=== PATIENT | female | born 1990 | race American Indian/Alaskan Native ===

== ENCOUNTER 2021-08-06 07:31 | Inpatient (IN) | payer OTHER, MEDICARE ==
[2021-08-06] MEDS ORDERED: cloNIDine 0.2 MG TAB PO ONE (12:48)
[2021-08-06] MEDS ORDERED: fentaNYL 100 MCG/2 ML INJ IV ONE (13:12)
[2021-08-06] MEDS ORDERED: ONDANSETRON 4 MG/2 ML INJ IV ONE (13:12)
--- NOTE | 2021-08-06 13:20 | Emergency Department Report ---
HPI - General Chief Complaint: Weakness Time Seen by Provider: 08/06/21 12:55 - HPI HPI: Room 25 Patient is a 30-year-old female present with chief complaint of shortness of breath. The patient states for the past 2 to 3 days she has had dyspnea on ex ertion and increased work of breathing whenever she sleeps. Patient states for the past 3 days she has had intermittent sharp substernal chest pain. Patient admits to pleurisy. Patient states she's also had a headache. Patient has a history end-stage renal disease and was last dialyzed 08/04/2021 ED Past Medical Hx - Past Medical History Previous Medical History?: Yes Hx Hypertension: Yes Hx Renal Disease: Yes (DIALYSIS TTS) Hx Seizures: Yes Hx Psychiatric Treatment: Yes (ADHD) Hx Asthma: Yes (childhood) Additional medical history: lupus - Surgical History Additional Surgical History: Left upper extremity fistula - Family History Family history: no significant - Social History Smoking Status: Never Smoker Substance Use Type: None (Denies illicit drug use) - Medications Home Medications: Home Medications Medication Instructions Recorded Confirmed Last Taken Type hydrOXYzine HCL [Atarax] 25 mg PO Q6HR PRN #20 tablet 06/19/13 03/01/14 Unknown Rx Folic Acid [Folvite] 1 mg PO QDAY #30 tablet 03/12/14 Unknown Rx Hydralazine HCl [hydrALAZINE] 100 mg PO DAILY #30 tablet 03/12/14 Unknown Rx Hydroxychloroquine [Plaquenil] 200 mg PO QDAY #30 tablet 03/12/14 Unknown Rx LORazepam [Ativan] 1 mg PO TID PRN #6 tablet 03/12/14 Unknown Rx Pantoprazole [Protonix TAB] 20 mg PO QDAY #20 tablet.dr 03/12/14 Unknown Rx amLODIPine 10 mg PO DAILY #30 tablet 03/12/14 Unknown Rx cloNIDine [Catapres] 0.1 mg PO BID #30 tablet 03/12/14 Unknown Rx hydrOXYzine HCL [Atarax] 25 mg PO Q6HR #20 tablet 03/12/14 Unknown Rx levETIRAcetam [Keppra TAB] 500 mg PO BID #60 tablet 03/12/14 Unknown Rx predniSONE 10 mg PO QPM #30 tablet 03/12/14 Unknown Rx risperiDONE [RisperDAL] 1 mg PO QHS #30 tablet 03/12/14 Unknown Rx Citalopram [celeXA] 20 mg PO QDAY #30 tablet 03/30/14 Unknown Rx ED Review of Systems ROS: Stated complaint: MALAISE X 2 DAYS Other details as noted in HPI Constitutional: denies: fever Eyes: denies: eye pain ENT: denies: throat pain Respiratory: shortness of breath, SOB with exertion, SOB at rest. denies: cough Cardiovascular: chest pain Endocrine: no symptoms reported Gastrointestinal: denies: nausea, vomiting Musculoskeletal: denies: back pain Neurological: headache Physical Exam - Physical Exam Vital Signs: Vital Signs 08/06/21 08/06/21 08/06/21 08:34 08:35 12:14 Pulse Rate 98 H 95 H Respiratory 16 14 Rate Blood Pressure 182/98 [Left] O2 Sat by Pulse 95 95 98 Oximetry Physical Exam: GENERAL: The patient is well-developed well-nourished female lying on stretcher not appearing to be in acute distress. [] HEENT: Normocephalic. Atraumatic. Extraocular motions are intact. Patient has moist mucous membranes. NECK: Supple. Trachea midline CHEST/LUNGS: Clear to auscultation. There is no respiratory distress noted. HEART/CARDIOVASCULAR: Regular. There is no tachycardia. There is no gallop rub or murmur. ABDOMEN: Abdomen is soft, nontender. Patient has normal bowel sounds. There is no abdominal distention. SKIN: There is no rash. There is no edema. There is no diaphoresis. NEURO: The patient is awake, alert, and oriented. The patient is cooperative. The patient has no focal neurologic deficits. The patient has normal speech. GCS 15 MUSCULOSKELETAL:There is no evidence of acute injury. ED Course Vital Signs 08/06/21 08/06/21 08/06/21 08:34 08:35 12:14 Pulse Rate 98 H 95 H Respiratory 16 14 Rate Blood Pressure 182/98 [Left] O2 Sat by Pulse 95 95 98 Oximetry - Consultations Consultation #1: 08/06/21 16:31 Nephrology paged 08/06/21 16:[address] Mejias- will arrange hemodialysis ED Medical Decision Making - Lab Data Result diagrams: 08/06/21 Unknown 08/06/21 Unknown Laboratory Tests 08/06/21 08/06/21 08/06/21 Unknown Unknown Unknown WBC 4.1 L RBC 2.28 L Hgb 6.9 L Hct 22.5 L MCV 99 H MCH 30 MCHC 31 RDW 18.0 H Plt Count 77 L Lymph % (Auto) 24.2 Ro[place] % (Auto) 6.4 Eos % (Auto) 4.7 H Baso % (Auto) 0.5 Lymph # (Auto) 1.0 L Roane # (Auto) 0.3 Eos # (Auto) 0.2 Baso # (Auto) 0.0 Seg Neutrophils % 64.2 Seg Neutrophils # 2.6 D-Dimer Sodium 135 L Potassium 5.8 H Chloride 103.0 Carbon Dioxide 16 L Anion Gap 22 BUN 56 H Creatinine 9.8 H Estimated GFR 6 BUN/Creatinine Ratio 6 Glucose 81 Calcium 9.1 Total Bilirubin 0.30 AST 25 ALT 8 Alkaline Phosphatase 104 Troponin T 0.097 H NT-Pro-B Natriuret Pep Total Protein 7.2 Albumin 3.3 L Albumin/Globulin Ratio 0.8 HCG, Qual 08/06/21 08/06/21 08/06/21 Unknown Unknown Unknown WBC RBC Hgb Hct MCV MCH MCHC RDW Plt Count Lymph % (Auto) Roane % (Auto) Eos % (Auto) Baso % (Auto) Lymph # (Auto) Ro[place] # (Auto) Eos # (Auto) Baso # (Auto) Seg Neutrophils % Seg Neutrophils # D-Dimer 6037.58 H Sodium Potassium Chloride Carbon Dioxide Anion Gap BUN Creatinine Estimated GFR BUN/Creatinine Ratio Glucose Calcium Total Bilirubin AST ALT Alkaline Phosphatase Troponin T NT-Pro-B Natriuret Pep 73548 H Total Protein Albumin Albumin/Globulin Ratio HCG, Qual Negative - EKG Data -: EKG Interpreted by Me EKG shows normal: sinus rhythm, axis Rate: normal - EKG Data When compared to previous EKG there are: previous EKG unavailable Interpretation: nonspecific ST-T wave mara (T wave inversion lead V2) - Radiology Data Radiology results: report reviewed (Chest x-ray, VQ scan, CT head), image reviewed (Chest x-ray, VQ scan, CT head) interpreted by me: Chest x-ray-no definite focal infiltrate, no pneumothorax [facility] [address] [place] [address] [address] [facility] Medicine Report Signed Patient: SPENSER MCDANIEL MR#: [id number] : 1990 Acct:[id number] Age/Sex: 30 / F ADM Date: 08/06/21 Loc: ED Attending Dr: Ordering Physician: JOSE RAMIREZ MD Date of Service: 08/06/21 Procedure(s): NM perfusion only lung scan Accession Number(s): [id number] cc: JOSE RAMIREZ MD NUCLEAR MEDICINE PERFUSION SCAN INDICATION: Chest pain, shortness of breath CORRELATION: AP chest performed the same day RADIOPHARMACEUTICAL: Perfusion: 5.3 mCi Tc-99m MAA given IV FINDINGS: Perfusion images show symmetric and uniform radiotracer distribution throughout bilateral lung zones with no evidence of unmatched segmental perfusion defects. The cardiac silhouette is enlarged. IMPRESSION: Low probability perfusion scan for pulmonary embolism. Signer Name: Pascual Dc Jr, MD Signed: 08/06/2021 4:10 PM Workstation Name: [id number] Transcribed By: TTR Dictated By: PASCUAL DC JR, MD Electronically Authenticated By: PASCUAL DC JR, MD Signed Date/Time: 08/06/21 1610 DD/ 1605 TD/TT: [facility] [address] [place] [address] Cat Scan Report Signed Patient: SPENSER MCDANIEL MR#: [id number] : 1990 Acct:[id number] Age/Sex: 30 / F ADM Date: 08/06/21 Loc: ED Attending Dr: Ordering Physician: JOSE RAMIREZ MD Date of Service: 08/06/21 Procedure(s): CT head/brain wo con Accession Number(s): [id number] cc: JOSE RAMIREZ MD . CT HEAD WITHOUT CONTRAST INDICATION / CLINICAL INFORMATION: Hypertension, headache. TECHNIQUE: All CT scans at this location are performed using CT dose reduction for ALARA by means of automated exposure control. COMPARISON: Head CT 01/13/2013 FINDINGS: HEMORRHAGE: No evidence of intracranial hemorrhage or extra-axial fluid collection. EXTRA-AXIAL SPACES: Cortical sulci, sylvian fissures and basilar cisterns have an unremarkable appearance. VENTRICULAR SYSTEM: About the lateral ventricles are mildly enlarged. This is likely on a developmental basis. The third and fourth ventricles are of normal size and configuration. CEREBRAL PARENCHYMA: No areas of abnormal brain parenchymal attenuation are identified. There is no indication of recent infarction. On previous study a region of decreased brain parenchymal attenuation was observed in the right occipital lobe. This has resolved. MIDLINE SHIFT OR HERNIATION: The re is no mass effect. CEREBELLUM / BRAINSTEM: Brainstem and cerebellum have an unremarkable appearance. MIDLINE STRUCTURES:No abnormalities of the pituitary gland or pineal region are identified. INTRACRANIAL VESSELS:No abnormalities are identified on this noncontrast head CT. ORBITS: visualized portions of the orbits have an unremarkable appearance. SOFT TISSUES of HEAD: No significant abnormality. CALVARIUM: Evaluation of bone windows reveals no abnormalities. PARANASAL SINUSES / MASTOID AIR CELLS: Visualized portions of the paranasal sinuses are free from inflammatory mucosal disease. Mastoid air cells are normally pneumatized. IMPRESSION: 1. No significant intracranial abnormality. No detrimental interval change in comparison to prior study. Signer Name: Bin Barlow MD Signed: 08/06/2021 4:20 PM Workstation Name: [id number] Transcribed By: Dictated By: Bin Barlow MD Electronically Authenticated By: Bin Barlow MD Signed Date/Time: 08/06/21 1620 DD/ 1609 TD/TT: - Differential Diagnosis Hypertensive urgency, hypertensive emergency, volume overload, CHF Critical care attestation.: If time is entered above; I have spent that time in minutes in the direct care of this critically ill patient, excluding procedure time. ED Disposition Clinical Impression: Hypertensive urgency, Hyperkalemia, ESRD needing dialysis, Chest pain Disposition: ADMITTED INPATIENT Is pt being admited?: Yes Does the pt Need Aspirin: No Condition: Fair Instructions: Nonspecific Chest Pain, Adult Referrals: AMPARO BOOTH MD [Primary Care Provider] - 3-5 Days Time of Disposition: 16:46 (Care transferred to hospitalist (Dr. Patino))
[2021-08-06 14:24] LABS: Basophils % (Auto) 0.5 % (0.0-1.8); Eosinophils # (Auto) 0.2 K/mm3 (0.0-0.4); Eosinophils % (Auto) 4.7 % (0.0-4.3); Hematocrit 22.5 % (30.3-42.9); Hemoglobin 6.9 gm/dl (10.1-14.3); Lymphocytes % (Auto) 24.2 % (13.4-35.0); Mean Corpuscular HGB Conc 31 % (30-34); Mean Corpuscular Volume 99 fl (79-97); Monocytes # (Auto) 0.3 K/mm3 (0.0-0.8); Monocytes % (Auto) 6.4 % (0.0-7.3); Red Blood Count 2.28 M/mm3 (3.65-5.03)
[2021-08-06 14:25] LABS: Platelet Count 77 K/mm3 (140-440)
[2021-08-06 14:56] LABS: Albumin 3.3 g/dL (3.9-5); Calcium 9.1 mg/dL (8.4-10.2)
[2021-08-06] MEDS ORDERED: hydrALAZINE 20 MG/1 ML INJ IV ONE (15:00)
[2021-08-06] MEDS ORDERED: diphenhydrAMINE 50 MG/ML VIAL IV ONE (15:26)
--- NOTE | 2021-08-06 15:33 | XRay Report ---
CHEST 1 VIEW 08/06/2021 2:59 PM INDICATION / CLINICAL INFORMATION: chest pain, shortness of breath. COMPARISON: 03/23/2014 FINDINGS: SUPPORT DEVICES: Right IJ permacath terminates in the superior right atrium HEART / MEDIASTINUM: Mild cardiomegaly LUNGS / PLEURA: Mild pulmonary venous congestion and trace left pleural effusion. No evidence for pne umonia or pneumothorax. ADDITIONAL FINDINGS: No significant additional findings. IMPRESSION: 1. Mild volume overload. Signer Name: Pascual Dc Jr, MD Signed: 08/06/2021 3:28 PM Workstation Name: [id number]
--- NOTE | 2021-08-06 16:14 | Nuclear Medicine Report ---
NUCLEAR MEDICINE PERFUSION SCAN INDICATION: Chest pain, shortness of breath CORRELATION: AP chest performed the same day RADIOPHARMACEUTICAL: Perfusion: 5.3 mCi Tc-99m MAA given IV FINDINGS: Perfusion images show symmetric and uniform radiotracer distribution throughout bilateral lung zones with no evidence of unmatched segmental perfusion defects. The cardiac silhouette is enlarged. IMPRESSION: Low probability perfusion scan for pulmonary embolism. Signer Name: Pascual Dc Jr, MD Signed: 08/06/2021 4:10 PM Workstation Name: [id number]
[2021-08-06] MEDS ORDERED: niCARdipine DRIP 40 MG/200 ML BAG IV ONE (16:15)
--- NOTE | 2021-08-06 16:25 | Cat Scan Report ---
. CT HEAD WITHOUT CONTRAST INDICATION / CLINICAL INFORMATION: Hypertension, headache. TECHNIQUE: All CT scans at this location are performed using CT dose reduction for ALARA by means of automated e xposure control. COMPARISON: Head CT 01/13/2013 FINDINGS: HEMORRHAGE: No evidence of intracranial hemorrhage or extra-axial fluid collection. EXTRA-AXIAL SPACES: Cortical sulci, sylvian fissures and basilar cisterns have an unremarkable appear ance. VENTRICULAR SYSTEM: About the lateral ventricles are mildly enlarged. This is likely on a development al basis. The third and fourth ventricles are of normal size and configuration. CEREBRAL PARENCHYMA: No areas of abnormal brain parenchymal attenuation are identified. There is no i ndication of recent infarction. On previous study a region of decreased brain parenchymal attenuation was observed in the right occipital lobe. This has resolved. MIDLINE SHIFT OR HERNIATION: There is no mass effect. CEREBELLUM / BRAINSTEM: Brainstem and cerebellum have an unremarkable appearance. MIDLINE STRUCTURES:No abnormalities of the pituitary gland or pineal region are identified. INTRACRANIAL VESSELS:No abnormalities are identified on this noncontrast head CT. ORBITS: visualized portions of the orbits have an unremarkable appearance. SOFT TISSUES of HEAD: No significant abnormality. CALVARIUM: Evaluation of bone windows reveals no abnormalities. PARANASAL SINUSES / MASTOID AIR CELLS: Visualized portions of the paranasal sinuses are free from inf lammatory mucosal disease. Mastoid air cells are normally pneumatized. IMPRESSION: 1. No significant intracranial abnormality. No detrimental interval change in comparison to prior antione dy. Signer Name: Bin Barlow MD Signed: 08/06/2021 4:20 PM Workstation Name: [address]
[2021-08-06] MEDS ORDERED: INSULIN REGULAR, HUMAN 100 UNITS/1 ML IV ONE (16:30)
[2021-08-06] MEDS ORDERED: ALBUTEROL 2.5 MG/3 ML NEBU IH ONE (16:30)
[2021-08-06] MEDS ORDERED: DEXTROSE 50% IN WATER (25GM) 50 ML SYRINGE IV ONE (16:30)
[2021-08-06] MEDS ORDERED: SODIUM BICARB 8.4% 50 MEQ/50 ML SYRINGE IV ONE (16:30)
--- NOTE | 2021-08-06 16:49 | History and Physical Report ---
History of Present Illness Chief complaint: I am a little short of breath History of present illness: 30 YO Female with HTN, ESRD on HD(T,R,Sa), Seizure Disorder, SLE, ADHD, Malnutrition presents to ED for evaluation. Patient reports "I am short of breath, and my head hurts". Patient states that she has experienced shortness of breath over the past 2 days with persistent symptoms over the same timeframe. Patient also reports chest discomfort with deep breathing but denies chest pain. Patient transported to [facility] via private vehicle for further care and evaluation of the aforementioned symptoms. The patient was seen and evaluated in the emergency department. All lab and imaging studies reviewed. Patient fo und to have diminished cognition with mild confusion. Patient was found to have hypertensive emergency with a blood pressure of 229/151 mmHg. Patient initiated on Cardene drip in the emergency department. Patient was found to have hypertensive encephalopathy, fluid overload, as well as end-stage renal disease in need of urgent dialysis. Patient admitted to [facility]. Nephrology team consulted in ED. No reports of fever, chills, chest pain, palpitation, adductive cough, skin rash, recent contact, known exposure to COVID-19. Prior admission on 03/03/2014 reviewed. All medication listed at time of admission has been reconciled. Advanced care planning conducted in ED. Past History Past Medical History: ESRD, hypertension, seizures, other (See HPI) Past Surgical History: Other (Dialysis access) Social history: single Family history: hypertension Medications and Allergies Allergies Allergy/AdvReac Type Severity Reaction Status Date / Time amoxicillin trihydrate Allergy Unknown Unknown Verified 05/27/13 11:32 [From Augmentin] diphenhydramine Allergy Itching Verified 08/06/21 16:06 [From Benadryl] potassium clavulanate AdvReac Unknown Unknown Verified 05/27/13 11:32 [From Augmentin] Home Medications Medication Instructions Recorded Confirmed Last Taken Type hydrOXYzine HCL [Atarax] 25 mg PO Q6HR PRN #20 tablet 06/19/13 03/01/14 Unknown Rx Folic Acid [Folvite] 1 mg PO QDAY #30 tablet 03/12/14 Unknown Rx Hydralazine HCl [hydrALAZINE] 100 mg PO DAILY #30 tablet 03/12/14 Unknown Rx Hydroxychloroquine [Plaquenil] 200 mg PO QDAY #30 tablet 03/12/14 Unknown Rx LORazepam [Ativan] 1 mg PO TID PRN #6 tablet 03/12/14 Unknown Rx Pantoprazole [Protonix TAB] 20 mg PO QDAY #20 tablet.dr 03/12/14 Unknown Rx amLODIPine 10 mg PO DAILY #30 tablet 03/12/14 Unknown Rx cloNIDine [Catapres] 0.1 mg PO BID #30 tablet 03/12/14 Unknown Rx hydrOXYzine HCL [Atarax] 25 mg PO Q6HR #20 tablet 03/12/14 Unknown Rx levETIRAcetam [Keppra TAB] 500 mg PO BID #60 tablet 03/12/14 Unknown Rx predniSONE 10 mg PO QPM #30 tablet 03/12/14 Unknown Rx risperiDONE [RisperDAL] 1 mg PO QHS #30 tablet 03/12/14 Unknown Rx Citalopram [celeXA] 20 mg PO QDAY #30 tablet 03/30/14 Unknown Rx Active Meds: Active Medications Nicardipine/Sodium Chloride (Cardene Drip 40 Mg/200 Ml) 40 mg in 200 mls @ 25 mls/hr IV ONCE ONE; Protocol Stop: 08/07/21 00:14 Last Admin: 08/06/21 16:28 Dose: 5 mg/hr, 25 mls/hr Calcium Gluconate 1,000 mg/ (Sodium Chloride) 110 mls @ 660 mls/hr IV ONCE ONE Stop: 08/06/21 16:39 Review of Systems Constitutional: no weight loss, no weight gain, no chills Ears, nose, mouth and throat: no ear pain, no tinnitis, no nose pain Breasts: no change in shape, no mass Cardiovascular: no chest pain, no orthopnea, no edema Respiratory: shortness of breath, no cough, no cough with sputum, no hemoptysis Gastrointestinal: no abdominal pain, no nausea, no vomiting, no constipation Genitourinary Female: no dysuria, no urinary frequency, no urgency Rectal: no pain, no incontinence, no bleeding Musculoskeletal: no neck stiffness, no shooting arm pain Integumentary: no rash, no redness, no sores, no wounds Neurological: no head injury, no transient paralysis, no paralysis, no parathesias Psychiatric: no anxiety, no change in sleep habits, no hypersomnia, no suicidal ideation Endocrine: no cold intolerance, no excessive thirst, no polyuria, no nocturia, no flushing Hematologic/Lymphatic: no lymphedema Allergic/Immunologic: no urticaria, no wheezing, no persistent infections Exam - Constitutional Vitals: Temp Pulse Resp BP Pulse Ox 81 14 205/127 100 08/06/21 15:07 08/06/21 14:50 08/06/21 16:11 08/06/21 15:00 General appearance: Present: mild distress, cachectic - EENT Eyes: Present: PERRL ENT: hearing intact, clear oral mucosa - Neck Neck: Present: supple, normal ROM - Respiratory Respiratory effort: normal Respiratory: bilateral: CTA - Cardiovascular Heart Sounds: Present: S1 & S2. Absent: rub, click - Extremities Extremities: pulses symmetrical, No edema Peripheral Pulses: within normal limits - Abdominal General gastrointestinal: Present: soft, non-tender, non-distended, normal bowel sounds Female genitourinary: Present: normal - Integumentary Integumentary: Present: clear, warm, dry - Musculoskeletal Musculoskeletal: gait normal, strength equal bilaterally - Psychiatric Psychiatric: appropriate mood/affect, intact judgment & insight - Neurologic Neurologic: CNII-XII intact, moves all extremities HEART Score - HEART Score Troponin: Troponin T 0.097 ng/mL (0.00-0.029) H 08/06/21 Unknown Results - Labs CBC & Chem 7: 08/06/21 Unknown 08/06/21 Unknown Labs: Abnormal lab results 08/06/21 08/06/21 08/06/21 Range/Units Unknown Unknown Unknown WBC 4.1 L (4.5-11.0) K/mm3 RBC 2.28 L (3.65-5.03) M/mm3 Hgb 6.9 L (10.1-14.3) gm/dl Hct 22.5 L (30.3-42.9) % MCV 99 H (79-97) fl RDW 18.0 H (13.2-15.2) % Plt Count 77 L (140-440) K/mm3 Eos % (Auto) 4.7 H (0.0-4.3) % Lymph # (Auto) 1.0 L (1.2-5.4) K/mm3 D-Dimer (0-234) ng/mlDDU Sodium 135 L (137-145) mmol/L Potassium 5.8 H (3.6-5.0) mmol/L Carbon Dioxide 16 L (22-30) mmol/L BUN 56 H (7-17) mg/dL Creatinine 9.8 H (0.6-1.2) mg/dL Troponin T 0.097 H (0.00-0.029) ng/mL NT-Pro-B Natriuret Pep (0-450) pg/mL Albumin 3.3 L (3.9-5) g/dL 08/06/21 08/06/21 Range/Units Unknown Unknown WBC (4.5-11.0) K/mm3 RBC (3.65-5.03) M/mm3 Hgb (10.1-14.3) gm/dl Hct (30.3-42.9) % MCV (79-97) fl RDW (13.2-15.2) % Plt Count (140-440) K/mm3 Eos % (Auto) (0.0-4.3) % Lymph # (Auto) (1.2-5.4) K/mm3 D-Dimer 6037.58 H (0-234) ng/mlDDU Sodium (137-145) mmol/L Potassium (3.6-5.0) mmol/L Carbon Dioxide (22-30) mmol/L BUN (7-17) mg/dL Creatinine (0.6-1.2) mg/dL Troponin T (0.00-0.029) ng/mL NT-Pro-B Natriuret Pep 76553 H (0-450) pg/mL Albumin (3.9-5) g/dL Assessment and Plan - Patient Problems (1) Hypertensive emergency Current Visit: Yes Status: Acute Plan to address problem: Continue antihypertensive therapy, blood pressure checks as per nursing care protocol, Cardene drip, neuro check, seizure precautions. (2) End stage renal disease Current Visit: Yes Status: Acute Plan to address problem: Nephrology team consulted in ED. Dialysis as per nephrology team, strict I's/O, avoid nephrotoxic agents. (3) SLE (systemic lupus erythematosus) Current Visit: Yes Status: Acute Plan to address problem: Continue current therapy, outpatient rheumatology follow-up. (4) Fluid overload Current Visit: Yes Status: Acute Qualifiers: Hypervolemia type: unspecified Qualified Code(s): E87.70 - Fluid overload, unspecified Plan to address problem: Dialysis as per renal team, monitor fluid balance, supportive care. (5) Malnutrition Current Visit: Yes Status: Acute Qualifiers: Protein-calorie malnutrition severity: moderate Plan to address problem: Encourage increased protein intake, dietary supplementation. (6) DVT prophylaxis Current Visit: Yes Status: Acute Plan to address problem: SCD to bilateral lower extremities while in bed (7) Advance care planning Current Visit: Yes Status: Acute Plan to address problem: Disease education data, care plan discussed, diagnoses discussed, prognosis discussed, patient is full code. Patient knowledges understanding and agreement with care plan, +30 minutes. (8) Preventative health care Current Visit: Yes Status: Acute Plan to address problem: Patient counseled regarding medication plans, increase protein intake, balanced diet, compliance with outpatient dialysis, compliance with medication, risk factor reduction, +30 minutes.
[2021-08-06] MEDS ORDERED: oxyCODONE /ACETAMINOPHEN 5-325MG TAB PO PRN (16:55)
[2021-08-06] MEDS ORDERED: hydrOXYzine HCL 25 MG TAB PO PRN (16:56)
[2021-08-06] MEDS ORDERED: CALCIUM GLUCONATE 1,000 MG in SODIUM CHLORIDE 0.9% 100 ML IV ONE (17:30)
[2021-08-06] MEDS ORDERED: predniSONE 10 MG TAB PO SCH (18:00)
[2021-08-06] MEDS ORDERED: ACETAMINOPHEN 325 MG TAB PO PRN (18:00)
[2021-08-06] MEDS: HYDROmorphone 0.5 MG/0.5 ML INJ IV PRN (18:00)
[2021-08-06 18:54] LABS: Hepatitis B Surface Antigen Non-Reactive (Negative); Hepatitis C Virus Antibody Non-Reactive (NonReactive)
[2021-08-06] MEDS ORDERED: cloNIDine 0.1 MG TAB PO STA (21:53)
[2021-08-06] MEDS ORDERED: cloNIDine 0.1 MG TAB PO SCH (22:00)
[2021-08-06] MEDS: hydrALAZINE 20 MG/1 ML INJ IV PRN (22:35)
[2021-08-06] MEDS: risperiDONE 1 MG TAB PO SCH (23:30)
[2021-08-06] MEDS: LORazepam 1 MG TAB PO PRN (23:30)
[2021-08-06] MEDS: levETIRAcetam 500 MG TAB PO SCH (23:30)
[2021-08-07] MEDS: hydrALAZINE 20 MG/1 ML INJ IV PRN (04:20)
[2021-08-07] MEDS: niCARdipine 50 MG in SODIUM CHLORIDE 0.9% 250ML 230 ML IV SCH (05:10)
--- NOTE | 2021-08-07 08:22 | Consultation ---
History of Present Illness Consult date: 08/07/21 Requesting physician: TAQUERIA PATIÑO Reason for consult: other (Hypertensive emergency needing emergent HD and ) History of present illness: 30 YO Female with HTN, ESRD on HD(T,R,Sa), Seizure Disorder, SLE, ADHD, Malnutr ition presents to ED for evaluation. Patient reports "I am short of breath, and my head hurts". Patient states that she has experienced shortness of breath over the past 2 days with persistent symptoms over the same timeframe. Patient also reports chest discomfort with deep breathing but denies chest pain. Patient transported to [facility] via private vehicle for further care and evaluation of the aforementioned symptoms. The patient was seen and evaluated in the emergency department. All lab and imaging studies reviewed. Patient found to have diminished cognition with mild confusion. Patient was found to have hypertensive emergency with a blood pressure of 229/151 mmHg. Patient initiated on Cardene drip in the emergency department. Patient was found to have hypertensive encephalopathy, fluid overload, as well as end-stage renal disease in need of urgent dialysis She has been admitted to the ICU for emergent HD and she is on Cardene infusion for BP control A critical care consult has been placed. Patient seen and examined. Vitals, labs, medications, chart and imaging reviewed. She had emergent HD yesterday, she states she is complaint with her medications. - Past Medical History Previous Medical History?: Yes Hx Hypertension: Yes Hx Renal Disease: Yes (DIALYSIS TTS) Hx Seizures: Yes Hx Psychiatric Treatment: Yes (ADHD) Hx Asthma: Yes (childhood) Additional medical history: lupus - Surgical History Additional Surgical History: Left upper extremity fistula Right chest wall permacath - Family History Family history: no significant - Social History Smoking Status: Never Smoker Substance Use Type: None (Denies illicit drug use) ROS: Stated complaint: MALAISE X 2 DAYS Other details as noted in HPI Constitutional: denies: fever Eyes: denies: eye pain ENT: denies: throat pain Respiratory: shortness of breath, SOB with exertion, SOB at rest. denies: cough Cardiovascular: chest pain Endocrine: no symptoms reported Gastrointestinal: denies: nausea, vomiting Musculoskeletal: denies: back pain Neurological: headache Past History Past Medical History: ESRD, hypertension, seizures, other (See HPI) Past Surgical History: Other (Dialysis access) Social history: single Family history: hypertension Medications and Allergies Allergies Allergy/AdvReac Type Severity Reaction Status Date / Time amoxicillin trihydrate Allergy Unknown Unknown Verified 05/27/13 11:32 [From Augmentin] diphenhydramine Allergy Itching Verified 08/06/21 16:06 [From Benadryl] potassium clavulanate AdvReac Unknown Unknown Verified 05/27/13 11:32 [From Augmentin] Home Medications Medication Instructions Recorded Confirmed Last Taken Type hydrOXYzine HCL [Atarax] 25 mg PO Q6HR PRN #20 tablet 06/19/13 03/01/14 Unknown Rx Folic Acid [Folvite] 1 mg PO QDAY #30 tablet 03/12/14 Unknown Rx Hydralazine HCl [hydrALAZINE] 100 mg PO DAILY #30 tablet 03/12/14 Unknown Rx Hydroxychloroquine [Plaquenil] 200 mg PO QDAY #30 tablet 03/12/14 Unknown Rx LORazepam [Ativan] 1 mg PO TID PRN #6 tablet 03/12/14 Unknown Rx Pantoprazole [Protonix TAB] 20 mg PO QDAY #20 tablet.dr 03/12/14 Unknown Rx amLODIPine 10 mg PO DAILY #30 tablet 03/12/14 Unknown Rx cloNIDine [Catapres] 0.1 mg PO BID #30 tablet 03/12/14 Unknown Rx hydrOXYzine HCL [Atarax] 25 mg PO Q6HR #20 tablet 03/12/14 Unknown Rx levETIRAcetam [Keppra TAB] 500 mg PO BID #60 tablet 03/12/14 Unknown Rx predniSONE 10 mg PO QPM #30 tablet 03/12/14 Unknown Rx risperiDONE [RisperDAL] 1 mg PO QHS #30 tablet 03/12/14 Unknown Rx Citalopram [celeXA] 20 mg PO QDAY #30 tablet 03/30/14 Unknown Rx Active Meds: Active Medications Acetaminophen (Acetaminophen 325 Mg Tab) 650 mg PO Q6H PRN PRN Reason: Pain MILD(1-3)/Fever >100.5/GUZMAN Amlodipine Besylate (Amlodipine 10 Mg Tab) 10 mg PO DAILY [facility] Citalopram Hydrobromide (Citalopram 10 Mg Tab) 20 mg PO QDAY [facility] Clonidine HCl (Clonidine 0.1 Mg Tab) 0.1 mg PO TID [facility] Folic Acid (Folic Acid 1 Mg Tab) 1 mg PO QDAY [facility] Hydralazine HCl (Hydralazine 20 Mg/1 Ml Inj) 10 mg IV Q4HR PRN PRN Reason: Blood Pressure Last Admin: 08/07/21 04:20 Dose: 10 mg Hydralazine HCl (Hydralazine 25 Mg Tab) 50 mg PO Q6HR [facility] Hydromorphone HCl (Hydromorphone 0.5 Mg/0.5 Ml Inj) 0.5 mg IV Q3H PRN PRN Reason: Pain , Severe (7-10) Last Admin: 08/06/21 18:00 Dose: 0.5 mg Hydroxychloroquine Sulfate (Hydroxychloroquine 200 Mg Tab) 200 mg PO QDAY [facility] Hydroxyzine HCl (Hydroxyzine Hcl 25 Mg Tab) 25 mg PO Q6HR PRN PRN Reason: Itching Nicardipine HCl 50 mg/ Sodium (Chloride) 250 mls @ 25 mls/hr IV TITR [facility]; Protocol Last Titration: 08/07/21 07:05 Dose: 5 mg/hr, 25 mls/hr Levetiracetam (Levetiracetam 500 Mg Tab) 500 mg PO BID [facility] Last Admin: 08/06/21 23:30 Dose: 500 mg Lorazepam (Lorazepam 1 Mg Tab) 1 mg PO TID PRN PRN Reason: Anxiety Last Admin: 08/06/21 23:30 Dose: 1 mg Oxycodone/Acetaminophen (Oxycodone /Acetaminophen 5-325mg Tab) 1 tab PO Q6H PRN PRN Reason: Pain, Moderate (4-6) Pantoprazole Sodium (Pantoprazole 20 Mg Tab) 20 mg PO QDAY [facility] Prednisone (Prednisone 10 Mg Tab) 10 mg PO QPM [facility] Risperidone (Risperidone 1 Mg Tab) 1 mg PO QHS [facility] Last Admin: 08/06/21 23:30 Dose: 1 mg Sodium Chloride (Sodium Chloride 0.9% 10 Ml Flush Syringe) 10 ml IV BID [facility] Last Admin: 08/06/21 23:00 Dose: 10 ml Sodium Chloride (Sodium Chloride 0.9% 10 Ml Flush Syringe) 10 ml IV PRN PRN PRN Reason: LINE FLUSH Physical Examination Vital signs: Vital Signs Pulse Ox 95 08/06/21 08:34 General appearance: Present: mild distress, cachectic - EENT Eyes: Present: PERRL ENT: hearing intact, clear oral mucosa - Neck Neck: Present: supple, normal ROM - Respiratory Respiratory effort: normal Respiratory: bilateral: CTA - Cardiovascular Heart Sounds: Present: S1 & S2. Absent: rub, click - Extremities Extremities: pulses symmetrical, No edema Peripheral Pulses: within normal limits - Abdominal General gastrointestinal: Present: soft, non-tender, non-distended, normal bowel sounds Female genitourinary: Present: normal - Integumentary Integumentary: Present: clear, warm, dry - Musculoskeletal Musculoskeletal: gait normal, strength equal bilaterally - Psychiatric Psychiatric: appropriate mood/affect, intact judgment & insight - Neurologic Neurologic: CNII-XII intact, moves all extremities General appearance: no acute distress, other (chronically ill looking) Eyes: non-icteric ENT: oropharynx moist Neck: supple, no lymphadenopathy, no JVD Effort: mildly labored Ascultation: Bilateral: diminished breath sounds Cardiovascular: other (tachycardia, S1,S2 right chest wall permcath) Gastrointestinal: normoactive bowel sounds, soft, non-tender Integumentary: normal Extremities: no cyanosis, no edema, pulses normal normal mental status, non-focal exam, pupils equal and round, CN II-XII normal, motor strength normal and mood appropriate, affect normal Results - Laboratory Findings CBC and BMP: 08/07/21 12:40 08/07/21 04:48 PT/INR, D-dimer D-Dimer 6037.58 ng/mlDDU (0-234) H 08/06/21 Unknown Abnormal lab findings: Abnormal Labs 08/06/21 08/06/21 08/06/21 Unknown Unknown Unknown WBC 4.1 L RBC 2.28 L Hgb 6.9 L Hct 22.5 L MCV 99 H RDW 18.0 H Plt Count 77 L Eos % (Auto) 4.7 H Lymph # (Auto) 1.0 L D-Dimer Sodium 135 L Potassium 5.8 H Chloride Carbon Dioxide 16 L BUN 56 H Creatinine 9.8 H Troponin T 0.097 H NT-Pro-B Natriuret Pep Albumin 3.3 L 08/06/21 08/06/21 08/07/21 Unknown Unknown 04:48 WBC RBC Hgb Hct MCV RDW Plt Count Eos % (Auto) Lymph # (Auto) D-Dimer 6037.58 H Sodium Potassium 5.5 H Chloride 97.1 L Carbon Dioxide 19 L BUN 33 H Creatinine 6.6 H Troponin T NT-Pro-B Natriuret Pep 19304 H Albumin - Diagnostic Findings Chest x-ray: image reviewed Assessment and Plan Hypertensive emergency End stage renal disease Anemia SLE (systemic lupus erythematosus) Pulmonary edema, respiratory insufficiency Protein calorie Malnutrition Thrombocytopenia Headache H/o Seizure Disorder Continue antihypertensive therapy, blood pressure checks as per nursing care protocol, Cardene drip, neuro check, seizure precautions. Continue Plaquenil Resume home medications- oral antihypertensives Medical managemnt of hyperkalemia, continue with telemetry monitoring Will need another HD session today Cytopenia probably secondary to lupus Supportive transfusion to keep HgB>7g/dL, Epogen and hematinics VTE prophylaxis- early ambulation, SCDs while in bed Dialysis as per renal team, monitor fluid balance, supportive care. Change prn hydrallazine to prn labetelol- patient has baseline tachycardia, target blood pressure SBP<150S Supplemental oxygen, titrate to keep SpO2 89-92% Avoid nephrotoxic medications; Renally dose medications Chronic home medications as clinically indicated Serial CBC The high probability of a clinically significant, sudden or life threatening deterioration of the [multiple] system(s) required my full and direct attention, intervention and personal management. The aggregate critical care time was [45 ] minutes. This time is in addition to time spent performing reported procedures but includes the following: [x] Data Review and interpretation [x] Patient assessment and monitoring of vital signs [x] Documentation [x] Medication orders and management
[2021-08-07] MEDS ORDERED: SODIUM POLYSTYRENE 15 GM/60 ML ORAL LIQD PO SCH (09:45)
[2021-08-07] MEDS ORDERED: hydrALAZINE 100 MG TAB PO SCH (10:00)
[2021-08-07] MEDS: CITALOPRAM 10 MG TAB PO SCH (10:53)
[2021-08-07] MEDS: levETIRAcetam 500 MG TAB PO SCH ×2 (10:53→21:25)
[2021-08-07] MEDS: amLODIPine 10 MG TAB PO SCH (10:54)
[2021-08-07] MEDS: FOLIC ACID 1 MG TAB PO SCH (10:54)
[2021-08-07] MEDS: PANTOPRAZOLE 20 MG TAB PO SCH (10:54)
[2021-08-07] MEDS: cloNIDine 0.1 MG TAB PO SCH ×4 (10:55→20:00)
[2021-08-07] MEDS: HYDROXYCHLOROQUINE 200 MG TAB PO SCH (10:56)
--- NOTE | 2021-08-07 12:16 | Consultation ---
History of Present Illness - Reason for Consult Consult date: 08/07/21 end stage renal disease - History of Present Illness This is a 30 year old female who is a poor historian who presented to the hospital for chief complaint s of having shortness of breath and headache. Patient was found to have Hypertensive Emergency in E.R and was placed on Cardene drip. Patient has history of ESRD on hemodialysis via right IJ perm- catheter seen, Hypertension, Siezure, Bipolar, Lupus and ADHD. We are being consulted for management of this patient's ESRD. Past History Past Medical History: ESRD, hypertension, seizures, other (See HPI) Past Surgical History: Other (Dialysis access) Social history: single Family history: hypertension Medications and Allergies Allergies Allergy/AdvReac Type Severity Reaction Status Date / Time amoxicillin trihydrate Allergy Unknown Unknown Verified 05/27/13 11:32 [From Augmentin] diphenhydramine Allergy Itching Verified 08/06/21 16:06 [From Benadryl] potassium clavulanate AdvReac Unknown Unknown Verified 05/27/13 11:32 [From Augmentin] Home Medications Medication Instructions Recorded Confirmed Last Taken Type hydrOXYzine HCL [Atarax] 25 mg PO Q6HR PRN #20 tablet 06/19/13 03/01/14 Unknown Rx Folic Acid [Folvite] 1 mg PO QDAY #30 tablet 03/12/14 Unknown Rx Hydralazine HCl [hydrALAZINE] 100 mg PO DAILY #30 tablet 03/12/14 Unknown Rx Hydroxychloroquine [Plaquenil] 200 mg PO QDAY #30 tablet 03/12/14 Unknown Rx LORazepam [Ativan] 1 mg PO TID PRN #6 tablet 03/12/14 Unknown Rx Pantoprazole [Protonix TAB] 20 mg PO QDAY #20 tablet. 03/12/14 Unknown Rx amLODIPine 10 mg PO DAILY #30 tablet 03/12/14 Unknown Rx cloNIDine [Catapres] 0.1 mg PO BID #30 tablet 03/12/14 Unknown Rx hydrOXYzine HCL [Atarax] 25 mg PO Q6HR #20 tablet 03/12/14 Unknown Rx levETIRAcetam [Keppra TAB] 500 mg PO BID #60 tablet 03/12/14 Unknown Rx predniSONE 10 mg PO QPM #30 tablet 03/12/14 Unknown Rx risperiDONE [RisperDAL] 1 mg PO QHS #30 tablet 03/12/14 Unknown Rx Citalopram [celeXA] 20 mg PO QDAY #30 tablet 03/30/14 Unknown Rx Active Meds: Active Medications Acetaminophen (Acetaminophen 325 Mg Tab) 650 mg PO Q6H PRN PRN Reason: Pain MILD(1-3)/Fever >100.5/GUZMAN Amlodipine Besylate (Amlodipine 10 Mg Tab) 10 mg PO DAILY [facility] Last Admin: 08/07/21 10:54 Dose: 10 mg Citalopram Hydrobromide (Citalopram 10 Mg Tab) 20 mg PO QDAY [facility] Last Admin: 08/07/21 10:53 Dose: 20 mg Clonidine HCl (Clonidine 0.1 Mg Tab) 0.1 mg PO TID [facility] Last Admin: 08/07/21 10:55 Dose: 0.1 mg Folic Acid (Folic Acid 1 Mg Tab) 1 mg PO QDAY [facility] Last Admin: 08/07/21 10:54 Dose: 1 mg Hydralazine HCl (Hydralazine 25 Mg Tab) 50 mg PO Q6HR [facility] Hydromorphone HCl (Hydromorphone 0.5 Mg/0.5 Ml Inj) 0.5 mg IV Q3H PRN PRN Reason: Pain , Severe (7-10) Last Admin: 08/06/21 18:00 Dose: 0.5 mg Hydroxychloroquine Sulfate (Hydroxychloroquine 200 Mg Tab) 200 mg PO QDAY [facility] Last Admin: 08/07/21 10:56 Dose: 200 mg Hydroxyzine HCl (Hydroxyzine Hcl 25 Mg Tab) 25 mg PO Q6HR PRN PRN Reason: Itching Nicardipine HCl 50 mg/ Sodium (Chloride) 250 mls @ 25 mls/hr IV TITR [facility]; Protocol Last Titration: 08/07/21 07:05 Dose: 5 mg/hr, 25 mls/hr Labetalol HCl (Labetalol 20 Mg/4 Ml Inj) 10 mg IV Q6H PRN PRN Reason: SBP >/=160; DBP >/=100 Levetiracetam (Levetiracetam 500 Mg Tab) 500 mg PO BID [facility] Last Admin: 08/07/21 10:53 Dose: 500 mg Lorazepam (Lorazepam 1 Mg Tab) 1 mg PO TID PRN PRN Reason: Anxiety Last Admin: 08/06/21 23:30 Dose: 1 mg Oxycodone/Acetaminophen (Oxycodone /Acetaminophen 5-325mg Tab) 1 tab PO Q6H PRN PRN Reason: Pain, Moderate (4-6) Pantoprazole Sodium (Pantoprazole 20 Mg Tab) 20 mg PO QDAY [facility] Last Admin: 08/07/21 10:54 Dose: 20 mg Risperidone (Risperidone 1 Mg Tab) 1 mg PO QHS [facility] Last Admin: 08/06/21 23:30 Dose: 1 mg Sodium Chloride (Sodium Chloride 0.9% 10 Ml Flush Syringe) 10 ml IV BID [facility] Last Admin: 08/07/21 10:56 Dose: 10 ml Sodium Chloride (Sodium Chloride 0.9% 10 Ml Flush Syringe) 10 ml IV PRN PRN PRN Reason: LINE FLUSH Sodium Polystyrene Sulfonate (Sodium Polystyrene 15 Gm/60 Ml Oral Liqd) 30 gm PO ONCE@0945 [facility] Stop: 08/07/21 12:45 Last Admin: 08/07/21 10:53 Dose: 30 gm Review of Systems ROS unobtainable: due to mental status Exam - Vital Signs Vital signs: Vital Signs Pulse Ox 95 08/06/21 08:34 - General Appearance General appearance: appears stated age, other (Sleepy but arouses briefly ) EENT: ATNC, PERRL Neck: Present: neck supple, trachea midline Respiratory: Decreased Breath Sounds Heart: S1S2 Gastrointestinal: Present: normoactive bowel sounds Integumentary: warm and dry Neurologic: other (Sle[place]y but arouses briefly) Musculoskeletal: Present: other (No edema) Results - Lab Results 08/06/21 Unknown 08/07/21 04:48 Most recent lab results Calcium 9.0 mg/dL (8.4-10.2) 08/07/21 04:48 Assessment and Plan Assessment: ESRD on hemodialysis Hypertensive Emergency Hypertension Lupus Seizure ADHD Hyperkalemia Plan: Hemodialysis again today for UF and clearance due to Hyperkalemia Has right IJ perm-catheter Patient consented to continue receiving HD while hospitalized Fluid restriction of 1 liter per day Low potassium diet Renally dose medications Strict I/O's daily Assess dialysis needs daily Plan of care reviewed by Dr. Mejias
--- NOTE | 2021-08-07 12:26 | Progress Note ---
<PAPITO ELIZALDE - Last Filed: 08/07/21 16:35> Assessment and Plan Assessment and plan: This is a 30-year-old female with known past medical history of HTN, ESRD on HD(T,R,Sa), seizure disorder, SLE, ADHD, and malnutrition admitted for Hypertensive emergency and fluid overload. Hospital Course to Date: 08/07: Patient is off cardene gtt this amm, SBP in the 160, home antihypertensive agents resumed. S/p HD yesterday, patient is stable on 4L NC this am, no s/s of respiratory distress noted. Low H&H this am, thrombocytopenia improved. Probable chronic 2/2 to ESRD, will transfuse 1unit of PRBCs. Continue to hold AC for now, SCD for VTE proph. Hyperkalemia noted this am, plan for HD again today per Nephro. Assessment and Plan #Hypertensive Emergency - Presented with BP of 229/151 required Cardened gtt - Cardene gtt stopped this am - SBP in the 160, home antihypertensives resumed - Continue blood pressure monitor per protocol - PRN Hydralazine and Labetalol for SBP greated than 160 - CCM is also following #Respiratory Insufficiency 2/2 #Fluid Overload - Presented with SOB and respiratory distress - CXR shows mild volume overload - V/Q with low probability for PE - s/p emergent HD yesterday, now stable on 4L NC, no respiratory distress noted - Continue HD per Nephro - Continue O2 supplementation and wean as tolerated - Continue SPO2 monitoring for SPO2 goal above 92% - CCM is also following #End Stage Renal Disease(ESRD) on HD #Hyperkalemia - Nephrology on consult, appreciated recommendation - Continue HD per nephro, plan for HD again today - Strict intake and output - Avoid nephrotoxic medications; Renally dose medications - Monitor and replace electrolytes as needed #Anemia of Chronic Disease #Thrombocytopenia - Probably chronic 2/2 renal disease - Low H&H this am, 1unit of PRBCs ordered - Mild improvement in plt - No s/s of any active bleeding - Hold AC due to thrombocytopenia - Transfuse for Hgb less than 7 - Epogen with HD per Nephro #Headache #H/o Seizure Disorder - Most likely due to high BP - CT head/brain with no significant intracranial abnormality. - GUZMAN resolved with BP improvement - Continue blood pressure monitor per protocol, Maintain SBP less than 160 - PRN Analgesia for pain control - Resume home Keppra - Seizure precaution #SLE (Systemic Lupus Erythematosus) - Resume home therapy - Outpatient rheumatology follow-up. #Moderate Protein Calori Malnutrition - Encourage increased protein intake, dietary supplementation. - Nutrition consulted #GI/DVT Prophylaxis - PPI- Pepcid - SCD to bilateral lower extremities while in bed #Preventative Health Care - Patient counseled regarding medication plans, increase protein intake, balanced diet, compliance with outpatient dialysis, compliance with medication, risk factor reduction The high probability of a clinically significant, sudden or life threatening deterioration of the [multiple] system(s) required my full and direct attention, intervention and personal management. The aggregate critical care time was [60] minutes. This time is in addition to time spent performing reported procedures but includes the following: [x] Data Review and interpretation [x] Patient assessment and monitoring of vital signs [x] Documentation [x] Medication orders and management Disposition Plan: ICU Total Time Spent with Patient (Minutes): 60 History Interval history: Patient seen and examined at the bedside. Fully AAO but drowsy this am, stable on 4L NC SPO2 at 100%. Patient denied any pain, SOB, nor any discomfor at this time. Patient is off cardene gtt this am, SBP in the 160s. CARIN overnight Hospitalist Physical - Constitutional Vitals: Temp Pulse Resp BP Pulse Ox 98.2 F 94 H 16 167/108 100 08/07/21 08:00 08/07/21 11:30 08/07/21 11:30 08/07/21 11:30 08/07/21 11:30 General appearance: Present: no acute distress, obese - EENT Eyes: Present: PERRL ENT: hearing intact - Neck Neck: Present: normal ROM - Respiratory Respiratory effort: normal Respiratory: bilateral: diminished - Cardiovascular Rhythm: regular Heart Sounds: Present: S1 & S2 - Extremities Extremities: no ischemia, pulses intact, pulses symmetrical Extremity abnormal: edema Peripheral Pulses: within normal limits - Abdominal General gastrointestinal: soft, non-distended, normal bowel sounds - Integumentary Integumentary: Present: clear, warm, dry - Psychiatric Psychiatric: appropriate mood/affect, cooperative - Neurologic Neurologic: CNII-XII intact, moves all extremities - Allied Health Allied health notes reviewed: nursing HEART Score - HEART Score Troponin: Troponin T 0.097 ng/mL (0.00-0.029) H 08/06/21 Unknown Results - Labs CBC & Chem 7: 08/07/21 12:40 08/07/21 04:48 Labs: Laboratory Last Values WBC 4.1 K/mm3 (4.5-11.0) L 08/06/21 Unknown RBC 2.28 M/mm3 (3.65-5.03) L 08/06/21 Unknown Hgb 6.9 gm/dl (10.1-14.3) L 08/06/21 Unknown Hct 22.5 % (30.3-42.9) L 08/06/21 Unknown MCV 99 fl (79-97) H 08/06/21 Unknown MCH 30 pg (28-32) 08/06/21 Unknown MCHC 31 % (30-34) 08/06/21 Unknown RDW 18.0 % (13.2-15.2) H 08/06/21 Unknown Plt Count 77 K/mm3 (140-440) L 08/06/21 Unknown Lymph % (Auto) 24.2 % (13.4-35.0) 08/06/21 Unknown Rabun % (Auto) 6.4 % (0.0-7.3) 08/06/21 Unknown Eos % (Auto) 4.7 % (0.0-4.3) H 08/06/21 Unknown Baso % (Auto) 0.5 % (0.0-1.8) 08/06/21 Unknown Lymph # (Auto) 1.0 K/mm3 (1.2-5.4) L 08/06/21 Unknown [place] # (Auto) 0.3 K/mm3 (0.0-0.8) 08/06/21 Unknown Eos # (Auto) 0.2 K/mm3 (0.0-0.4) 08/06/21 Unknown Baso # (Auto) 0.0 K/mm3 (0.0-0.1) 08/06/21 Unknown Seg Neutrophils % 64.2 % (40.0-70.0) 08/06/21 Unknown Seg Neutrophils # 2.6 K/mm3 (1.8-7.7) 08/06/21 Unknown D-Dimer 6037.58 ng/mlDDU (0-234) H 08/06/21 Unknown Sodium 138 mmol/L (137-145) 08/07/21 04:48 Potassium 5.5 mmol/L (3.6-5.0) H 08/07/21 04:48 Chloride 97.1 mmol/L (98-107) L 08/07/21 04:48 Carbon Dioxide 19 mmol/L (22-30) L 08/07/21 04:48 Anion Gap 27 mmol/L 08/07/21 04:48 BUN 33 mg/dL (7-17) H 08/07/21 04:48 Creatinine 6.6 mg/dL (0.6-1.2) H 08/07/21 04:48 Estimated GFR 9 ml/min 08/07/21 04:48 BUN/Creatinine Ratio 5 % 08/07/21 04:48 Glucose 86 mg/dL (65-100) 08/07/21 04:48 Calcium 9.0 mg/dL (8.4-10.2) 08/07/21 04:48 Total Bilirubin 0.30 mg/dL (0.1-1.2) 08/06/21 Unknown AST 25 units/L (5-40) 08/06/21 Unknown ALT 8 units/L (7-56) 08/06/21 Unknown Alkaline Phosphatase 104 units/L (35-129) 08/06/21 Unknown Troponin T 0.097 ng/mL (0.00-0.029) H 08/06/21 Unknown NT-Pro-B Natriuret Pep 87794 pg/mL (0-450) H 08/06/21 Unknown Total Protein 7.2 g/dL (6.3-8.2) 08/06/21 Unknown Albumin 3.3 g/dL (3.9-5) L 08/06/21 Unknown Albumin/Globulin Ratio 0.8 % 08/06/21 Unknown HCG, Qual Negative (Negative) 08/06/21 Unknown Hepatitis A IgM Ab Non-reactive (NonReactive) 08/06/21 Unknown Hep Bs Antigen Non-reactive (Negative) 08/06/21 Unknown Hep B Core IgM Ab Non-reactive (NonReactive) 08/06/21 Unknown Hepatitis C Antibody Non-reactive (NonReactive) 08/06/21 Unknown Nuñez/IV: Voiding Method External Female Catheter Active Medications - Current Medications Current Medications: Generic Name Dose Route Start Last Admin Trade Name Freq PRN Reason Stop Dose Admin Acetaminophen 650 mg 08/06/21 18:00 Acetaminophen 325 Mg Tab PO Q6H PRN Pain MILD(1-3)/Fever >100.5/GUZMAN Amlodipine Besylate 10 mg 08/07/21 10:00 08/07/21 10:54 Amlodipine 10 Mg Tab PO 10 mg DAILY OLLIE Administration Citalopram Hydrobromide 20 mg 08/07/21 10:00 08/07/21 10:53 Citalopram 10 Mg Tab PO 20 mg QDAY OLLIE Administration Clonidine HCl 0.1 mg 08/07/21 08:00 08/07/21 10:55 Clonidine 0.1 Mg Tab PO 0.1 mg TID OLLIE Administration Folic Acid 1 mg 08/07/21 10:00 08/07/21 10:54 Folic Acid 1 Mg Tab PO 1 mg QDAY OLLIE Administration Hydralazine HCl 50 mg 08/07/21 12:00 Hydralazine 25 Mg Tab PO Q6HR OLLIE Hydromorphone HCl 0.5 mg 08/06/21 16:55 08/06/21 18:00 Hydromorphone 0.5 Mg/0.5 Ml Inj IV 0.5 mg Q3H PRN Administration Pain , Severe (7-10) Hydroxychloroquine Sulfate 200 mg 08/07/21 10:00 08/07/21 10:56 Hydroxychloroquine 200 Mg Tab PO 200 mg QDAY OLLIE Administration Hydroxyzine HCl 25 mg 08/06/21 16:56 Hydroxyzine Hcl 25 Mg Tab PO Q6HR PRN Itching Nicardipine HCl 50 mg/ Sodium 250 mls @ 25 mls/hr 08/07/21 06:00 08/07/21 07:05 Chloride IV 5 mg/hr TITR OLLIE 25 mls/hr Titration Protocol 5 MG/HR Labetalol HCl 10 mg 08/07/21 08:32 Labetalol 20 Mg/4 Ml Inj IV Q6H PRN SBP >/=160; DBP >/=100 Levetiracetam 500 mg 08/06/21 22:00 08/07/21 10:53 Levetiracetam 500 Mg Tab PO 500 mg BID OLLIE Administration Lorazepam 1 mg 08/06/21 16:56 08/06/21 23:30 Lorazepam 1 Mg Tab PO 1 mg TID PRN Administration Anxiety Oxycodone/Acetaminophen 1 tab 08/06/21 16:55 Oxycodone /Acetaminophen 5-325mg Tab PO Q6H PRN Pain, Moderate (4-6) Pantoprazole Sodium 20 mg 08/07/21 10:00 08/07/21 10:54 Pantoprazole 20 Mg Tab PO 20 mg QDAY OLLIE Administration Risperidone 1 mg 08/06/21 22:00 08/06/21 23:30 Risperidone 1 Mg Tab PO 1 mg QHS OLLIE Administration Sodium Chloride 10 ml 08/06/21 22:00 08/07/21 10:56 Sodium Chloride 0.9% 10 Ml Flush Syringe IV 10 ml BID OLLIE Administration Sodium Chloride 10 ml 08/06/21 16:55 Sodium Chloride 0.9% 10 Ml Flush Syringe IV PRN PRN LINE FLUSH Sodium Polystyrene Sulfonate 30 gm 08/07/21 09:45 08/07/21 10:53 Sodium Polystyrene 15 Gm/60 Ml Oral Liqd PO 08/07/21 12:45 30 gm ONCE@0945 OLLIE Administration <MACK WARREN - Last Filed: 08/08/21 07:09> Assessment and Plan Assessment and plan: I saw and evaluated the patient. I agree with the findings and the plan of care as documented in the Nurse Practitioner's~note, with the following corrections and additions. Advance care planning Current Visit: Yes Status: Acute Plan to address problem: Disease education data, care plan discussed, diagnoses discussed, prognosis discussed, patient is full code. Patient family knowledges understanding and agreement with care plan, +30 minutes. Hospitalist Physical - Constitutional Vitals: Temp Pulse Resp BP Pulse Ox 98.1 F 97 H 20 161/107 49 L 08/08/21 04:00 08/08/21 06:30 08/08/21 06:30 08/08/21 06:30 08/08/21 06:30 HEART Score - HEART Score Troponin: Troponin T 0.097 ng/mL (0.00-0.029) H 08/06/21 Unknown Results - Labs CBC & Chem 7: 08/07/21 22:55 08/08/21 05:33 Labs: Laboratory Last Values WBC 4.8 K/mm3 (4.5-11.0) 08/07/21 12:40 RBC 2.12 M/mm3 (3.65-5.03) L 08/07/21 12:40 Hgb 7.3 gm/dl (10.1-14.3) L 08/07/21 22:55 Hct 23.3 % (30.3-42.9) L 08/07/21 22:55 MCV 98 fl (79-97) H 08/07/21 12:40 MCH 31 pg (28-32) 08/07/21 12:40 MCHC 32 % (30-34) 08/07/21 12:40 RDW 19.0 % (13.2-15.2) H 08/07/21 12:40 Plt Count 88 K/mm3 (140-440) L 08/07/21 12:40 Lymph % (Auto) 24.2 % (13.4-35.0) 08/06/21 Unknown Rabun % (Auto) 6.4 % (0.0-7.3) 08/06/21 Unknown Eos % (Auto) 4.7 % (0.0-4.3) H 08/06/21 Unknown Baso % (Auto) 0.5 % (0.0-1.8) 08/06/21 Unknown Lymph # (Auto) 1.0 K/mm3 (1.2-5.4) L 08/06/21 Unknown Rabun # (Auto) 0.3 K/mm3 (0.0-0.8) 08/06/21 Unknown Eos # (Auto) 0.2 K/mm3 (0.0-0.4) 08/06/21 Unknown Baso # (Auto) 0.0 K/mm3 (0.0-0.1) 08/06/21 Unknown Seg Neutrophils % 64.2 % (40.0-70.0) 08/06/21 Unknown Seg Neutrophils # 2.6 K/mm3 (1.8-7.7) 08/06/21 Unknown D-Dimer 6037.58 ng/mlDDU (0-234) H 08/06/21 Unknown Sodium 138 mmol/L (137-145) 08/08/21 05:33 Potassium 3.7 mmol/L (3.6-5.0) D 08/08/21 05:33 Chloride 96.9 mmol/L (98-107) L 08/08/21 05:33 Carbon Dioxide 26 mmol/L (22-30) D 08/08/21 05:33 Anion Gap 19 mmol/L 08/08/21 05:33 BUN 15 mg/dL (7-17) 08/08/21 05:33 Creatinine 4.8 mg/dL (0.6-1.2) H 08/08/21 05:33 Estimated GFR 13 ml/min 08/08/21 05:33 BUN/Creatinine Ratio 3 % 08/08/21 05:33 Glucose 110 mg/dL (65-100) H 08/08/21 05:33 Calcium 9.2 mg/dL (8.4-10.2) 08/08/21 05:33 Phosphorus 4.60 mg/dL (2.5-4.5) H 08/08/21 05:33 Total Bilirubin 0.30 mg/dL (0.1-1.2) 08/06/21 Unknown AST 25 units/L (5-40) 08/06/21 Unknown ALT 8 units/L (7-56) 08/06/21 Unknown Alkaline Phosphatase 104 units/L (35-129) 08/06/21 Unknown Troponin T 0.097 ng/mL (0.00-0.029) H 08/06/21 Unknown NT-Pro-B Natriuret Pep 28515 pg/mL (0-450) H 08/06/21 Unknown Total Protein 7.2 g/dL (6.3-8.2) 08/06/21 Unknown Albumin 3.3 g/dL (3.9-5) L 08/06/21 Unknown Albumin/Globulin Ratio 0.8 % 08/06/21 Unknown HCG, Qual Negative (Negative) 08/06/21 Unknown Hepatitis A IgM Ab Non-reactive (NonReactive) 08/06/21 Unknown Hep Bs Antigen Non-reactive (Negative) 08/06/21 Unknown Hep B Core IgM Ab Non-reactive (NonReactive) 08/06/21 Unknown Hepatitis C Antibody Non-reactive (NonReactive) 08/06/21 Unknown Blood Type B POSITIVE 08/07/21 15:10 Antibody Screen Positive 08/07/21 15:10 Crossmatch See Detail 08/07/21 15:10 Nuñez/IV: Voiding Method External Female Catheter Active Medications - Current Medications Current Medications: Generic Name Dose Route Start Last Admin Trade Name Freq PRN Reason Stop Dose Admin Acetaminophen 650 mg 08/06/21 18:00 Acetaminophen 325 Mg Tab PO Q6H PRN Pain MILD(1-3)/Fever >100.5/GUZMAN Amlodipine Besylate 10 mg 08/07/21 10:00 08/07/21 10:54 Amlodipine 10 Mg Tab PO 10 mg DAILY OLLIE Administration Citalopram Hydrobromide 20 mg 08/07/21 10:00 08/07/21 10:53 Citalopram 10 Mg Tab PO 20 mg QDAY OLLIE Administration Clonidine HCl 0.1 mg 08/07/21 08:00 08/07/21 20:00 Clonidine 0.1 Mg Tab PO Not Given TID OLLIE Folic Acid 1 mg 08/07/21 10:00 08/07/21 10:54 Folic Acid 1 Mg Tab PO 1 mg QDAY OLLIE Administration Hydralazine HCl 50 mg 08/07/21 12:00 08/08/21 06:05 Hydralazine 25 Mg Tab PO 50 mg Q6HR OLLIE Administration Hydromorphone HCl 0.5 mg 08/06/21 16:55 08/08/21 06:35 Hydromorphone 0.5 Mg/0.5 Ml Inj IV 0.5 mg Q3H PRN Administration Pain , Severe (7-10) Hydroxychloroquine Sulfate 200 mg 08/07/21 10:00 08/07/21 10:56 Hydroxychloroquine 200 Mg Tab PO 200 mg QDAY OLLIE Administration Hydroxyzine HCl 25 mg 08/06/21 16:56 Hydroxyzine Hcl 25 Mg Tab PO Q6HR PRN Itching Nicardipine HCl 50 mg/ Sodium 250 mls @ 25 mls/hr 08/07/21 06:00 08/08/21 04:35 Chloride IV 5 mg/hr TITR OLLIE 25 mls/hr Administration Protocol 5 MG/HR Labetalol HCl 10 mg 08/07/21 18:16 08/07/21 21:40 Labetalol 20 Mg/4 Ml Inj IV 10 mg Q4H PRN Administration SBP >/=160; DBP >/=100 Levetiracetam 500 mg 08/06/21 22:00 08/07/21 21:25 Levetiracetam 500 Mg Tab PO Not Given BID OLLIE Lorazepam 1 mg 08/06/21 16:56 08/07/21 21:40 Lorazepam 1 Mg Tab PO 1 mg TID PRN Administration Anxiety Oxycodone/Acetaminophen 1 tab 08/06/21 16:55 08/07/21 17:16 Oxycodone /Acetaminophen 5-325mg Tab PO 1 tab Q6H PRN Administration Pain, Moderate (4-6) Pantoprazole Sodium 20 mg 08/07/21 10:00 08/07/21 10:54 Pantoprazole 20 Mg Tab PO 20 mg QDAY OLLIE Administration Risperidone 1 mg 08/06/21 22:00 08/07/21 21:46 Risperidone 1 Mg Tab PO Not Given QHS OLLIE Sodium Chloride 10 ml 08/06/21 22:00 08/07/21 21:26 Sodium Chloride 0.9% 10 Ml Flush Syringe IV 10 ml BID OLLIE Administration Sodium Chloride 10 ml 08/06/21 16:55 Sodium Chloride 0.9% 10 Ml Flush Syringe IV PRN PRN LINE FLUSH Nutrition/Malnutrition Assess - Dietary Evaluation Nutrition/Malnutrition Findings: Nutrition Notes Start: 08/07/21 16:16 Freq: Status: Active Protocol: Document 08/07/21 16:16 MICKI (Rec: 08/07/21 16:32 MICKI [id number]) Nutrition Notes Need for Assessment 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 Current Diet Renal Diet (since D 08/06). Labs/Tests 08/07: K 5.5, Cl 97.1, CO2 19, BUN 33, Crea 6.6. Pertinent Medications 08/07: Folic acid, others nutritionally unremarkable. 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 Weight Status Appropriate Subjective/Other Information RD consult for risk of malnutrition assessment. No reports available on Pt's PO intake of meals at the time , will assess at F/U. Pt is on Nasal Cannula, O2 saturation @ 95%, according to Physical Assessment Histroy notes. Pt shows no signs of concern for risk of malnutrition at the time, according to Physical Assessment Histroy notes. Percent of energy/protein needs met: Prescribed Renal Diet provides for energy/protein needs (2, 072 Kcal/77 g) during LOS. Burn Absent Trauma Absent GI Symptoms None Food Allergy No Skin Integrity/Comment Assessment WNL. Minimum of two criteria No #1 Nutrition Diagnosis No nutrition diagnosis at this time Comments: I will assess Pt's PO intake of meals at F/U. Is patient on ventilator? No Is Patient Ambulatory and/or Out of Bed Yes REE-([place]-St. Jeor-ambulatory/OOB) [ 1527.669 NUTR.[id number]] Kcal/Kg value to use for calculation 28 Approximate Energy Requirements Using 1333 kcal/Kg Calculation Used for Recommendations Kcal/kg Additional Notes Protein: >1.2 g/Kg IBW; >62 g/ day. Fluids: 1 ml/Kcal, or as per MD. Nutrition Intervention Change Diet Order: Continue Renal Diet. Follow-Up By: 08/14/21 Additional Comments Continue monitoring food tolerance, %PO intake of meals , and BM.
[2021-08-07] MEDS: hydrALAZINE 25 MG TAB PO SCH ×2 (12:51→17:15)
[2021-08-07 13:22] LABS: Hematocrit 20.7 % (30.3-42.9); Hemoglobin 6.6 gm/dl (10.1-14.3); Mean Corpuscular HGB Conc 32 % (30-34); Mean Corpuscular Volume 98 fl (79-97); Red Blood Count 2.12 M/mm3 (3.65-5.03)
[2021-08-07 13:23] LABS: Platelet Count 88 K/mm3 (140-440)
--- NOTE | 2021-08-07 13:47 | Vascular Lab Report ---
DUPLEX DOPPLER LOWER EXTREMITY VEINS, BILATERAL INDICATION: dvt. TECHNIQUE: Duplex doppler imaging was performed through the veins of both lower extremities using ve nous compression and other maneuvers. COMPARISON: No relevant prior imaging study available. FINDINGS: Right Common femoral vein: Negative. Right Superficial femoral vein: Negative. Right Popliteal vein: Negative. Right Calf veins: Negative. Left Common femoral vein: Negative. Left Superficial femoral vein: Negative. Left Popliteal vein: Negative. Left Calf veins: Negative. Additional findings: None. IMPRESSION: No sonographic evidence for DVT in either lower extremity. Signer Name: Pascual Dc Jr, MD Signed: 08/07/2021 1:43 PM Workstation Name: [id number]
--- NOTE | 2021-08-07 13:55 | Electrocardiograph Report ---
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
[2021-08-07] MEDS ORDERED: SODIUM CHLORIDE 0.9% 500 ML 500 ML IV SCH (15:30)
[2021-08-07] MEDS: HYDROmorphone 0.5 MG/0.5 ML INJ IV PRN (18:23)
[2021-08-07] MEDS: LORazepam 1 MG TAB PO PRN (21:40)
[2021-08-07] MEDS: risperiDONE 1 MG TAB PO SCH (21:46)
[2021-08-07 23:35] LABS: Hematocrit 23.3 % (30.3-42.9); Hemoglobin 7.3 gm/dl (10.1-14.3)
[2021-08-08] MEDS: hydrALAZINE 25 MG TAB PO SCH ×2 (00:15→06:05)
[2021-08-08] MEDS: niCARdipine 50 MG in SODIUM CHLORIDE 0.9% 250ML 230 ML IV SCH (04:35)
[2021-08-08] MEDS: HYDROmorphone 0.5 MG/0.5 ML INJ IV PRN (06:35)
[2021-08-08 06:42] LABS: Calcium 9.2 mg/dL (8.4-10.2)
[2021-08-08] MEDS ORDERED: hydrALAZINE 25 MG TAB PO SCH (08:00)
[2021-08-08] MEDS ORDERED: traMADol 50 MG TAB PO PRN (08:34)
--- NOTE | 2021-08-08 09:26 | Progress Note ---
Assessment and Plan Hypertensive emergency End stage renal disease Anemia SLE (systemic lupus erythematosus) Pulmonary edema, respiratory insufficiency Protein calorie Malnutrition Thrombocytopenia Headache H/o Seizure Disorder Continue antihypertensive therapy, blood pressure checks as per nursing care protocol,add labetolol for better blood pressure management Stop Clonidine, patient is refusing it Continue Plaquenil Continue oral antihypertensives Medical management of hyperkalemia, continue with telemetry monitoring- HD today Cytopenia probably secondary to lupus Supportive transfusion to keep HgB>7g/dL, Epogen and hematinics VTE prophylaxis- early ambulation, SCDs while in bed Dialysis as per renal team, monitor fluid balance, supportive care. Supplemental oxygen, titrate to keep SpO2 89-92% Avoid nephrotoxic medications; Renally dose medications Chronic home medications as clinically indicated Serial CBC Can transfer telemetry floor is she remains of the Nicardipine infusion with acceptable blood pressure Subjective Date of service: 08/08/21 Interval history: This is a 30-year-old female with known past medical history of HTN, ESRD on HD(T,R,Sa), seizure disorder, SLE, ADHD, and malnutrition admitted for Hypertensive emergency and fluid overload. Refused oral antihypertensives and required cardene overnight. Cardene infusion is off this am, SBP in the 160. Per patient, she no longer takes clonidine per her outpatient Nephrologists's recommendation Seen and examined. Vitals, labs, medications, chart reviewed. Discussed with respiratory and pharmacy staff Objective Vital Signs - 12hr 08/07/21 08/07/21 08/07/21 21:31 21:40 22:00 Temperature Pulse Rate 89 89 80 Pulse Rate [ From Monitor] Respiratory 12 18 Rate Blood Pressure 196/168 196/168 172/116 O2 Sat by Pulse 98 100 Oximetry 08/07/21 08/07/21 08/07/21 22:30 23:00 23:30 Temperature Pulse Rate 81 86 82 Pulse Rate [ From Monitor] Respiratory 24 11 L 19 Rate Blood Pressure 174/111 191/127 167/98 O2 Sat by Pulse 86 59 L 80 L Oximetry 08/07/21 08/08/21 08/08/21 23:39 00:00 00:15 Temperature 97.6 F Pulse Rate 87 85 86 Pulse Rate [ 86 From Monitor] Respiratory 17 18 Rate Blood Pressure 167/98 183/122 173/121 O2 Sat by Pulse 54 L 92 Oximetry 08/08/21 08/08/21 08/08/21 00:31 01:00 01:31 Temperature Pulse Rate 81 87 87 Pulse Rate [ From Monitor] Respiratory 12 35 H 25 H Rate Blood Pressure 173/121 179/111 186/110 O2 Sat by Pulse 93 91 80 L Oximetry 08/08/21 08/08/21 08/08/21 02:00 02:30 03:00 Temperature Pulse Rate 90 93 H 101 H Pulse Rate [ From Monitor] Respiratory 17 17 19 Rate Blood Pressure 151/102 158/103 167/104 O2 Sat by Pulse 68 L 97 Oximetry 08/08/21 08/08/21 08/08/21 03:30 04:00 04:30 Temperature 98.1 F Pulse Rate 91 H 92 H 94 H Pulse Rate [ 92 H From Monitor] Respiratory 13 19 13 Rate Blood Pressure 145/89 156/97 156/100 O2 Sat by Pulse 100 87 93 Oximetry 08/08/21 08/08/21 08/08/21 05:01 05:31 06:00 Temperature Pulse Rate 96 H 96 H 94 H Pulse Rate [ From Monitor] Respiratory 27 H 20 19 Rate Blood Pressure 156/100 156/100 160/108 O2 Sat by Pulse 54 L 73 L 26 L Oximetry 08/08/21 08/08/21 08/08/21 06:05 06:30 07:00 Temperature Pulse Rate 94 H 97 H 102 H Pulse Rate [ From Monitor] Respiratory 20 27 H Rate Blood Pressure 160/108 161/107 169/107 O2 Sat by Pulse 49 L 100 Oximetry 08/08/21 08/08/21 08/08/21 07:30 08:00 08:10 Temperature Pulse Rate 91 H 89 Pulse Rate [ From Monitor] Respiratory 35 H 13 Rate Blood Pressure 151/100 137/87 O2 Sat by Pulse 100 100 100 Oximetry 08/08/21 08:30 Temperature Pulse Rate 89 Pulse Rate [ From Monitor] Respiratory 13 Rate Blood Pressure 142/90 O2 Sat by Pulse 100 Oximetry Constitutional: no acute distress, other (chronically ill looking) Eyes: non-icteric ENT: oropharynx moist Neck: supple, no lymphadenopathy, no JVD Effort: normal Ascultation: Bilateral: clear, diminished breath sounds Cardiovascular: regular rate and rhythm, other (S1,S2 right chest wall permcath) Gastrointestinal: normoactive bowel sounds, soft, non-tender Integumentary: normal Extremities: no cyanosis, no edema, pulses normal Neurologic: normal mental status, non-focal exam, pupils equal and round, CN II-XII normal, motor strength normal and Psychiatric: mood appropriate, affect normal CBC and BMP: 08/11/21 04:50 08/11/21 04:50 ABG, PT/INR, D-dimer: PT/INR, D-dimer D-Dimer 6037.58 ng/mlDDU (0-234) H 08/06/21 Unknown Abnormal lab findings: Abnormal Labs 08/06/21 08/06/21 08/06/21 Unknown Unknown Unknown WBC 4.1 L RBC 2.28 L Hgb 6.9 L Hct 22.5 L MCV 99 H RDW 18.0 H Plt Count 77 L Eos % (Auto) 4.7 H Lymph # (Auto) 1.0 L D-Dimer Sodium 135 L Potassium 5.8 H Chloride Carbon Dioxide 16 L BUN 56 H Creatinine 9.8 H Glucose Phosphorus Troponin T 0.097 H NT-Pro-B Natriuret Pep Albumin 3.3 L Crossmatch 08/06/21 08/06/21 08/07/21 Unknown Unknown 04:48 WBC RBC Hgb Hct MCV RDW Plt Count Eos % (Auto) Lymph # (Auto) D-Dimer 6037.58 H Sodium Potassium 5.5 H Chloride 97.1 L Carbon Dioxide 19 L BUN 33 H Creatinine 6.6 H Glucose Phosphorus Troponin T NT-Pro-B Natriuret Pep 52310 H Albumin Crossmatch 08/07/21 08/07/21 08/07/21 12:40 15:10 22:55 WBC RBC 2.12 L Hgb 6.6 L 7.3 L Hct 20.7 L 23.3 L MCV 98 H RDW 19.0 H Plt Count 88 L Eos % (Auto) Lymph # (Auto) D-Dimer Sodium Potassium Chloride Carbon Dioxide BUN Creatinine Glucose Phosphorus Troponin T NT-Pro-B Natriuret Pep Albumin Crossmatch See Detail 08/08/21 05:33 WBC RBC Hgb Hct MCV RDW Plt Count Eos % (Auto) Lymph # (Auto) D-Dimer Sodium Potassium Chloride 96.9 L Carbon Dioxide BUN Creatinine 4.8 H Glucose 110 H Phosphorus 4.60 H Troponin T NT-Pro-B Natriuret Pep Albumin Crossmatch Allied health notes reviewed: nursing
[2021-08-08] MEDS: HYDROXYCHLOROQUINE 200 MG TAB PO SCH (10:20)
[2021-08-08] MEDS: levETIRAcetam 500 MG TAB PO SCH ×2 (10:21→23:25)
[2021-08-08] MEDS: PANTOPRAZOLE 20 MG TAB PO SCH (10:21)
[2021-08-08] MEDS: amLODIPine 10 MG TAB PO SCH (10:21)
[2021-08-08] MEDS: FOLIC ACID 1 MG TAB PO SCH (10:21)
[2021-08-08] MEDS: CITALOPRAM 10 MG TAB PO SCH (10:25)
[2021-08-08] MEDS ORDERED: SODIUM CHLORIDE 0.9% 100 ML IV PRN ×3 (11:01→11:27)
--- NOTE | 2021-08-08 12:12 | Progress Note ---
Assessment and Plan Assessment: ESRD on hemodialysis S/P Hypertensive Emergency Hypertension Lupus Seizure ADHD Hyperkalemia, Resolved Anemia Plan: Hemodialysis again today for UF and clearance Anemia-Epogen 20,000 units with HD today Will place on T,T,S schedule Has right IJ perm-catheter Fluid restriction of 1 liter per day Potassium better today at 3.7 Renally dose medications Strict I/O's daily Assess dialysis needs daily Plan of care reviewed by Dr. Mejias Subjective Date of service: 08/08/21 Principal diagnosis: ESRD Interval history: Patient seen sitting up in bed on cell phone. More awake and alert today. Objective - Vital Signs Vital signs: Vital Signs - 12hr 08/08/21 08/08/21 08/08/21 00:15 00:31 01:00 Temperature Pulse Rate 86 81 87 Pulse Rate [ From Monitor] Respiratory 12 35 H Rate Blood Pressure 173/121 173/121 179/111 O2 Sat by Pulse 93 91 Oximetry 08/08/21 08/08/21 08/08/21 01:31 02:00 02:30 Temperature Pulse Rate 87 90 93 H Pulse Rate [ From Monitor] Respiratory 25 H 17 17 Rate Blood Pressure 186/110 151/102 158/103 O2 Sat by Pulse 80 L 68 L Oximetry 08/08/21 08/08/21 08/08/21 03:00 03:30 04:00 Temperature 98.1 F Pulse Rate 101 H 91 H 92 H Pulse Rate [ 92 H From Monitor] Respiratory 19 13 19 Rate Blood Pressure 167/104 145/89 156/97 O2 Sat by Pulse 97 100 87 Oximetry 08/08/21 08/08/21 08/08/21 04:30 05:01 05:31 Temperature Pulse Rate 94 H 96 H 96 H Pulse Rate [ From Monitor] Respiratory 13 27 H 20 Rate Blood Pressure 156/100 156/100 156/100 O2 Sat by Pulse 93 54 L 73 L Oximetry 08/08/21 08/08/21 08/08/21 06:00 06:05 06:30 Temperature Pulse Rate 94 H 94 H 97 H Pulse Rate [ From Monitor] Respiratory 19 20 Rate Blood Pressure 160/108 160/108 161/107 O2 Sat by Pulse 26 L 49 L Oximetry 08/08/21 08/08/21 08/08/21 07:00 07:30 08:00 Temperature Pulse Rate 102 H 91 H 89 Pulse Rate [ From Monitor] Respiratory 27 H 35 H 13 Rate Blood Pressure 169/107 151/100 137/87 O2 Sat by Pulse 100 100 100 Oximetry 08/08/21 08/08/21 08/08/21 08:10 08:30 09:00 Temperature Pulse Rate 89 92 H Pulse Rate [ From Monitor] Respiratory 13 14 Rate Blood Pressure 142/90 145/95 O2 Sat by Pulse 100 100 100 Oximetry 08/08/21 08/08/21 08/08/21 09:30 10:00 10:21 Temperature Pulse Rate 91 H 88 95 H Pulse Rate [ From Monitor] Respiratory 14 15 Rate Blood Pressure 147/93 149/92 149/96 O2 Sat by Pulse 100 100 Oximetry 08/08/21 10:25 Temperature Pulse Rate 95 H Pulse Rate [ From Monitor] Respiratory Rate Blood Pressure 149/96 O2 Sat by Pulse Oximetry - General Appearance General appearance: well-developed, appears stated age EENT: ATNC, PERRL, hearing intact, vision intact Neck: no JVD, supple Respiratory: Present: Decreased Breath Sounds Cardiology: S1S2 Gastrointestinal: normoactive bowel sounds Integumentary: warm and dry Neurologic: alert and oriented x3 Musculoskeletal: other (No edema) - Lab 08/07/21 22:55 08/08/21 05:33 Most recent lab results Calcium 9.2 mg/dL (8.4-10.2) 08/08/21 05:33 Phosphorus 4.60 mg/dL (2.5-4.5) H 08/08/21 05:33 Medications & Allergies - Medications Allergies/Adverse Reactions: Allergies amoxicillin trihydrate [From Augmentin] Allergy (Unknown, Verified 05/27/13 11:3 2) Unknown Tolerates Zosyn diphenhydramine [From Benadryl] Allergy (Verified 08/06/21 16:06) Itching potassium clavulanate [From Augmentin] Adverse Reaction (Unknown, Verified 05/27/13 11:32) Unknown Home Medications: Home Medications Medication Instructions Recorded Confirmed Last Taken Type hydrOXYzine HCL [Atarax] 25 mg PO Q6HR PRN #20 tablet 06/19/13 03/01/14 Unknown Rx Folic Acid [Folvite] 1 mg PO QDAY #30 tablet 03/12/14 Unknown Rx Hydralazine HCl [hydrALAZINE] 100 mg PO DAILY #30 tablet 03/12/14 Unknown Rx Hydroxychloroquine [Plaquenil] 200 mg PO QDAY #30 tablet 03/12/14 Unknown Rx LORazepam [Ativan] 1 mg PO TID PRN #6 tablet 03/12/14 Unknown Rx Pantoprazole [Protonix TAB] 20 mg PO QDAY #20 tablet. 03/12/14 Unknown Rx amLODIPine 10 mg PO DAILY #30 tablet 03/12/14 Unknown Rx cloNIDine [Catapres] 0.1 mg PO BID #30 tablet 03/12/14 Unknown Rx hydrOXYzine HCL [Atarax] 25 mg PO Q6HR #20 tablet 03/12/14 Unknown Rx levETIRAcetam [Keppra TAB] 500 mg PO BID #60 tablet 03/12/14 Unknown Rx predniSONE 10 mg PO QPM #30 tablet 03/12/14 Unknown Rx risperiDONE [RisperDAL] 1 mg PO QHS #30 tablet 03/12/14 Unknown Rx Citalopram [celeXA] 20 mg PO QDAY #30 tablet 03/30/14 Unknown Rx Active Medications: Generic Name Dose Route Start Last Admin Trade Name Freq PRN Reason Stop Dose Admin Acetaminophen 650 mg 08/06/21 18:00 Acetaminophen 325 Mg Tab PO Q6H PRN Pain MILD(1-3)/Fever >100.5/GUZMAN Amlodipine Besylate 10 mg 08/07/21 10:00 08/08/21 10:21 Amlodipine 10 Mg Tab PO 10 mg DAILY OLLIE Administration Citalopram Hydrobromide 20 mg 08/07/21 10:00 08/08/21 10:25 Citalopram 10 Mg Tab PO 20 mg QDAY OLLIE Administration Epoetin Chaitanya-epbx 20,000 unit 08/08/21 11:23 Epoetin Chaitanya-Epbx 20,000 Unit/1 Ml Vial IV ALEXX PRN hemodialysis Folic Acid 1 mg 08/07/21 10:00 08/08/21 10:21 Folic Acid 1 Mg Tab PO 1 mg QDAY OLLIE Administration Hydralazine HCl 100 mg 08/08/21 14:00 Hydralazine 100 Mg Tab PO Q8HR OLLIE Hydroxychloroquine Sulfate 200 mg 08/07/21 10:00 08/08/21 10:20 Hydroxychloroquine 200 Mg Tab PO 200 mg QDAY OLLIE Administration Hydroxyzine HCl 25 mg 08/06/21 16:56 Hydroxyzine Hcl 25 Mg Tab PO Q6HR PRN Itching Nicardipine HCl 50 mg/ Sodium 250 mls @ 25 mls/hr 08/07/21 06:00 08/08/21 09:10 Chloride IV 0 mg/hr TITR OLLIE 0 mls/hr Titration Protocol 5 MG/HR Sodium Chloride 100 mls @ 999 mls/hr 08/08/21 11:27 Nacl 0.9% IV ALEXX PRN Hypotension Labetalol HCl 10 mg 08/07/21 18:16 08/07/21 21:40 Labetalol 20 Mg/4 Ml Inj IV 10 mg Q4H PRN Administration SBP >/=160; DBP >/=100 Labetalol HCl 100 mg 08/08/21 10:00 08/08/21 10:21 Labetalol 100 Mg Tab PO 100 mg Q8H OLLIE Administration Levetiracetam 500 mg 08/06/21 22:00 08/08/21 10:21 Levetiracetam 500 Mg Tab PO 500 mg BID OLLIE Administration Lorazepam 1 mg 08/06/21 16:56 08/07/21 21:40 Lorazepam 1 Mg Tab PO 1 mg TID PRN Administration Anxiety Oxycodone/Acetaminophen 1 tab 08/08/21 08:34 Oxycodone /Acetaminophen 5-325mg Tab PO Q6H PRN Pain , Severe (7-10) Pantoprazole Sodium 20 mg 08/07/21 10:00 08/08/21 10:21 Pantoprazole 20 Mg Tab PO 20 mg QDAY OLLIE Administration Risperidone 1 mg 08/06/21 22:00 08/07/21 21:46 Risperidone 1 Mg Tab PO Not Given QHS OLLIE Sodium Chloride 10 ml 08/06/21 22:00 08/07/21 21:26 Sodium Chloride 0.9% 10 Ml Flush Syringe IV 10 ml BID OLLIE Administration Sodium Chloride 10 ml 08/06/21 16:55 Sodium Chloride 0.9% 10 Ml Flush Syringe IV PRN PRN LINE FLUSH Tramadol HCl 50 mg 08/08/21 08:34 Tramadol 50 Mg Tab PO Q6H PRN Pain, Moderate (4-6)
--- NOTE | 2021-08-08 13:15 | Progress Note ---
<PAPITO ELIZALDE - Last Filed: 08/08/21 17:42> Assessment and Plan Assessment and plan: This is a 30-year-old female with known past medical history of HTN, ESRD on HD(T,R,Sa), seizure disorder, SLE, ADHD, and malnutrition admitted for Hypertensive emergency and fluid overload. Hospital Course to Date: 08/07: Patient is off cardene gtt this amm, SBP in the 160, home antihypertensive agents resumed. S/p HD yesterday, patient is stable on 4L NC this am, no s/s of respiratory distress noted. Low H&H this am, thrombocytopenia improved. Probable chronic 2/2 to ESRD, will transfuse 1unit of PRBCs. Continue to hold AC for now, SCD for VTE proph. Hyperkalemia noted this am, plan for HD again today per Nephro. 08/08: Refused PO antihypertensives and required cardene overnight. Cardene gtt is off this am, SBP in the 160. Per patient, she no longer takes clonidine she was switched to Labetalol. PO Labetalol added for BP control. Patient H&H improved post epogen with HD yesterday, hold PRBCs for now. Transfuse for hgb less than 7. Possible HD again today per Nephro. Patient is stable for transfer to the floor if remains stable. Assessment and Plan #Hypertensive Emergency - Presented with BP of 229/151 required Cardened gtt - Patient refused PO meds overnight, cardene gtt was resumed - Cardene gtt is off this morning - SBP in the 160 - Per patient, Clonidine was switched to Labetalol by PCP - Labetalol added for BP control - Continue home antihypertensives - Continue blood pressure monitor per protocol - PRN Hydralazine and Labetalol for SBP greated than 160 - CCM is also following #Respiratory Insufficiency 2/2 #Fluid Overload - Presented with SOB and respiratory distress - CXR shows mild volume overload - V/Q with low probability for PE - Stable on RA, O2 supplementation on standby - Continue HD per Nephro - Continue O2 supplementation as needed - Continue SPO2 monitoring for SPO2 goal above 92% - CCM is also following #End Stage Renal Disease(ESRD) on HD #Hyperkalemia - Nephrology on consult, appreciated recommendation - Continue HD per nephro, plan for HD again today - Strict intake and output - Avoid nephrotoxic medications; Renally dose medications - Monitor and replace electrolytes as needed #Anemia of Chronic Disease #Thrombocytopenia - Probably chronic 2/2 renal disease - H&H improved post epogen with HD yesterday - hold PRBCs for now - Mild improvement in plt - No s/s of any active bleeding - Hold AC due to thrombocytopenia - Transfuse for Hgb less than 7 - Epogen with HD per Nephro #Headache-resolved #H/o Seizure Disorder - Most likely due to high BP - CT head/brain with no significant intracranial abnormality. - GUZMAN resolved with BP improvement - Continue blood pressure monitor per protocol, Maintain SBP less than 160 - PRN Analgesia for pain control - Resume home Keppra - Seizure precaution #SLE (Systemic Lupus Erythematosus) - Resume home therapy - Outpatient rheumatology follow-up. #Moderate Protein Calori Malnutrition - Encourage increased protein intake, dietary supplementation. - Nutrition consulted #GI/DVT Prophylaxis - PPI- Pepcid - SCD to bilateral lower extremities while in bed #Preventative Health Care - Patient counseled regarding medication plans, increase protein intake, ba lanced diet, compliance with outpatient dialysis, compliance with medication, risk factor reduction The high probability of a clinically significant, sudden or life threatening deterioration of the [multiple] system(s) required my full and direct attention, intervention and personal management. The aggregate critical care time was [60] minutes. This time is in addition to time spent performing reported procedures but includes the following: [x] Data Review and interpretation [x] Patient assessment and monitoring of vital signs [x] Documentation [x] Medication orders and management Disposition Plan: ICU Total Time Spent with Patient (Minutes): 60 History Interval history: Patient seen and examined at the bedside. Fully AAO, on RA at time of assessment but O2 supplementation is at the bedside. Patient refused PO antihypertensive meds overnight and was placed back on cardene gtt. Cardene gtt is off this am, SBP in the 160. CARIN overnight Hospitalist Physical - Physical exam Narrative exam: General appearance: Present: no acute distress, obese - EENT Eyes: Present: PERRL ENT: hearing intact - Neck Neck: Present: normal ROM - Respiratory Respiratory effort: normal Respiratory: bilateral: diminished - Cardiovascular Rhythm: regular Heart Sounds: Present: S1 & S2 - Extremities Extremities: no ischemia, pulses intact, pulses symmetrical Extremity abnormal: edema Peripheral Pulses: within normal limits - Abdominal General gastrointestinal: soft, non-distended, normal bowel sounds - Integumentary Integumentary: Present: clear, warm, dry - Psychiatric Psychiatric: appropriate mood/affect, cooperative - Neurologic Neurologic: CNII-XII intact, moves all extremities - Allied Health Allied health notes reviewed: nursing, case management - Constitutional Vitals: Temp Pulse Resp BP Pulse Ox 98.1 F 88 18 127/85 100 08/08/21 04:00 08/08/21 13:00 08/08/21 13:00 08/08/21 13:00 08/08/21 13:00 HEART Score - HEART Score Troponin: Troponin T 0.097 ng/mL (0.00-0.029) H 08/06/21 Unknown Results - Labs CBC & Chem 7: 08/07/21 22:55 08/08/21 05:33 Labs: Laboratory Last Values WBC 4.8 K/mm3 (4.5-11.0) 08/07/21 12:40 RBC 2.12 M/mm3 (3.65-5.03) L 08/07/21 12:40 Hgb 7.3 gm/dl (10.1-14.3) L 08/07/21 22:55 Hct 23.3 % (30.3-42.9) L 08/07/21 22:55 MCV 98 fl (79-97) H 08/07/21 12:40 MCH 31 pg (28-32) 08/07/21 12:40 MCHC 32 % (30-34) 08/07/21 12:40 RDW 19.0 % (13.2-15.2) H 08/07/21 12:40 Plt Count 88 K/mm3 (140-440) L 08/07/21 12:40 Lymph % (Auto) 24.2 % (13.4-35.0) 08/06/21 Unknown Sebastian % (Auto) 6.4 % (0.0-7.3) 08/06/21 Unknown Eos % (Auto) 4.7 % (0.0-4.3) H 08/06/21 Unknown Baso % (Auto) 0.5 % (0.0-1.8) 08/06/21 Unknown Lymph # (Auto) 1.0 K/mm3 (1.2-5.4) L 08/06/21 Unknown Sebastian # (Auto) 0.3 K/mm3 (0.0-0.8) 08/06/21 Unknown Eos # (Auto) 0.2 K/mm3 (0.0-0.4) 08/06/21 Unknown Baso # (Auto) 0.0 K/mm3 (0.0-0.1) 08/06/21 Unknown Seg Neutrophils % 64.2 % (40.0-70.0) 08/06/21 Unknown Seg Neutrophils # 2.6 K/mm3 (1.8-7.7) 08/06/21 Unknown D-Dimer 6037.58 ng/mlDDU (0-234) H 08/06/21 Unknown Sodium 138 mmol/L (137-145) 08/08/21 05:33 Potassium 3.7 mmol/L (3.6-5.0) D 08/08/21 05:33 Chloride 96.9 mmol/L (98-107) L 08/08/21 05:33 Carbon Dioxide 26 mmol/L (22-30) D 08/08/21 05:33 Anion Gap 19 mmol/L 08/08/21 05:33 BUN 15 mg/dL (7-17) 08/08/21 05:33 Creatinine 4.8 mg/dL (0.6-1.2) H 08/08/21 05:33 Estimated GFR 13 ml/min 08/08/21 05:33 BUN/Creatinine Ratio 3 % 08/08/21 05:33 Glucose 110 mg/dL (65-100) H 08/08/21 05:33 Calcium 9.2 mg/dL (8.4-10.2) 08/08/21 05:33 Phosphorus 4.60 mg/dL (2.5-4.5) H 08/08/21 05:33 Total Bilirubin 0.30 mg/dL (0.1-1.2) 08/06/21 Unknown AST 25 units/L (5-40) 08/06/21 Unknown ALT 8 units/L (7-56) 08/06/21 Unknown Alkaline Phosphatase 104 units/L (35-129) 08/06/21 Unknown Troponin T 0.097 ng/mL (0.00-0.029) H 08/06/21 Unknown NT-Pro-B Natriuret Pep 06519 pg/mL (0-450) H 08/06/21 Unknown Total Protein 7.2 g/dL (6.3-8.2) 08/06/21 Unknown Albumin 3.3 g/dL (3.9-5) L 08/06/21 Unknown Albumin/Globulin Ratio 0.8 % 08/06/21 Unknown HCG, Qual Negative (Negative) 08/06/21 Unknown Hepatitis A IgM Ab Non-reactive (NonReactive) 08/06/21 Unknown Hep Bs Antigen Non-reactive (Negative) 08/06/21 Unknown Hep B Core IgM Ab Non-reactive (NonReactive) 08/06/21 Unknown Hepatitis C Antibody Non-reactive (NonReactive) 08/06/21 Unknown Blood Type B POSITIVE 08/07/21 15:10 Antibody Screen Positive 08/07/21 15:10 Crossmatch See Detail 08/07/21 15:10 Nuñez/IV: Voiding Method External Female Catheter Active Medications - Current Medications Current Medications: Generic Name Dose Route Start Last Admin Trade Name Freq PRN Reason Stop Dose Admin Acetaminophen 650 mg 08/06/21 18:00 Acetaminophen 325 Mg Tab PO Q6H PRN Pain MILD(1-3)/Fever >100.5/GUZMAN Amlodipine Besylate 10 mg 08/07/21 10:00 08/08/21 10:21 Amlodipine 10 Mg Tab PO 10 mg DAILY OLLIE Administration Citalopram Hydrobromide 20 mg 08/07/21 10:00 08/08/21 10:25 Citalopram 10 Mg Tab PO 20 mg QDAY OLLIE Administration Epoetin Chaitanya-epbx 20,000 unit 08/08/21 11:23 Epoetin Chaitanya-Epbx 20,000 Unit/1 Ml Vial IV ALEXX PRN hemodialysis Folic Acid 1 mg 08/07/21 10:00 08/08/21 10:21 Folic Acid 1 Mg Tab PO 1 mg QDAY OLLIE Administration Hydralazine HCl 100 mg 08/08/21 14:00 Hydralazine 100 Mg Tab PO Q8HR OLLIE Hydroxychloroquine Sulfate 200 mg 08/07/21 10:00 08/08/21 10:20 Hydroxychloroquine 200 Mg Tab PO 200 mg QDAY OLLIE Administration Hydroxyzine HCl 25 mg 08/06/21 16:56 Hydroxyzine Hcl 25 Mg Tab PO Q6HR PRN Itching Nicardipine HCl 50 mg/ Sodium 250 mls @ 25 mls/hr 08/07/21 06:00 08/08/21 09:10 Chloride IV 0 mg/hr TITR OLLIE 0 mls/hr Titration Protocol 5 MG/HR Sodium Chloride 100 mls @ 999 mls/hr 08/08/21 11:27 Nacl 0.9% IV ALEXX PRN Hypotension Labetalol HCl 10 mg 08/07/21 18:16 08/07/21 21:40 Labetalol 20 Mg/4 Ml Inj IV 10 mg Q4H PRN Administration SBP >/=160; DBP >/=100 Labetalol HCl 100 mg 08/08/21 10:00 08/08/21 10:21 Labetalol 100 Mg Tab PO 100 mg Q8H OLLIE Administration Levetiracetam 500 mg 08/06/21 22:00 08/08/21 10:21 Levetiracetam 500 Mg Tab PO 500 mg BID OLLIE Administration Lorazepam 1 mg 08/06/21 16:56 08/07/21 21:40 Lorazepam 1 Mg Tab PO 1 mg TID PRN Administration Anxiety Oxycodone/Acetaminophen 1 tab 08/08/21 08:34 Oxycodone /Acetaminophen 5-325mg Tab PO Q6H PRN Pain , Severe (7-10) Pantoprazole Sodium 20 mg 08/07/21 10:00 08/08/21 10:21 Pantoprazole 20 Mg Tab PO 20 mg QDAY OLLIE Administration Risperidone 1 mg 08/06/21 22:00 08/07/21 21:46 Risperidone 1 Mg Tab PO Not Given QHS OLLIE Sodium Chloride 10 ml 08/06/21 22:00 08/07/21 21:26 Sodium Chloride 0.9% 10 Ml Flush Syringe IV 10 ml BID OLLIE Administration Sodium Chloride 10 ml 08/06/21 16:55 Sodium Chloride 0.9% 10 Ml Flush Syringe IV PRN PRN LINE FLUSH Tramadol HCl 50 mg 08/08/21 08:34 Tramadol 50 Mg Tab PO Q6H PRN Pain, Moderate (4-6) Nutrition/Malnutrition Assess - Dietary Evaluation Nutrition/Malnutrition Findings: Nutrition Notes Start: 08/07/21 16:16 Freq: Status: Active Protocol: Document 08/07/21 16:16 MICKI (Rec: 08/07/21 16:32 MICKI [id number]) Nutrition Notes Need for Assessment generated from: center receptionist,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 Current Diet Renal Diet (since D 08/06). Labs/Tests 08/07: K 5.5, Cl 97.1, CO2 19, BUN 33, Crea 6.6. Pertinent Medications 08/07: Folic acid, others nutritionally unremarkable. 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 Weight Status Appropriate Subjective/Other Information RD consult for risk of malnutrition assessment. No reports available on Pt's PO intake of meals at the time , will assess at F/U. Pt is on Nasal Cannula, O2 saturation @ 95%, according to Physical Assessment Histroy notes. Pt shows no signs of concern for risk of malnutrition at the time, according to Physical Assessment Histroy notes. Percent of energy/protein needs met: Prescribed Renal Diet provides for energy/protein needs (2, 072 Kcal/77 g) during LOS. Burn Absent Trauma Absent GI Symptoms None Food Allergy No Skin Integrity/Comment Assessment WNL. Minimum of two criteria No #1 Nutrition Diagnosis No nutrition diagnosis at this time Comments: I will assess Pt's PO intake of meals at F/U. Is patient on ventilator? No Is Patient Ambulatory and/or Out of Bed Yes REE-([place]-St. Jeor-ambulatory/OOB) [ 1527.669 NUTR.MSJOOB] Kcal/Kg value to use for calculation 28 Approximate Energy Requirements Using 1333 kcal/Kg Calculation Used for Recommendations Kcal/kg Additional Notes Protein: >1.2 g/Kg IBW; >62 g/ day. Fluids: 1 ml/Kcal, or as per MD. Nutrition Intervention Change Diet Order: Continue Renal Diet. Follow-Up By: 08/14/21 Additional Comments Continue monitoring food tolerance, %PO intake of meals , and BM. <MACK WARREN - Last Filed: 08/08/21 18:05> Assessment and Plan Assessment and plan: I saw and evaluated the patient. I agree with the findings and the plan of care as documented in the Nurse Practitioner's~note, with the following corrections and additions. Extensive discussion with patient about compliance issues with medications Hospitalist Physical - Constitutional Vitals: Temp Pulse Resp BP Pulse Ox 98.6 F 92 H 18 98/61 100 08/08/21 16:00 08/08/21 17:30 08/08/21 17:30 08/08/21 17:30 08/08/21 17:30 HEART Score - HEART Score Troponin: Troponin T 0.097 ng/mL (0.00-0.029) H 08/06/21 Unknown Results - Labs CBC & Chem 7: 08/07/21 22:55 08/08/21 05:33 Labs: Laboratory Last Values WBC 4.8 K/mm3 (4.5-11.0) 08/07/21 12:40 RBC 2.12 M/mm3 (3.65-5.03) L 08/07/21 12:40 Hgb 7.3 gm/dl (10.1-14.3) L 08/07/21 22:55 Hct 23.3 % (30.3-42.9) L 08/07/21 22:55 MCV 98 fl (79-97) H 08/07/21 12:40 MCH 31 pg (28-32) 08/07/21 12:40 MCHC 32 % (30-34) 08/07/21 12:40 RDW 19.0 % (13.2-15.2) H 08/07/21 12:40 Plt Count 88 K/mm3 (140-440) L 08/07/21 12:40 Lymph % (Auto) 24.2 % (13.4-35.0) 08/06/21 Unknown Sebastian % (Auto) 6.4 % (0.0-7.3) 08/06/21 Unknown Eos % (Auto) 4.7 % (0.0-4.3) H 08/06/21 Unknown Baso % (Auto) 0.5 % (0.0-1.8) 08/06/21 Unknown Lymph # (Auto) 1.0 K/mm3 (1.2-5.4) L 08/06/21 Unknown Sebastian # (Auto) 0.3 K/mm3 (0.0-0.8) 08/06/21 Unknown Eos # (Auto) 0.2 K/mm3 (0.0-0.4) 08/06/21 Unknown Baso # (Auto) 0.0 K/mm3 (0.0-0.1) 08/06/21 Unknown Seg Neutrophils % 64.2 % (40.0-70.0) 08/06/21 Unknown Seg Neutrophils # 2.6 K/mm3 (1.8-7.7) 08/06/21 Unknown D-Dimer 6037.58 ng/mlDDU (0-234) H 08/06/21 Unknown Sodium 138 mmol/L (137-145) 08/08/21 05:33 Potassium 3.7 mmol/L (3.6-5.0) D 08/08/21 05:33 Chloride 96.9 mmol/L (98-107) L 08/08/21 05:33 Carbon Dioxide 26 mmol/L (22-30) D 08/08/21 05:33 Anion Gap 19 mmol/L 08/08/21 05:33 BUN 15 mg/dL (7-17) 08/08/21 05:33 Creatinine 4.8 mg/dL (0.6-1.2) H 08/08/21 05:33 Estimated GFR 13 ml/min 08/08/21 05:33 BUN/Creatinine Ratio 3 % 08/08/21 05:33 Glucose 110 mg/dL (65-100) H 08/08/21 05:33 Calcium 9.2 mg/dL (8.4-10.2) 08/08/21 05:33 Phosphorus 4.60 mg/dL (2.5-4.5) H 08/08/21 05:33 Total Bilirubin 0.30 mg/dL (0.1-1.2) 08/06/21 Unknown AST 25 units/L (5-40) 08/06/21 Unknown ALT 8 units/L (7-56) 08/06/21 Unknown Alkaline Phosphatase 104 units/L (35-129) 08/06/21 Unknown Troponin T 0.097 ng/mL (0.00-0.029) H 08/06/21 Unknown NT-Pro-B Natriuret Pep 33378 pg/mL (0-450) H 08/06/21 Unknown Total Protein 7.2 g/dL (6.3-8.2) 08/06/21 Unknown Albumin 3.3 g/dL (3.9-5) L 08/06/21 Unknown Albumin/Globulin Ratio 0.8 % 08/06/21 Unknown HCG, Qual Negative (Negative) 08/06/21 Unknown Hepatitis A IgM Ab Non-reactive (NonReactive) 08/06/21 Unknown Hep Bs Antigen Non-reactive (Negative) 08/06/21 Unknown Hep B Core IgM Ab Non-reactive (NonReactive) 08/06/21 Unknown Hepatitis C Antibody Non-reactive (NonReactive) 08/06/21 Unknown Blood Type B POSITIVE 08/07/21 15:10 Antibody Screen Positive 08/07/21 15:10 Crossmatch See Detail 08/07/21 15:10 Nuñez/IV: Voiding Method External Female Catheter Active Medications - Current Medications Current Medications: Generic Name Dose Route Start Last Admin Trade Name Freq PRN Reason Stop Dose Admin Acetaminophen 650 mg 08/06/21 18:00 Acetaminophen 325 Mg Tab PO Q6H PRN Pain MILD(1-3)/Fever >100.5/GUZMAN Amlodipine Besylate 10 mg 08/07/21 10:00 08/08/21 10:21 Amlodipine 10 Mg Tab PO 10 mg DAILY OLLIE Administration Citalopram Hydrobromide 20 mg 08/07/21 10:00 08/08/21 10:25 Citalopram 10 Mg Tab PO 20 mg QDAY OLLIE Administration Epoetin Chaitanya-epbx 20,000 unit 08/08/21 11:23 Epoetin Chaitanya-Epbx 20,000 Unit/1 Ml Vial IV ALEXX PRN hemodialysis Folic Acid 1 mg 08/07/21 10:00 08/08/21 10:21 Folic Acid 1 Mg Tab PO 1 mg QDAY OLLIE Administration Hydralazine HCl 100 mg 08/08/21 14:00 08/08/21 14:10 Hydralazine 100 Mg Tab PO Not Given Q8HR OLLIE Hydroxychloroquine Sulfate 200 mg 08/07/21 10:00 08/08/21 10:20 Hydroxychloroquine 200 Mg Tab PO 200 mg QDAY OLLIE Administration Hydroxyzine HCl 25 mg 08/06/21 16:56 Hydroxyzine Hcl 25 Mg Tab PO Q6HR PRN Itching Nicardipine HCl 50 mg/ Sodium 250 mls @ 25 mls/hr 08/07/21 06:00 08/08/21 09:10 Chloride IV 0 mg/hr TITR OLLIE 0 mls/hr Titration Protocol 5 MG/HR Sodium Chloride 100 mls @ 999 mls/hr 08/08/21 11:27 Nacl 0.9% IV ALEXX PRN Hypotension Labetalol HCl 10 mg 08/07/21 18:16 08/07/21 21:40 Labetalol 20 Mg/4 Ml Inj IV 10 mg Q4H PRN Administration SBP >/=160; DBP >/=100 Labetalol HCl 100 mg 08/08/21 22:00 Labetalol 100 Mg Tab PO BID OLLIE Levetiracetam 500 mg 08/06/21 22:00 08/08/21 10:21 Levetiracetam 500 Mg Tab PO 500 mg BID OLLIE Administration Lorazepam 1 mg 08/06/21 16:56 08/07/21 21:40 Lorazepam 1 Mg Tab PO 1 mg TID PRN Administration Anxiety Oxycodone/Acetaminophen 1 tab 08/08/21 08:34 Oxycodone /Acetaminophen 5-325mg Tab PO Q6H PRN Pain , Severe (7-10) Pantoprazole Sodium 20 mg 08/07/21 10:00 08/08/21 10:21 Pantoprazole 20 Mg Tab PO 20 mg QDAY OLLIE Administration Risperidone 1 mg 08/06/21 22:00 08/07/21 21:46 Risperidone 1 Mg Tab PO Not Given QHS OLLIE Sodium Chloride 10 ml 08/06/21 22:00 08/08/21 10:50 Sodium Chloride 0.9% 10 Ml Flush Syringe IV 10 ml BID OLLIE Administration Sodium Chloride 10 ml 08/06/21 16:55 Sodium Chloride 0.9% 10 Ml Flush Syringe IV PRN PRN LINE FLUSH Tramadol HCl 50 mg 08/08/21 08:34 Tramadol 50 Mg Tab PO Q6H PRN Pain, Moderate (4-6) Nutrition/Malnutrition Assess - Dietary Evaluation Nutrition/Malnutrition Findings: Nutrition Notes Start: 08/07/21 16:16 Freq: Status: Active Protocol: Document 08/07/21 16:16 MICKI (Rec: 08/07/21 16:32 MICKI [id number]) Nutrition Notes Need for Assessment generated from: center receptionist,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 Current Diet Renal Diet (since D 08/06). Labs/Tests 08/07: K 5.5, Cl 97.1, CO2 19, BUN 33, Crea 6.6. Pertinent Medications 08/07: Folic acid, others nutritionally unremarkable. 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 Weight Status Appropriate Subjective/Other Information RD consult for risk of malnutrition assessment. No reports available on Pt's PO intake of meals at the time , will assess at F/U. Pt is on Nasal Cannula, O2 saturation @ 95%, according to Physical Assessment Histroy notes. Pt shows no signs of concern for risk of malnutrition at the time, according to Physical Assessment Histroy notes. Percent of energy/protein needs met: Prescribed Renal Diet provides for energy/protein needs (2, 072 Kcal/77 g) during LOS. Burn Absent Trauma Absent GI Symptoms None Food Allergy No Skin Integrity/Comment Assessment WNL. Minimum of two criteria No #1 Nutrition Diagnosis No nutrition diagnosis at this time Comments: I will assess Pt's PO intake of meals at F/U. Is patient on ventilator? No Is Patient Ambulatory and/or Out of Bed Yes REE-([place]-St. [place]-ambulatory/OOB) [ 1527.669 NUTR.MSJOOB] Kcal/Kg value to use for calculation 28 Approximate Energy Requirements Using 1333 kcal/Kg Calculation Used for Recommendations Kcal/kg Additional Notes Protein: >1.2 g/Kg IBW; >62 g/ day. Fluids: 1 ml/Kcal, or as per MD. Nutrition Intervention Change Diet Order: Continue Renal Diet. Follow-Up By: 08/14/21 Additional Comments Continue monitoring food tolerance, %PO intake of meals , and BM.
[2021-08-08] MEDS: hydrALAZINE 100 MG TAB PO SCH ×2 (14:10→23:26)
[2021-08-08] MEDS: EPOETIN ALFA-EPBX 20,000 UNIT/1 ML VIAL IV PRN (17:45)
[2021-08-08] MEDS: risperiDONE 1 MG TAB PO SCH (23:25)
[2021-08-08] MEDS: LORazepam 1 MG TAB PO PRN (23:54)
[2021-08-09] MEDS: hydrALAZINE 100 MG TAB PO SCH ×3 (05:51→22:50)
[2021-08-09 06:24] LABS: Hematocrit 21.9 % (30.3-42.9); Mean Corpuscular HGB Conc 32 % (30-34); Mean Corpuscular Volume 97 fl (79-97); Platelet Count 93 K/mm3 (140-440); Red Blood Count 2.26 M/mm3 (3.65-5.03); Red Cell Distribution Width 18.8 % (13.2-15.2)
[2021-08-09 07:16] LABS: Calcium 9.1 mg/dL (8.4-10.2)
--- NOTE | 2021-08-09 09:01 | Progress Note ---
Assessment and Plan 30 YO Female with HTN, ESRD on HD(T,R,Sa), Seizure Disorder, SLE, ADHD, Malnutrition presents to ED for evaluation. Patient states that she has experienced shortness of breath over the past 2 days with persistent symptoms over the same timeframe. Patient also reports chest discomfort with deep breathing but denies chest pain. Patient transported to [facility] via private vehicle for further care and evaluation of the aforementioned symptoms. The patient was seen and evaluated in the emergency department. All lab and imaging studies re viewed. Patient found to have diminished cognition with mild confusion. Patient was found to have hypertensive emergency with a blood pressure of 229/151 mmHg. Patient initiated on Cardene drip in the emergency department. Patient was found to have hypertensive encephalopathy, fluid overload, as well as end-stage renal disease in need of urgent dialysis. Patient admitted to [facility]. No reports of fever, chills, chest pain, palpitation, adductive cough, skin rash, recent contact, known exposure to COVID-19. Nephrology consulted. Patient is on dialysis. Patients blood pressure improved. Patient transfered to medical floor. Patient sleeping at this time. Not responding to verbal stimuli. Unable to get further history at this time. Patient is on room air. O2 saturation 100%. No acute respiratory distress. Patient afebrile. No leukocytosis. Blood pressure 124/79 , Pulse 84, Respiratio ns 18. Patient Anemic and thrombocytopenic. HGB 7.0, Platelets 93,000. 08/09/21 Recommend blood transfusion if HGB drops below 7. Chest xray 08/06/21 reported slight volume Overload. Perfusion lung scan done on 08/06/21 reported Low probability perfusion scan for pulmonary embolism. Venous doppler studies of both legs 08/07/21 reported No sonographic evidence for DVT in either lower extremity. Patient is on Protonix. Recommend SCds for DVT prophylaxis. - Patient Problems (1) Chest pain Current Visit: Yes Status: Acute Plan to address problem: Management as per primary care and cardiology. (2) ESRD needing dialysis Current Visit: Yes Status: Acute Plan to address problem: Management as per nephrology. (3) Fluid overload Current Visit: Yes Status: Acute Qualifiers: Hypervolemia type: unspecified Qualified Code(s): E87.70 - Fluid overload, unspecified Plan to address problem: Patient is on hemodialysis. Management as per nephrology. (4) Hypertensive emergency Current Visit: Yes Status: Acute Plan to address problem: Patients blodd pressure came down. Recent blood pressure 124/78. Management as per primary care. (5) SLE (systemic lupus erythematosus) Current Visit: Yes Status: Acute Plan to address problem: Patient is on Plaquanil. (6) Bipolar disorder Current Visit: No Status: Chronic Plan to address problem: Management as per primary care and Psychiatry. Subjective Date of service: 08/09/21 Principal diagnosis: ESRD Interval history: 30 YO Female with HTN, ESRD on HD(T,R,Sa), Seizure Disorder, SLE, ADHD, Malnutrition presents to ED for evaluation. Patient states that she has experienced shortness of breath over the past 2 days with persistent symptoms over the same timeframe. Patient also reports chest discomfort with deep jonnathan thing but denies chest pain. Patient transported to [facility] via private vehicle for further care and evaluation of the aforementioned symptoms. The patient was seen and evaluated in the emergency department. All lab and imaging studies reviewed. Patient found to have diminished cognition with mild confusion. Patient was found to have hypertensive emergency with a blood pressure of 229/151 mmHg. Patient initiated on Cardene drip in the emergency department. Patient was found to have hypertensive encephalopathy, fluid overload, as well as end-stage renal disease in need of urgent dialysis. Patient admitted to [facility]. No reports of fever, chills, chest pain, palpitation, adductive cough, skin rash, recent contact, known exposure to COVID-19. Nephrology consulted. Patient is on dialysis. Patients blood pressure improved. Patient transfered to medical floor. Patient sleeping at this time. Not responding to verbal stimuli. Unable to get further history at this time. Patient is on room air. O2 saturation 100%. No acute respiratory distress. Patient afebrile. No leukocytosis. Blood pressure 124/79 , Pulse 84, Respirations 18. Patient Anemic and thrombocytopenic. HGB 7.0, Platelets 93,000. 08/09/21 Recommend blood transfusion if HGB drops below 7. Chest xray 08/06/21 reported slight volume Overload. Perfusion lung scan done on 08/06/21 reported Low probability perfusion scan for pulmonary embolism. Venous doppler studies of both legs 08/07/21 reported No sonographic evidence fo r DVT in either lower extremity. Patient is on Protonix. Recommend SCds for DVT prophylaxis. Objective Vital Signs - 12hr 08/08/21 08/08/21 08/08/21 21:13 22:57 23:26 Temperature 99.3 F Pulse Rate 88 98 H Respiratory 18 16 Rate Blood Pressure 146/99 146/99 O2 Sat by Pulse 100 99 Oximetry 08/09/21 05:15 Temperature 98.9 F Pulse Rate 84 Respiratory 18 Rate Blood Pressure 124/78 O2 Sat by Pulse 100 Oximetry Constitutional: no acute distress, asleep Eyes: non-icteric ENT: oropharynx moist Neck: supple, no lymphadenopathy, no JVD Effort: mildly labored Ascultation: Bilateral: diminished breath sounds Cardiovascular: other (tachycardia, S1,S2 right chest wall permcath) Gastrointestinal: normoactive bowel sounds, soft, non-tender Integumentary: normal Extremities: no cyanosis, no edema, pulses normal Neurologic: non-focal exam, pupils equal and round, CN II-XII normal Psychiatric: other (Patient is in deep sleep at this time.) CBC and BMP: 08/09/21 05:50 08/10/21 04:23 ABG, PT/INR, D-dimer: PT/INR, D-dimer D-Dimer 6037.58 ng/mlDDU (0-234) H 08/06/21 Unknown Abnormal lab findings: Abnormal Labs 08/06/21 08/06/21 08/06/21 Unknown Unknown Unknown WBC 4.1 L RBC 2.28 L Hgb 6.9 L Hct 22.5 L MCV 99 H RDW 18.0 H Plt Count 77 L Eos % (Auto) 4.7 H Lymph # (Auto) 1.0 L D-Dimer Sodium 135 L Potassium 5.8 H Chloride Carbon Dioxide 16 L BUN 56 H Creatinine 9.8 H Glucose Phosphorus Troponin T 0.097 H NT-Pro-B Natriuret Pep Albumin 3.3 L Crossmatch 08/06/21 08/06/21 08/07/21 Unknown Unknown 04:48 WBC RBC Hgb Hct MCV RDW Plt Count Eos % (Auto) Lymph # (Auto) D-Dimer 6037.58 H Sodium Potassium 5.5 H Chloride 97.1 L Carbon Dioxide 19 L BUN 33 H Creatinine 6.6 H Glucose Phosphorus Troponin T NT-Pro-B Natriuret Pep 65501 H Albumin Crossmatch 08/07/21 08/07/21 08/07/21 12:40 15:10 22:55 WBC RBC 2.12 L Hgb 6.6 L 7.3 L Hct 20.7 L 23.3 L MCV 98 H RDW 19.0 H Plt Count 88 L Eos % (Auto) Lymph # (Auto) D-Dimer Sodium Potassium Chloride Carbon Dioxide BUN Creatinine Glucose Phosphorus Troponin T NT-Pro-B Natriuret Pep Albumin Crossmatch See Detail 08/08/21 08/09/21 08/09/21 05:33 05:50 05:50 WBC RBC 2.26 L Hgb 7.0 L Hct 21.9 L MCV RDW 18.8 H Plt Count 93 L Eos % (Auto) Lymph # (Auto) D-Dimer Sodium Potassium Chloride 96.9 L 97.2 L Carbon Dioxide BUN Creatinine 4.8 H 4.1 H Glucose 110 H 150 H Phosphorus 4.60 H Troponin T NT-Pro-B Natriuret Pep Albumin Crossmatch Chest x-ray: report reviewed, image reviewed Additional Studies: CHEST 1 VIEW 08/06/2021 2:59 PM INDICATION / CLINICAL INFORMATION: chest pain, shortness of breath. COMPARISON: 03/23/2014 FINDINGS: SUPPORT DEVICES: Right IJ permacath terminates in the superior right atrium HEART / MEDIASTINUM: Mild cardiomegaly LUNGS / PLEURA: Mild pulmonary venous congestion and trace left pleural effusion. No evidence for pneumonia or pneumothorax. ADDITIONAL FINDINGS: No significant additional findings. IMPRESSION: 1. Mild volume overload. NUCLEAR MEDICINE PERFUSION SCAN 08/06/21 INDICATION: Chest pain, shortness of breath CORRELATION: AP chest performed the same day RADIOPHARMACEUTICAL: Perfusion: 5.3 mCi Tc-99m MAA given IV FINDINGS: Perfusion images show symmetric and uniform radiotracer distribution throughout bilateral lung zones with no evidence of unmatched segmental perfusion defects. The cardiac silhouette is enlarged. IMPRESSION: Low probability perfusion scan for pulmonary embolism. DUPLEX DOPPLER LOWER EXTREMITY VEINS, BILATERAL 08/07/21 INDICATION: dvt. TECHNIQUE: Duplex doppler imaging was performed through the veins of both lower extremities using venous compression and other maneuvers. COMPARISON: No relevant prior imaging study available. FINDINGS: Right Common femoral vein: Negative. Right Superficial femoral vein: Negative. Right Popliteal vein: Negative. Right Calf veins: Negative. Left Common femoral vein: Negative. Left Superficial femoral vein: Negative. Left Popliteal vein: Negative. Left Calf veins: Negative. Additional findings: None. IMPRESSION: No sonographic evidence for DVT in either lower extremity.
[2021-08-09] MEDS: HYDROXYCHLOROQUINE 200 MG TAB PO SCH (09:51)
[2021-08-09] MEDS: FOLIC ACID 1 MG TAB PO SCH (09:51)
[2021-08-09] MEDS: PANTOPRAZOLE 20 MG TAB PO SCH (09:51)
[2021-08-09] MEDS: amLODIPine 10 MG TAB PO SCH (09:52)
[2021-08-09] MEDS: levETIRAcetam 500 MG TAB PO SCH ×2 (09:59→22:50)
--- NOTE | 2021-08-09 10:08 | Progress Note ---
Assessment and Plan Assessment: ESRD on hemodialysis S/P Hypertensive Emergency Hypertension Lupus Seizure ADHD Hyperkalemia, Resolved Anemia Plan: S/P Hemodialysis yesterday for UF and clearance Anemia-Transfuse as needed. Epogen 20,000 units with HD On T,T,S schedule Has right IJ perm-catheter Fluid restriction of 1 liter per day Potassium better today at 3.8 Renally dose medications Strict I/O's daily Assess dialysis needs daily Plan of care reviewed by Dr. Mejias Subjective Date of service: 08/09/21 Principal diagnosis: ESRD Objective - Vital Signs Vital signs: Vital Signs - 12hr 08/08/21 08/08/21 08/09/21 22:57 23:26 05:15 Temperature 98.9 F Pulse Rate 98 H 84 Respiratory 16 18 Rate Blood Pressure 146/99 124/78 O2 Sat by Pulse 99 100 Oximetry 08/09/21 09:52 Temperature Pulse Rate 90 Respiratory Rate Blood Pressure 144/93 O2 Sat by Pulse Oximetry - Lab 08/09/21 05:50 08/09/21 05:50 Most recent lab results Calcium 9.1 mg/dL (8.4-10.2) 08/09/21 05:50 Phosphorus 4.60 mg/dL (2.5-4.5) H 08/08/21 05:33 Medications & Allergies - Medications Allergies/Adverse Reactions: Allergies amoxicillin trihydrate [From Augmentin] Allergy (Unknown, Verified 05/27/13 11:32) Unknown Tolerates Zosyn diphenhydramine [From Benadryl] Allergy (Verified 08/06/21 16:06) Itching potassium clavulanate [From Augmentin] Adverse Reaction (Unknown, Verified 05/27/13 11:32) Unknown Home Medications: Home Medications Medication Instructions Recorded Confirmed Last Taken Type hydrOXYzine HCL [Atarax] 25 mg PO Q6HR PRN #20 tablet 06/19/13 03/01/14 Unknown Rx Folic Acid [Folvite] 1 mg PO QDAY #30 tablet 03/12/14 Unknown Rx Hydralazine HCl [hydrALAZINE] 100 mg PO DAILY #30 tablet 03/12/14 Unknown Rx Hydroxychloroquine [Plaquenil] 200 mg PO QDAY #30 tablet 03/12/14 Unknown Rx LORazepam [Ativan] 1 mg PO TID PRN #6 tablet 03/12/14 Unknown Rx Pantoprazole [Protonix TAB] 20 mg PO QDAY #20 tablet. 03/12/14 Unknown Rx amLODIPine 10 mg PO DAILY #30 tablet 03/12/14 Unknown Rx cloNIDine [Catapres] 0.1 mg PO BID #30 tablet 03/12/14 Unknown Rx hydrOXYzine HCL [Atarax] 25 mg PO Q6HR #20 tablet 03/12/14 Unknown Rx levETIRAcetam [Keppra TAB] 500 mg PO BID #60 tablet 03/12/14 Unknown Rx predniSONE 10 mg PO QPM #30 tablet 03/12/14 Unknown Rx risperiDONE [RisperDAL] 1 mg PO QHS #30 tablet 03/12/14 Unknown Rx Citalopram [celeXA] 20 mg PO QDAY #30 tablet 03/30/14 Unknown Rx Active Medications: Generic Name Dose Route Start Last Admin Trade Name Freq PRN Reason Stop Dose Admin Acetaminophen 650 mg 08/06/21 18:00 Acetaminophen 325 Mg Tab PO Q6H PRN Pain MILD(1-3)/Fever >100.5/GUZMAN Amlodipine Besylate 10 mg 08/07/21 10:00 08/09/21 09:52 Amlodipine 10 Mg Tab PO 10 mg DAILY OLLIE Administration Citalopram Hydrobromide 20 mg 08/07/21 10:00 08/08/21 10:25 Citalopram 10 Mg Tab PO 20 mg QDAY OLLIE Administration Epoetin Chaitanya-epbx 20,000 unit 08/08/21 11:23 08/08/21 17:45 Epoetin Chaitanya-Epbx 20,000 Unit/1 Ml Vial IV 20,000 unit ALEXX PRN Administration hemodialysis Folic Acid 1 mg 08/07/21 10:00 08/09/21 09:51 Folic Acid 1 Mg Tab PO 1 mg QDAY OLLIE Administration Hydralazine HCl 100 mg 08/08/21 14:00 08/09/21 05:51 Hydralazine 100 Mg Tab PO 100 mg Q8HR OLLIE Administration Hydroxychloroquine Sulfate 200 mg 08/07/21 10:00 08/09/21 09:51 Hydroxychloroquine 200 Mg Tab PO 200 mg QDAY OLLIE Administration Hydroxyzine HCl 25 mg 08/06/21 16:56 Hydroxyzine Hcl 25 Mg Tab PO Q6HR PRN Itching Sodium Chloride 100 mls @ 999 mls/hr 08/08/21 11:27 Nacl 0.9% IV ALEXX PRN Hypotension Labetalol HCl 10 mg 08/07/21 18:16 08/07/21 21:40 Labetalol 20 Mg/4 Ml Inj IV 10 mg Q4H PRN Administration SBP >/=160; DBP >/=100 Labetalol HCl 100 mg 08/08/21 22:00 08/09/21 09:52 Labetalol 100 Mg Tab PO 100 mg BID OLLIE Administration Levetiracetam 500 mg 08/06/21 22:00 08/09/21 09:59 Levetiracetam 500 Mg Tab PO 500 mg BID OLLIE Administration Lorazepam 1 mg 08/06/21 16:56 08/08/21 23:54 Lorazepam 1 Mg Tab PO 1 mg TID PRN Administration Anxiety Oxycodone/Acetaminophen 1 tab 08/08/21 08:34 Oxycodone /Acetaminophen 5-325mg Tab PO Q6H PRN Pain , Severe (7-10) Pantoprazole Sodium 20 mg 08/07/21 10:00 08/09/21 09:51 Pantoprazole 20 Mg Tab PO 20 mg QDAY OLLIE Administration Risperidone 1 mg 08/06/21 22:00 08/08/21 23:25 Risperidone 1 Mg Tab PO 1 mg QHS OLLIE Administration Sodium Chloride 10 ml 08/06/21 22:00 08/09/21 09:59 Sodium Chloride 0.9% 10 Ml Flush Syringe IV 10 ml BID OLLIE Administration Sodium Chloride 10 ml 08/06/21 16:55 Sodium Chloride 0.9% 10 Ml Flush Syringe IV PRN PRN LINE FLUSH Tramadol HCl 50 mg 08/08/21 08:34 Tramadol 50 Mg Tab PO Q6H PRN Pain, Moderate (4-6)
[2021-08-09] MEDS: CITALOPRAM 20 MG TAB PO SCH (11:01)
--- NOTE | 2021-08-09 11:08 | Progress Note ---
Assessment and Plan Assessment and plan: This is a 30-year-old female with known past medical history of HTN, ESRD on HD(T,R,Sa), seizure disorder, SLE, ADHD, and malnutrition admitted with diagnosis below: Hypertensive Emergency - Presented with BP of 229/151 required Cardened gtt - Patient refused PO meds overnight, cardene gtt was resumed - Cardene gtt discontinued - SBP in the 160 - Labetalol added for BP control Acute hypoxic respiratory failure - Presented with SOB and respiratory distress - CXR showed mild volume overload - V/Q with low probability for PE - Stable on RA, O2 supplementation on standby - Continue HD per Nephro - Continue O2 supplementation as needed - Continue SPO2 monitoring for SPO2 goal above 92% - CCM is also following End Stage Renal Disease(ESRD) on HD, volume overload -Continue hemodialysis per nephrology recommendation Hyperkalemia - Nephrology following - Continue HD per nephro, - Avoid nephrotoxic medications; Renally dose medications - Monitor and replace electrolytes as needed Anemia of Chronic Disease - Probably chronic 2/2 renal disease - H&H improved post epogen with HD yesterday -We will give 1 unit PRBCs today - No s/s of any active bleeding - Epogen with HD per Nephro Headache-resolved H/o Seizure Disorder - CT head/brain with no significant intracranial abnormality. - Resumed home Keppra - Seizure precautions #SLE (Systemic Lupus Erythematosus) - Resume home therapy - Outpatient rheumatology follow-up. #Moderate Protein Calori Malnutrition - Encourage increased protein intake, dietary supplementation. - Nutrition consulted Hospital Course to Date: 08/07: Patient is off cardene gtt this amm, SBP in the 160, home antihypertensive agents resumed. S/p HD yesterday, patient is stable on 4L NC this am, no s/s of respiratory distress noted. Low H&H this am, thrombocytopenia improved. Probable chronic 2/2 to ESRD, will transfuse 1unit of PRBCs. Continue to hold AC for now, SCD for VTE proph. Hyperkalemia noted this am, plan for HD again today per Nephro. 08/08: Refused PO antihypertensives and required cardene overnight. Cardene gtt is off this am, SBP in the 160. Per patient, she no longer takes clonidine she was switched to Labetalol. PO Labetalol added for BP control. Patient H&H improved post epogen with HD yesterday, hold PRBCs for now. Transfuse for hgb less than 7. Possible HD again today per Nephro. Patient is stable for transfer to the floor if remains stable. 08/09: Patient to receive 1 unit PRBCs today for hemoglobin of 7.0. BP is much better controlled with current regimen. Continue hemodialysis per nephrology recommendations. Anticipate discharge in a.m. History Interval history: No new issues overnight Hospitalist Physical - Constitutional Vitals: Temp Pulse Resp BP Pulse Ox 98.9 F 90 18 144/93 100 08/09/21 05:15 08/09/21 09:52 08/09/21 05:15 08/09/21 09:52 08/09/21 05:15 General appearance: Present: no acute distress, obese - EENT Eyes: Present: PERRL, EOM intact ENT: hearing intact, clear oral mucosa, dentition normal - Neck Neck: Present: supple, normal ROM - Respiratory Respiratory effort: normal Respiratory: bilateral: CTA - Cardiovascular Rhythm: regular Heart Sounds: Present: S1 & S2. Absent: gallop, rub - Extremities Extremities: no ischemia, No edema, Full ROM - Abdominal General gastrointestinal: soft, non-tender, non-distended, normal bowel sounds - Integumentary Integumentary: Present: clear, warm, dry - Neurologic Neurologic: CNII-XII intact, moves all extremities HEART Score - HEART Score Troponin: Troponin T 0.097 ng/mL (0.00-0.029) H 08/06/21 Unknown Results - Labs CBC & Chem 7: 08/09/21 05:50 08/09/21 05:50 Labs: Laboratory Last Values WBC 6.1 K/mm3 (4.5-11.0) 08/09/21 05:50 RBC 2.26 M/mm3 (3.65-5.03) L 08/09/21 05:50 Hgb 7.0 gm/dl (10.1-14.3) L 08/09/21 05:50 Hct 21.9 % (30.3-42.9) L 08/09/21 05:50 MCV 97 fl (79-97) 08/09/21 05:50 MCH 31 pg (28-32) 08/09/21 05:50 MCHC 32 % (30-34) 08/09/21 05:50 RDW 18.8 % (13.2-15.2) H 08/09/21 05:50 Plt Count 93 K/mm3 (140-440) L 08/09/21 05:50 Lymph % (Auto) 24.2 % (13.4-35.0) 08/06/21 Unknown [place] % (Auto) 6.4 % (0.0-7.3) 08/06/21 Unknown Eos % (Auto) 4.7 % (0.0-4.3) H 08/06/21 Unknown Baso % (Auto) 0.5 % (0.0-1.8) 08/06/21 Unknown Lymph # (Auto) 1.0 K/mm3 (1.2-5.4) L 08/06/21 Unknown [place] # (Auto) 0.3 K/mm3 (0.0-0.8) 08/06/21 Unknown Eos # (Auto) 0.2 K/mm3 (0.0-0.4) 08/06/21 Unknown Baso # (Auto) 0.0 K/mm3 (0.0-0.1) 08/06/21 Unknown Seg Neutrophils % 64.2 % (40.0-70.0) 08/06/21 Unknown Seg Neutrophils # 2.6 K/mm3 (1.8-7.7) 08/06/21 Unknown D-Dimer 6037.58 ng/mlDDU (0-234) H 08/06/21 Unknown Sodium 137 mmol/L (137-145) 08/09/21 05:50 Potassium 3.8 mmol/L (3.6-5.0) 08/09/21 05:50 Chloride 97.2 mmol/L (98-107) L 08/09/21 05:50 Carbon Dioxide 25 mmol/L (22-30) 08/09/21 05:50 Anion Gap 19 mmol/L 08/09/21 05:50 BUN 11 mg/dL (7-17) 08/09/21 05:50 Creatinine 4.1 mg/dL (0.6-1.2) H 08/09/21 05:50 Estimated GFR 16 ml/min 08/09/21 05:50 BUN/Creatinine Ratio 3 % 08/09/21 05:50 Glucose 150 mg/dL (65-100) H 08/09/21 05:50 Calcium 9.1 mg/dL (8.4-10.2) 08/09/21 05:50 Phosphorus 4.60 mg/dL (2.5-4.5) H 08/08/21 05:33 Total Bilirubin 0.30 mg/dL (0.1-1.2) 08/06/21 Unknown AST 25 units/L (5-40) 08/06/21 Unknown ALT 8 units/L (7-56) 08/06/21 Unknown Alkaline Phosphatase 104 units/L (35-129) 08/06/21 Unknown Troponin T 0.097 ng/mL (0.00-0.029) H 08/06/21 Unknown NT-Pro-B Natriuret Pep 21698 pg/mL (0-450) H 08/06/21 Unknown Total Protein 7.2 g/dL (6.3-8.2) 08/06/21 Unknown Albumin 3.3 g/dL (3.9-5) L 08/06/21 Unknown Albumin/Globulin Ratio 0.8 % 08/06/21 Unknown HCG, Qual Negative (Negative) 08/06/21 Unknown Hepatitis A IgM Ab Non-reactive (NonReactive) 08/06/21 Unknown Hep Bs Antigen Non-reactive (Negative) 08/06/21 Unknown Hep B Core IgM Ab Non-reactive (NonReactive) 08/06/21 Unknown Hepatitis C Antibody Non-reactive (NonReactive) 08/06/21 Unknown Blood Type B POSITIVE 08/07/21 15:10 Antibody Screen Positive 08/07/21 15:10 Crossmatch See Detail 08/07/21 15:10 Nuñez/IV: Voiding Method Toilet Active Medications - Current Medications Current Medications: Generic Name Dose Route Start Last Admin Trade Name Freq PRN Reason Stop Dose Admin Acetaminophen 650 mg 08/06/21 18:00 Acetaminophen 325 Mg Tab PO Q6H PRN Pain MILD(1-3)/Fever >100.5/GUZMAN Amlodipine Besylate 10 mg 08/07/21 10:00 08/09/21 09:52 Amlodipine 10 Mg Tab PO 10 mg DAILY OLLIE Administration Citalopram Hydrobromide 20 mg 08/09/21 10:15 Citalopram 20 Mg Tab PO DAILY OLLIE Epoetin Chaitanya-epbx 20,000 unit 08/08/21 11:23 08/08/21 17:45 Epoetin Chaitanya-Epbx 20,000 Unit/1 Ml Vial IV 20,000 unit ALEXX PRN Administration hemodialysis Folic Acid 1 mg 08/07/21 10:00 08/09/21 09:51 Folic Acid 1 Mg Tab PO 1 mg QDAY OLLIE Administration Hydralazine HCl 100 mg 08/08/21 14:00 08/09/21 05:51 Hydralazine 100 Mg Tab PO 100 mg Q8HR OLLIE Administration Hydroxychloroquine Sulfate 200 mg 08/07/21 10:00 08/09/21 09:51 Hydroxychloroquine 200 Mg Tab PO 200 mg QDAY OLLIE Administration Hydroxyzine HCl 25 mg 08/06/21 16:56 Hydroxyzine Hcl 25 Mg Tab PO Q6HR PRN Itching Sodium Chloride 100 mls @ 999 mls/hr 08/08/21 11:27 Nacl 0.9% IV ALEXX PRN Hypotension Labetalol HCl 10 mg 08/07/21 18:16 08/07/21 21:40 Labetalol 20 Mg/4 Ml Inj IV 10 mg Q4H PRN Administration SBP >/=160; DBP >/=100 Labetalol HCl 100 mg 08/08/21 22:00 08/09/21 09:52 Labetalol 100 Mg Tab PO 100 mg BID OLLIE Administration Levetiracetam 500 mg 08/06/21 22:00 08/09/21 09:59 Levetiracetam 500 Mg Tab PO 500 mg BID OLLIE Administration Lorazepam 1 mg 08/06/21 16:56 08/08/21 23:54 Lorazepam 1 Mg Tab PO 1 mg TID PRN Administration Anxiety Oxycodone/Acetaminophen 1 tab 08/08/21 08:34 Oxycodone /Acetaminophen 5-325mg Tab PO Q6H PRN Pain , Severe (7-10) Pantoprazole Sodium 20 mg 08/07/21 10:00 08/09/21 09:51 Pantoprazole 20 Mg Tab PO 20 mg QDAY OLLIE Administration Risperidone 1 mg 08/06/21 22:00 08/08/21 23:25 Risperidone 1 Mg Tab PO 1 mg QHS OLLIE Administration Sodium Chloride 10 ml 08/06/21 22:00 08/09/21 09:59 Sodium Chloride 0.9% 10 Ml Flush Syringe IV 10 ml BID OLLIE Administration Sodium Chloride 10 ml 08/06/21 16:55 Sodium Chloride 0.9% 10 Ml Flush Syringe IV PRN PRN LINE FLUSH Tramadol HCl 50 mg 08/08/21 08:34 Tramadol 50 Mg Tab PO Q6H PRN Pain, Moderate (4-6) Nutrition/Malnutrition Assess - Dietary Evaluation Nutrition/Malnutrition Findings: Nutrition Notes Start: 08/07/21 16:16 Freq: Status: Active Protocol: Document 08/07/21 16:16 MICKI (Rec: 08/07/21 16:32 MICKI [id number]) Nutrition Notes Need for Assessment 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 Current Diet Renal Diet (since D 08/06). Labs/Tests 08/07: K 5.5, Cl 97.1, CO2 19, BUN 33, Crea 6.6. Pertinent Medications 08/07: Folic acid, others nutritionally unremarkable. Height 5 ft 3 in Weight 47.6 kg Burt Body Weight (kg) 52.27 BMI 18.6 Intake Prior to Admission Good Weight change and time frame Pt states being unsure if loss body weight [employer] ROLL[employer]. Weight Status Appropriate Subjective/Other Information RD consult for risk of malnutrition assessment. No reports available on Pt's PO intake of meals at the time , will assess at F/U. Pt is on Nasal Cannula, O2 saturation @ 95%, according to Physical Assessment Histroy notes. Pt shows no signs of concern for risk of malnutrition at the time, according to Physical Assessment Histroy notes. Percent of energy/protein needs met: Prescribed Renal Diet provides for energy/protein needs (2, 072 Kcal/77 g) during LOS. Burn Absent Trauma Absent GI Symptoms None Food Allergy No Skin Integrity/Comment Assessment WNL. Minimum of two criteria No #1 Nutrition Diagnosis No nutrition diagnosis at this time Comments: I will assess Pt's PO intake of meals at F/U. Is patient on ventilator? No Is Patient Ambulatory and/or Out of Bed Yes REE-([place]-St. Jeor-ambulatory/OOB) [ 1527.669 [id number]] Kcal/Kg value to use for calculation 28 Approximate Energy Requirements Using 1333 kcal/Kg Calculation Used for Recommendations Kcal/kg Additional Notes Protein: >1.2 g/Kg IBW; >62 g/ day. Fluids: 1 ml/Kcal, or as per MD. Nutrition Intervention Change Diet Order: Continue Renal Diet. Follow-Up By: 08/14/21 Additional Comments Continue monitoring food tolerance, %PO intake of meals , and BM.
[2021-08-09] MEDS ORDERED: SODIUM CHLORIDE 0.9% 500 ML 500 ML IV ONE (16:00)
[2021-08-09] MEDS: risperiDONE 1 MG TAB PO SCH (22:50)
[2021-08-10] MEDS: hydrALAZINE 100 MG TAB PO SCH ×3 (06:39→21:27)
[2021-08-10] MEDS: PANTOPRAZOLE 20 MG TAB PO SCH (09:24)
[2021-08-10] MEDS: FOLIC ACID 1 MG TAB PO SCH (09:24)
[2021-08-10] MEDS: CITALOPRAM 20 MG TAB PO SCH (09:24)
[2021-08-10] MEDS: levETIRAcetam 500 MG TAB PO SCH ×2 (09:24→21:27)
[2021-08-10] MEDS: amLODIPine 10 MG TAB PO SCH (09:24)
[2021-08-10] MEDS: HYDROXYCHLOROQUINE 200 MG TAB PO SCH (09:24)
[2021-08-10] MEDS: oxyCODONE /ACETAMINOPHEN 5-325MG TAB PO PRN ×2 (10:15→21:27)
--- NOTE | 2021-08-10 10:59 | Progress Note ---
Assessment and Plan Assessment and plan: This is a 30-year-old female with known past medical history of HTN, ESRD on HD(T,R,Sa), seizure disorder, SLE, ADHD, and malnutrition admitted with diagnosis below: Hypertensive Emergency - Presented with BP of 229/151 required Cardened gtt - Patient refused PO meds overnight, cardene gtt was resumed - Cardene gtt discontinued - SBP in the 160 - Labetalol added for BP control Acute hypoxic respiratory failure - Presented with SOB and respiratory distress - CXR showed mild volume overload - V/Q with low probability for PE - Stable on RA, O2 supplementation on standby - Continue HD per Nephro - Continue O2 supplementation as needed - Continue SPO2 monitoring for SPO2 goal above 92% - CCM is also following End Stage Renal Disease(ESRD) on HD, volume overload -Continue hemodialysis per nephrology recommendation Hyperkalemia - Nephrology following - Continue HD per nephro, - Avoid nephrotoxic medications; Renally dose medications - Monitor and replace electrolytes as needed Anemia of Chronic Disease - Probably chronic 2/2 renal disease - H&H improved post epogen with HD yesterday -We will give 1 unit PRBCs today - No s/s of any active bleeding - Epogen with HD per Nephro Headache-resolved H/o Seizure Disorder - CT head/brain with no significant intracranial abnormality. - Resumed home Keppra - Seizure precautions #SLE (Systemic Lupus Erythematosus) - Resume home therapy - Outpatient rheumatology follow-up. #Moderate Protein [place] Malnutrition - Encourage increased protein intake, dietary supplementation. - Nutrition consulted Hospital Course to Date: 08/07: Patient is off cardene gtt this amm, SBP in the 160, home antihypertensive agents resumed. S/p HD yesterday, patient is stable on 4L NC this am, no s/s of respiratory distress noted. Low H&H this am, thrombocytopenia improved. Probable chronic 2/2 to ESRD, will transfuse 1unit of PRBCs. Continue to hold AC for now, SCD for VTE proph. Hyperkalemia noted this am, plan for HD again today per Nephro. 08/08: Refused PO antihypertensives and required cardene overnight. Cardene gtt is off this am, SBP in the 160. Per patient, she no longer takes clonidine she was switched to Labetalol. PO Labetalol added for BP control. Patient H&H improved post epogen with HD yesterday, hold PRBCs for now. Transfuse for hgb less than 7. Possible HD again today per Nephro. Patient is stable for transfer to the floor if remains stable. 08/09: Patient to receive 1 unit PRBCs today for hemoglobin of 7.0. BP is much better controlled with current regimen. Continue hemodialysis per nephrology recommendations. Anticipate discharge in a.m. 08/10: Still awaiting PRBCs to be transfused. Follow-up H&H today. BP much better controlled. Patient for hemodialysis today History Interval history: No new issues overnight Hospitalist Physical - Constitutional Vitals: Temp Pulse Resp BP Pulse Ox 99.5 F 94 H 18 142/89 99 08/09/21 20:55 08/10/21 09:24 08/10/21 10:15 08/10/21 09:24 08/10/21 08:49 General appearance: Present: no acute distress, obese - EENT Eyes: Present: PERRL, EOM intact ENT: hearing intact, clear oral mucosa, dentition normal - Neck Neck: Present: supple, normal ROM - Respiratory Respiratory effort: normal Respiratory: bilateral: CTA - Cardiovascular Rhythm: regular Heart Sounds: Present: S1 & S2. Absent: gallop, rub - Extremities Extremities: no ischemia, No edema, Full ROM - Abdominal General gastrointestinal: soft, non-tender, non-distended, normal bowel sounds - Integumentary Integumentary: Present: clear, warm, dry - Neurologic Neurologic: CNII-XII intact, moves all extremities HEART Score - HEART Score Troponin: Troponin T 0.097 ng/mL (0.00-0.029) H 08/06/21 Unknown Results - Labs CBC & Chem 7: 08/09/21 05:50 08/10/21 04:23 Labs: Laboratory Last Values WBC 6.1 K/mm3 (4.5-11.0) 08/09/21 05:50 RBC 2.26 M/mm3 (3.65-5.03) L 08/09/21 05:50 Hgb 7.0 gm/dl (10.1-14.3) L 08/09/21 05:50 Hct 21.9 % (30.3-42.9) L 08/09/21 05:50 MCV 97 fl (79-97) 08/09/21 05:50 MCH 31 pg (28-32) 08/09/21 05:50 MCHC 32 % (30-34) 08/09/21 05:50 RDW 18.8 % (13.2-15.2) H 08/09/21 05:50 Plt Count 93 K/mm3 (140-440) L 08/09/21 05:50 Lymph % (Auto) 24.2 % (13.4-35.0) 08/06/21 Unknown [place] % (Auto) 6.4 % (0.0-7.3) 08/06/21 Unknown Eos % (Auto) 4.7 % (0.0-4.3) H 08/06/21 Unknown Baso % (Auto) 0.5 % (0.0-1.8) 08/06/21 Unknown Lymph # (Auto) 1.0 K/mm3 (1.2-5.4) L 08/06/21 Unknown [place] # (Auto) 0.3 K/mm3 (0.0-0.8) 08/06/21 Unknown Eos # (Auto) 0.2 K/mm3 (0.0-0.4) 08/06/21 Unknown Baso # (Auto) 0.0 K/mm3 (0.0-0.1) 08/06/21 Unknown Seg Neutrophils % 64.2 % (40.0-70.0) 08/06/21 Unknown Seg Neutrophils # 2.6 K/mm3 (1.8-7.7) 08/06/21 Unknown D-Dimer 6037.58 ng/mlDDU (0-234) H 08/06/21 Unknown Sodium 133 mmol/L (137-145) L 08/10/21 04:23 Potassium 4.1 mmol/L (3.6-5.0) 08/10/21 04:23 Chloride 96.7 mmol/L (98-107) L 08/10/21 04:23 Carbon Dioxide 25 mmol/L (22-30) 08/10/21 04:23 Anion Gap 15 mmol/L 08/10/21 04:23 BUN 23 mg/dL (7-17) H 08/10/21 04:23 Creatinine 6.1 mg/dL (0.6-1.2) H 08/10/21 04:23 Estimated GFR 10 ml/min 08/10/21 04:23 BUN/Creatinine Ratio 4 % 08/10/21 04:23 Glucose 93 mg/dL (65-100) 08/10/21 04:23 Calcium 9.0 mg/dL (8.4-10.2) 08/10/21 04:23 Phosphorus 4.60 mg/dL (2.5-4.5) H 08/08/21 05:33 Total Bilirubin 0.30 mg/dL (0.1-1.2) 08/06/21 Unknown AST 25 units/L (5-40) 08/06/21 Unknown ALT 8 units/L (7-56) 08/06/21 Unknown Alkaline Phosphatase 104 units/L (35-129) 08/06/21 Unknown Troponin T 0.097 ng/mL (0.00-0.029) H 08/06/21 Unknown NT-Pro-B Natriuret Pep 02840 pg/mL (0-450) H 08/06/21 Unknown Total Protein 7.2 g/dL (6.3-8.2) 08/06/21 Unknown Albumin 3.3 g/dL (3.9-5) L 08/06/21 Unknown Albumin/Globulin Ratio 0.8 % 08/06/21 Unknown HCG, Qual Negative (Negative) 08/06/21 Unknown Hepatitis A IgM Ab Non-reactive (NonReactive) 08/06/21 Unknown Hep Bs Antigen Non-reactive (Negative) 08/06/21 Unknown Hep B Core IgM Ab Non-reactive (NonReactive) 08/06/21 Unknown Hepatitis C Antibody Non-reactive (NonReactive) 08/06/21 Unknown Blood Type B POSITIVE 08/07/21 15:10 Antibody Screen Positive 08/07/21 15:10 Crossmatch See Detail 08/07/21 15:10 Nuñez/IV: Voiding Method Toilet Active Medications - Current Medications Current Medications: Generic Name Dose Route Start Last Admin Trade Name Freq PRN Reason Stop Dose Admin Acetaminophen 650 mg 08/06/21 18:00 Acetaminophen 325 Mg Tab PO Q6H PRN Pain MILD(1-3)/Fever >100.5/GUZMAN Amlodipine Besylate 10 mg 08/07/21 10:00 08/10/21 09:24 Amlodipine 10 Mg Tab PO 10 mg DAILY OLLIE Administration Citalopram Hydrobromide 20 mg 08/09/21 10:15 08/10/21 09:24 Citalopram 20 Mg Tab PO 20 mg DAILY OLLIE Administration Epoetin Chaitanya-epbx 20,000 unit 08/08/21 11:23 08/08/21 17:45 Epoetin Chaitanya-Epbx 20,000 Unit/1 Ml Vial IV 20,000 unit ALEXX PRN Administration hemodialysis Folic Acid 1 mg 08/07/21 10:00 08/10/21 09:24 Folic Acid 1 Mg Tab PO 1 mg QDAY OLLIE Administration Hydralazine HCl 100 mg 08/08/21 14:00 08/10/21 06:39 Hydralazine 100 Mg Tab PO 100 mg Q8HR OLLIE Administration Hydroxychloroquine Sulfate 200 mg 08/07/21 10:00 08/10/21 09:24 Hydroxychloroquine 200 Mg Tab PO 200 mg QDAY OLLIE Administration Hydroxyzine HCl 25 mg 08/06/21 16:56 Hydroxyzine Hcl 25 Mg Tab PO Q6HR PRN Itching Sodium Chloride 100 mls @ 999 mls/hr 08/08/21 11:27 Nacl 0.9% IV ALEXX PRN Hypotension Labetalol HCl 10 mg 08/07/21 18:16 08/07/21 21:40 Labetalol 20 Mg/4 Ml Inj IV 10 mg Q4H PRN Administration SBP >/=160; DBP >/=100 Labetalol HCl 100 mg 08/08/21 22:00 08/10/21 09:24 Labetalol 100 Mg Tab PO 100 mg BID OLLIE Administration Levetiracetam 500 mg 08/06/21 22:00 08/10/21 09:24 Levetiracetam 500 Mg Tab PO 500 mg BID OLLIE Administration Lorazepam 1 mg 08/06/21 16:56 08/08/21 23:54 Lorazepam 1 Mg Tab PO 1 mg TID PRN Administration Anxiety Oxycodone/Acetaminophen 1 tab 08/08/21 08:34 08/10/21 10:15 Oxycodone /Acetaminophen 5-325mg Tab PO 1 tab Q6H PRN Administration Pain , Severe (7-10) Pantoprazole Sodium 20 mg 08/07/21 10:00 08/10/21 09:24 Pantoprazole 20 Mg Tab PO 20 mg QDAY OLLIE Administration Risperidone 1 mg 08/06/21 22:00 08/09/21 22:50 Risperidone 1 Mg Tab PO 1 mg QHS OLLIE Administration Sodium Chloride 10 ml 08/06/21 22:00 08/10/21 09:24 Sodium Chloride 0.9% 10 Ml Flush Syringe IV 10 ml BID OLLIE Administration Sodium Chloride 10 ml 08/06/21 16:55 Sodium Chloride 0.9% 10 Ml Flush Syringe IV PRN PRN LINE FLUSH Tramadol HCl 50 mg 08/08/21 08:34 Tramadol 50 Mg Tab PO Q6H PRN Pain, Moderate (4-6) Nutrition/Malnutrition Assess - Dietary Evaluation Nutrition/Malnutrition Findings: Nutrition Notes Start: 08/07/21 16:16 Freq: Status: Active Protocol: Document 08/07/21 16:16 MICKI (Rec: 08/07/21 16:32 MICKI [id number]) Nutrition Notes Need for 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 Current Diet Renal Diet (since D 08/06). Labs/Tests 08/07: K 5.5, Cl 97.1, CO2 19, BUN 33, Crea 6.6. Pertinent Medications 08/07: Folic acid, others nutritionally unremarkable. Height 5 ft 3 in Weight 47.6 kg [place] Body Weight (kg) 52.27 BMI 18.6 Intake Prior to Admission Good Weight change and time frame Pt states being unsure if loss body weight [employer]. Weight Status Appropriate Subjective/Other Information RD consult for risk of malnutrition assessment. No reports available on Pt's PO intake of meals at the time , will assess at F/U. Pt is on Nasal Cannula, O2 saturation @ 95%, according to Physical Assessment Histroy notes. Pt shows no signs of concern for risk of malnutrition at the time, according to Physical Assessment Histroy notes. Percent of energy/protein needs met: Prescribed Renal Diet provides for energy/protein needs (2, 072 Kcal/77 g) during LOS. Burn Absent Trauma Absent GI Symptoms None Food Allergy No Skin Integrity/Comment Assessment WNL. Minimum of two criteria No #1 Nutrition Diagnosis No nutrition diagnosis at this time Comments: I will assess Pt's PO intake of meals at F/U. Is patient on ventilator? No Is Patient Ambulatory and/or Out of Bed Yes REE-([place]-St. Jeor-ambulatory/OOB) [ 1527.669 [id number]] Kcal/Kg value to use for calculation 28 Approximate Energy Requirements Using 1333 kcal/Kg Calculation Used for Recommendations Kcal/kg Additional Notes Protein: >1.2 g/Kg IBW; >62 g/ day. Fluids: 1 ml/Kcal, or as per MD. Nutrition Intervention Change Diet Order: Continue Renal Diet. Follow-Up By: 08/14/21 Additional Comments Continue monitoring food tolerance, %PO intake of meals , and BM.
[2021-08-10] MEDS: EPOETIN ALFA-EPBX 20,000 UNIT/1 ML VIAL IV PRN (12:43)
--- NOTE | 2021-08-10 14:41 | Progress Note ---
Assessment and Plan Assessment: ESRD on hemodialysis Hypertensive Emergency Lupus Seizure ADHD Hyperkalemia Anemia Plan: -S/p HD today for UF and clearance via right IJ perm catheter, UF removed 1L -Assess need for HD on daily basis -Epogen dosing for anemia management -Transfuse blood as per primary -Fluid restriction of 1 liter per day -Renally dose medications -Strict I/O's daily -Pt states she undergoes OP HD at [facility] -Renal plan reviewed by Dr Mejias Subjective Date of service: 08/10/21 Principal diagnosis: ESRD Interval history: Pt seen in bed, denies shortness of breath, s/p HD today, no complaints voiced. Pt states HD treatment went ok. No family at bedside Objective - Vital Signs Vital signs: Vital Signs - 12hr 08/10/21 08/10/21 08/10/21 08:49 09:24 10:00 Temperature Pulse Rate 94 H Respiratory 16 Rate Respiratory 18 Rate [Head] Blood Pressure 142/89 O2 Sat by Pulse 99 Oximetry O2 Sat by Pulse Oximetry [ Throughout] 08/10/21 08/10/21 08/10/21 10:15 10:40 10:45 Temperature Pulse Rate 86 84 Respiratory 18 Rate Respiratory Rate [Head] Blood Pressure 161/102 145/94 O2 Sat by Pulse Oximetry O2 Sat by Pulse Oximetry [ Throughout] 08/10/21 08/10/21 08/10/21 11:00 11:02 11:15 Temperature 98.3 F Pulse Rate 86 87 87 Respiratory 18 Rate Respiratory Rate [Head] Blood Pressure 115/71 160/104 122/75 O2 Sat by Pulse Oximetry O2 Sat by Pulse 100 Oximetry [ Throughout] 08/10/21 08/10/21 08/10/21 11:30 11:45 12:00 Temperature Pulse Rate 90 82 86 Respiratory Rate Respiratory Rate [Head] Blood Pressure 106/61 126/81 123/76 O2 Sat by Pulse Oximetry O2 Sat by Pulse Oximetry [ Throughout] 08/10/21 08/10/21 12:15 12:30 Temperature Pulse Rate 85 90 Respiratory Rate Respiratory Rate [Head] Blood Pressure 180/69 118/65 O2 Sat by Pulse Oximetry O2 Sat by Pulse Oximetry [ Throughout] - General Appearance General appearance: well-developed EENT: ATNC Neck: no JVD Respiratory: Present: Clear to Ascultation Cardiology: regular, S1S2, other (ACCESS: Right IJ Perm Catheter) Gastrointestinal: normoactive bowel sounds, no tenderness Integumentary: other (Left arm AVF with carina and dressing in place) Neurologic: alert and oriented x3 Musculoskeletal: other (trace edema to BLE) Psychiatric: mood/affect appropriate - Lab 08/09/21 05:50 08/10/21 04:23 Most recent lab results Calcium 9.0 mg/dL (8.4-10.2) 08/10/21 04:23 Phosphorus 4.60 mg/dL (2.5-4.5) H 08/08/21 05:33 Medications & Allergies - Medications Allergies/Adverse Reactions: Allergies amoxicillin trihydrate [From Augmentin] Allergy (Unknown, Verified 05/27/13 11:32) Unknown Tolerates Zosyn diphenhydramine [From Benadryl] Allergy (Verified 08/06/21 16:06) Itching potassium clavulanate [From Augmentin] Adverse Reaction (Unknown, Verified 05/27/13 11:32) Unknown Home Medications: Home Medications Medication Instructions Recorded Confirmed Last Taken Type hydrOXYzine HCL [Atarax] 25 mg PO Q6HR PRN #20 tablet 06/19/13 08/10/21 Unknown Rx Folic Acid [Folvite] 1 mg PO QDAY #30 tablet 03/12/14 08/10/21 Unknown Rx Hydralazine HCl [hydrALAZINE] 100 mg PO DAILY #30 tablet 03/12/14 08/10/21 Unknown Rx Hydroxychloroquine [Plaquenil] 200 mg PO QDAY #30 tablet 03/12/14 08/10/21 Unknown Rx LORazepam [Ativan] 1 mg PO TID PRN #6 tablet 03/12/14 08/10/21 Unknown Rx Pantoprazole [Protonix TAB] 20 mg PO QDAY #20 tablet. 03/12/14 08/10/21 Unknown Rx amLODIPine 10 mg PO DAILY #30 tablet 03/12/14 08/10/21 Unknown Rx cloNIDine [Catapres] 0.1 mg PO BID #30 tablet 03/12/14 08/10/21 Unknown Rx hydrOXYzine HCL [Atarax] 25 mg PO Q6HR #20 tablet 03/12/14 08/10/21 Unknown Rx levETIRAcetam [Keppra TAB] 500 mg PO BID #60 tablet 03/12/14 08/10/21 Unknown Rx predniSONE 10 mg PO QPM #30 tablet 03/12/14 08/10/21 Unknown Rx risperiDONE [RisperDAL] 1 mg PO QHS #30 tablet 03/12/14 08/10/21 Unknown Rx Citalopram [celeXA] 20 mg PO QDAY #30 tablet 03/30/14 08/10/21 Unknown Rx Active Medications: Generic Name Dose Route Start Last Admin Trade Name Freq PRN Reason Stop Dose Admin Acetaminophen 650 mg 08/06/21 18:00 Acetaminophen 325 Mg Tab PO Q6H PRN Pain MILD(1-3)/Fever >100.5/GUZMAN Amlodipine Besylate 10 mg 08/07/21 10:00 08/10/21 09:24 Amlodipine 10 Mg Tab PO 10 mg DAILY OLLIE Administration Citalopram Hydrobromide 20 mg 08/09/21 10:15 08/10/21 09:24 Citalopram 20 Mg Tab PO 20 mg DAILY OLLIE Administration Epoetin Chaitanya-epbx 20,000 unit 08/08/21 11:23 08/10/21 12:43 Epoetin Chaitanya-Epbx 20,000 Unit/1 Ml Vial IV 20,000 unit ALEXX PRN Administration hemodialysis Folic Acid 1 mg 08/07/21 10:00 08/10/21 09:24 Folic Acid 1 Mg Tab PO 1 mg QDAY OLLIE Administration Hydralazine HCl 100 mg 08/08/21 14:00 08/10/21 06:39 Hydralazine 100 Mg Tab PO 100 mg Q8HR OLLIE Administration Hydroxychloroquine Sulfate 200 mg 08/07/21 10:00 08/10/21 09:24 Hydroxychloroquine 200 Mg Tab PO 200 mg QDAY OLLIE Administration Hydroxyzine HCl 25 mg 08/06/21 16:56 Hydroxyzine Hcl 25 Mg Tab PO Q6HR PRN Itching Sodium Chloride 100 mls @ 999 mls/hr 08/08/21 11:27 Nacl 0.9% IV ALEXX PRN Hypotension Labetalol HCl 10 mg 08/07/21 18:16 08/07/21 21:40 Labetalol 20 Mg/4 Ml Inj IV 10 mg Q4H PRN Administration SBP >/=160; DBP >/=100 Labetalol HCl 100 mg 08/08/21 22:00 08/10/21 09:24 Labetalol 100 Mg Tab PO 100 mg BID OLLIE Administration Levetiracetam 500 mg 08/06/21 22:00 08/10/21 09:24 Levetiracetam 500 Mg Tab PO 500 mg BID OLLIE Administration Lorazepam 1 mg 08/06/21 16:56 08/08/21 23:54 Lorazepam 1 Mg Tab PO 1 mg TID PRN Administration Anxiety Oxycodone/Acetaminophen 1 tab 08/08/21 08:34 08/10/21 10:15 Oxycodone /Acetaminophen 5-325mg Tab PO 1 tab Q6H PRN Administration Pain , Severe (7-10) Pantoprazole Sodium 20 mg 08/07/21 10:00 08/10/21 09:24 Pantoprazole 20 Mg Tab PO 20 mg QDAY OLLIE Administration Risperidone 1 mg 08/06/21 22:00 08/09/21 22:50 Risperidone 1 Mg Tab PO 1 mg QHS OLLIE Administration Sodium Chloride 10 ml 08/06/21 22:00 08/10/21 09:24 Sodium Chloride 0.9% 10 Ml Flush Syringe IV 10 ml BID OLLIE Administration Sodium Chloride 10 ml 08/06/21 16:55 Sodium Chloride 0.9% 10 Ml Flush Syringe IV PRN PRN LINE FLUSH Tramadol HCl 50 mg 08/08/21 08:34 Tramadol 50 Mg Tab PO Q6H PRN Pain, Moderate (4-6)
--- NOTE | 2021-08-10 18:54 | Progress Note ---
Assessment and Plan Hypertensive emergency End stage renal disease Anemia SLE (systemic lupus erythematosus) Pulmonary edema, respiratory insufficiency Protein calorie Malnutrition Thrombocytopenia Headache H/o Seizure Disorder Continue antihypertensive therapy, blood pressure checks as per nursing care protocol Supportive transfusion to keep HgB>7g/dL, Epogen and hematinics Continue Plaquenil Continue oral antihypertensives VTE prophylaxis- early ambulation, SCDs while in bed Dialysis as per renal team, monitor fluid balance, supportive care. Supplemental oxygen, titrate to keep SpO2 89-92% Avoid nephrotoxic medications; Renally dose medications Chronic home medications as clinically indicated Serial CBC Discharge planning per primary service Subjective Date of service: 08/10/21 Principal diagnosis: ESRD Interval history: This is a 30-year-old female with known past medical history of HTN, ESRD on HD(T,R,Sa), seizure disorder, SLE, ADHD, and malnutrition admitted for Hypertensive emergency and fluid overload. Seen and examined. Vitals, labs, medications, chart reviewed. Discussed with nursing staff. Awaiting blood transfusion She denies any chest pain, no shortness of breath, no fevers, no chills, no n ausea or vomiting. No diarrhea. Objective Vital Signs - 12hr 08/10/21 08/10/21 08/10/21 08:49 09:24 10:00 Temperature Pulse Rate 94 H Respiratory 16 Rate Respiratory 18 Rate [Head] Blood Pressure 142/89 O2 Sat by Pulse 99 Oximetry O2 Sat by Pulse Oximetry [ Throughout] 08/10/21 08/10/21 08/10/21 10:15 10:40 10:45 Temperature Pulse Rate 86 84 Respiratory 18 Rate Respiratory Rate [Head] Blood Pressure 161/102 145/94 O2 Sat by Pulse Oximetry O2 Sat by Pulse Oximetry [ Throughout] 08/10/21 08/10/21 08/10/21 11:00 11:02 11:15 Temperature 98.3 F Pulse Rate 86 87 87 Respiratory 18 Rate Respiratory Rate [Head] Blood Pressure 115/71 160/104 122/75 O2 Sat by Pulse Oximetry O2 Sat by Pulse 100 Oximetry [ Throughout] 08/10/21 08/10/21 08/10/21 11:30 11:45 12:00 Temperature Pulse Rate 90 82 86 Respiratory Rate Respiratory Rate [Head] Blood Pressure 106/61 126/81 123/76 O2 Sat by Pulse Oximetry O2 Sat by Pulse Oximetry [ Throughout] 08/10/21 08/10/21 08/10/21 12:15 12:30 12:45 Temperature Pulse Rate 85 90 85 Respiratory Rate Respiratory Rate [Head] Blood Pressure 180/69 118/65 126/82 O2 Sat by Pulse Oximetry O2 Sat by Pulse Oximetry [ Throughout] 08/10/21 08/10/21 08/10/21 13:00 13:15 13:30 Temperature Pulse Rate 87 86 90 Respiratory Rate Respiratory Rate [Head] Blood Pressure 157/80 132/91 148/97 O2 Sat by Pulse Oximetry O2 Sat by Pulse Oximetry [ Throughout] 08/10/21 08/10/21 08/10/21 13:45 15:34 17:26 Temperature 97.7 F 98.6 F Pulse Rate 89 93 H 95 H Respiratory 18 20 Rate Respiratory Rate [Head] Blood Pressure 169/98 168/102 153/88 O2 Sat by Pulse 99 Oximetry O2 Sat by Pulse 100 Oximetry [ Throughout] Constitutional: no acute distress, asleep Eyes: non-icteric ENT: oropharynx moist Neck: supple, no lymphadenopathy, no JVD Effort: normal Ascultation: Bilateral: diminished breath sounds Cardiovascular: other (tachycardia, S1,S2 right chest wall permcath) Gastrointestinal: normoactive bowel sounds, soft, non-tender Integumentary: normal Extremities: no cyanosis, no edema, pulses normal Neurologic: non-focal exam, pupils equal and round, CN II-XII normal Psychiatric: other (Patient is in deep sleep at this time.) CBC and BMP: 08/11/21 04:50 08/11/21 04:50 ABG, PT/INR, D-dimer: PT/INR, D-dimer D-Dimer 6037.58 ng/mlDDU (0-234) H 08/06/21 Unknown Abnormal lab findings: Abnormal Labs 08/06/21 08/06/21 08/06/21 Unknown Unknown Unknown WBC 4.1 L RBC 2.28 L Hgb 6.9 L Hct 22.5 L MCV 99 H RDW 18.0 H Plt Count 77 L Eos % (Auto) 4.7 H Lymph # (Auto) 1.0 L D-Dimer Sodium 135 L Potassium 5.8 H Chloride Carbon Dioxide 16 L BUN 56 H Creatinine 9.8 H Glucose Phosphorus Troponin T 0.097 H NT-Pro-B Natriuret Pep Albumin 3.3 L Crossmatch 08/06/21 08/06/21 08/07/21 Unknown Unknown 04:48 WBC RBC Hgb Hct MCV RDW Plt Count Eos % (Auto) Lymph # (Auto) D-Dimer 6037.58 H Sodium Potassium 5.5 H Chloride 97.1 L Carbon Dioxide 19 L BUN 33 H Creatinine 6.6 H Glucose Phosphorus Troponin T NT-Pro-B Natriuret Pep 84537 H Albumin Crossmatch 08/07/21 08/07/21 08/07/21 12:40 15:10 22:55 WBC RBC 2.12 L Hgb 6.6 L 7.3 L Hct 20.7 L 23.3 L MCV 98 H RDW 19.0 H Plt Count 88 L Eos % (Auto) Lymph # (Auto) D-Dimer Sodium Potassium Chloride Carbon Dioxide BUN Creatinine Glucose Phosphorus Troponin T NT-Pro-B Natriuret Pep Albumin Crossmatch See Detail 08/08/21 08/09/21 08/09/21 05:33 05:50 05:50 WBC RBC 2.26 L Hgb 7.0 L Hct 21.9 L MCV RDW 18.8 H Plt Count 93 L Eos % (Auto) Lymph # (Auto) D-Dimer Sodium Potassium Chloride 96.9 L 97.2 L Carbon Dioxide BUN Creatinine 4.8 H 4.1 H Glucose 110 H 150 H Phosphorus 4.60 H Troponin T NT-Pro-B Natriuret Pep Albumin Crossmatch 08/10/21 04:23 WBC RBC Hgb Hct MCV RDW Plt Count Eos % (Auto) Lymph # (Auto) D-Dimer Sodium 133 L Potassium Chloride 96.7 L Carbon Dioxide BUN 23 H Creatinine 6.1 H Glucose Phosphorus Troponin T NT-Pro-B Natriuret Pep Albumin Crossmatch
[2021-08-10] MEDS: risperiDONE 1 MG TAB PO SCH (21:27)
[2021-08-11] MEDS: hydrALAZINE 100 MG TAB PO SCH ×3 (05:14→22:12)
[2021-08-11 05:32] LABS: Hemoglobin 6.7 gm/dl (10.1-14.3); Mean Corpuscular HGB Conc 32 % (30-34); Mean Corpuscular Volume 98 fl (79-97); Platelet Count 84 K/mm3 (140-440); Red Blood Count 2.13 M/mm3 (3.65-5.03); Red Cell Distribution Width 19.8 % (13.2-15.2)
[2021-08-11 05:38] LABS: Calcium 9.3 mg/dL (8.4-10.2)
[2021-08-11 06:54] LABS: Anisocytosis 1+; Basophils % (Manual) 0 % (0.0-1.8); Platelet Estimate Consistent w Auto; Total Cells Counted 100
[2021-08-11] MEDS: amLODIPine 10 MG TAB PO SCH (09:09)
[2021-08-11] MEDS: FOLIC ACID 1 MG TAB PO SCH (09:09)
[2021-08-11] MEDS: levETIRAcetam 500 MG TAB PO SCH ×2 (09:10→22:13)
[2021-08-11] MEDS: CITALOPRAM 20 MG TAB PO SCH (09:10)
[2021-08-11] MEDS: PANTOPRAZOLE 20 MG TAB PO SCH (09:10)
[2021-08-11] MEDS: HYDROXYCHLOROQUINE 200 MG TAB PO SCH (09:10)
--- NOTE | 2021-08-11 11:12 | Progress Note ---
Assessment and Plan Assessment and plan: This is a 30-year-old female with known past medical history of HTN, ESRD on HD(T,R,Sa), seizure disorder, SLE, ADHD, and malnutrition admitted with diagnosis below: Hypertensive Emergency - Presented with BP of 229/151 required Cardened gtt - Patient refused PO meds overnight, cardene gtt was resumed - Cardene gtt discontinued - SBP in the 160 - Labetalol added for BP control Acute hypoxic respiratory failure - Presented with SOB and respiratory distress - CXR showed mild volume overload - V/Q with low probability for PE - Stable on RA, O2 supplementation on standby - Continue HD per Nephro - Continue O2 supplementation as needed - Continue SPO2 monitoring for SPO2 goal above 92% - CCM is also following End Stage Renal Disease(ESRD) on HD, volume overload -Continue hemodialysis per nephrology recommendation Hyperkalemia - Nephrology following - Continue HD per nephro, - Avoid nephrotoxic medications; Renally dose medications - Monitor and replace electrolytes as needed Anemia of Chronic Disease - Probably chronic 2/2 renal disease - H&H improved post epogen with HD yesterday -We will give 1 unit PRBCs today - No s/s of any active bleeding - Epogen with HD per Nephro Headache-resolved H/o Seizure Disorder - CT head/brain with no significant intracranial abnormality. - Resumed home Keppra - Seizure precautions #SLE (Systemic Lupus Erythematosus) - Resume home therapy - Outpatient rheumatology follow-up. #Moderate Protein Calori Malnutrition - Encourage increased protein intake, dietary supplementation. - Nutrition consulted Hospital Course to Date: 08/07: Patient is off cardene gtt this amm, SBP in the 160, home antihypertensive agents resumed. S/p HD yesterday, patient is stable on 4L NC this am, no s/s of respiratory distress noted. Low H&H this am, thrombocytopenia improved. Probable chronic 2/2 to ESRD, will transfuse 1unit of PRBCs. Continue to hold AC for now, SCD for VTE proph. Hyperkalemia noted this am, plan for HD again today per Nephro. 08/08: Refused PO antihypertensives and required cardene overnight. Cardene gtt is off this am, SBP in the 160. Per patient, she no longer takes clonidine she was switched to Labetalol. PO Labetalol added for BP control. Patient H&H improved post epogen with HD yesterday, hold PRBCs for now. Transfuse for hgb less than 7. Possible HD again today per Nephro. Patient is stable for transfer to the floor if remains stable. 08/09: Patient to receive 1 unit PRBCs today for hemoglobin of 7.0. BP is much better controlled with current regimen. Continue hemodialysis per nephrology recommendations. Anticipate discharge in a.m. 08/10: Still awaiting PRBCs to be transfused. Follow-up H&H today. BP much better controlled. Patient for hemodialysis today 08/11: Still awaiting PRBCs to be transfused. Continue to follow-up H&H. History Interval history: No new issues overnight Hospitalist Physical - Constitutional Vitals: Temp Pulse Resp BP Pulse Ox 98.5 F 95 H 18 145/90 99 08/11/21 04:22 08/11/21 09:09 08/11/21 10:00 08/11/21 09:09 08/11/21 08:07 General appearance: Present: no acute distress, obese - EENT Eyes: Present: PERRL, EOM intact ENT: hearing intact, clear oral mucosa, dentition normal - Neck Neck: Present: supple, normal ROM - Respiratory Respiratory effort: normal Respiratory: bilateral: CTA - Cardiovascular Rhythm: regular Heart Sounds: Present: S1 & S2. Absent: gallop, rub - Extremities Extremities: no ischemia, No edema, Full ROM - Abdominal General gastrointestinal: soft, non-tender, non-distended, normal bowel sounds - Integumentary Integumentary: Present: clear, warm, dry - Neurologic Neurologic: CNII-XII intact, moves all extremities HEART Score - HEART Score Troponin: Troponin T 0.097 ng/mL (0.00-0.029) H 08/06/21 Unknown Results - Labs CBC & Chem 7: 08/11/21 04:50 08/11/21 04:50 Labs: Laboratory Last Values WBC 4.9 K/mm3 (4.5-11.0) 08/11/21 04:50 RBC 2.13 M/mm3 (3.65-5.03) L 08/11/21 04:50 Hgb 6.7 gm/dl (10.1-14.3) L 08/11/21 04:50 Hct 21.0 % (30.3-42.9) L 08/11/21 04:50 MCV 98 fl (79-97) H 08/11/21 04:50 MCH 31 pg (28-32) 08/11/21 04:50 MCHC 32 % (30-34) 08/11/21 04:50 RDW 19.8 % (13.2-15.2) H 08/11/21 04:50 Plt Count 84 K/mm3 (140-440) L 08/11/21 04:50 Lymph % (Auto) Baller Tender 08/11/21 04:50 [place] % (Auto) Baller Tender 08/11/21 04:50 Eos % (Auto) Baller Tender 08/11/21 04:50 Baso % (Auto) Ball[place] Tender 08/11/21 04:50 Lymph # (Auto) Baller Tender 08/11/21 04:50 [place] # (Auto) Baller Tender 08/11/21 04:50 Eos # (Auto) Baller Tender 08/11/21 04:50 Baso # (Auto) Baller Tender 08/11/21 04:50 Add Manual Diff Complete 08/11/21 04:50 Total Counted 100 08/11/21 04:50 Seg Neutrophils % Ball[place] Tender 08/11/21 04:50 Seg Neuts % (Manual) 67.0 % (40.0-70.0) 08/11/21 04:50 Band Neutrophils % 0 % 08/11/21 04:50 Lymphocytes % (Manual) 23.0 % (13.4-35.0) 08/11/21 04:50 Reactive Lymphs % (Man) 0 % 08/11/21 04:50 Monocytes % (Manual) 3.0 % (0.0-7.3) 08/11/21 04:50 Eosinophils % (Manual) 7.0 % (0.0-4.3) H 08/11/21 04:50 Basophils % (Manual) 0 % (0.0-1.8) 08/11/21 04:50 Metamyelocytes % 0 % 08/11/21 04:50 Myelocytes % 0 % 08/11/21 04:50 Promyelocytes % 0 % 08/11/21 04:50 Blast Cells % 0 % 08/11/21 04:50 Nucleated RBC % Not Reportable 08/11/21 04:50 Seg Neutrophils # Baller Tender 08/11/21 04:50 Seg Neutrophils # Man 3.3 K/mm3 (1.8-7.7) 08/11/21 04:50 Band Neutrophils # 0.0 K/mm3 08/11/21 04:50 Lymphocytes # (Manual) 1.1 K/mm3 (1.2-5.4) L 08/11/21 04:50 Abs React Lymphs (Man) 0.0 K/mm3 08/11/21 04:50 Monocytes # (Manual) 0.1 K/mm3 (0.0-0.8) 08/11/21 04:50 Eosinophils # (Manual) 0.3 K/mm3 (0.0-0.4) 08/11/21 04:50 Basophils # (Manual) 0.0 K/mm3 (0.0-0.1) 08/11/21 04:50 Metamyelocytes # 0.0 K/mm3 08/11/21 04:50 Myelocytes # 0.0 K/mm3 08/11/21 04:50 Promyelocytes # 0.0 K/mm3 08/11/21 04:50 Blast Cells # 0.0 K/mm3 08/11/21 04:50 WBC Morphology Not Reportable 08/11/21 04:50 Hypersegmented Neuts Not Reportable 08/11/21 04:50 Hyposegmented Neuts Not Reportable 08/11/21 04:50 Hypogranular Neuts Not Reportable 08/11/21 04:50 Smudge Cells Not Reportable 08/11/21 04:50 Toxic Granulation Not Reportable 08/11/21 04:50 Toxic Vacuolation Not Reportable 08/11/21 04:50 Dohle Bodies Not Reportable 08/11/21 04:50 Pelger-Huet Anomaly Not Reportable 08/11/21 04:50 Maite Rods Not Reportable 08/11/21 04:50 Platelet Estimate Consistent w auto 08/11/21 04:50 Clumped Platelets Not Reportable 08/11/21 04:50 Plt Clumps, EDTA Not Reportable 08/11/21 04:50 Large Platelets Not Reportable 08/11/21 04:50 Giant Platelets Not Reportable 08/11/21 04:50 Platelet Satelliting Not Reportable 08/11/21 04:50 Plt Morphology Comment Not Reportable 08/11/21 04:50 RBC Morphology Not Reportable 08/11/21 04:50 Dimorphic RBCs Not Reportable 08/11/21 04:50 Polychromasia Not Reportable 08/11/21 04:50 Hypochromasia Not Reportable 08/11/21 04:50 Poikilocytosis Not Reportable 08/11/21 04:50 Anisocytosis 1+ 08/11/21 04:50 Microcytosis Not Reportable 08/11/21 04:50 Macrocytosis Not Reportable 08/11/21 04:50 Spherocytes Not Reportable 08/11/21 04:50 Pappenheimer Bodies Not Reportable 08/11/21 04:50 Sickle Cells Not Reportable 08/11/21 04:50 Target Cells Not Reportable 08/11/21 04:50 Tear Drop Cells Not Reportable 08/11/21 04:50 Ovalocytes Not Reportable 08/11/21 04:50 Helmet Cells Not Reportable 08/11/21 04:50 Owen-Roxana Bodies Not Reportable 08/11/21 04:50 [place] Rings Not Reportable 08/11/21 04:50 Anca Cells Not Reportable 08/11/21 04:50 Bite Cells Not Reportable 08/11/21 04:50 Crenated Cell Not Reportable 08/11/21 04:50 Elliptocytes Not Reportable 08/11/21 04:50 Acanthocytes (Spur) Not Reportable 08/11/21 04:50 Rouleaux Not Reportable 08/11/21 04:50 Hemoglobin C Crystals Not Reportable 08/11/21 04:50 Schistocytes Not Reportable 08/11/21 04:50 Malaria parasites Not Reportable 08/11/21 04:50 Al Bodies Not Reportable 08/11/21 04:50 Hem Pathologist Commnt No 08/11/21 04:50 D-Dimer 6037.58 ng/mlDDU (0-234) H 08/06/21 Unknown Sodium 138 mmol/L (137-145) 08/11/21 04:50 Potassium 4.2 mmol/L (3.6-5.0) 08/11/21 04:50 Chloride 100.2 mmol/L (98-107) 08/11/21 04:50 Carbon Dioxide 23 mmol/L (22-30) 08/11/21 04:50 Anion Gap 19 mmol/L 08/11/21 04:50 BUN 17 mg/dL (7-17) 08/11/21 04:50 Creatinine 5.3 mg/dL (0.6-1.2) H 08/11/21 04:50 Estimated GFR 12 ml/min 08/11/21 04:50 BUN/Creatinine Ratio 3 % 08/11/21 04:50 Glucose 101 mg/dL (65-100) H 08/11/21 04:50 Calcium 9.3 mg/dL (8.4-10.2) 08/11/21 04:50 Phosphorus 4.60 mg/dL (2.5-4.5) H 08/08/21 05:33 Total Bilirubin 0.30 mg/dL (0.1-1.2) 08/06/21 Unknown AST 25 units/L (5-40) 08/06/21 Unknown ALT 8 units/L (7-56) 08/06/21 Unknown Alkaline Phosphatase 104 units/L (35-129) 08/06/21 Unknown Troponin T 0.097 ng/mL (0.00-0.029) H 08/06/21 Unknown NT-Pro-B Natriuret Pep 00125 pg/mL (0-450) H 08/06/21 Unknown Total Protein 7.2 g/dL (6.3-8.2) 08/06/21 Unknown Albumin 3.3 g/dL (3.9-5) L 08/06/21 Unknown Albumin/Globulin Ratio 0.8 % 08/06/21 Unknown HCG, Qual Negative (Negative) 08/06/21 Unknown Hepatitis A IgM Ab Non-reactive (NonReactive) 08/06/21 Unknown Hep Bs Antigen Non-reactive (Negative) 08/06/21 Unknown Hep B Core IgM Ab Non-reactive (NonReactive) 08/06/21 Unknown Hepatitis C Antibody Non-reactive (NonReactive) 08/06/21 Unknown Blood Type B POSITIVE 08/07/21 15:10 Antibody Screen Positive 08/07/21 15:10 Crossmatch See Detail 08/07/21 15:10 Nuñez/IV: Voiding Method Toilet Active Medications - Current Medications Current Medications: Generic Name Dose Route Start Last Admin Trade Name Freq PRN Reason Stop Dose Admin Acetaminophen 650 mg 08/06/21 18:00 Acetaminophen 325 Mg Tab PO Q6H PRN Pain MILD(1-3)/Fever >100.5/GUZMAN Amlodipine Besylate 10 mg 08/07/21 10:00 08/11/21 09:09 Amlodipine 10 Mg Tab PO 10 mg DAILY OLLIE Administration Citalopram Hydrobromide 20 mg 08/09/21 10:15 08/11/21 09:10 Citalopram 20 Mg Tab PO 20 mg DAILY OLLIE Administration Epoetin Chaitanya-epbx 20,000 unit 08/08/21 11:23 08/10/21 12:43 Epoetin Chaitanya-Epbx 20,000 Unit/1 Ml Vial IV 20,000 unit ALEXX PRN Administration hemodialysis Folic Acid 1 mg 08/07/21 10:00 08/11/21 09:09 Folic Acid 1 Mg Tab PO 1 mg QDAY OLLIE Administration Hydralazine HCl 100 mg 08/08/21 14:00 08/11/21 05:14 Hydralazine 100 Mg Tab PO 100 mg Q8HR OLLIE Administration Hydroxychloroquine Sulfate 200 mg 08/07/21 10:00 08/11/21 09:10 Hydroxychloroquine 200 Mg Tab PO 200 mg QDAY OLLIE Administration Hydroxyzine HCl 25 mg 08/06/21 16:56 Hydroxyzine Hcl 25 Mg Tab PO Q6HR PRN Itching Sodium Chloride 100 mls @ 999 mls/hr 08/08/21 11:27 Nacl 0.9% IV ALEXX PRN Hypotension Labetalol HCl 10 mg 08/07/21 18:16 08/07/21 21:40 Labetalol 20 Mg/4 Ml Inj IV 10 mg Q4H PRN Administration SBP >/=160; DBP >/=100 Labetalol HCl 100 mg 08/08/21 22:00 08/11/21 09:10 Labetalol 100 Mg Tab PO 100 mg BID OLLIE Administration Levetiracetam 500 mg 08/06/21 22:00 08/11/21 09:10 Levetiracetam 500 Mg Tab PO 500 mg BID OLLIE Administration Lorazepam 1 mg 08/06/21 16:56 08/08/21 23:54 Lorazepam 1 Mg Tab PO 1 mg TID PRN Administration Anxiety Oxycodone/Acetaminophen 1 tab 08/08/21 08:34 08/10/21 21:27 Oxycodone /Acetaminophen 5-325mg Tab PO 1 tab Q6H PRN Administration Pain , Severe (7-10) Pantoprazole Sodium 20 mg 08/07/21 10:00 08/11/21 09:10 Pantoprazole 20 Mg Tab PO 20 mg QDAY OLLIE Administration Risperidone 1 mg 08/06/21 22:00 08/10/21 21:27 Risperidone 1 Mg Tab PO 1 mg QHS OLLIE Administration Sodium Chloride 10 ml 08/06/21 22:00 08/11/21 09:10 Sodium Chloride 0.9% 10 Ml Flush Syringe IV 10 ml BID OLLIE Administration Sodium Chloride 10 ml 08/06/21 16:55 Sodium Chloride 0.9% 10 Ml Flush Syringe IV PRN PRN LINE FLUSH Tramadol HCl 50 mg 08/08/21 08:34 Tramadol 50 Mg Tab PO Q6H PRN Pain, Moderate (4-6) Nutrition/Malnutrition Assess - Dietary Evaluation Nutrition/Malnutrition Findings: Nutrition Notes Start: 08/07/21 16:16 Freq: Status: Active Protocol: Document 08/07/21 16:16 MICKI (Rec: 08/07/21 16:32 MICKI [email or web address]) Nutrition Notes Need for Assessment generated from: handy man,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 Current Diet Renal Diet (since D 08/06). Labs/Tests 08/07: K 5.5, Cl 97.1, CO2 19, BUN 33, Crea 6.6. Pertinent Medications 08/07: Folic acid, others nutritionally unremarkable. Height 5 ft 3 in Weight 47.6 kg Pound Body Weight (kg) 52.27 BMI 18.6 Intake Prior to Admission Good Weight change and time frame Pt states being unsure if loss body weight [employer] PELLETS. Weight Status Appropriate Subjective/Other Information RD consult for risk of malnutrition assessment. No reports available on Pt's PO intake of meals at the time , will assess at F/U. Pt is on Nasal Cannula, O2 saturation @ 95%, according to Physical Assessment Histroy notes. Pt shows no signs of concern for risk of malnutrition at the time, according to Physical Assessment Histroy notes. Percent of energy/protein needs met: Prescribed Renal Diet provides for energy/protein needs (2, 072 Kcal/77 g) during LOS. Burn Absent Trauma Absent GI Symptoms None Food Allergy No Skin Integrity/Comment Assessment WNL. Minimum of two criteria No #1 Nutrition Diagnosis No nutrition diagnosis at this time Comments: I will assess Pt's PO intake of meals at F/U. Is patient on ventilator? No Is Patient Ambulatory and/or Out of Bed Yes REE-([place]-St. Jeor-ambulatory/OOB) [ 1527.669 [id number]] Kcal/Kg value to use for calculation 28 Approximate Energy Requirements Using 1333 kcal/Kg Calculation Used for Recommendations Kcal/kg Additional Notes Protein: >1.2 g/Kg IBW; >62 g/ day. Fluids: 1 ml/Kcal, or as per MD. Nutrition Intervention Change Diet Order: Continue Renal Diet. Follow-Up By: 08/14/21 Additional Comments Continue monitoring food tolerance, %PO intake of meals , and BM.
[2021-08-11] MEDS: oxyCODONE /ACETAMINOPHEN 5-325MG TAB PO PRN (12:54)
--- NOTE | 2021-08-11 14:37 | Progress Note ---
Assessment and Plan Assessment: ESRD on hemodialysis Hypertensive Emergency Lupus Seizure ADHD Hyperkalemia Anemia Plan: -S/p HD yesterday for UF and clearance via right IJ perm catheter, UF removed 1L -No acute indication for HD today -Assess need for HD on daily basis -Epogen dosing for anemia management -Hgb level 6.7 today, transfuse blood as per primary -Fluid restriction of 1 liter per day -Renally dose medications -Strict I/O's daily -Pt states she undergoes OP HD at [facility] -Renal plan reviewed by Dr Mejias Subjective Date of service: 08/11/21 Principal diagnosis: ESRD Interval history: Pt seen in bed, denies shortness of breath, s/p HD yesterday, no complaints voiced. No family at bedside Objective - Vital Signs Vital signs: Vital Signs - 12hr 08/11/21 08/11/21 08/11/21 04:00 04:22 08:07 Temperature 98.5 F Pulse Rate 96 H 86 Respiratory 18 18 Rate Respiratory Rate [Head] Blood Pressure 136/86 O2 Sat by Pulse 100 99 Oximetry 08/11/21 08/11/21 08/11/21 09:09 10:00 12:54 Temperature Pulse Rate 95 H Respiratory 18 Rate Respiratory 18 Rate [Head] Blood Pressure 145/90 O2 Sat by Pulse Oximetry - General Appearance General appearance: well-developed EENT: ATNC Respiratory: Present: Decreased Breath Sounds Cardiology: S1S2, other (ACCESS: Right IJ Perm catheter intact) Gastrointestinal: normoactive bowel sounds, no tenderness Integumentary: warm and dry Neurologic: alert and oriented x3 Musculoskeletal: other (trace edema to BLE) Psychiatric: cooperative - Lab 08/11/21 04:50 08/11/21 04:50 Most recent lab results Calcium 9.3 mg/dL (8.4-10.2) 08/11/21 04:50 Phosphorus 4.60 mg/dL (2.5-4.5) H 08/08/21 05:33 Medications & Allergies - Medications Allergies/Adverse Reactions: Allergies amoxicillin trihydrate [From Augmentin] Allergy (Unknown, Verified 05/27/13 11:32) Unknown Tolerates Zosyn diphenhydramine [From Benadryl] Allergy (Verified 08/06/21 16:06) Itching potassium clavulanate [From Augmentin] Adverse Reaction (Unknown, Verified 05/14 06/27 11:32) Unknown Home Medications: Home Medications Medication Instructions Recorded Confirmed Last Taken Type hydrOXYzine HCL [Atarax] 25 mg PO Q6HR PRN #20 tablet 06/19/13 08/10/21 Unknown Rx Folic Acid [Folvite] 1 mg PO QDAY #30 tablet 03/12/14 08/10/21 Unknown Rx Hydralazine HCl [hydrALAZINE] 100 mg PO DAILY #30 tablet 03/12/14 08/10/21 Unknown Rx Hydroxychloroquine [Plaquenil] 200 mg PO QDAY #30 tablet 03/12/14 08/10/21 Unknown Rx LORazepam [Ativan] 1 mg PO TID PRN #6 tablet 03/12/14 08/10/21 Unknown Rx Pantoprazole [Protonix TAB] 20 mg PO QDAY #20 tablet. 03/12/14 08/10/21 Unknown Rx amLODIPine 10 mg PO DAILY #30 tablet 03/12/14 08/10/21 Unknown Rx cloNIDine [Catapres] 0.1 mg PO BID #30 tablet 03/12/14 08/10/21 Unknown Rx hydrOXYzine HCL [Atarax] 25 mg PO Q6HR #20 tablet 03/12/14 08/10/21 Unknown Rx levETIRAcetam [Keppra TAB] 500 mg PO BID #60 tablet 03/12/14 08/10/21 Unknown Rx predniSONE 10 mg PO QPM #30 tablet 03/12/14 08/10/21 Unknown Rx risperiDONE [RisperDAL] 1 mg PO QHS #30 tablet 03/12/14 08/10/21 Unknown Rx Citalopram [celeXA] 20 mg PO QDAY #30 tablet 03/30/14 08/10/21 Unknown Rx Active Medications: Generic Name Dose Route Start Last Admin Trade Name Freq PRN Reason Stop Dose Admin Acetaminophen 650 mg 08/06/21 18:00 Acetaminophen 325 Mg Tab PO Q6H PRN Pain MILD(1-3)/Fever >100.5/GUZMAN Amlodipine Besylate 10 mg 08/07/21 10:00 08/11/21 09:09 Amlodipine 10 Mg Tab PO 10 mg DAILY OLLIE Administration Citalopram Hydrobromide 20 mg 08/09/21 10:15 08/11/21 09:10 Citalopram 20 Mg Tab PO 20 mg DAILY OLLIE Administration Epoetin Chaitanya-epbx 20,000 unit 08/08/21 11:23 08/10/21 12:43 Epoetin Chaitanya-Epbx 20,000 Unit/1 Ml Vial IV 20,000 unit ALEXX PRN Administration hemodialysis Folic Acid 1 mg 08/07/21 10:00 08/11/21 09:09 Folic Acid 1 Mg Tab PO 1 mg QDAY OLLIE Administration Hydralazine HCl 100 mg 08/08/21 14:00 08/11/21 13:00 Hydralazine 100 Mg Tab PO 100 mg Q8HR OLLIE Administration Hydroxychloroquine Sulfate 200 mg 08/07/21 10:00 08/11/21 09:10 Hydroxychloroquine 200 Mg Tab PO 200 mg QDAY OLLIE Administration Hydroxyzine HCl 25 mg 08/06/21 16:56 Hydroxyzine Hcl 25 Mg Tab PO Q6HR PRN Itching Sodium Chloride 100 mls @ 999 mls/hr 08/08/21 11:27 Nacl 0.9% IV ALEXX PRN Hypotension Labetalol HCl 10 mg 08/07/21 18:16 08/07/21 21:40 Labetalol 20 Mg/4 Ml Inj IV 10 mg Q4H PRN Administration SBP >/=160; DBP >/=100 Labetalol HCl 100 mg 08/08/21 22:00 08/11/21 09:10 Labetalol 100 Mg Tab PO 100 mg BID OLLIE Administration Levetiracetam 500 mg 08/06/21 22:00 08/11/21 09:10 Levetiracetam 500 Mg Tab PO 500 mg BID OLLIE Administration Lorazepam 1 mg 08/06/21 16:56 08/08/21 23:54 Lorazepam 1 Mg Tab PO 1 mg TID PRN Administration Anxiety Oxycodone/Acetaminophen 1 tab 08/08/21 08:34 08/11/21 12:54 Oxycodone /Acetaminophen 5-325mg Tab PO 1 tab Q6H PRN Administration Pain , Severe (7-10) Pantoprazole Sodium 20 mg 08/07/21 10:00 08/11/21 09:10 Pantoprazole 20 Mg Tab PO 20 mg QDAY OLLIE Administration Risperidone 1 mg 08/06/21 22:00 08/10/21 21:27 Risperidone 1 Mg Tab PO 1 mg QHS OLLIE Administration Sodium Chloride 10 ml 08/06/21 22:00 08/11/21 09:10 Sodium Chloride 0.9% 10 Ml Flush Syringe IV 10 ml BID OLLIE Administration Sodium Chloride 10 ml 08/06/21 16:55 Sodium Chloride 0.9% 10 Ml Flush Syringe IV PRN PRN LINE FLUSH Tramadol HCl 50 mg 08/08/21 08:34 Tramadol 50 Mg Tab PO Q6H PRN Pain, Moderate (4-6)
--- NOTE | 2021-08-11 19:23 | Progress Note ---
Assessment and Plan Hypertensive emergency End stage renal disease Anemia SLE (systemic lupus erythematosus) Pulmonary edema, respiratory insufficiency Protein calorie Malnutrition Thrombocytopenia Headache H/o Seizure Disorder Awiting blood transfusion Continue all current care Continue antihypertensive therapy, blood pressure checks as per nursing care protocol Supportive transfusion to keep HgB>7g/dL, Epogen and hematinics Continue Plaquenil Continue oral antihypertensives VTE prophylaxis- early ambulation, SCDs while in bed Dialysis as per renal team, monitor fluid balance, supportive care. Supplemental oxygen, titrate to keep SpO2 89-92% Avoid nephrotoxic medications; Renally dose medications Chronic home medications as clinically indicated Serial CBC Discharge planning per primary service Subjective Date of service: 08/11/21 Principal diagnosis: ESRD Interval history: This is a 30-year-old female with known past medical history of HTN, ESRD on HD(T,R,Sa), seizure disorder, SLE, ADHD, and malnutrition admitted for Hypertensive emergency and fluid overload. Seen and examined. Vitals, labs, medications, chart reviewed. Discussed with nursing staff. Awaiting blood transfusion Tolerating supportive HD per renal prescription Wants to know when she can go home She denies any chest pain, no shortness of breath, no fevers, no chills, no nausea or vomiting. No diarrhea. Objective Vital Signs - 12hr 08/11/21 08/11/21 08/11/21 08:07 09:09 10:00 Pulse Rate 95 H Respiratory 18 Rate Respiratory 18 Rate [Head] Blood Pressure 145/90 O2 Sat by Pulse 99 Oximetry 08/11/21 12:54 Pulse Rate Respiratory 18 Rate Respiratory Rate [Head] Blood Pressure O2 Sat by Pulse Oximetry Constitutional: no acute distress, asleep Eyes: non-icteric ENT: oropharynx moist Neck: supple, no lymphadenopathy, no JVD Effort: mildly labored Ascultation: Bilateral: diminished breath sounds Cardiovascular: regular rate and rhythm, other (S1,S2) Gastrointestinal: normoactive bowel sounds, soft, non-tender Integumentary: normal Extremities: no cyanosis, no edema, pulses normal Neurologic: normal mental status, non-focal exam, pupils equal and round, CN II- XII normal, motor strength normal and Psychiatric: mood appropriate, affect normal CBC and BMP: 08/11/21 04:50 08/11/21 04:50 ABG, PT/INR, D-dimer: PT/INR, D-dimer D-Dimer 6037.58 ng/mlDDU (0-234) H 08/06/21 Unknown Abnormal lab findings: Abnormal Labs 08/06/21 08/06/21 08/06/21 Unknown Unknown Unknown WBC 4.1 L RBC 2.28 L Hgb 6.9 L Hct 22.5 L MCV 99 H RDW 18.0 H Plt Count 77 L Eos % (Auto) 4.7 H Lymph # (Auto) 1.0 L Eosinophils % (Manual) Lymphocytes # (Manual) D-Dimer Sodium 135 L Potassium 5.8 H Chloride Carbon Dioxide 16 L BUN 56 H Creatinine 9.8 H Glucose Phosphorus Troponin T 0.097 H NT-Pro-B Natriuret Pep Albumin 3.3 L Crossmatch 08/06/21 08/06/21 08/07/21 Unknown Unknown 04:48 WBC RBC Hgb Hct MCV RDW Plt Count Eos % (Auto) Lymph # (Auto) Eosinophils % (Manual) Lymphocytes # (Manual) D-Dimer 6037.58 H Sodium Potassium 5.5 H Chloride 97.1 L Carbon Dioxide 19 L BUN 33 H Creatinine 6.6 H Glucose Phosphorus Troponin T NT-Pro-B Natriuret Pep 80495 H Albumin Crossmatch 08/07/21 08/07/21 08/07/21 12:40 15:10 22:55 WBC RBC 2.12 L Hgb 6.6 L 7.3 L Hct 20.7 L 23.3 L MCV 98 H RDW 19.0 H Plt Count 88 L Eos % (Auto) Lymph # (Auto) Eosinophils % (Manual) Lymphocytes # (Manual) D-Dimer Sodium Potassium Chloride Carbon Dioxide BUN Creatinine Glucose Phosphorus Troponin T NT-Pro-B Natriuret Pep Albumin Crossmatch See Detail 08/08/21 08/09/21 08/09/21 05:33 05:50 05:50 WBC RBC 2.26 L Hgb 7.0 L Hct 21.9 L MCV RDW 18.8 H Plt Count 93 L Eos % (Auto) Lymph # (Auto) Eosinophils % (Manual) Lymphocytes # (Manual) D-Dimer Sodium Potassium Chloride 96.9 L 97.2 L Carbon Dioxide BUN Creatinine 4.8 H 4.1 H Glucose 110 H 150 H Phosphorus 4.60 H Troponin T NT-Pro-B Natriuret Pep Albumin Crossmatch 08/10/21 08/11/21 08/11/21 04:23 04:50 04:50 WBC RBC 2.13 L Hgb 6.7 L Hct 21.0 L MCV 98 H RDW 19.8 H Plt Count 84 L Eos % (Auto) Lymph # (Auto) Eosinophils % (Manual) 7.0 H Lymphocytes # (Manual) 1.1 L D-Dimer Sodium 133 L Potassium Chloride 96.7 L Carbon Dioxide BUN 23 H Creatinine 6.1 H 5.3 H Glucose 101 H Phosphorus Troponin T NT-Pro-B Natriuret Pep Albumin Crossmatch
[2021-08-11] MEDS: risperiDONE 1 MG TAB PO SCH (22:13)
[2021-08-11] MEDS: LORazepam 1 MG TAB PO PRN (23:25)
[2021-08-12] MEDS: hydrALAZINE 100 MG TAB PO SCH ×3 (06:19→22:15)
--- NOTE | 2021-08-12 09:08 | Progress Note ---
Assessment and Plan 30 YO Female with HTN, ESRD on HD(T,R,Sa), Seizure Disorder, SLE, ADHD, Malnutrition presents to ED for evaluation. Patient states that she has experienced shortness of breath over the past 2 days with persistent symptoms over the same timeframe. Patient also reports chest discomfort with deep breathing but denies chest pain. Patient transported to [facility] via private vehicle for further care and evaluation of the aforementioned symptoms. The patient was seen and evaluated in the emergency department. All lab and imaging studies re viewed. Patient found to have diminished cognition with mild confusion. Patient was found to have hypertensive emergency with a blood pressure of 229/151 mmHg. Patient initiated on Cardene drip in the emergency department. Patient was found to have hypertensive encephalopathy, fluid overload, as well as end-stage renal disease in need of urgent dialysis. Patient admitted to [facility]. No reports of fever, chills, chest pain, palpitation, adductive cough, skin rash, recent contact, known exposure to COVID-19. Nephrology consulted. Patient is on dialysis. Patients blood pressure improved. Patient transfered to medical floor. Patient sleeping at this time. Not responding to verbal stimuli. Unable to get further history at this time. Patient is on room air. O2 saturation 98%. No acute respiratory distress. Patient afebrile. No leukocytosis. Blood pressure 159/99 , Pulse 89, Respiration s 18. Patient Anemic and thrombocytopenic. HGB 6.7, Platelets 84,000. 08/11/21 Recommend blood transfusion . Chest xray 08/06/21 reported slight volume Overload. Perfusion lung scan done on 08/06/21 reported Low probability perfusion scan for pulmonary embolism. Venous doppler studies of both legs 08/07/21 reported No sonographic evidence for DVT in either lower extremity. Patient is on Protonix. Recommend SCds for DVT prophylaxis. - Patient Problems (1) Chest pain Current Visit: Yes Status: Acute Plan to address problem: Management as per primary care and cardiology. (2) ESRD needing dialysis Current Visit: Yes Status: Acute Plan to address problem: Management as per nephrology. (3) Fluid overload Current Visit: Yes Status: Acute Qualifiers: Hypervolemia type: unspecified Qualified Code(s): E87.70 - Fluid overload, unspecified Plan to address problem: Patient is on hemodialysis. Management as per nephrology. (4) Hypertensive emergency Current Visit: Yes Status: Acute Plan to address problem: Patients blodd pressure came down. Recent blood pressure 124/78. Management as per primary care. (5) SLE (systemic lupus erythematosus) Current Visit: Yes Status: Acute Plan to address problem: Patient is on Plaquanil. (6) Bipolar disorder Current Visit: No Status: Chronic Plan to address problem: Management as per primary care and Psychiatry. Subjective Date of service: 08/12/21 Principal diagnosis: ESRD Interval history: 30 YO Female with HTN, ESRD on HD(T,R,Sa), Seizure Disorder, SLE, ADHD, Malnutrition presents to ED for evaluation. Patient states that she has experienced shortness of breath over the past 2 days with persistent symptoms over the same timeframe. Patient also reports chest discomfort with deep breathing but denies chest pain. Patient transported to [facility] via private vehicle for further care and evaluation of the aforementioned symptoms. The patient was seen and evaluated in the emergency department. All lab and imaging studies reviewed. Patient found to have diminished cognition with mild confusion. Patient was found to have hypertensive emergency with a blood pressure of 229/151 mmHg. Patient initiated on Cardene drip in the emergency department. Patient was found to have hypertensive encephalopathy, fluid overload, as well as end-stage renal disease in need of urgent dialysis. Patient admitted to [facility]. No reports of fever, chills, chest pain, palpitation, adductive cough, skin rash, recent contact, known exposure to COVID-19. Nephrology consulted. Patient is on dialysis. Patients blood pressure improved. Patient transfered to medical floor. Patient sleeping at this time. Not responding to verbal stimuli. Unable to get further history at this time. Patient is on room air. O2 saturation 98%. No acute respiratory distress. Patient afebrile. No leukocytosis. Blood pressure 159/99 , Pulse 89, Respirations 18. Patient Anemic and thrombocytopenic. HGB 6.7, Platelets 84,000. 08/11/21 Recomm end blood transfusion . Chest xray 08/06/21 reported slight volume Overload. Perfusion lung scan done on 08/06/21 reported Low probability perfusion scan for pulmonary embolism. Venous doppler studies of both legs 08/07/21 reported No sonographic evidence for DVT in either lower extremity. Patient is on Protonix. Recommend SCds for DVT prophylaxis. Objective Vital Signs - 12hr 08/11/21 08/11/21 08/11/21 21:10 22:00 22:13 Temperature 98.4 F Pulse Rate 91 H 91 H Respiratory 18 Rate Blood Pressure 158/92 Blood Pressure 158/92 [Right] O2 Sat by Pulse 100 100 Oximetry 08/12/21 08/12/21 08/12/21 00:00 06:22 08:06 Temperature 99.0 F Pulse Rate 87 85 Respiratory 18 Rate Blood Pressure Blood Pressure 150/90 [Right] O2 Sat by Pulse 100 100 Oximetry Constitutional: no acute distress, alert Eyes: non-icteric ENT: oropharynx moist Neck: supple, no lymphadenopathy, no JVD Effort: mildly labored Ascultation: Bilateral: diminished breath sounds Cardiovascular: regular rate and rhythm, other (S1,S2) Gastrointestinal: normoactive bowel sounds, soft, non-tender Integumentary: normal Extremities: no cyanosis, no edema, pulses normal Neurologic: normal mental status, non-focal exam, pupils equal and round, CN II- XII normal, motor strength normal and Psychiatric: mood appropriate, affect normal CBC and BMP: 08/11/21 04:50 08/11/21 04:50 ABG, PT/INR, D-dimer: PT/INR, D-dimer D-Dimer 6037.58 ng/mlDDU (0-234) H 08/06/21 Unknown Abnormal lab findings: Abnormal Labs 08/06/21 08/06/21 08/06/21 Unknown Unknown Unknown WBC 4.1 L RBC 2.28 L Hgb 6.9 L Hct 22.5 L MCV 99 H RDW 18.0 H Plt Count 77 L Eos % (Auto) 4.7 H Lymph # (Auto) 1.0 L Eosinophils % (Manual) Lymphocytes # (Manual) D-Dimer Sodium 135 L Potassium 5.8 H Chloride Carbon Dioxide 16 L BUN 56 H Creatinine 9.8 H Glucose Phosphorus Troponin T 0.097 H NT-Pro-B Natriuret Pep Albumin 3.3 L Crossmatch 08/06/21 08/06/21 08/07/21 Unknown Unknown 04:48 WBC RBC Hgb Hct MCV RDW Plt Count Eos % (Auto) Lymph # (Auto) Eosinophils % (Manual) Lymphocytes # (Manual) D-Dimer 6037.58 H Sodium Potassium 5.5 H Chloride 97.1 L Carbon Dioxide 19 L BUN 33 H Creatinine 6.6 H Glucose Phosphorus Troponin T NT-Pro-B Natriuret Pep 79436 H Albumin Crossmatch 08/07/21 08/07/21 08/07/21 12:40 15:10 22:55 WBC RBC 2.12 L Hgb 6.6 L 7.3 L Hct 20.7 L 23.3 L MCV 98 H RDW 19.0 H Plt Count 88 L Eos % (Auto) Lymph # (Auto) Eosinophils % (Manual) Lymphocytes # (Manual) D-Dimer Sodium Potassium Chloride Carbon Dioxide BUN Creatinine Glucose Phosphorus Troponin T NT-Pro-B Natriuret Pep Albumin Crossmatch See Detail 08/08/21 08/09/21 08/09/21 05:33 05:50 05:50 WBC RBC 2.26 L Hgb 7.0 L Hct 21.9 L MCV RDW 18.8 H Plt Count 93 L Eos % (Auto) Lymph # (Auto) Eosinophils % (Manual) Lymphocytes # (Manual) D-Dimer Sodium Potassium Chloride 96.9 L 97.2 L Carbon Dioxide BUN Creatinine 4.8 H 4.1 H Glucose 110 H 150 H Phosphorus 4.60 H Troponin T NT-Pro-B Natriuret Pep Albumin Crossmatch 08/10/21 08/11/21 08/11/21 04:23 04:50 04:50 WBC RBC 2.13 L Hgb 6.7 L Hct 21.0 L MCV 98 H RDW 19.8 H Plt Count 84 L Eos % (Auto) Lymph # (Auto) Eosinophils % (Manual) 7.0 H Lymphocytes # (Manual) 1.1 L D-Dimer Sodium 133 L Potassium Chloride 96.7 L Carbon Dioxide BUN 23 H Creatinine 6.1 H 5.3 H Glucose 101 H Phosphorus Troponin T NT-Pro-B Natriuret Pep Albumin Crossmatch Allied health notes reviewed: nursing
[2021-08-12] MEDS: HYDROXYCHLOROQUINE 200 MG TAB PO SCH (09:38)
[2021-08-12] MEDS: CITALOPRAM 20 MG TAB PO SCH (09:39)
[2021-08-12] MEDS: levETIRAcetam 500 MG TAB PO SCH ×2 (09:39→22:15)
[2021-08-12] MEDS: FOLIC ACID 1 MG TAB PO SCH (09:39)
[2021-08-12] MEDS: amLODIPine 10 MG TAB PO SCH (09:39)
[2021-08-12] MEDS: PANTOPRAZOLE 20 MG TAB PO SCH (09:39)
[2021-08-12] MEDS ORDERED: SODIUM CHLORIDE 0.9% 500 ML 500 ML IV NR (12:36)
--- NOTE | 2021-08-12 12:36 | Progress Note ---
Assessment and Plan Assessment and plan: This is a 30-year-old female with known past medical history of HTN, ESRD on HD(T,R,Sa), seizure disorder, SLE, ADHD, and malnutrition admitted with diagnosis below: Hypertensive Emergency - Presented with BP of 229/151 required Cardened gtt - Patient refused PO meds overnight, cardene gtt was resumed - Cardene gtt discontinued - SBP in the 160 - Labetalol added for BP control Acute hypoxic respiratory failure - Presented with SOB and respiratory distress - CXR showed mild volume overload - V/Q with low probability for PE - Stable on RA, O2 supplementation on standby - Continue HD per Nephro - Continue O2 supplementation as needed - Continue SPO2 monitoring for SPO2 goal above 92% - CCM is also following End Stage Renal Disease(ESRD) on HD, volume overload -Continue hemodialysis per nephrology recommendation Hyperkalemia - Nephrology following - Continue HD per nephro, - Avoid nephrotoxic medications; Renally dose medications - Monitor and replace electrolytes as needed Anemia of Chronic Disease - Probably chronic 2/2 renal disease - H&H improved post epogen with HD yesterday -We will give 1 unit PRBCs today - No s/s of any active bleeding - Epogen with HD per Nephro Headache-resolved H/o Seizure Disorder - CT head/brain with no significant intracranial abnormality. - Resumed home Keppra - Seizure precautions #SLE (Systemic Lupus Erythematosus) - Resume home therapy - Outpatient rheumatology follow-up. #Moderate Protein Calori Malnutrition - Encourage increased protein intake, dietary supplementation. - Nutrition consulted Hospital Course to Date: 08/07: Patient is off cardene gtt this amm, SBP in the 160, home antihypertensive agents resumed. S/p HD yesterday, patient is stable on 4L NC this am, no s/s of respiratory distress noted. Low H&H this am, thrombocytopenia improved. Probable chronic 2/2 to ESRD, will transfuse 1unit of PRBCs. Continue to hold AC for now, SCD for VTE proph. Hyperkalemia noted this am, plan for HD again today per Nephro. 08/08: Refused PO antihypertensives and required cardene overnight. Cardene gtt is off this am, SBP in the 160. Per patient, she no longer takes clonidine she was switched to Labetalol. PO Labetalol added for BP control. Patient H&H improved post epogen with HD yesterday, hold PRBCs for now. Transfuse for hgb less than 7. Possible HD again today per Nephro. Patient is stable for transfer to the floor if remains stable. 08/09: Patient to receive 1 unit PRBCs today for hemoglobin of 7.0. BP is much better controlled with current regimen. Continue hemodialysis per nephrology recommendations. Anticipate discharge in a.m. 08/10: Still awaiting PRBCs to be transfused. Follow-up H&H today. BP much better controlled. Patient for hemodialysis today 08/11: Still awaiting PRBCs to be transfused. Continue to follow-up H&H. 08/12: Blood bank reported patient had antibodies and the sample was sent out to the [facility] which had a delay in the results. Blood bank also reports sample has and patient will need to be typed and crossed with a new sample. We will reorder the T & C and blood transfusion. Follow-up CBC in a.m. History Interval history: No new issues overnight Hospitalist Physical - Constitutional Vitals: Temp Pulse Resp BP Pulse Ox 98.0 F 89 18 159/99 98 08/12/21 09:50 08/12/21 09:50 08/12/21 09:50 08/12/21 09:50 08/12/21 09:50 General appearance: Present: no acute distress, obese - EENT Eyes: Present: PERRL, EOM intact ENT: hearing intact, clear oral mucosa, dentition normal - Neck Neck: Present: supple, normal ROM - Respiratory Respiratory effort: normal Respiratory: bilateral: CTA - Cardiovascular Rhythm: regular Heart Sounds: Present: S1 & S2. Absent: gallop, rub - Extremities Extremities: no ischemia, No edema, Full ROM - Abdominal General gastrointestinal: soft, non-tender, non-distended, normal bowel sounds - Integumentary Integumentary: Present: clear, warm, dry - Neurologic Neurologic: CNII-XII intact, moves all extremities HEART Score - HEART Score Troponin: Troponin T 0.097 ng/mL (0.00-0.029) H 08/06/21 Unknown Results - Labs CBC & Chem 7: 08/11/21 04:50 08/11/21 04:50 Labs: Laboratory Last Values WBC 4.9 K/mm3 (4.5-11.0) 08/11/21 04:50 RBC 2.13 M/mm3 (3.65-5.03) L 08/11/21 04:50 Hgb 6.7 gm/dl (10.1-14.3) L 08/11/21 04:50 Hct 21.0 % (30.3-42.9) L 08/11/21 04:50 MCV 98 fl (79-97) H 08/11/21 04:50 MCH 31 pg (28-32) 08/11/21 04:50 MCHC 32 % (30-34) 08/11/21 04:50 RDW 19.8 % (13.2-15.2) H 08/11/21 04:50 Plt Count 84 K/mm3 (140-440) L 08/11/21 04:50 Lymph % (Auto) Power Transmission Engineer 08/11/21 04:50 [place] % (Auto) Power Transmission Engineer 08/11/21 04:50 Eos % (Auto) Power Transmission Engineer 08/11/21 04:50 Baso % (Auto) Power Transmission Engineer 08/11/21 04:50 Lymph # (Auto) Power Transmission Engineer 08/11/21 04:50 [place] # (Auto) Power Transmission Engineer 08/11/21 04:50 Eos # (Auto) Power Transmission Engineer 08/11/21 04:50 Baso # (Auto) Power Transmission Engineer 08/11/21 04:50 Add Manual Diff Complete 08/11/21 04:50 Total Counted 100 08/11/21 04:50 Seg Neutrophils % Power Transmission Engineer 08/11/21 04:50 Seg Neuts % (Manual) 67.0 % (40.0-70.0) 08/11/21 04:50 Band Neutrophils % 0 % 08/11/21 04:50 Lymphocytes % (Manual) 23.0 % (13.4-35.0) 08/11/21 04:50 Reactive Lymphs % (Man) 0 % 08/11/21 04:50 Monocytes % (Manual) 3.0 % (0.0-7.3) 08/11/21 04:50 Eosinophils % (Manual) 7.0 % (0.0-4.3) H 08/11/21 04:50 Basophils % (Manual) 0 % (0.0-1.8) 08/11/21 04:50 Metamyelocytes % 0 % 08/11/21 04:50 Myelocytes % 0 % 08/11/21 04:50 Promyelocytes % 0 % 08/11/21 04:50 Blast Cells % 0 % 08/11/21 04:50 Nucleated RBC % Not Reportable 08/11/21 04:50 Seg Neutrophils # Power Transmission Engineer 08/11/21 04:50 Seg Neutrophils # Man 3.3 K/mm3 (1.8-7.7) 08/11/21 04:50 Band Neutrophils # 0.0 K/mm3 08/11/21 04:50 Lymphocytes # (Manual) 1.1 K/mm3 (1.2-5.4) L 08/11/21 04:50 Abs React Lymphs (Man) 0.0 K/mm3 08/11/21 04:50 Monocytes # (Manual) 0.1 K/mm3 (0.0-0.8) 08/11/21 04:50 Eosinophils # (Manual) 0.3 K/mm3 (0.0-0.4) 08/11/21 04:50 Basophils # (Manual) 0.0 K/mm3 (0.0-0.1) 08/11/21 04:50 Metamyelocytes # 0.0 K/mm3 08/11/21 04:50 Myelocytes # 0.0 K/mm3 08/11/21 04:50 Promyelocytes # 0.0 K/mm3 08/11/21 04:50 Blast Cells # 0.0 K/mm3 08/11/21 04:50 WBC Morphology Not Reportable 08/11/21 04:50 Hypersegmented Neuts Not Reportable 08/11/21 04:50 Hyposegmented Neuts Not Reportable 08/11/21 04:50 Hypogranular Neuts Not Reportable 08/11/21 04:50 Smudge Cells Not Reportable 08/11/21 04:50 Toxic Granulation Not Reportable 08/11/21 04:50 Toxic Vacuolation Not Reportable 08/11/21 04:50 Dohle Bodies Not Reportable 08/11/21 04:50 Pelger-Huet Anomaly Not Reportable 08/11/21 04:50 Maite Rods Not Reportable 08/11/21 04:50 Platelet Estimate Consistent w auto 08/11/21 04:50 Clumped Platelets Not Reportable 08/11/21 04:50 Plt Clumps, EDTA Not Reportable 08/11/21 04:50 Large Platelets Not Reportable 08/11/21 04:50 Giant Platelets Not Reportable 08/11/21 04:50 Platelet Satelliting Not Reportable 08/11/21 04:50 Plt Morphology Comment Not Reportable 08/11/21 04:50 RBC Morphology Not Reportable 08/11/21 04:50 Dimorphic RBCs Not Reportable 08/11/21 04:50 Polychromasia Not Reportable 08/11/21 04:50 Hypochromasia Not Reportable 08/11/21 04:50 Poikilocytosis Not Reportable 08/11/21 04:50 Anisocytosis 1+ 08/11/21 04:50 Microcytosis Not Reportable 08/11/21 04:50 Macrocytosis Not Reportable 08/11/21 04:50 Spherocytes Not Reportable 08/11/21 04:50 Pappenheimer Bodies Not Reportable 08/11/21 04:50 Sickle Cells Not Reportable 08/11/21 04:50 Target Cells Not Reportable 08/11/21 04:50 Tear Drop Cells Not Reportable 08/11/21 04:50 Ovalocytes Not Reportable 08/11/21 04:50 Helmet Cells Not Reportable 08/11/21 04:50 [place] Bodies Not Reportable 08/11/21 04:50 [place] Rings Not Reportable 08/11/21 04:50 [place] Cells Not Reportable 08/11/21 04:50 Bite Cells Not Reportable 08/11/21 04:50 Crenated Cell Not Reportable 08/11/21 04:50 Elliptocytes Not Reportable 08/11/21 04:50 Acanthocytes (Spur) Not Reportable 08/11/21 04:50 Rouleaux Not Reportable 08/11/21 04:50 Hemoglobin C Crystals Not Reportable 08/11/21 04:50 Schistocytes Not Reportable 08/11/21 04:50 Malaria parasites Not Reportable 08/11/21 04:50 Al Bodies Not Reportable 08/11/21 04:50 Hem Pathologist Commnt No 08/11/21 04:50 D-Dimer 6037.58 ng/mlDDU (0-234) H 08/06/21 Unknown Sodium 138 mmol/L (137-145) 08/11/21 04:50 Potassium 4.2 mmol/L (3.6-5.0) 08/11/21 04:50 Chloride 100.2 mmol/L (98-107) 08/11/21 04:50 Carbon Dioxide 23 mmol/L (22-30) 08/11/21 04:50 Anion Gap 19 mmol/L 08/11/21 04:50 BUN 17 mg/dL (7-17) 08/11/21 04:50 Creatinine 5.3 mg/dL (0.6-1.2) H 08/11/21 04:50 Estimated GFR 12 ml/min 08/11/21 04:50 BUN/Creatinine Ratio 3 % 08/11/21 04:50 Glucose 101 mg/dL (65-100) H 08/11/21 04:50 Calcium 9.3 mg/dL (8.4-10.2) 08/11/21 04:50 Phosphorus 4.60 mg/dL (2.5-4.5) H 08/08/21 05:33 Total Bilirubin 0.30 mg/dL (0.1-1.2) 08/06/21 Unknown AST 25 units/L (5-40) 08/06/21 Unknown ALT 8 units/L (7-56) 08/06/21 Unknown Alkaline Phosphatase 104 units/L (35-129) 08/06/21 Unknown Troponin T 0.097 ng/mL (0.00-0.029) H 08/06/21 Unknown NT-Pro-B Natriuret Pep 70504 pg/mL (0-450) H 08/06/21 Unknown Total Protein 7.2 g/dL (6.3-8.2) 08/06/21 Unknown Albumin 3.3 g/dL (3.9-5) L 08/06/21 Unknown Albumin/Globulin Ratio 0.8 % 08/06/21 Unknown HCG, Qual Negative (Negative) 08/06/21 Unknown Hepatitis A IgM Ab Non-reactive (NonReactive) 08/06/21 Unknown Hep Bs Antigen Non-reactive (Negative) 08/06/21 Unknown Hep B Core IgM Ab Non-reactive (NonReactive) 08/06/21 Unknown Hepatitis C Antibody Non-reactive (NonReactive) 08/06/21 Unknown Blood Type B POSITIVE 08/07/21 15:10 Antibody Screen Positive 08/07/21 15:10 Crossmatch See Detail 08/07/21 15:10 Nuñez/IV: Voiding Method Toilet Active Medications - Current Medications Current Medications: Generic Name Dose Route Start Last Admin Trade Name Freq PRN Reason Stop Dose Admin Acetaminophen 650 mg 08/06/21 18:00 Acetaminophen 325 Mg Tab PO Q6H PRN Pain MILD(1-3)/Fever >100.5/GUZMAN Amlodipine Besylate 10 mg 08/07/21 10:00 08/12/21 09:39 Amlodipine 10 Mg Tab PO 10 mg DAILY OLLIE Administration Citalopram Hydrobromide 20 mg 08/09/21 10:15 08/12/21 09:39 Citalopram 20 Mg Tab PO 20 mg DAILY OLLIE Administration Epoetin Chaitanya-epbx 20,000 unit 08/08/21 11:23 08/10/21 12:43 Epoetin Chaitanya-Epbx 20,000 Unit/1 Ml Vial IV 20,000 unit ALEXX PRN Administration hemodialysis Folic Acid 1 mg 08/07/21 10:00 08/12/21 09:39 Folic Acid 1 Mg Tab PO 1 mg QDAY OLLIE Administration Hydralazine HCl 100 mg 08/08/21 14:00 08/12/21 06:19 Hydralazine 100 Mg Tab PO 100 mg Q8HR OLLIE Administration Hydroxychloroquine Sulfate 200 mg 08/07/21 10:00 08/12/21 09:38 Hydroxychloroquine 200 Mg Tab PO 200 mg QDAY OLLIE Administration Hydroxyzine HCl 25 mg 08/06/21 16:56 Hydroxyzine Hcl 25 Mg Tab PO Q6HR PRN Itching Sodium Chloride 100 mls @ 999 mls/hr 08/08/21 11:27 Nacl 0.9% IV ALEXX PRN Hypotension Labetalol HCl 10 mg 08/07/21 18:16 08/07/21 21:40 Labetalol 20 Mg/4 Ml Inj IV 10 mg Q4H PRN Administration SBP >/=160; DBP >/=100 Labetalol HCl 100 mg 08/08/21 22:00 08/12/21 09:39 Labetalol 100 Mg Tab PO 100 mg BID OLLIE Administration Levetiracetam 500 mg 08/06/21 22:00 08/12/21 09:39 Levetiracetam 500 Mg Tab PO 500 mg BID OLLIE Administration Lorazepam 1 mg 08/06/21 16:56 08/11/21 23:25 Lorazepam 1 Mg Tab PO 1 mg TID PRN Administration Anxiety Oxycodone/Acetaminophen 1 tab 08/08/21 08:34 08/11/21 12:54 Oxycodone /Acetaminophen 5-325mg Tab PO 1 tab Q6H PRN Administration Pain , Severe (7-10) Pantoprazole Sodium 20 mg 08/07/21 10:00 08/12/21 09:39 Pantoprazole 20 Mg Tab PO 20 mg QDAY OLLIE Administration Risperidone 1 mg 08/06/21 22:00 08/11/21 22:13 Risperidone 1 Mg Tab PO 1 mg QHS OLLIE Administration Sodium Chloride 10 ml 08/06/21 22:00 08/11/21 22:14 Sodium Chloride 0.9% 10 Ml Flush Syringe IV 10 ml BID OLLIE Administration Sodium Chloride 10 ml 08/06/21 16:55 Sodium Chloride 0.9% 10 Ml Flush Syringe IV PRN PRN LINE FLUSH Tramadol HCl 50 mg 08/08/21 08:34 Tramadol 50 Mg Tab PO Q6H PRN Pain, Moderate (4-6) Nutrition/Malnutrition Assess - Dietary Evaluation Nutrition/Malnutrition Findings: Nutrition Notes Start: 08/07/21 16:16 Freq: Status: Active Protocol: Document 08/07/21 16:16 MICKI (Rec: 08/07/21 16:32 MICKI [id number]) Nutrition Notes Need for Assessment generated from: linseed oil boiler,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 Current Diet Renal Diet (since D 08/06). Labs/Tests 08/07: K 5.5, Cl 97.1, CO2 19, BUN 33, Crea 6.6. Pertinent Medications 08/07: Folic acid, others nutritionally unremarkable. Height 5 ft 3 in Weight 47.6 kg [place] Body Weight (kg) 52.27 BMI 18.6 Intake Prior to Admission Good Weight change and time frame Pt states being unsure if loss body weight MANAGER LANGUAGE. Weight Status Appropriate Subjective/Other Information RD consult for risk of malnutrition assessment. No reports available on Pt's PO intake of meals at the time , will assess at F/U. Pt is on Nasal Cannula, O2 saturation @ 95%, according to Physical Assessment Histroy notes. Pt shows no signs of concern for risk of malnutrition at the time, according to Physical Assessment Histroy notes. Percent of energy/protein needs met: Prescribed Renal Diet provides for energy/protein needs (2, 072 Kcal/77 g) during LOS. Burn Absent Trauma Absent GI Symptoms None Food Allergy No Skin Integrity/Comment Assessment WNL. Minimum of two criteria No #1 Nutrition Diagnosis No nutrition diagnosis at this time Comments: I will assess Pt's PO intake of meals at F/U. Is patient on ventilator? No Is Patient Ambulatory and/or Out of Bed Yes REE-([place]-ambulatory/OOB) [ 1527.669 [id number]] Kcal/Kg value to use for calculation 28 Approximate Energy Requirements Using 1333 kcal/Kg Calculation Used for Recommendations Kcal/kg Additional Notes Protein: >1.2 g/Kg IBW; >62 g/ day. Fluids: 1 ml/Kcal, or as per MD. Nutrition Intervention Change Diet Order: Continue Renal Diet. Follow-Up By: 08/14/21 Additional Comments Continue monitoring food tolerance, %PO intake of meals , and BM.
--- NOTE | 2021-08-12 14:20 | Progress Note ---
Assessment and Plan Assessment: ESRD on hemodialysis Hypertensive Emergency Lupus Seizure ADHD Hyperkalemia Anemia Plan: -Labs pending today -No acute indication for HD today at this time, labs pending today -Assess need for HD on daily basis -Epogen dosing for anemia management -Transfuse blood as per primary -Fluid restriction of 1 liter per day -Renally dose medications -Strict I/O's daily -Pt states she undergoes OP HD at [facility] -Renal plan reviewed by Dr Mejias Subjective Date of service: 08/12/21 Principal diagnosis: ESRD Interval history: Pt seen in bed, denies shortness of breath, no complaints voiced. No family at bedside Objective - Vital Signs Vital signs: Vital Signs - 12hr 08/12/21 08/12/21 08/12/21 06:22 08:06 09:50 Temperature 99.0 F 98.0 F Pulse Rate 85 89 Respiratory 18 18 Rate Blood Pressure 159/99 Blood Pressure 150/90 [Right] O2 Sat by Pulse 100 100 98 Oximetry - General Appearance General appearance: well-developed EENT: ATNC Respiratory: Present: Decreased Breath Sounds Cardiology: S1S2, other (ACCESS: Right IJ Perm catheter intact) Gastrointestinal: normoactive bowel sounds, no tenderness Integumentary: warm and dry Neurologic: alert and oriented x3 Musculoskeletal: other (no edema to BLE) - Lab 08/11/21 04:50 08/11/21 04:50 Most recent lab results Calcium 9.3 mg/dL (8.4-10.2) 08/11/21 04:50 Phosphorus 4.60 mg/dL (2.5-4.5) H 08/08/21 05:33 Medications & Allergies - Medications Allergies/Adverse Reactions: Allergies amoxicillin trihydrate [From Augmentin] Allergy (Unknown, Verified 05/27/13 11:32) Unknown Tolerates Zosyn diphenhydramine [From Benadryl] Allergy (Verified 08/06/21 16:06) Itching potassium clavulanate [From Augmentin] Adverse Reaction (Unknown, Verified 05/27/13 11:32) Unknown Home Medications: Home Medications Medication Instructions Recorded Confirmed Last Taken Type hydrOXYzine HCL [Atarax] 25 mg PO Q6HR PRN #20 tablet 06/19/13 08/10/21 Unknown Rx Folic Acid [Folvite] 1 mg PO QDAY #30 tablet 12/28/14 05/28/22 Unknown Rx Hydralazine HCl [hydrALAZINE] 100 mg PO DAILY #30 tablet 03/12/14 08/10/21 Unknown Rx Hydroxychloroquine [Plaquenil] 200 mg PO QDAY #30 tablet 03/12/14 08/10/21 Unknown Rx LORazepam [Ativan] 1 mg PO TID PRN #6 tablet 03/12/14 08/10/21 Unknown Rx Pantoprazole [Protonix TAB] 20 mg PO QDAY #20 tablet. 03/12/14 08/10/21 Unknown Rx amLODIPine 10 mg PO DAILY #30 tablet 03/12/14 08/10/21 Unknown Rx cloNIDine [Catapres] 0.1 mg PO BID #30 tablet 03/12/14 08/10/21 Unknown Rx hydrOXYzine HCL [Atarax] 25 mg PO Q6HR #20 tablet 03/12/14 08/10/21 Unknown Rx levETIRAcetam [Keppra TAB] 500 mg PO BID #60 tablet 03/12/14 08/10/21 Unknown Rx predniSONE 10 mg PO QPM #30 tablet 03/12/14 08/10/21 Unknown Rx risperiDONE [RisperDAL] 1 mg PO QHS #30 tablet 03/12/14 08/10/21 Unknown Rx Citalopram [celeXA] 20 mg PO QDAY #30 tablet 03/30/14 08/10/21 Unknown Rx Active Medications: Generic Name Dose Route Start Last Admin Trade Name Freq PRN Reason Stop Dose Admin Acetaminophen 650 mg 08/06/21 18:00 Acetaminophen 325 Mg Tab PO Q6H PRN Pain MILD(1-3)/Fever >100.5/GUZMAN Amlodipine Besylate 10 mg 08/07/21 10:00 08/12/21 09:39 Amlodipine 10 Mg Tab PO 10 mg DAILY OLLIE Administration Citalopram Hydrobromide 20 mg 08/09/21 10:15 08/12/21 09:39 Citalopram 20 Mg Tab PO 20 mg DAILY OLLIE Administration Epoetin Chaitanya-epbx 20,000 unit 08/08/21 11:23 08/10/21 12:43 Epoetin Chaitanya-Epbx 20,000 Unit/1 Ml Vial IV 20,000 unit ALEXX PRN Administration hemodialysis Folic Acid 1 mg 08/07/21 10:00 08/12/21 09:39 Folic Acid 1 Mg Tab PO 1 mg QDAY OLLIE Administration Hydralazine HCl 100 mg 08/08/21 14:00 08/12/21 14:12 Hydralazine 100 Mg Tab PO 100 mg Q8HR OLLIE Administration Hydroxychloroquine Sulfate 200 mg 08/07/21 10:00 08/12/21 09:38 Hydroxychloroquine 200 Mg Tab PO 200 mg QDAY OLLIE Administration Hydroxyzine HCl 25 mg 08/06/21 16:56 Hydroxyzine Hcl 25 Mg Tab PO Q6HR PRN Itching Sodium Chloride 100 mls @ 999 mls/hr 08/08/21 11:27 Nacl 0.9% IV ALEXX PRN Hypotension Sodium Chloride 500 mls @ 0 mls/hr 08/12/21 12:36 Nacl 0.9% 500 Ml IV 08/12/21 20:00 ONCE NR As Directed Labetalol HCl 10 mg 08/07/21 18:16 08/07/21 21:40 Labetalol 20 Mg/4 Ml Inj IV 10 mg Q4H PRN Administration SBP >/=160; DBP >/=100 Labetalol HCl 100 mg 08/08/21 22:00 08/12/21 09:39 Labetalol 100 Mg Tab PO 100 mg BID OLLIE Administration Levetiracetam 500 mg 08/06/21 22:00 08/12/21 09:39 Levetiracetam 500 Mg Tab PO 500 mg BID OLLIE Administration Lorazepam 1 mg 08/06/21 16:56 08/11/21 23:25 Lorazepam 1 Mg Tab PO 1 mg TID PRN Administration Anxiety Oxycodone/Acetaminophen 1 tab 08/08/21 08:34 08/11/21 12:54 Oxycodone /Acetaminophen 5-325mg Tab PO 1 tab Q6H PRN Administration Pain , Severe (7-10) Pantoprazole Sodium 20 mg 08/07/21 10:00 08/12/21 09:39 Pantoprazole 20 Mg Tab PO 20 mg QDAY OLLIE Administration Risperidone 1 mg 08/06/21 22:00 08/11/21 22:13 Risperidone 1 Mg Tab PO 1 mg QHS OLLIE Administration Sodium Chloride 10 ml 08/06/21 22:00 08/12/21 14:14 Sodium Chloride 0.9% 10 Ml Flush Syringe IV 10 ml BID OLLIE Administration Sodium Chloride 10 ml 08/06/21 16:55 Sodium Chloride 0.9% 10 Ml Flush Syringe IV PRN PRN LINE FLUSH Tramadol HCl 50 mg 08/08/21 08:34 Tramadol 50 Mg Tab PO Q6H PRN Pain, Moderate (4-6)
[2021-08-12] MEDS: risperiDONE 1 MG TAB PO SCH (22:15)
[2021-08-13 05:40] LABS: Basophils % (Auto) 0.5 % (0.0-1.8); Eosinophils # (Auto) 0.4 K/mm3 (0.0-0.4); Eosinophils % (Auto) 8.5 % (0.0-4.3); Hematocrit 21.9 % (30.3-42.9); Hemoglobin 6.7 gm/dl (10.1-14.3); Lymphocytes # (Auto) 1.3 K/mm3 (1.2-5.4); Lymphocytes % (Auto) 26.3 % (13.4-35.0); Mean Corpuscular HGB Conc 31 % (30-34); Mean Corpuscular Volume 99 fl (79-97); Monocytes # (Auto) 0.6 K/mm3 (0.0-0.8); Monocytes % (Auto) 12.9 % (0.0-7.3); Platelet Count 108 K/mm3 (140-440); Red Blood Count 2.22 M/mm3 (3.65-5.03); Red Cell Distribution Width 19.6 % (13.2-15.2)
[2021-08-13] MEDS: hydrALAZINE 100 MG TAB PO SCH ×3 (05:53→22:36)
[2021-08-13 06:00] LABS: Calcium 9.2 mg/dL (8.4-10.2)
--- NOTE | 2021-08-13 08:45 | Progress Note ---
Assessment and Plan Assessment and plan: This is a 30-year-old female with known past medical history of HTN, ESRD on HD(T,R,Sa), seizure disorder, SLE, ADHD, and malnutrition admitted with diagnosis below: Anemia of chronic disease, Hb this morning is 6.9 rosa and ed recommend 1 unit PRBC transfusion, preferably during dialysis Closely monitor H&H, transfuse additional PRBC as needed Hypertensive Emergency - Presented with BP of 229/151 required Cardened gtt - Patient refused PO meds overnight, cardene gtt was resumed - Cardene gtt discontinued - SBP in the 160 - Labetalol added for BP control Acute hypoxic respiratory failure - Presented with SOB and respiratory distress - CXR showed mild volume overload - V/Q with low probability for PE - Stable on RA, O2 supplementation on standby - Continue HD per Nephro - Continue O2 supplementation as needed - Continue SPO2 monitoring for SPO2 goal above 92% - CCM is also following End Stage Renal Disease(ESRD) on HD, volume overload -Continue hemodialysis per nephrology recommendation Hyperkalemia - Nephrology following - Continue HD per nephro, - Avoid nephrotoxic medications; Renally dose medications - Monitor and replace electrolytes as needed Anemia of Chronic Disease - Probably chronic 2/2 renal disease - H&H improved post epogen with HD yesterday -We will give 1 unit PRBCs today - No s/s of any active bleeding - Epogen with HD per Nephro Headache-resolved H/o Seizure Disorder - CT head/brain with no significant intracranial abnormality. - Resumed home Keppra - Seizure precautions #SLE (Systemic Lupus Erythematosus) - Resume home therapy - Outpatient rheumatology follow-up. #Moderate Protein Calori Malnutrition - Encourage increased protein intake, dietary supplementation. - Nutrition consulted Hospital Course to Date: 08/07: Patient is off cardene gtt this amm, SBP in the 160, home antihypertensive agents resumed. S/p HD yesterday, patient is stable on 4L NC this am, no s/s of respiratory distress noted. Low H&H this am, thrombocytopenia improved. Probable chronic 2/2 to ESRD, will transfuse 1unit of PRBCs. Continue to hold AC for now, SCD for VTE proph. Hyperkalemia noted this am, plan for HD again today per Nephro. 08/08: Refused PO antihypertensives and required cardene overnight. Cardene gtt is off this am, SBP in the 160. Per patient, she no longer takes clonidine she was switched to Labetalol. PO Labetalol added for BP control. Patient H&H improved post epogen with HD yesterday, hold PRBCs for now. Transfuse for hgb less than 7. Possible HD again today per Nephro. Patient is stable for transfer to the floor if remains stable. 08/09: Patient to receive 1 unit PRBCs today for hemoglobin of 7.0. BP is much better controlled with current regimen. Continue hemodialysis per nephrology recommendations. Anticipate discharge in a.m. 08/10: Still awaiting PRBCs to be transfused. Follow-up H&H today. BP much better controlled. Patient for hemodialysis today 08/11: Still awaiting PRBCs to be transfused. Continue to follow-up H&H. 08/12: Blood bank reported patient had antibodies and the sample was sent out to the [facility] which had a delay in the results. Blood bank also reports sample has and patient will need to be typed and crossed with a new sample. We will reorder the T & C and blood transfusion. Follow-up CBC in a.m. 08/13; type and cross, transfuse 1 unit of PRBC, follow H&H, additional transfusion if needed Check posttransfusion H&H this evening and tomorrow morning, if stable may be discharged home tomorrow Plan of care reviewed with the patient and nurse History Interval history: I have seen and examined the patient at the bedside patient's chart and medications reviewed Patient's hemoglobin is 6.9, advised 1 unit PRBC transfusion during dialysis patient has no new complaints Vital signs noted Hospitalist Physical - Constitutional Vitals: Temp Pulse Resp BP Pulse Ox 97.7 F 76 16 135/82 100 08/13/21 04:52 08/13/21 04:52 08/13/21 04:52 08/13/21 04:52 08/13/21 04:52 General appearance: Present: no acute distress, well-nourished - EENT Eyes: Present: PERRL, EOM intact - Neck Neck: Present: supple, normal ROM - Respiratory Respiratory effort: normal Respiratory: bilateral: diminished, negative: rales, rhonchi, wheezing - Cardiovascular Rhythm: regular Heart Sounds: Present: S1 & S2 - Extremities Extremities: no ischemia, No edema - Abdominal General gastrointestinal: soft, non-tender, non-distended, normal bowel sounds - Integumentary Integumentary: Present: clear, warm - Psychiatric Psychiatric: appropriate mood/affect, cooperative - Neurologic Neurologic: CNII-XII intact, moves all extremities HEART Score - HEART Score Troponin: Troponin T 0.097 ng/mL (0.00-0.029) H 08/06/21 Unknown Results - Labs CBC & Chem 7: 08/13/21 16:05 08/13/21 04:56 Labs: Laboratory Last Values WBC 4.9 K/mm3 (4.5-11.0) 08/13/21 04:56 RBC 2.22 M/mm3 (3.65-5.03) L 08/13/21 04:56 Hgb 6.7 gm/dl (10.1-14.3) L 08/13/21 04:56 Hct 21.9 % (30.3-42.9) L 08/13/21 04:56 MCV 99 fl (79-97) H 08/13/21 04:56 MCH 30 pg (28-32) 08/13/21 04:56 MCHC 31 % (30-34) 08/13/21 04:56 RDW 19.6 % (13.2-15.2) H 08/13/21 04:56 Plt Count 108 K/mm3 (140-440) L 08/13/21 04:56 Lymph % (Auto) 26.3 % (13.4-35.0) 08/13/21 04:56 [place] % (Auto) 12.9 % (0.0-7.3) H 08/13/21 04:56 Eos % (Auto) 8.5 % (0.0-4.3) H 08/13/21 04:56 Baso % (Auto) 0.5 % (0.0-1.8) 08/13/21 04:56 Lymph # (Auto) 1.3 K/mm3 (1.2-5.4) 08/13/21 04:56 [place] # (Auto) 0.6 K/mm3 (0.0-0.8) 08/13/21 04:56 Eos # (Auto) 0.4 K/mm3 (0.0-0.4) 08/13/21 04:56 Baso # (Auto) 0.0 K/mm3 (0.0-0.1) 08/13/21 04:56 Add Manual Diff Complete 08/11/21 04:50 Total Counted 100 08/11/21 04:50 Seg Neutrophils % 51.8 % (40.0-70.0) 08/13/21 04:56 Seg Neuts % (Manual) 67.0 % (40.0-70.0) 08/11/21 04:50 Band Neutrophils % 0 % 08/11/21 04:50 Lymphocytes % (Manual) 23.0 % (13.4-35.0) 08/11/21 04:50 Reactive Lymphs % (Man) 0 % 08/11/21 04:50 Monocytes % (Manual) 3.0 % (0.0-7.3) 08/11/21 04:50 Eosinophils % (Manual) 7.0 % (0.0-4.3) H 08/11/21 04:50 Basophils % (Manual) 0 % (0.0-1.8) 08/11/21 04:50 Metamyelocytes % 0 % 08/11/21 04:50 Myelocytes % 0 % 08/11/21 04:50 Promyelocytes % 0 % 08/11/21 04:50 Blast Cells % 0 % 08/11/21 04:50 Nucleated RBC % Not Reportable 08/11/21 04:50 Seg Neutrophils # 2.5 K/mm3 (1.8-7.7) 08/13/21 04:56 Seg Neutrophils # Man 3.3 K/mm3 (1.8-7.7) 08/11/21 04:50 Band Neutrophils # 0.0 K/mm3 08/11/21 04:50 Lymphocytes # (Manual) 1.1 K/mm3 (1.2-5.4) L 08/11/21 04:50 Abs React Lymphs (Man) 0.0 K/mm3 08/11/21 04:50 Monocytes # (Manual) 0.1 K/mm3 (0.0-0.8) 08/11/21 04:50 Eosinophils # (Manual) 0.3 K/mm3 (0.0-0.4) 08/11/21 04:50 Basophils # (Manual) 0.0 K/mm3 (0.0-0.1) 08/11/21 04:50 Metamyelocytes # 0.0 K/mm3 08/11/21 04:50 Myelocytes # 0.0 K/mm3 08/11/21 04:50 Promyelocytes # 0.0 K/mm3 08/11/21 04:50 Blast Cells # 0.0 K/mm3 08/11/21 04:50 WBC Morphology Not Reportable 08/11/21 04:50 Hypersegmented Neuts Not Reportable 08/11/21 04:50 Hyposegmented Neuts Not Reportable 08/11/21 04:50 Hypogranular Neuts Not Reportable 08/11/21 04:50 Smudge Cells Not Reportable 08/11/21 04:50 Toxic Granulation Not Reportable 08/11/21 04:50 Toxic Vacuolation Not Reportable 08/11/21 04:50 Dohle Bodies Not Reportable 08/11/21 04:50 Pelger-Huet Anomaly Not Reportable 08/11/21 04:50 Maite Rods Not Reportable 08/11/21 04:50 Platelet Estimate Consistent w auto 08/11/21 04:50 Clumped Platelets Not Reportable 08/11/21 04:50 Plt Clumps, EDTA Not Reportable 08/11/21 04:50 Large Platelets Not Reportable 08/11/21 04:50 Giant Platelets Not Reportable 08/11/21 04:50 Platelet Satelliting Not Reportable 08/11/21 04:50 Plt Morphology Comment Not Reportable 08/11/21 04:50 RBC Morphology Not Reportable 08/11/21 04:50 Dimorphic RBCs Not Reportable 08/11/21 04:50 Polychromasia Not Reportable 08/11/21 04:50 Hypochromasia Not Reportable 08/11/21 04:50 Poikilocytosis Not Reportable 08/11/21 04:50 Anisocytosis 1+ 08/11/21 04:50 Microcytosis Not Reportable 08/11/21 04:50 Macrocytosis Not Reportable 08/11/21 04:50 Spherocytes Not Reportable 08/11/21 04:50 Pappenheimer Bodies Not Reportable 08/11/21 04:50 Sickle Cells Not Reportable 08/11/21 04:50 Target Cells Not Reportable 08/11/21 04:50 Tear Drop Cells Not Reportable 08/11/21 04:50 Ovalocytes Not Reportable 08/11/21 04:50 Helmet Cells Not Reportable 08/11/21 04:50 [place] Bodies Not Reportable 08/11/21 04:50 [place] Rings Not Reportable 08/11/21 04:50 [place] Cells Not Reportable 08/11/21 04:50 Bite Cells Not Reportable 08/11/21 04:50 Crenated Cell Not Reportable 08/11/21 04:50 Elliptocytes Not Reportable 08/11/21 04:50 Acanthocytes (Spur) Not Reportable 08/11/21 04:50 Rouleaux Not Reportable 08/11/21 04:50 Hemoglobin C Crystals Not Reportable 08/11/21 04:50 Schistocytes Not Reportable 08/11/21 04:50 Malaria parasites Not Reportable 08/11/21 04:50 Al Bodies Not Reportable 08/11/21 04:50 Hem Pathologist Commnt No 08/11/21 04:50 D-Dimer 6037.58 ng/mlDDU (0-234) H 08/06/21 Unknown Sodium 135 mmol/L (137-145) L 08/13/21 04:56 Potassium 5.1 mmol/L (3.6-5.0) H D 08/13/21 04:56 Chloride 98.6 mmol/L (98-107) 08/13/21 04:56 Carbon Dioxide 18 mmol/L (22-30) L 08/13/21 04:56 Anion Gap 24 mmol/L 08/13/21 04:56 BUN 48 mg/dL (7-17) H 08/13/21 04:56 Creatinine 9.5 mg/dL (0.6-1.2) H D 08/13/21 04:56 Estimated GFR 6 ml/min 08/13/21 04:56 BUN/Creatinine Ratio 5 % 08/13/21 04:56 Glucose 106 mg/dL (65-100) H 08/13/21 04:56 Calcium 9.2 mg/dL (8.4-10.2) 08/13/21 04:56 Phosphorus 4.60 mg/dL (2.5-4.5) H 08/08/21 05:33 Total Bilirubin 0.30 mg/dL (0.1-1.2) 08/06/21 Unknown AST 25 units/L (5-40) 08/06/21 Unknown ALT 8 units/L (7-56) 08/06/21 Unknown Alkaline Phosphatase 104 units/L (35-129) 08/06/21 Unknown Troponin T 0.097 ng/mL (0.00-0.029) H 08/06/21 Unknown NT-Pro-B Natriuret Pep 22590 pg/mL (0-450) H 08/06/21 Unknown Total Protein 7.2 g/dL (6.3-8.2) 08/06/21 Unknown Albumin 3.3 g/dL (3.9-5) L 08/06/21 Unknown Albumin/Globulin Ratio 0.8 % 08/06/21 Unknown HCG, Qual Negative (Negative) 08/06/21 Unknown Hepatitis A IgM Ab Non-reactive (NonReactive) 08/06/21 Unknown Hep Bs Antigen Non-reactive (Negative) 08/06/21 Unknown Hep B Core IgM Ab Non-reactive (NonReactive) 08/06/21 Unknown Hepatitis C Antibody Non-reactive (NonReactive) 08/06/21 Unknown Blood Type B POSITIVE 08/07/21 15:10 Antibody Screen Positive 08/07/21 15:10 Antibody Identification Anti-Fya Anti-K Anti-s Anti-V Warm Auto Antibody 08/07/21 15:10 Antibody Identification Anti-Fya Anti-K Anti-s Anti-V Warm Auto Antibody 08/07/21 15:10 Antibody Identification Anti-Fya Anti-K Anti-s Anti-V Warm Auto Antibody 08/07/21 15:10 Antibody Identification Anti-Fya Anti-K Anti-s Anti-V Warm Auto Antibody 08/07/21 15:10 Antibody Identification Anti-Fya Anti-K Anti-s Anti-V Warm Auto Antibody 08/07/21 15:10 Crossmatch See Detail 08/07/21 15:10 Nuñez/IV: Voiding Method Toilet Active Medications - Current Medications Current Medications: Generic Name Dose Route Start Last Admin Trade Name Freq PRN Reason Stop Dose Admin Acetaminophen 650 mg 08/06/21 18:00 Acetaminophen 325 Mg Tab PO Q6H PRN Pain MILD(1-3)/Fever >100.5/GUZMAN Amlodipine Besylate 10 mg 08/07/21 10:00 08/12/21 09:39 Amlodipine 10 Mg Tab PO 10 mg DAILY OLLIE Administration Citalopram Hydrobromide 20 mg 08/09/21 10:15 08/12/21 09:39 Citalopram 20 Mg Tab PO 20 mg DAILY OLLIE Administration Epoetin Chaitanya-epbx 20,000 unit 08/08/21 11:23 08/10/21 12:43 Epoetin Chaitanya-Epbx 20,000 Unit/1 Ml Vial IV 20,000 unit ALEXX PRN Administration hemodialysis Folic Acid 1 mg 08/07/21 10:00 08/12/21 09:39 Folic Acid 1 Mg Tab PO 1 mg QDAY OLLIE Administration Hydralazine HCl 100 mg 08/08/21 14:00 08/13/21 05:53 Hydralazine 100 Mg Tab PO 100 mg Q8HR OLLIE Administration Hydroxychloroquine Sulfate 200 mg 08/07/21 10:00 08/12/21 09:38 Hydroxychloroquine 200 Mg Tab PO 200 mg QDAY OLLIE Administration Hydroxyzine HCl 25 mg 08/06/21 16:56 Hydroxyzine Hcl 25 Mg Tab PO Q6HR PRN Itching Sodium Chloride 100 mls @ 999 mls/hr 08/08/21 11:27 Nacl 0.9% IV ALEXX PRN Hypotension Labetalol HCl 10 mg 08/07/21 18:16 08/07/21 21:40 Labetalol 20 Mg/4 Ml Inj IV 10 mg Q4H PRN Administration SBP >/=160; DBP >/=100 Labetalol HCl 100 mg 08/08/21 22:00 08/12/21 22:24 Labetalol 100 Mg Tab PO 100 mg BID OLLIE Administration Levetiracetam 500 mg 08/06/21 22:00 08/12/21 22:15 Levetiracetam 500 Mg Tab PO 500 mg BID OLLIE Administration Lorazepam 1 mg 08/06/21 16:56 08/11/21 23:25 Lorazepam 1 Mg Tab PO 1 mg TID PRN Administration Anxiety Oxycodone/Acetaminophen 1 tab 08/08/21 08:34 08/11/21 12:54 Oxycodone /Acetaminophen 5-325mg Tab PO 1 tab Q6H PRN Administration Pain , Severe (7-10) Pantoprazole Sodium 20 mg 08/07/21 10:00 08/12/21 09:39 Pantoprazole 20 Mg Tab PO 20 mg QDAY OLLIE Administration Risperidone 1 mg 08/06/21 22:00 08/12/21 22:15 Risperidone 1 Mg Tab PO 1 mg QHS OLLIE Administration Sodium Chloride 10 ml 08/06/21 22:00 08/12/21 22:24 Sodium Chloride 0.9% 10 Ml Flush Syringe IV 10 ml BID OLLIE Administration Sodium Chloride 10 ml 08/06/21 16:55 Sodium Chloride 0.9% 10 Ml Flush Syringe IV PRN PRN LINE FLUSH Tramadol HCl 50 mg 08/08/21 08:34 Tramadol 50 Mg Tab PO Q6H PRN Pain, Moderate (4-6) Nutrition/Malnutrition Assess - Dietary Evaluation Nutrition/Malnutrition Findings: Nutrition Notes Start: 08/07/21 16:16 Freq: Status: Active Protocol: Document 08/07/21 16:16 MICKI (Rec: 08/07/21 16:32 MICKI [id number]) Nutrition Notes 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 Current Diet Renal Diet (since D 08/06). Labs/Tests 08/07: K 5.5, Cl 97.1, CO2 19, BUN 33, Crea 6.6. Pertinent Medications 08/07: Folic acid, others nutritionally unremarkable. 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 Weight Status Appropriate Subjective/Other Information RD consult for risk of malnutrition assessment. No reports available on Pt's PO intake of meals at the time , will assess at F/U. Pt is on Nasal Cannula, O2 saturation @ 95%, according to Physical Assessment Histroy notes. Pt shows no signs of concern for risk of malnutrition at the time, according to Physical Assessment Histroy notes. Percent of energy/protein needs met: Prescribed Renal Diet provides for energy/protein needs (2, 072 Kcal/77 g) during LOS. Burn Absent Trauma Absent GI Symptoms None Food Allergy No Skin Integrity/Comment Assessment WNL. Minimum of two criteria No #1 Nutrition Diagnosis No nutrition diagnosis at this time Comments: I will assess Pt's PO intake of meals at F/U. Is patient on ventilator? No Is Patient Ambulatory and/or Out of Bed Yes REE-([place]. Jeor-ambulatory/OOB) [ 1527.669 [id number]] Kcal/Kg value to use for calculation 28 Approximate Energy Requirements Using 1333 kcal/Kg Calculation Used for Recommendations Kcal/kg Additional Notes Protein: >1.2 g/Kg IBW; >62 g/ day. Fluids: 1 ml/Kcal, or as per MD. Nutrition Intervention Change Diet Order: Continue Renal Diet. Follow-Up By: 08/14/21 Additional Comments Continue monitoring food tolerance, %PO intake of meals , and BM.
--- NOTE | 2021-08-13 10:15 | Progress Note ---
Assessment and Plan Assessment: ESRD on hemodialysis S/P Hypertensive Emergency Hypertension Lupus Seizure ADHD Hyperkalemia Anemia Plan: Hemodialysis today for UF and clearance Anemia-Transfuse as needed. Epogen 20,000 units with HD On T,T,S schedule Has right IJ perm-catheter Fluid restriction of 1 liter per day Renally dose medications Strict I/O's daily Assess dialysis needs daily Pt states she undergoes OP HD at [facility] Plan of care reviewed by Dr. Mejias Subjective Date of service: 08/13/21 Principal diagnosis: ESRD Interval history: Patient seen in dialysis unit. Tolerating HD well. Objective - Vital Signs Vital signs: Vital Signs - 12hr 08/12/21 08/13/21 08/13/21 22:24 00:00 04:00 Temperature Pulse Rate 85 85 85 Respiratory Rate Blood Pressure 144/90 O2 Sat by Pulse Oximetry 08/13/21 04:52 Temperature 97.7 F Pulse Rate 76 Respiratory 16 Rate Blood Pressure 135/82 O2 Sat by Pulse 100 Oximetry - General Appearance General appearance: well-developed, appears stated age EENT: ATNC, PERRL, hearing intact, vision intact Neck: no JVD, supple Respiratory: Present: Decreased Breath Sounds Cardiology: S1S2 Gastrointestinal: normoactive bowel sounds Integumentary: warm and dry Neurologic: alert and oriented x3 Musculoskeletal: other (No edema) - Lab 08/13/21 04:56 08/13/21 04:56 Most recent lab results Calcium 9.2 mg/dL (8.4-10.2) 08/13/21 04:56 Phosphorus 4.60 mg/dL (2.5-4.5) H 08/08/21 05:33 Medications & Allergies - Medications Allergies/Adverse Reactions: Allergies amoxicillin trihydrate [From Augmentin] Allergy (Unknown, Verified 05/27/13 11:32) Unknown Tolerates Zosyn diphenhydramine [From Benadryl] Allergy (Verified 08/06/21 16:06) Itching potassium clavulanate [From Augmentin] Adverse Reaction (Unknown, Verified 05/27/13 11:32) Unknown Home Medications: Home Medications Medication Instructions Recorded Confirmed Last Taken Type hydrOXYzine HCL [Atarax] 25 mg PO Q6HR PRN #20 tablet 06/19/13 08/10/21 Unknown Rx Folic Acid [Folvite] 1 mg PO QDAY #30 tablet 03/12/14 08/10/21 Unknown Rx Hydralazine HCl [hydrALAZINE] 100 mg PO DAILY #30 tablet 03/12/14 08/10/21 Unknown Rx Hydroxychloroquine [Plaquenil] 200 mg PO QDAY #30 tablet 03/12/14 08/10/21 Unknown Rx LORazepam [Ativan] 1 mg PO TID PRN #6 tablet 03/12/14 08/10/21 Unknown Rx Pantoprazole [Protonix TAB] 20 mg PO QDAY #20 tablet. 03/12/14 08/10/21 Unknown Rx amLODIPine 10 mg PO DAILY #30 tablet 03/12/14 08/10/21 Unknown Rx cloNIDine [Catapres] 0.1 mg PO BID #30 tablet 03/12/14 08/10/21 Unknown Rx hydrOXYzine HCL [Atarax] 25 mg PO Q6HR #20 tablet 03/12/14 08/10/21 Unknown Rx levETIRAcetam [Keppra TAB] 500 mg PO BID #60 tablet 03/12/14 08/10/21 Unknown Rx predniSONE 10 mg PO QPM #30 tablet 03/12/14 08/10/21 Unknown Rx risperiDONE [RisperDAL] 1 mg PO QHS #30 tablet 03/12/14 08/10/21 Unknown Rx Citalopram [celeXA] 20 mg PO QDAY #30 tablet 03/30/14 08/10/21 Unknown Rx Active Medications: Generic Name Dose Route Start Last Admin Trade Name Freq PRN Reason Stop Dose Admin Acetaminophen 650 mg 08/06/21 18:00 Acetaminophen 325 Mg Tab PO Q6H PRN Pain MILD(1-3)/Fever >100.5/GUZMAN Amlodipine Besylate 10 mg 08/07/21 10:00 08/12/21 09:39 Amlodipine 10 Mg Tab PO 10 mg DAILY OLLIE Administration Citalopram Hydrobromide 20 mg 08/09/21 10:15 08/12/21 09:39 Citalopram 20 Mg Tab PO 20 mg DAILY OLLIE Administration Epoetin Chaitanya-epbx 20,000 unit 08/08/21 11:23 08/10/21 12:43 Epoetin Chaitanya-Epbx 20,000 Unit/1 Ml Vial IV 20,000 unit ALEXX PRN Administration hemodialysis Folic Acid 1 mg 08/07/21 10:00 08/12/21 09:39 Folic Acid 1 Mg Tab PO 1 mg QDAY OLLIE Administration Hydralazine HCl 100 mg 08/08/21 14:00 08/13/21 05:53 Hydralazine 100 Mg Tab PO 100 mg Q8HR OLLIE Administration Hydroxychloroquine Sulfate 200 mg 08/07/21 10:00 08/12/21 09:38 Hydroxychloroquine 200 Mg Tab PO 200 mg QDAY OLLIE Administration Hydroxyzine HCl 25 mg 08/06/21 16:56 Hydroxyzine Hcl 25 Mg Tab PO Q6HR PRN Itching Sodium Chloride 100 mls @ 999 mls/hr 08/08/21 11:27 Nacl 0.9% IV ALEXX PRN Hypotension Labetalol HCl 10 mg 08/07/21 18:16 08/07/21 21:40 Labetalol 20 Mg/4 Ml Inj IV 10 mg Q4H PRN Administration SBP >/=160; DBP >/=100 Labetalol HCl 100 mg 08/08/21 22:00 08/12/21 22:24 Labetalol 100 Mg Tab PO 100 mg BID OLLIE Administration Levetiracetam 500 mg 08/06/21 22:00 08/12/21 22:15 Levetiracetam 500 Mg Tab PO 500 mg BID OLLIE Administration Lorazepam 1 mg 08/06/21 16:56 08/11/21 23:25 Lorazepam 1 Mg Tab PO 1 mg TID PRN Administration Anxiety Oxycodone/Acetaminophen 1 tab 08/08/21 08:34 08/11/21 12:54 Oxycodone /Acetaminophen 5-325mg Tab PO 1 tab Q6H PRN Administration Pain , Severe (7-10) Pantoprazole Sodium 20 mg 08/07/21 10:00 08/12/21 09:39 Pantoprazole 20 Mg Tab PO 20 mg QDAY OLLIE Administration Risperidone 1 mg 08/06/21 22:00 08/12/21 22:15 Risperidone 1 Mg Tab PO 1 mg QHS OLLIE Administration Sodium Chloride 10 ml 08/06/21 22:00 08/12/21 22:24 Sodium Chloride 0.9% 10 Ml Flush Syringe IV 10 ml BID OLLIE Administration Sodium Chloride 10 ml 08/06/21 16:55 Sodium Chloride 0.9% 10 Ml Flush Syringe IV PRN PRN LINE FLUSH Tramadol HCl 50 mg 08/08/21 08:34 Tramadol 50 Mg Tab PO Q6H PRN Pain, Moderate (4-6)
[2021-08-13] MEDS: amLODIPine 10 MG TAB PO SCH (10:36)
[2021-08-13] MEDS: CITALOPRAM 20 MG TAB PO SCH (10:36)
[2021-08-13] MEDS: levETIRAcetam 500 MG TAB PO SCH ×2 (10:36→22:36)
[2021-08-13] MEDS: HYDROXYCHLOROQUINE 200 MG TAB PO SCH (10:36)
[2021-08-13] MEDS: PANTOPRAZOLE 20 MG TAB PO SCH (10:36)
[2021-08-13] MEDS: FOLIC ACID 1 MG TAB PO SCH (10:36)
[2021-08-13] MEDS: EPOETIN ALFA-EPBX 20,000 UNIT/1 ML VIAL IV PRN (15:00)
--- NOTE | 2021-08-13 16:15 | Progress Note ---
Assessment and Plan Hypertensive emergency End stage renal disease Anemia SLE (systemic lupus erythematosus) Pulmonary edema, respiratory insufficiency Protein calorie Malnutrition Thrombocytopenia Headache H/o Seizure Disorder Awaiting blood transfusion with HD today Continue all current care Continue antihypertensive therapy, blood pressure checks as per nursing care protocol Supportive transfusion to keep HgB>7g/dL, Epogen and hematinics Continue Plaquenil Continue oral antihypertensives VTE prophylaxis- early ambulation, SCDs while in bed Dialysis as per renal team, monitor fluid balance, supportive care. Supplemental oxygen, titrate to keep SpO2 89-92% Avoid nephrotoxic medications; Renally dose medications Chronic home medications as clinically indicated Serial CBC Discharge planning per primary service Subjective Date of service: 08/13/21 Principal diagnosis: ESRD Interval history: This is a 30-year-old female with known past medical history of HTN, ESRD on HD(T,R,Sa), seizure disorder, SLE, ADHD, and malnutrition admitted for Hypertensive emergency and fluid overload. Seen and examined. Vitals, labs, medications, chart reviewed. Discussed with nursing staff. Awaiting blood transfusion Tolerating supportive HD per renal prescription She denies any chest pain, no shortness of breath, no fevers, no chills, no nausea or vomiting. No diarrhea. Objective Vital Signs - 12hr 08/13/21 08/13/21 08/13/21 04:52 11:45 12:00 Temperature 97.7 F 97.7 F Pulse Rate 76 79 79 Respiratory 16 18 Rate Blood Pressure 135/82 150/101 150/101 O2 Sat by Pulse 100 Oximetry O2 Sat by Pulse 100 Oximetry [ Throughout] 08/13/21 08/13/21 08/13/21 12:15 12:30 12:45 Temperature Pulse Rate 81 81 89 Respiratory Rate Blood Pressure 136/87 116/63 107/56 O2 Sat by Pulse Oximetry O2 Sat by Pulse Oximetry [ Throughout] 08/13/21 08/13/21 08/13/21 13:00 13:15 13:20 Temperature 98.8 F Pulse Rate 87 77 80 Respiratory 18 Rate Blood Pressure 95/58 110/68 115/68 O2 Sat by Pulse 100 Oximetry O2 Sat by Pulse Oximetry [ Throughout] 08/13/21 08/13/21 08/13/21 13:37 13:45 13:50 Temperature 98.4 F Pulse Rate 79 73 Respiratory 18 Rate Blood Pressure 114/68 126/81 O2 Sat by Pulse 100 96 Oximetry O2 Sat by Pulse Oximetry [ Throughout] 08/13/21 08/13/21 08/13/21 13:52 14:00 14:07 Temperature 98.4 F 98.6 F Pulse Rate 74 74 76 Respiratory 17 18 Rate Blood Pressure 134/86 137/88 136/85 O2 Sat by Pulse 100 100 Oximetry O2 Sat by Pulse Oximetry [ Throughout] 08/13/21 08/13/21 08/13/21 14:12 14:15 14:30 Temperature Pulse Rate 75 78 Respiratory 18 Rate Blood Pressure 140/70 132/85 O2 Sat by Pulse Oximetry O2 Sat by Pulse Oximetry [ Throughout] Constitutional: no acute distress, alert Eyes: non-icteric ENT: oropharynx moist Neck: supple, no lymphadenopathy, no JVD Effort: normal Ascultation: Bilateral: clear, diminished breath sounds Cardiovascular: regular rate and rhythm, other (S1,S2) Gastrointestinal: normoactive bowel sounds, soft, non-tender Integumentary: normal Extremities: no cyanosis, no edema, pulses normal Neurologic: normal mental status, non-focal exam, pupils equal and round, CN II- XII normal, motor strength normal and Psychiatric: mood appropriate, affect normal CBC and BMP: 08/14/21 04:50 08/14/21 04:50 ABG, PT/INR, D-dimer: PT/INR, D-dimer D-Dimer 6037.58 ng/mlDDU (0-234) H 08/06/21 Unknown Abnormal lab findings: Abnormal Labs 08/06/21 08/06/21 08/06/21 Unknown Unknown Unknown WBC 4.1 L RBC 2.28 L Hgb 6.9 L Hct 22.5 L MCV 99 H RDW 18.0 H Plt Count 77 L [place] % (Auto) Eos % (Auto) 4.7 H Lymph # (Auto) 1.0 L Eosinophils % (Manual) Lymphocytes # (Manual) D-Dimer Sodium 135 L Potassium 5.8 H Chloride Carbon Dioxide 16 L BUN 56 H Creatinine 9.8 H Glucose Phosphorus Troponin T 0.097 H NT-Pro-B Natriuret Pep Albumin 3.3 L Crossmatch 08/06/21 08/06/21 08/07/21 Unknown Unknown 04:48 WBC RBC Hgb Hct MCV RDW Plt Count [place] % (Auto) Eos % (Auto) Lymph # (Auto) Eosinophils % (Manual) Lymphocytes # (Manual) D-Dimer 6037.58 H Sodium Potassium 5.5 H Chloride 97.1 L Carbon Dioxide 19 L BUN 33 H Creatinine 6.6 H Glucose Phosphorus Troponin T NT-Pro-B Natriuret Pep 99491 H Albumin Crossmatch 08/07/21 08/07/21 08/07/21 12:40 15:10 22:55 WBC RBC 2.12 L Hgb 6.6 L 7.3 L Hct 20.7 L 23.3 L MCV 98 H RDW 19.0 H Plt Count 88 L [place] % (Auto) Eos % (Auto) Lymph # (Auto) Eosinophils % (Manual) Lymphocytes # (Manual) D-Dimer Sodium Potassium Chloride Carbon Dioxide BUN Creatinine Glucose Phosphorus Troponin T NT-Pro-B Natriuret Pep Albumin Crossmatch See Detail 08/08/21 08/09/21 08/09/21 05:33 05:50 05:50 WBC RBC 2.26 L Hgb 7.0 L Hct 21.9 L MCV RDW 18.8 H Plt Count 93 L [place] % (Auto) Eos % (Auto) Lymph # (Auto) Eosinophils % (Manual) Lymphocytes # (Manual) D-Dimer Sodium Potassium Chloride 96.9 L 97.2 L Carbon Dioxide BUN Creatinine 4.8 H 4.1 H Glucose 110 H 150 H Phosphorus 4.60 H Troponin T NT-Pro-B Natriuret Pep Albumin Crossmatch 08/10/21 08/11/21 08/11/21 04:23 04:50 04:50 WBC RBC 2.13 L Hgb 6.7 L Hct 21.0 L MCV 98 H RDW 19.8 H Plt Count 84 L [place] % (Auto) Eos % (Auto) Lymph # (Auto) Eosinophils % (Manual) 7.0 H Lymphocytes # (Manual) 1.1 L D-Dimer Sodium 133 L Potassium Chloride 96.7 L Carbon Dioxide BUN 23 H Creatinine 6.1 H 5.3 H Glucose 101 H Phosphorus Troponin T NT-Pro-B Natriuret Pep Albumin Crossmatch 08/13/21 08/13/21 08/13/21 04:56 04:56 11:30 WBC RBC 2.22 L Hgb 6.7 L Hct 21.9 L MCV 99 H RDW 19.6 H Plt Count 108 L [place] % (Auto) 12.9 H Eos % (Auto) 8.5 H Lymph # (Auto) Eosinophils % (Manual) Lymphocytes # (Manual) D-Dimer Sodium 135 L Potassium 5.1 H D Chloride Carbon Dioxide 18 L BUN 48 H Creatinine 9.5 H D Glucose 106 H Phosphorus Troponin T NT-Pro-B Natriuret Pep Albumin Crossmatch See Detail Allied health notes reviewed: nursing
[2021-08-13 16:18] LABS: Hematocrit 27.8 % (30.3-42.9); Hemoglobin 8.9 gm/dl (10.1-14.3)
[2021-08-13] MEDS: risperiDONE 1 MG TAB PO SCH (22:36)
[2021-08-14 05:28] LABS: Hematocrit 25.8 % (30.3-42.9); Hemoglobin 8.2 gm/dl (10.1-14.3)
[2021-08-14 05:45] LABS: Calcium 9.2 mg/dL (8.4-10.2)
[2021-08-14] MEDS: hydrALAZINE 100 MG TAB PO SCH ×2 (06:28→15:03)
--- NOTE | 2021-08-14 09:13 | Progress Note ---
Assessment and Plan 30 YO Female with HTN, ESRD on HD(T,R,Sa), Seizure Disorder, SLE, ADHD, Malnutrition presents to ED for evaluation. Patient states that she has experienced shortness of breath over the past 2 days with persistent symptoms over the same timeframe. Patient also reports chest discomfort with deep breathing but denies chest pain. Patient transported to [facility] via private vehicle for further care and evaluation of the aforementioned symptoms. The patient was seen and evaluated in the emergency department. All lab and imaging studies re viewed. Patient found to have diminished cognition with mild confusion. Patient was found to have hypertensive emergency with a blood pressure of 229/151 mmHg. Patient initiated on Cardene drip in the emergency department. Patient was found to have hypertensive encephalopathy, fluid overload, as well as end-stage renal disease in need of urgent dialysis. Patient admitted to [facility]. No reports of fever, chills, chest pain, palpitation, adductive cough, skin rash, recent contact, known exposure to COVID-19. Nephrology consulted. Patient is on dialysis. Patients blood pressure improved. Patient awake.Patient is on room air. O2 saturation 93%. No acute respiratory distress. No complaint of chest pain, shortness of breath or cough. Patient afebrile. No leukocytosis. Blood pressure 161/109 , Pulse 89, Respirations 20. Patients to days HGB 8.2. Chest xray 08/06/21 reported slight volume Overload. Perfusion lung scan done on 08/06/21 reported Low probability perfusion scan for pulmonary embolism. Venous doppler studies of both legs 08/07/21 reported No sonographic evidence for DVT in either lower extremity. Patient is on Protonix. Recommend SCds for DVT prophylaxis. - Patient Problems (1) Chest pain Current Visit: Yes Status: Acute Plan to address problem: Management as per primary care and cardiology. (2) ESRD needing dialysis Current Visit: Yes Status: Acute Plan to address problem: Management as per nephrology. (3) Fluid overload Current Visit: Yes Status: Acute Qualifiers: Hypervolemia type: unspecified Qualified Code(s): E87.70 - Fluid overload, unspecified Plan to address problem: Patient is on hemodialysis. Management as per nephrology. (4) Hypertensive emergency Current Visit: Yes Status: Acute Plan to address problem: Patients blodd pressure still high.. Recent blood pressure 161/109. Management as per primary care. (5) SLE (systemic lupus erythematosus) Current Visit: Yes Status: Acute Plan to address problem: Patient is on Plaquanil. (6) Bipolar disorder Current Visit: No Status: Chronic Plan to address problem: Management as per primary care and Psychiatry. Subjective Date of service: 08/14/21 Principal diagnosis: ESRD Interval history: 30 YO Female with HTN, ESRD on HD(T,R,Sa), Seizure Disorder, SLE, ADHD, Malnutrition presents to ED for evaluation. Patient states that she has experienced shortness of breath over the past 2 days with persistent symptoms over the same timeframe. Patient also reports chest discomfort with deep breathing but denies chest pain. Patient transported to [facility] via private vehicle for further care and evaluation of the aforementioned symptoms. The patient was seen and evaluated in the emergency department. All lab and imaging studies reviewed. Patient found to have diminished cognition with mild confusion. Patient was found to have hypertensive emergency with a blood pressure of 229/151 mmHg. Patient initiated on Cardene drip in the emergency department. Patient was found to have hypertensive encephalopathy, fluid overload, as well as end-stage renal disease in need of urgent dialysis. Patient admitted to [facility]. No reports of fever, chills, chest pain, palpitation, adductive cough, skin rash, recent contact, known exposure to COVID-19. Nephrology consulted. Patient is on dialysis. Patients blood pressure improved. Patient awake.Patient is on room air. O2 saturation 93%. No acute respiratory distress. No complaint of chest pain, shortness of breath or cough. Patient afebrile. No leukocytosis. Blood pressure 161/109 , Pulse 89, Respirations 20. Patients to days HGB 8.2. Chest xray 08/06/21 reported slight volume Overload. Perfusion lung scan done on 08/06/21 reported Low probability perfusion scan for pulmonary embolism. Venous doppler studies of both legs 08/07/21 reported No sonographic evidence for DVT in either lower extremity. Patient is on Protonix. Recommend SCds for DVT prophylaxis. Objective Vital Signs - 12hr 08/13/21 08/13/21 08/13/21 22:00 22:30 23:51 Temperature 98.0 F Pulse Rate 82 87 Respiratory 16 19 Rate Blood Pressure 145/100 167/115 O2 Sat by Pulse 99 99 Oximetry 08/14/21 08/14/21 05:42 08:38 Temperature 97.9 F Pulse Rate 89 Respiratory 20 18 Rate Blood Pressure 161/109 O2 Sat by Pulse 93 99 Oximetry Constitutional: no acute distress, alert Eyes: non-icteric ENT: oropharynx moist Neck: supple, no lymphadenopathy, no JVD Effort: mildly labored Ascultation: Bilateral: diminished breath sounds Cardiovascular: regular rate and rhythm, other (S1,S2) Gastrointestinal: normoactive bowel sounds, soft, non-tender Integumentary: normal Extremities: no cyanosis, no edema, pulses normal Neurologic: normal mental status, non-focal exam, pupils equal and round, CN II- XII normal, motor strength normal and Psychiatric: mood appropriate, affect normal CBC and BMP: 08/14/21 04:50 08/14/21 04:50 ABG, PT/INR, D-dimer: PT/INR, D-dimer D-Dimer 6037.58 ng/mlDDU (0-234) H 08/06/21 Unknown Abnormal lab findings: Abnormal Labs 08/06/21 08/06/21 08/06/21 Unknown Unknown Unknown WBC 4.1 L RBC 2.28 L Hgb 6.9 L Hct 22.5 L MCV 99 H RDW 18.0 H Plt Count 77 L [place] % (Auto) Eos % (Auto) 4.7 H Lymph # (Auto) 1.0 L Eosinophils % (Manual) Lymphocytes # (Manual) D-Dimer Sodium 135 L Potassium 5.8 H Chloride Carbon Dioxide 16 L BUN 56 H Creatinine 9.8 H Glucose Phosphorus Troponin T 0.097 H NT-Pro-B Natriuret Pep Albumin 3.3 L Crossmatch 08/06/21 08/06/21 08/07/21 Unknown Unknown 04:48 WBC RBC Hgb Hct MCV RDW Plt Count [place] % (Auto) Eos % (Auto) Lymph # (Auto) Eosinophils % (Manual) Lymphocytes # (Manual) D-Dimer 6037.58 H Sodium Potassium 5.5 H Chloride 97.1 L Carbon Dioxide 19 L BUN 33 H Creatinine 6.6 H Glucose Phosphorus Troponin T NT-Pro-B Natriuret Pep 38121 H Albumin Crossmatch 08/07/21 08/07/21 08/07/21 12:40 15:10 22:55 WBC RBC 2.12 L Hgb 6.6 L 7.3 L Hct 20.7 L 23.3 L MCV 98 H RDW 19.0 H Plt Count 88 L [place] % (Auto) Eos % (Auto) Lymph # (Auto) Eosinophils % (Manual) Lymphocytes # (Manual) D-Dimer Sodium Potassium Chloride Carbon Dioxide BUN Creatinine Glucose Phosphorus Troponin T NT-Pro-B Natriuret Pep Albumin Crossmatch See Detail 08/08/21 08/09/21 08/09/21 05:33 05:50 05:50 WBC RBC 2.26 L Hgb 7.0 L Hct 21.9 L MCV RDW 18.8 H Plt Count 93 L [place] % (Auto) Eos % (Auto) Lymph # (Auto) Eosinophils % (Manual) Lymphocytes # (Manual) D-Dimer Sodium Potassium Chloride 96.9 L 97.2 L Carbon Dioxide BUN Creatinine 4.8 H 4.1 H Glucose 110 H 150 H Phosphorus 4.60 H Troponin T NT-Pro-B Natriuret Pep Albumin Crossmatch 08/10/21 08/11/21 08/11/21 04:23 04:50 04:50 WBC RBC 2.13 L Hgb 6.7 L Hct 21.0 L MCV 98 H RDW 19.8 H Plt Count 84 L [place] % (Auto) Eos % (Auto) Lymph # (Auto) Eosinophils % (Manual) 7.0 H Lymphocytes # (Manual) 1.1 L D-Dimer Sodium 133 L Potassium Chloride 96.7 L Carbon Dioxide BUN 23 H Creatinine 6.1 H 5.3 H Glucose 101 H Phosphorus Troponin T NT-Pro-B Natriuret Pep Albumin Crossmatch 08/13/21 08/13/21 08/13/21 04:56 04:56 11:30 WBC RBC 2.22 L Hgb 6.7 L Hct 21.9 L MCV 99 H RDW 19.6 H Plt Count 108 L [place] % (Auto) 12.9 H Eos % (Auto) 8.5 H Lymph # (Auto) Eosinophils % (Manual) Lymphocytes # (Manual) D-Dimer Sodium 135 L Potassium 5.1 H D Chloride Carbon Dioxide 18 L BUN 48 H Creatinine 9.5 H D Glucose 106 H Phosphorus Troponin T NT-Pro-B Natriuret Pep Albumin Crossmatch See Detail 08/13/21 08/14/21 08/14/21 16:05 04:50 04:50 WBC RBC Hgb 8.9 L 8.2 L Hct 27.8 L 25.8 L MCV RDW Plt Count [place] % (Auto) Eos % (Auto) Lymph # (Auto) Eosinophils % (Manual) Lymphocytes # (Manual) D-Dimer Sodium 136 L Potassium Chloride 97.7 L Carbon Dioxide BUN 23 H Creatinine 5.6 H Glucose Phosphorus Troponin T NT-Pro-B Natriuret Pep Albumin Crossmatch Allied health notes reviewed: nursing
[2021-08-14] MEDS: HYDROXYCHLOROQUINE 200 MG TAB PO SCH (09:27)
[2021-08-14] MEDS: PANTOPRAZOLE 20 MG TAB PO SCH (09:27)
[2021-08-14] MEDS: levETIRAcetam 500 MG TAB PO SCH (09:27)
[2021-08-14] MEDS: FOLIC ACID 1 MG TAB PO SCH (09:27)
[2021-08-14] MEDS: CITALOPRAM 20 MG TAB PO SCH (09:27)
[2021-08-14] MEDS: amLODIPine 10 MG TAB PO SCH (09:27)
[2021-08-14 09:28] VITALS: BP 153/93
--- NOTE | 2021-08-14 10:05 | Death Summary ---
Summary - Providers Consults: 08/06/21 16:32 Consult to Physician [CONS] Urgent Comment: Consulting Provider: LELA SAMPSON Physician Instructions: Reason For Exam: Hyperkalemia/needs dialysis 08/07/21 08:07 Consult to Physician [CONS] Routine Comment: Consulting Provider: JENNY CAPELLAN Physician Instructions: Reason For Exam: CCM, Hypertensive Urgency Attending: CRISTINA LEE - summary Date of admission: 08/06/21 16:55
--- NOTE | 2021-08-14 10:06 | Discharge Summary ---
Providers - Providers Date of Admission: 08/06/21 16:55 Date of discharge: 08/14/21 Attending physician: CRISTINA LEE 08/06/21 16:32 Consult to Physician [CONS] Urgent Comment: Consulting Provider: LELA SAMPSON Physician Instructions: Reason For Exam: Hyperkalemia/needs dialysis 08/07/21 08:07 Consult to Physician [CONS] Routine Comment: Consulting Provider: JENNY CAPELLAN Physician Instructions: Reason For Exam: CCM, Hypertensive Urgency Primary care physician: AMPARO BOOTH MD Hospitalization Condition: Fair Hospital course: This is a 30-year-old female with known past medical history of HTN, ESRD on HD(T,R,Sa), seizure disorder, SLE, ADHD, and malnutrition admitted with diagnosis below: Anemia of chronic disease, Hb this morning is 6.9 rosa and ed recommend 1 unit PRBC transfusion, preferably during dialysis Closely monitor H&H, transfuse additional PRBC as needed Hypertensive Emergency - Presented with BP of 229/151 required Cardened gtt - Patient refused PO meds overnight, cardene gtt was resumed - Cardene gtt discontinued - SBP in the 160 - Labetalol added for BP control Acute hypoxic respiratory failure - Presented with SOB and respiratory distress - CXR showed mild volume overload - V/Q with low probability for PE - Stable on RA, O2 supplementation on standby - Continue HD per Nephro - Continue O2 supplementation as needed - Continue SPO2 monitoring for SPO2 goal above 92% - CCM is also following End Stage Renal Disease(ESRD) on HD, volume overload -Continue hemodialysis per nephrology recommendation Hyperkalemia - Nephrology following - Continue HD per nephro, - Avoid nephrotoxic medications; Renally dose medications - Monitor and replace electrolytes as needed Anemia of Chronic Disease - Probably chronic 2/2 renal disease - H&H improved post epogen with HD yesterday -We will give 1 unit PRBCs today - No s/s of any active bleeding - Epogen with HD per Nephro Headache-resolved H/o Seizure Disorder - CT head/brain with no significant intracranial abnormality. - Resumed home Keppra - Seizure precautions #SLE (Systemic Lupus Erythematosus) - Resume home therapy - Outpatient rheumatology follow-up. #Moderate Protein Calori Malnutrition - Encourage increased protein intake, dietary supplementation. - Nutrition consulted Hospital Course to Date: 08/07: Patient is off cardene gtt this amm, SBP in the 160, home antihypertensive agents resumed. S/p HD yesterday, patient is stable on 4L NC this am, no s/s of respiratory distress noted. Low H&H this am, thrombocytopenia improved. Probable chronic 2/2 to ESRD, will transfuse 1unit of PRBCs. Continue to hold AC for now, SCD for VTE proph. Hyperkalemia noted this am, plan for HD again today per Nephro. 08/08: Refused PO antihypertensives and required cardene overnight. Cardene gtt is off this am, SBP in the 160. Per patient, she no longer takes clonidine she was switched to Labetalol. PO Labetalol added for BP control. Patient H&H improved post epogen with HD yesterday, hold PRBCs for now. Transfuse for hgb less than 7. Possible HD again today per Nephro. Patient is stable for transfer to the floor if remains stable. 08/09: Patient to receive 1 unit PRBCs today for hemoglobin of 7.0. BP is much better controlled with current regimen. Continue hemodialysis per nephrology recommendations. Anticipate discharge in a.m. 08/10: Still awaiting PRBCs to be transfused. Follow-up H&H today. BP much better controlled. Patient for hemodialysis today 08/11: Still awaiting PRBCs to be transfused. Continue to follow-up H&H. 08/12: Blood bank reported patient had antibodies and the sample was sent out to the [facility] which had a delay in the results. Blood bank also reports sample has and patient will need to be typed and crossed with a new sample. We will reorder the T & C and blood transfusion. Follow-up CBC in a.m. 08/13; type and cross, transfuse 1 unit of PRBC, follow H&H, additional transfusion if needed Check posttransfusion H&H this evening and tomorrow morning, if stable may be discharged home tomorrow Plan of care reviewed with the patient and nurse Disposition: HOME / SELF CARE / HOMELESS Final Discharge Diagnosis (Prints w/discharge instructions): Anemia of chronic d isease received 1 unit PRBC. Hypertensive emergency improved. Acute hypoxic respiratory failure improved. End-stage renal disease on hemodialysis. Hyperkalemia resolved. History of seizure disorder stable. History of systemic lupus erythematosus stable. Moderate protein calorie malnutrition Time spent for discharge: 35 minutes Core Measure Documentation - Palliative Care Palliative Care/ Comfort Measures: Not Applicable - Core Measures Any of the following diagnoses?: none Exam - Constitutional Vitals: Temp Pulse Resp BP Pulse Ox 97.9 F 89 18 153/93 99 08/14/21 05:42 08/14/21 09:27 08/14/21 08:38 08/14/21 09:27 08/14/21 08:38 Plan Activity: advance as tolerated Diet: renal Additional Instructions: Follow renal/hemodialysis per schedule. If you have worsening symptoms contact MD or go to the nearest emergency room as needed. Advised to follow primary care physician, nephrology, site safety coordinator, printed circuit boards stripper etcher per schedule Follow up with: AMPARO BOOTH MD [Primary Care Provider] - 3-5 Days JENNY CAPELLAN MD [Staff Physician] - 7 Days LELA SAMPSON MD [Staff Physician] - 7 Days Prescriptions: amLODIPine 10 mg PO DAILY #30 tablet hydrOXYzine HCL [Atarax] 25 mg PO Q6HR PRN #20 tablet PRN Reason: Itching Ferrous Sulfate [Feosol 325 MG tab] 325 mg PO BID #60 tablet labetaloL [Labetalol 100mg TAB] 100 mg PO BID #60 tablet Hydroxychloroquine [Plaquenil] 200 mg PO QDAY #30 tablet
--- NOTE | 2021-08-14 11:52 | Progress Note ---
Assessment and Plan Assessment: ESRD on hemodialysis S/P Hypertensive Emergency Hypertension Lupus Seizure ADHD Hyperkalemia Anemia Plan: S/P Hemodialysis yesterday for UF and clearance Anemia-Transfuse as needed. Epogen 20,000 units with HD On T,T,S schedule Has right IJ perm-catheter Fluid restriction of 1 liter per day Renally dose medications Strict I/O's daily Assess dialysis needs daily Undergoes OP HD at [facility] Plan of care reviewed by Dr. Mejias Subjective Date of service: 08/14/21 Principal diagnosis: ESRD Interval history: Patient seen lying in bed using cell phone. No family at bedside. Objective - Vital Signs Vital signs: Vital Signs - 12hr 08/14/21 08/14/21 08/14/21 05:42 08:38 09:27 Temperature 97.9 F Pulse Rate 89 89 Respiratory 20 18 Rate Blood Pressure 161/109 153/93 O2 Sat by Pulse 93 99 Oximetry - General Appearance General appearance: well-developed, appears stated age EENT: ATNC, PERRL, hearing intact, vision intact Neck: no JVD, supple Respiratory: Present: Decreased Breath Sounds Cardiology: S1S2 Gastrointestinal: normoactive bowel sounds Integumentary: warm and dry Neurologic: alert and oriented x3 Musculoskeletal: other (No edema) - Lab 08/14/21 04:50 08/14/21 04:50 Most recent lab results Calcium 9.2 mg/dL (8.4-10.2) 08/14/21 04:50 Phosphorus 4.60 mg/dL (2.5-4.5) H 08/08/21 05:33 Medications & Allergies - Medications Allergies/Adverse Reactions: Allergies amoxicillin trihydrate [From Augmentin] Allergy (Unknown, Verified 05/27/13 11:32) Unknown Tolerates Zosyn diphenhydramine [From Benadryl] Allergy (Verified 08/06/21 16:06) Itching potassium clavulanate [From Augmentin] Adverse Reaction (Unknown, Verified 05/27/13 11:32) Unknown Home Medications: Home Medications Medication Instructions Recorded Confirmed Last Taken Type hydrOXYzine HCL [Atarax] 25 mg PO Q6HR PRN #20 tablet 06/19/13 08/10/21 Unknown Rx Folic Acid [Folvite] 1 mg PO QDAY #30 tablet 03/12/14 08/10/21 Unknown Rx Hydralazine HCl [hydrALAZINE] 100 mg PO DAILY #30 tablet 03/12/14 08/10/21 Unknown Rx Hydroxychloroquine [Plaquenil] 200 mg PO QDAY #30 tablet 03/12/14 08/10/21 Unknown Rx LORazepam [Ativan] 1 mg PO TID PRN #6 tablet 03/12/14 08/10/21 Unknown Rx Pantoprazole [Protonix TAB] 20 mg PO QDAY #20 tablet. 03/12/14 08/10/21 Unknown Rx amLODIPine 10 mg PO DAILY #30 tablet 03/12/14 08/10/21 Unknown Rx cloNIDine [Catapres] 0.1 mg PO BID #30 tablet 03/12/14 08/10/21 Unknown Rx hydrOXYzine HCL [Atarax] 25 mg PO Q6HR #20 tablet 03/12/14 08/10/21 Unknown Rx levETIRAcetam [Keppra TAB] 500 mg PO BID #60 tablet 03/12/14 08/10/21 Unknown Rx predniSONE 10 mg PO QPM #30 tablet 03/12/14 08/10/21 Unknown Rx risperiDONE [RisperDAL] 1 mg PO QHS #30 tablet 03/12/14 08/10/21 Unknown Rx Citalopram [celeXA] 20 mg PO QDAY #30 tablet 03/30/14 08/10/21 Unknown Rx Active Medications: Generic Name Dose Route Start Last Admin Trade Name Freq PRN Reason Stop Dose Admin Acetaminophen 650 mg 08/06/21 18:00 08/13/21 14:12 Acetaminophen 325 Mg Tab PO 650 mg Q6H PRN Administration Pain MILD(1-3)/Fever >100.5/GUZMAN Amlodipine Besylate 10 mg 08/07/21 10:00 08/14/21 09:27 Amlodipine 10 Mg Tab PO 10 mg DAILY OLLIE Administration Citalopram Hydrobromide 20 mg 08/09/21 10:15 08/14/21 09:27 Citalopram 20 Mg Tab PO 20 mg DAILY OLLIE Administration Epoetin Chaitanya-epbx 20,000 unit 08/08/21 11:23 08/13/21 15:00 Epoetin Chaitanya-Epbx 20,000 Unit/1 Ml Vial IV 20,000 unit ALEXX PRN Administration hemodialysis Folic Acid 1 mg 08/07/21 10:00 08/14/21 09:27 Folic Acid 1 Mg Tab PO 1 mg QDAY OLLIE Administration Hydralazine HCl 100 mg 08/08/21 14:00 08/14/21 06:28 Hydralazine 100 Mg Tab PO 100 mg Q8HR OLLIE Administration Hydroxychloroquine Sulfate 200 mg 08/07/21 10:00 08/14/21 09:27 Hydroxychloroquine 200 Mg Tab PO 200 mg QDAY OLLIE Administration Hydroxyzine HCl 25 mg 08/06/21 16:56 Hydroxyzine Hcl 25 Mg Tab PO Q6HR PRN Itching Sodium Chloride 100 mls @ 999 mls/hr 08/08/21 11:27 Nacl 0.9% IV ALEXX PRN Hypotension Labetalol HCl 10 mg 08/07/21 18:16 08/07/21 21:40 Labetalol 20 Mg/4 Ml Inj IV 10 mg Q4H PRN Administration SBP >/=160; DBP >/=100 Labetalol HCl 100 mg 08/08/21 22:00 08/14/21 09:27 Labetalol 100 Mg Tab PO 100 mg BID OLLIE Administration Levetiracetam 500 mg 08/06/21 22:00 08/14/21 09:27 Levetiracetam 500 Mg Tab PO 500 mg BID OLLIE Administration Lorazepam 1 mg 08/06/21 16:56 08/11/21 23:25 Lorazepam 1 Mg Tab PO 1 mg TID PRN Administration Anxiety Oxycodone/Acetaminophen 1 tab 08/08/21 08:34 08/11/21 12:54 Oxycodone /Acetaminophen 5-325mg Tab PO 1 tab Q6H PRN Administration Pain , Severe (7-10) Pantoprazole Sodium 20 mg 08/07/21 10:00 08/14/21 09:27 Pantoprazole 20 Mg Tab PO 20 mg QDAY OLLIE Administration Risperidone 1 mg 08/06/21 22:00 08/13/21 22:36 Risperidone 1 Mg Tab PO 1 mg QHS OLLIE Administration Sodium Chloride 10 ml 08/06/21 22:00 08/14/21 09:27 Sodium Chloride 0.9% 10 Ml Flush Syringe IV 10 ml BID OLLIE Administration Sodium Chloride 10 ml 08/06/21 16:55 Sodium Chloride 0.9% 10 Ml Flush Syringe IV PRN PRN LINE FLUSH Tramadol HCl 50 mg 08/08/21 08:34 08/13/21 22:43 Tramadol 50 Mg Tab PO 50 mg Q6H PRN Administration Pain, Moderate (4-6)
--- NOTE | 2021-08-14 13:26 | Progress Note ---
Assessment and Plan Hypertensive emergency End stage renal disease Anemia SLE (systemic lupus erythematosus) Pulmonary edema, respiratory insufficiency Protein calorie Malnutrition Thrombocytopenia Headache H/o Seizure Disorder - continue HD/UF for toxin and volume clearance - continue Keppra as AED - supplemental oxygen for target O2 sats > 90% - prn bronchodilators (HUY) with pulm hygiene per RT - continue to avoid nephrotoxins, renally dose all medications - continue mobility protocols to prevent pressure ulcers - PT/OT as tolerated - Wound care per RN/WCT - continue accuchecks with glycemic control per SSI for target blood glucose < 180 mg/dL - tobacco abstinence strongly counseled at the bedside - home oxygen evaluation at discharge - GI & VTE prophylaxis - Flu & pneumovax per protocol - Pulmonary out patient follow up for PFTs and optimization of respiratory status - continue other care per attending / other consultants - prn analgesia per pain score ... re-evaluate in am & prn Subjective Date of service: 08/14/21 Principal diagnosis: HTNsive emergency; ESRD; Anemia; SLE; Ac. Pulm edema; Thrombocytopenia Interval history: Patient is seen today for: Hypertensive emergency; ESRD; Anemia; SLE; Acute Pulmonary edema; Protein calorie Malnutrition; Thrombocytopenia; Seizure D isorder Seen and examined at bedside; 24hour events reviewed; nursing and respiratory c are staff consulted; no adverse overnight events reported to me; resting peacefully in bed; Objective Vital Signs - 12hr 08/14/21 08/14/21 08/14/21 05:42 08:38 09:27 Temperature 97.9 F Pulse Rate 89 89 Respiratory 20 18 Rate Blood Pressure 161/109 153/93 O2 Sat by Pulse 93 99 Oximetry Constitutional: no acute distress, alert Eyes: non-icteric ENT: oropharynx moist Neck: supple, no lymphadenopathy, no JVD Effort: normal Ascultation: Bilateral: clear, diminished breath sounds Cardiovascular: regular rate and rhythm, other (S1,S2) Gastrointestinal: normoactive bowel sounds, soft, non-tender Integumentary: normal Extremities: no cyanosis, no edema, pulses normal Neurologic: normal mental status, non-focal exam, pupils equal and round, CN II- XII normal, motor strength normal and Psychiatric: mood appropriate, affect normal CBC and BMP: 08/14/21 04:50 08/14/21 04:50 ABG, PT/INR, D-dimer: PT/INR, D-dimer D-Dimer 6037.58 ng/mlDDU (0-234) H 08/06/21 Unknown Abnormal lab findings: Abnormal Labs 08/06/21 08/06/21 08/06/21 Unknown Unknown Unknown WBC 4.1 L RBC 2.28 L Hgb 6.9 L Hct 22.5 L MCV 99 H RDW 18.0 H Plt Count 77 L Carbon % (Auto) Eos % (Auto) 4.7 H Lymph # (Auto) 1.0 L Eosinophils % (Manual) Lymphocytes # (Manual) D-Dimer Sodium 135 L Potassium 5.8 H Chloride Carbon Dioxide 16 L BUN 56 H Creatinine 9.8 H Glucose Phosphorus Troponin T 0.097 H NT-Pro-B Natriuret Pep Albumin 3.3 L Crossmatch 08/06/21 08/06/21 08/07/21 Unknown Unknown 04:48 WBC RBC Hgb Hct MCV RDW Plt Count Carbon % (Auto) Eos % (Auto) Lymph # (Auto) Eosinophils % (Manual) Lymphocytes # (Manual) D-Dimer 6037.58 H Sodium Potassium 5.5 H Chloride 97.1 L Carbon Dioxide 19 L BUN 33 H Creatinine 6.6 H Glucose Phosphorus Troponin T NT-Pro-B Natriuret Pep 01148 H Albumin Crossmatch 08/07/21 08/07/21 08/07/21 12:40 15:10 22:55 WBC RBC 2.12 L Hgb 6.6 L 7.3 L Hct 20.7 L 23.3 L MCV 98 H RDW 19.0 H Plt Count 88 L Carbon % (Auto) Eos % (Auto) Lymph # (Auto) Eosinophils % (Manual) Lymphocytes # (Manual) D-Dimer Sodium Potassium Chloride Carbon Dioxide BUN Creatinine Glucose Phosphorus Troponin T NT-Pro-B Natriuret Pep Albumin Crossmatch See Detail 08/08/21 08/09/21 08/09/21 05:33 05:50 05:50 WBC RBC 2.26 L Hgb 7.0 L Hct 21.9 L MCV RDW 18.8 H Plt Count 93 L Carbon % (Auto) Eos % (Auto) Lymph # (Auto) Eosinophils % (Manual) Lymphocytes # (Manual) D-Dimer Sodium Potassium Chloride 96.9 L 97.2 L Carbon Dioxide BUN Creatinine 4.8 H 4.1 H Glucose 110 H 150 H Phosphorus 4.60 H Troponin T NT-Pro-B Natriuret Pep Albumin Crossmatch 08/10/21 08/11/21 08/11/21 04:23 04:50 04:50 WBC RBC 2.13 L Hgb 6.7 L Hct 21.0 L MCV 98 H RDW 19.8 H Plt Count 84 L Carbon % (Auto) Eos % (Auto) Lymph # (Auto) Eosinophils % (Manual) 7.0 H Lymphocytes # (Manual) 1.1 L D-Dimer Sodium 133 L Potassium Chloride 96.7 L Carbon Dioxide BUN 23 H Creatinine 6.1 H 5.3 H Glucose 101 H Phosphorus Troponin T NT-Pro-B Natriuret Pep Albumin Crossmatch 08/13/21 08/13/21 08/13/21 04:56 04:56 11:30 WBC RBC 2.22 L Hgb 6.7 L Hct 21.9 L MCV 99 H RDW 19.6 H Plt Count 108 L Carbon % (Auto) 12.9 H Eos % (Auto) 8.5 H Lymph # (Auto) Eosinophils % (Manual) Lymphocytes # (Manual) D-Dimer Sodium 135 L Potassium 5.1 H D Chloride Carbon Dioxide 18 L BUN 48 H Creatinine 9.5 H D Glucose 106 H Phosphorus Troponin T NT-Pro-B Natriuret Pep Albumin Crossmatch See Detail 08/13/21 08/14/21 08/14/21 16:05 04:50 04:50 WBC RBC Hgb 8.9 L 8.2 L Hct 27.8 L 25.8 L MCV RDW Plt Count Carbon % (Auto) Eos % (Auto) Lymph # (Auto) Eosinophils % (Manual) Lymphocytes # (Manual) D-Dimer Sodium 136 L Potassium Chloride 97.7 L Carbon Dioxide BUN 23 H Creatinine 5.6 H Glucose Phosphorus Troponin T NT-Pro-B Natriuret Pep Albumin Crossmatch Allied health notes reviewed: nursing
== END 2021-08-14 16:19 | disposition home or self-care (01) | DRG 640 ==
LOC: ED 07:31 → IMCU 16:55 → CC1 22:15 → 3A 08-08 20:53
PROVIDERS: ADMIT Internal Medicine; ATTEND Internal Medicine
PROC: 5A1D70Z Performance of Urinary Filtration, Intermittent, Less than 6 Hours Per Day (ICD-10-PCS; principal; 2021-08-07)
PROC: 5A1D70Z Performance of Urinary Filtration, Intermittent, Less than 6 Hours Per Day (ICD-10-PCS; 2021-08-08)
PROC: 5A1D70Z Performance of Urinary Filtration, Intermittent, Less than 6 Hours Per Day (ICD-10-PCS; 2021-08-10)
PROC: 5A1D70Z Performance of Urinary Filtration, Intermittent, Less than 6 Hours Per Day (ICD-10-PCS; 2021-08-13)
DX: E87.5 Hyperkalemia (principal); J96.01 Acute respiratory failure with hypoxia; N18.6 End stage renal disease; I16.1 Hypertensive emergency; I67.4 Hypertensive encephalopathy; E44.0 Moderate protein-calorie malnutrition; I12.0 Hypertensive chronic kidney disease with stage 5 chronic kidney disease or end stage renal disease; E87.70 Fluid overload, unspecified; G40.909 Epilepsy, unspecified, not intractable, without status epilepticus; D69.6 Thrombocytopenia, unspecified; R51.9 Headache, unspecified; F31.9 Bipolar disorder, unspecified; F90.9 Attention-deficit hyperactivity disorder, unspecified type; M32.9 Systemic lupus erythematosus, unspecified; D63.8 Anemia in other chronic diseases classified elsewhere; Z99.2 Dependence on renal dialysis; Z88.1 Allergy status to other antibiotic agents; Z88.8 Allergy status to other drugs, medicaments and biological substances; Z82.49 Family history of ischemic heart disease and other diseases of the circulatory system; Z79.899 Other long term (current) drug therapy; Z68.21 Body mass index [BMI] 21.0-21.9, adult
CPT/HCPCS: 36415; 36430; 70450; 71045; 78580; 80048; 80053; 80074; 83880; 84100; 84484; 84703; 85007; 85014; 85018; 85025; 85027; 85379; 86850; 86870; 86900; 86901; 86920; 93005; 93970; G0378; J3490; Q9967; A9540; J0360; J0610; J0885; J1815; J2405; J3010; J7040; J7050; P9016

== ENCOUNTER 2021-08-19 16:21 | Observation (INO) | payer OTHER, MEDICARE ==
[2021-08-19] MEDS ORDERED: hydrALAZINE 20 MG/1 ML INJ IV ONE (17:05)
[2021-08-19] MEDS ORDERED: ONDANSETRON 4 MG/2 ML INJ IV ONE (17:05)
[2021-08-19] MEDS ORDERED: MORPHINE 4 MG/1 ML INJ IV ONE (17:05)
--- NOTE | 2021-08-19 17:08 | Emergency Department Report ---
ED Shortness of Breath HPI - General Chief Complaint: Dyspnea/Respdistress Stated Complaint: MISSED DIALYSIS/MICAH Time Seen by Provider: 08/19/21 17:00 Source: EMS Mode of arrival: Stretcher Limitations: No Limitations - History of Present Illness Initial Comments: Patient is 30 years old female with history of end-stage renal disease on hemodialysis. Patient brought to the emergency room via EMS from home for evaluation of difficulty in breathing and elevated blood pressure. Patient stated that she missed her dialysis on Thursday because of transportation issues. Patient denies any chest pain. She denied any fever or chills. No abdominal pain, nausea or vomiting. MD Complaint: shortness of breath -: days(s) Improves With: oxygen - Related Data Previous Rx's Medication Instructions Recorded Last Taken Type Folic Acid [Folvite] 1 mg PO QDAY #30 tablet 03/12/14 Unknown Rx Hydralazine HCl [hydrALAZINE] 100 mg PO DAILY #30 tablet 03/12/14 Unknown Rx Pantoprazole [Protonix TAB] 20 mg PO QDAY #20 tablet. 03/12/14 Unknown Rx cloNIDine [Catapres] 0.1 mg PO BID #30 tablet 03/12/14 Unknown Rx hydrOXYzine HCL [Atarax] 25 mg PO Q6HR #20 tablet 03/12/14 Unknown Rx levETIRAcetam [Keppra TAB] 500 mg PO BID #60 tablet 03/12/14 Unknown Rx predniSONE 10 mg PO QPM #30 tablet 03/12/14 Unknown Rx risperiDONE [RisperDAL] 1 mg PO QHS #30 tablet 03/12/14 Unknown Rx Citalopram [celeXA] 20 mg PO QDAY #30 tablet 03/30/14 Unknown Rx Ferrous Sulfate [Feosol 325 MG tab] 325 mg PO BID #60 tablet 08/14/21 Unknown Rx Hydroxychloroquine [Plaquenil] 200 mg PO QDAY #30 tablet 08/14/21 Unknown Rx amLODIPine 10 mg PO DAILY #30 tablet 08/14/21 Unknown Rx hydrOXYzine HCL [Atarax] 25 mg PO Q6HR PRN #20 tablet 08/14/21 Unknown Rx labetaloL [Labetalol 100mg TAB] 100 mg PO BID #60 tablet 08/14/21 Unknown Rx Allergies Allergy/AdvReac Type Severity Reaction Status Date / Time amoxicillin trihydrate Allergy Unknown Unknown Verified 05/27/13 11:32 [From Augmentin] diphenhydramine Allergy Itching Verified 08/06/21 16:06 [From Benadryl] potassium clavulanate AdvReac Unknown Unknown Verified 05/27/13 11:32 [From Augmentin] ED Review of Systems ROS: Stated complaint: MISSED DIALYSIS/MICAH Other details as noted in HPI Comment: All other systems reviewed and negative Constitutional: denies: chills, fever Respiratory: orthopnea, shortness of breath, SOB with exertion, SOB at rest Cardiovascular: denies: chest pain, palpitations Gastrointestinal: denies: abdominal pain, nausea, vomiting, diarrhea, constipation, hematemesis, melena, hematochezia Musculoskeletal: denies: back pain Neurological: denies: headache, weakness, numbness, paresthesias, confusion Psychiatric: denies: homicidal thoughts, suicidal thoughts ED Past Medical Hx - Past Medical History Hx Hypertension: Yes Hx Congestive Heart Failure: No Hx Diabetes: No Hx Renal Disease: Yes (DIALYSIS TTS) Hx Seizures: Yes Hx Psychiatric Treatment: Yes (ADHD) Hx Asthma: Yes Hx COPD: No Additional medical history: lupus - Surgical History Additional Surgical History: Left upper extremity fistula - Social History Smoking Status: Never Smoker - Medications Home Medications: Home Medications Medication Instructions Recorded Confirmed Last Taken Type Folic Acid [Folvite] 1 mg PO QDAY #30 tablet 03/12/14 08/10/21 Unknown Rx Hydralazine HCl [hydrALAZINE] 100 mg PO DAILY #30 tablet 03/12/14 08/10/21 Unknown Rx Pantoprazole [Protonix TAB] 20 mg PO QDAY #20 tablet. 03/12/14 08/10/21 Unknown Rx cloNIDine [Catapres] 0.1 mg PO BID #30 tablet 03/12/14 08/10/21 Unknown Rx hydrOXYzine HCL [Atarax] 25 mg PO Q6HR #20 tablet 03/12/14 08/10/21 Unknown Rx levETIRAcetam [Keppra TAB] 500 mg PO BID #60 tablet 03/12/14 08/10/21 Unknown Rx predniSONE 10 mg PO QPM #30 tablet 03/12/14 08/10/21 Unknown Rx risperiDONE [RisperDAL] 1 mg PO QHS #30 tablet 03/12/14 08/10/21 Unknown Rx Citalopram [celeXA] 20 mg PO QDAY #30 tablet 03/30/14 08/10/21 Unknown Rx Ferrous Sulfate [Feosol 325 MG tab] 325 mg PO BID #60 tablet 08/14/21 Unknown Rx Hydroxychloroquine [Plaquenil] 200 mg PO QDAY #30 tablet 08/14/21 Unknown Rx amLODIPine 10 mg PO DAILY #30 tablet 08/14/21 Unknown Rx hydrOXYzine HCL [Atarax] 25 mg PO Q6HR PRN #20 tablet 08/14/21 Unknown Rx labetaloL [Labetalol 100mg TAB] 100 mg PO BID #60 tablet 08/14/21 Unknown Rx ED Physical Exam - General Limitations: No Limitations General appearance: alert, in distress - Head Head exam: Present: atraumatic, normocephalic, normal inspection - Eye Eye exam: Present: normal appearance - ENT ENT exam: Present: normal exam, normal orophraynx, mucous membranes moist - Neck Neck exam: Present: normal inspection, full ROM. Absent: tenderness, meningismus - Respiratory Respiratory exam: Present: respiratory distress, rales, decreased breath sounds. Absent: wheezes, rhonchi, accessory muscle use, prolonged expiratory - Cardiovascular Cardiovascular Exam: Present: regular rate, normal rhythm, normal heart sounds - GI/Abdominal GI/Abdominal exam: Present: soft, normal bowel sounds. Absent: distended, tenderness, guarding, rebound, rigid, organomegaly, mass, bruit, pulsatile mass, hernia - Extremities Exam Extremities exam: Present: normal inspection, full ROM, normal capillary refill. Absent: tenderness - Back Exam Back exam: Present: normal inspection, full ROM. Absent: CVA tenderness (R), CVA tenderness (L) - Neurological Exam Neurological exam: Present: alert, oriented X3, CN II-XII intact, normal gait, reflexes normal - Psychiatric Psychiatric exam: Present: normal mood. Absent: homicidal ideation, suicidal ideation - Skin Skin exam: Present: warm, intact, normal color ED Course Vital Signs 08/19/21 08/19/21 16:33 18:35 Temperature 98.7 F Pulse Rate 94 H 102 H Respiratory 20 Rate Blood Pressure 226/153 Blood Pressure 225/153 [Right] O2 Sat by Pulse 99 Oximetry ED Medical Decision Making - Lab Data Result diagrams: 08/19/21 17:28 08/19/21 17:28 - EKG Data EKG shows normal: sinus rhythm Rate: normal - EKG Data Interpretation: no acute changes - Radiology Data Radiology results: report reviewed - Medical Decision Making Patient is 30 years old female with history of end-stage renal disease on hemodialysis. Patient brought to the emergency room via EMS from home for evaluation of difficulty in breathing and elevated blood pressure. Patient stated that she missed her dialysis on Thursday because of transportation issues. Patient denies any chest pain. She denied any fever or chills. No abdominal pain, nausea or vomiting. Patient found to have a significantly elevated blood pressure of 225/114. Patient received hydralazine 10 mg IV. Labs reviewed and showed a potassium of 6.5. Patient received calcium chloride, albuterol, dextrose, insulin. Patient blood pressure still high I will start patient on Cardene drip. I discussed the patient with Dr. Mock., day care assistant he stated that he is putting dialysis order for her. I discussed the patient with Dr. Patino, he agreed to admit the patient to medical service for further management. Critical Care Time: Yes Critical care time in (mins) excluding proc time.: 35 Critical care attestation.: If time is entered above; I have spent that time in minutes in the direct care of this critically ill patient, excluding procedure time. ED Disposition Clinical Impression: Acute hyperkalemia, Volume overload Disposition: 09 ADMITTED INPATIENT Is pt being admited?: Yes Condition: Stable
[2021-08-19 18:06] LABS: Calcium 8.8 mg/dL (8.4-10.2)
[2021-08-19 18:23] LABS: Hematocrit 24.4 % (30.3-42.9); Hemoglobin 7.5 gm/dl (10.1-14.3); Mean Corpuscular HGB Conc 31 % (30-34); Mean Corpuscular Volume 95 fl (79-97); Red Blood Count 2.58 M/mm3 (3.65-5.03)
[2021-08-19 18:24] LABS: INR 0.95 (0.87-1.13)
[2021-08-19 18:25] LABS: Partial Thromboplastin Time 28.7 Sec. (24.2-36.6); Platelet Count 57 K/mm3 (140-440); Red Cell Distribution Width 25.9 % (13.2-15.2)
[2021-08-19] MEDS ORDERED: INSULIN REGULAR, HUMAN 100 UNITS/1 ML IV ONE (18:47)
[2021-08-19] MEDS ORDERED: ALBUTEROL 2.5 MG/3 ML NEBU IH ONE (18:47)
[2021-08-19] MEDS ORDERED: CALCIUM CHLORIDE 1,000 MG in SODIUM CHLORIDE 0.9% 100 ML IV ONE (18:47)
[2021-08-19] MEDS ORDERED: DEXTROSE 50% IN WATER (25GM) 50 ML SYRINGE IV ONE (18:47)
--- NOTE | 2021-08-19 18:54 | History and Physical Report ---
History of Present Illness Chief complaint: It is hard to breathe and I need dialysis History of present illness: 30 YO Female with HTN, ESRD on HD(T,R,Sa), Seizure Disorder, SLE, ADHD, Malnutrition presents to ED for evaluation. Patient reports "it is hard to breathe and I need dialysis". Patient states that she has experienced shortness of breath over the past 2 days with persistent symptoms over the same timeframe. Patient also acknowledges that she missed her outpatient dialysis session on Thursday. EMS was notified and upon arrival the patient was found to be in distress and subsequently transported to [facility] for further care and evaluation of the aforementioned symptoms. The patient was seen and evaluated in the emergency department. All lab and imaging studies reviewed. The patient was found to have a blood pressure of 225/125 mmHg with concomitant confusion and headache which is consistent with hypertensive emergency, hypertensive encephalopathy, fluid overload, and end-stage renal disease in need of urgent dialysis, with concomitant hyperkalemia without EKG changes. The patient was admitted to [facility] and initiated on IV antihypertensive therapy. Nephrology team consulted in ED for urgent dialysis. No reports of fever, chills, chest pain, palpitation, productive cough, skin rash, recent contact, known exposure to COVID-19. Prior admission on 08/06/2021 reviewed. All medication listed at time of admission has been reconciled. Advanced care planning conducted in ED. Past History Past Medical History: ESRD, hypertension, seizures, other (See HPI) Past Surgical History: Other (Dialysis access) Social history: single. denies: smoking, alcohol abuse Family history: diabetes, hypertension Medications and Allergies Allergies Allergy/AdvReac Type Severity Reaction Status Date / Time amoxicillin trihydrate Allergy Unknown Unknown Verified 05/27/13 11:32 [From Augmentin] diphenhydramine Allergy Itching Verified 08/06/21 16:06 [From Benadryl] potassium clavulanate AdvReac Unknown Unknown Verified 05/27/13 11:32 [From Augmentin] Home Medications Medication Instructions Recorded Confirmed Last Taken Type Folic Acid [Folvite] 1 mg PO QDAY #30 tablet 03/12/14 08/10/21 Unknown Rx Hydralazine HCl [hydrALAZINE] 100 mg PO DAILY #30 tablet 03/12/14 08/10/21 Unknown Rx Pantoprazole [Protonix TAB] 20 mg PO QDAY #20 tablet. 03/12/14 08/10/21 Unknown Rx cloNIDine [Catapres] 0.1 mg PO BID #30 tablet 03/12/14 08/10/21 Unknown Rx hydrOXYzine HCL [Atarax] 25 mg PO Q6HR #20 tablet 03/12/14 08/10/21 Unknown Rx levETIRAcetam [Keppra TAB] 500 mg PO BID #60 tablet 03/12/14 08/10/21 Unknown Rx predniSONE 10 mg PO QPM #30 tablet 03/12/14 08/10/21 Unknown Rx risperiDONE [RisperDAL] 1 mg PO QHS #30 tablet 03/12/14 08/10/21 Unknown Rx Citalopram [celeXA] 20 mg PO QDAY #30 tablet 03/30/14 08/10/21 Unknown Rx Ferrous Sulfate [Feosol 325 MG tab] 325 mg PO BID #60 tablet 08/14/21 Unknown Rx Hydroxychloroquine [Plaquenil] 200 mg PO QDAY #30 tablet 08/14/21 Unknown Rx amLODIPine 10 mg PO DAILY #30 tablet 08/14/21 Unknown Rx hydrOXYzine HCL [Atarax] 25 mg PO Q6HR PRN #20 tablet 08/14/21 Unknown Rx labetaloL [Labetalol 100mg TAB] 100 mg PO BID #60 tablet 08/14/21 Unknown Rx Active Meds: Active Medications Calcium Chloride 1,000 mg/ (Sodium Chloride) 110 mls @ 660 mls/hr IV ONCE ONE Stop: 08/19/21 18:56 Review of Systems Constitutional: lethargy, no weight loss, no weight gain, no sweats Ears, nose, mouth and throat: no nose pain, no nasal discharge, no sinus pressure Breasts: no change in shape, no swelling Cardiovascular: shortness of breath, no orthopnea, no palpitations, no rapid/irregular heart beat Respiratory: shortness of breath, no cough, no cough with sputum, no excessive sputum Gastrointestinal: no abdominal pain, no nausea, no vomiting, no diarrhea, no change in bowel habits Genitourinary Female: no pelvic pain, no flank pain, no dysuria, no urinary frequency, no urgency Rectal: no pain, no incontinence Musculoskeletal: no neck stiffness, no neck pain, no arm numbness/tingling, no low back pain, no shooting leg pain Integumentary: no rash, no pruritis, no redness, no sores, no wounds Neurological: no head injury, no transient paralysis, no weakness, no parathesias, no numbness, no tingling Psychiatric: no anxiety, no change in sleep habits, no insomnia, no change in appetite, no suicidal ideation, no disorientation Endocrine: no cold intolerance, no polyphagia, no excessive thirst, no polyuria, no nocturia, no flushing Hematologic/Lymphatic: no easy bruising, no easy bleeding, no lymphedema Allergic/Immunologic: no urticaria, no wheezing, no anaphylaxis Exam - Constitutional Vitals: Temp Pulse Resp BP Pulse Ox 98.7 F 102 H 18 225/160 99 08/19/21 16:33 08/19/21 18:45 08/19/21 18:45 08/19/21 18:45 08/19/21 18:45 General appearance: Present: mild distress - EENT Eyes: Present: PERRL ENT: hearing intact, clear oral mucosa - Neck Neck: Present: supple, normal ROM - Respiratory Respiratory effort: labored, accessory muscle use Respiratory: bilateral: diminished, rhonchi - Cardiovascular Heart Sounds: Present: S1 & S2. Absent: rub, click - Extremities Extremities: pulses symmetrical, No edema Peripheral Pulses: within normal limits - Abdominal General gastrointestinal: Present: soft, non-tender, non-distended, normal bowel sounds Female genitourinary: Present: normal - Integumentary Integumentary: Present: clear, warm, dry - Musculoskeletal Musculoskeletal: gait normal, strength equal bilaterally - Psychiatric Psychiatric: appropriate mood/affect, intact judgment & insight - Neurologic Neurologic: CNII-XII intact, moves all extremities Results - Labs CBC & Chem 7: 08/19/21 17:28 08/19/21 17:28 Labs: Abnormal lab results 08/19/21 08/19/21 Range/Units 17:28 17:28 RBC 2.58 L (3.65-5.03) M/mm3 Hgb 7.5 L (10.1-14.3) gm/dl Hct 24.4 L (30.3-42.9) % RDW 25.9 H (13.2-15.2) % Plt Count 57 L (140-440) K/mm3 Sodium 134 L (137-145) mmol/L Potassium 6.5 H* (3.6-5.0) mmol/L Carbon Dioxide 15 L (22-30) mmol/L BUN 77 H (7-17) mg/dL Creatinine 12.7 H (0.6-1.2) mg/dL Assessment and Plan - Patient Problems (1) Hypertensive emergency Current Visit: No Status: Acute Plan to address problem: Patient admitted to [facility] and initiated on Cardene drip, monitor blood pressure per protocol, titrate to effect. (2) End stage renal disease Current Visit: No Status: Acute Plan to address problem: Nephrology team consulted in ED, dialysis as per renal team. Avoid nephrotoxic agents. (3) Acute hyperkalemia Current Visit: Yes Status: Acute Plan to address problem: Albuterol, insulin, D50, no EKG changes. Urgent dialysis. (4) Fluid overload Current Visit: Yes Status: Acute Qualifiers: Plan to address problem: Strict I/O, monitor urine output every shift, monitor fluid balance. Urgent dialysis. (5) SLE (systemic lupus erythematosus) Current Visit: No Status: Acute Plan to address problem: Continue medical management. No acute exacerbation at this time. Supportive c are. Outpatient rheumatology follow-up. (6) Noncompliance with renal dialysis Current Visit: No Status: Acute Plan to address problem: Patient counseled. Patient informed that continued noncompliance may result in worsening symptoms and chronic and irreparable renal damage. Patient acknowledges understanding instructions. (7) DVT prophylaxis Current Visit: No Status: Acute Plan to address problem: SCD to bilateral extremities while in bed (8) Advance care planning Current Visit: No Status: Acute Plan to address problem: Disease education conducted, care plan discussed, diagnoses discussed, prognosis discussed, patient is full code. Patient acknowledges understanding and agreement with care plan, +30 minutes. (9) Preventative health care Current Visit: Yes Status: Acute Plan to address problem: Patient counseled regarding medication compliance compliance with renal diet, sodium restriction, outpatient follow-up with primary care physician, and compliance with outpatient dialysis schedule. +30 minutes.
[2021-08-19] MEDS ORDERED: ALBUTEROL 2.5 MG/3 ML NEBU IH PRN (18:55)
[2021-08-19] MEDS ORDERED: ACETAMINOPHEN 325 MG TAB PO PRN (18:55)
--- NOTE | 2021-08-19 20:00 | XRay Report ---
CHEST 1 VIEW 08/19/2021 5:58 PM INDICATION / CLINICAL INFORMATION: Dyspnea. COMPARISON: 08/06/21 FINDINGS: SUPPORT DEVICES: Right PermCath is unchanged. HEART / MEDIASTINUM: Heart is enlarged but stable. LUNGS / PLEURA: Mild pulmonary venous congestion and interstitial edema. No acute airspace disease. N o pneumothorax. ADDITIONAL FINDINGS: No significant additional findings. IMPRESSION: 1. Cardiomegaly with mild interstitial edema. Signer Name: Isma Rowley MD Signed: 08/19/2021 7:55 PM Workstation Name: [id number]
[2021-08-19] MEDS: niCARdipine DRIP 40 MG/200 ML BAG IV ONE (20:07)
[2021-08-19] MEDS: HYDROmorphone 0.5 MG/0.5 ML INJ IV PRN (20:13)
[2021-08-19 20:14] LABS: Basophils % (Manual) 0 % (0.0-1.8); Hypochromasia 2+; Ovalocytes Few; Platelet Estimate Consistent w Auto; Total Cells Counted 100
[2021-08-19] MEDS: oxyCODONE /ACETAMINOPHEN 5-325MG TAB PO PRN (20:50)
[2021-08-20] MEDS: niCARdipine DRIP 40 MG/200 ML BAG IV ONE (01:08)
[2021-08-20] MEDS: HYDROmorphone 0.5 MG/0.5 ML INJ IV PRN (01:50)
[2021-08-20 04:26] LABS: Calcium 9.1 mg/dL (8.4-10.2)
[2021-08-20] MEDS ORDERED: hydrALAZINE 20 MG/1 ML INJ IV PRN (05:41)
[2021-08-20] MEDS ORDERED: hydrALAZINE 20 MG/1 ML INJ IV SCH (06:00)
[2021-08-20] MEDS ORDERED: levETIRAcetam 500 MG TAB PO SCH (10:00)
[2021-08-20] MEDS ORDERED: HYDROXYCHLOROQUINE 200 MG TAB PO SCH (10:00)
[2021-08-20] MEDS ORDERED: hydrALAZINE 100 MG TAB PO SCH (10:00)
[2021-08-20] MEDS ORDERED: PANTOPRAZOLE 20 MG TAB PO SCH (10:00)
[2021-08-20] MEDS ORDERED: amLODIPine 10 MG TAB PO SCH (10:00)
[2021-08-20] MEDS ORDERED: cloNIDine 0.1 MG TAB PO SCH (10:00)
[2021-08-20] MEDS ORDERED: FERROUS SULFATE 325 MG TAB PO SCH (10:00)
[2021-08-20] MEDS ORDERED: FOLIC ACID 1 MG TAB PO SCH (10:00)
[2021-08-20] MEDS ORDERED: CITALOPRAM 10 MG TAB PO SCH (10:00)
[2021-08-20] MEDS: oxyCODONE /ACETAMINOPHEN 5-325MG TAB PO PRN (10:06)
--- NOTE | 2021-08-20 11:44 | Progress Note ---
Hospitalist Physical - Constitutional Vitals: Temp Pulse Resp BP Pulse Ox 98.3 F 91 H 15 183/127 93 08/20/21 09:21 08/20/21 11:30 08/20/21 11:30 08/20/21 11:30 08/20/21 11:30 General appearance: Present: mild distress Results - Labs CBC & Chem 7: 08/19/21 17:28 08/20/21 03:38 Labs: Laboratory Last Values WBC 4.7 K/mm3 (4.5-11.0) 08/19/21 17:28 RBC 2.58 M/mm3 (3.65-5.03) L 08/19/21 17:28 Hgb 7.5 gm/dl (10.1-14.3) L 08/19/21 17:28 Hct 24.4 % (30.3-42.9) L 08/19/21 17:28 MCV 95 fl (79-97) 08/19/21 17:28 MCH 29 pg (28-32) 08/19/21 17:28 MCHC 31 % (30-34) 08/19/21 17:28 RDW 25.9 % (13.2-15.2) H 08/19/21 17:28 Plt Count 57 K/mm3 (140-440) L 08/19/21 17:28 Add Manual Diff Complete 08/19/21 17:28 Total Counted 100 08/19/21 17:28 Seg Neuts % (Manual) 81.0 % (40.0-70.0) H 08/19/21 17:28 Band Neutrophils % 1.0 % 08/19/21 17:28 Lymphocytes % (Manual) 13.0 % (13.4-35.0) L 08/19/21 17:28 Reactive Lymphs % (Man) 0 % 08/19/21 17:28 Monocytes % (Manual) 2.0 % (0.0-7.3) 08/19/21 17:28 Eosinophils % (Manual) 3.0 % (0.0-4.3) 08/19/21 17:28 Basophils % (Manual) 0 % (0.0-1.8) 08/19/21 17:28 Metamyelocytes % 0 % 08/19/21 17:28 Myelocytes % 0 % 08/19/21 17:28 Promyelocytes % 0 % 08/19/21 17:28 Blast Cells % 0 % 08/19/21 17:28 Nucleated RBC % Not Reportable 08/19/21 17:28 Seg Neutrophils # Man 3.8 K/mm3 (1.8-7.7) 08/19/21 17:28 Band Neutrophils # 0.0 K/mm3 08/19/21 17:28 Lymphocytes # (Manual) 0.6 K/mm3 (1.2-5.4) L 08/19/21 17:28 Abs React Lymphs (Man) 0.0 K/mm3 08/19/21 17:28 Monocytes # (Manual) 0.1 K/mm3 (0.0-0.8) 08/19/21 17:28 Eosinophils # (Manual) 0.1 K/mm3 (0.0-0.4) 08/19/21 17:28 Basophils # (Manual) 0.0 K/mm3 (0.0-0.1) 08/19/21 17:28 Metamyelocytes # 0.0 K/mm3 08/19/21 17:28 Myelocytes # 0.0 K/mm3 08/19/21 17:28 Promyelocytes # 0.0 K/mm3 08/19/21 17:28 Blast Cells # 0.0 K/mm3 08/19/21 17:28 WBC Morphology Not Reportable 08/19/21 17:28 Hypersegmented Neuts Not Reportable 08/19/21 17:28 Hyposegmented Neuts Not Reportable 08/19/21 17:28 Hypogranular Neuts Not Reportable 08/19/21 17:28 Smudge Cells Not Reportable 08/19/21 17:28 Toxic Granulation Not Reportable 08/19/21 17:28 Toxic Vacuolation Not Reportable 08/19/21 17:28 Dohle Bodies Not Reportable 08/19/21 17:28 Pelger-Huet Anomaly Not Reportable 08/19/21 17:28 Maite Rods Not Reportable 08/19/21 17:28 Platelet Estimate Consistent w auto 08/19/21 17:28 Clumped Platelets Not Reportable 08/19/21 17:28 Plt Clumps, EDTA Not Reportable 08/19/21 17:28 Large Platelets Not Reportable 08/19/21 17:28 Giant Platelets Not Reportable 08/19/21 17:28 Platelet Satelliting Not Reportable 08/19/21 17:28 Plt Morphology Comment Not Reportable 08/19/21 17:28 RBC Morphology Not Reportable 08/19/21 17:28 Dimorphic RBCs Not Reportable 08/19/21 17:28 Polychromasia Not Reportable 08/19/21 17:28 Hypochromasia 2+ 08/19/21 17:28 Poikilocytosis Not Reportable 08/19/21 17:28 Anisocytosis Not Reportable 08/19/21 17:28 Microcytosis Not Reportable 08/19/21 17:28 Macrocytosis Not Reportable 08/19/21 17:28 Spherocytes Not Reportable 08/19/21 17:28 Pappenheimer Bodies Not Reportable 08/19/21 17:28 Sickle Cells Not Reportable 08/19/21 17:28 Target Cells Not Reportable 08/19/21 17:28 Tear Drop Cells Not Reportable 08/19/21 17:28 Ovalocytes Few 08/19/21 17:28 Helmet Cells Not Reportable 08/19/21 17:28 [place] Bodies Not Reportable 08/19/21 17:28 [place] Rings Not Reportable 08/19/21 17:28 [place] Cells Not Reportable 08/19/21 17:28 Bite Cells Not Reportable 08/19/21 17:28 Crenated Cell Not Reportable 08/19/21 17:28 Elliptocytes Few 08/19/21 17:28 Acanthocytes (Spur) Not Reportable 08/19/21 17:28 Rouleaux Not Reportable 08/19/21 17:28 Hemoglobin C Crystals Not Reportable 08/19/21 17:28 Schistocytes Not Reportable 08/19/21 17:28 Malaria parasites Not Reportable 08/19/21 17:28 Al Bodies Not Reportable 08/19/21 17:28 Hem Pathologist Commnt No 08/19/21 17:28 PT 13.7 Sec. (12.2-14.9) 08/19/21 17:28 INR 0.95 (0.87-1.13) 08/19/21 17:28 APTT 28.7 Sec. (24.2-36.6) 08/19/21 17:28 Sodium 133 mmol/L (137-145) L 08/20/21 03:38 Potassium 5.9 mmol/L (3.6-5.0) H 08/20/21 03:38 Chloride 101.1 mmol/L (98-107) 08/20/21 03:38 Carbon Dioxide 13 mmol/L (22-30) L 08/20/21 03:38 Anion Gap 25 mmol/L 08/20/21 03:38 BUN 81 mg/dL (7-17) H 08/20/21 03:38 Creatinine 11.5 mg/dL (0.6-1.2) H 08/20/21 03:38 Estimated GFR 5 ml/min 08/20/21 03:38 BUN/Creatinine Ratio 7 % 08/20/21 03:38 Glucose 106 mg/dL (65-100) H 08/20/21 03:38 Calcium 9.1 mg/dL (8.4-10.2) 08/20/21 03:38 Nuñez/IV: Voiding Method External Female Catheter Active Medications - Current Medications Current Medications: Generic Name Dose Route Start Last Admin Trade Name Freq PRN Reason Stop Dose Admin Acetaminophen 650 mg 08/19/21 18:55 Acetaminophen 325 Mg Tab PO Q6H PRN Pain MILD(1-3)/Fever >100.5/GUZMAN Albuterol 2.5 mg 08/19/21 18:55 Albuterol 2.5 Mg/3 Ml Nebu IH Q3HRT PRN Shortness Of Breath Amlodipine Besylate 10 mg 08/20/21 10:00 08/20/21 10:06 Amlodipine 10 Mg Tab PO 10 mg DAILY OLLIE Administration Citalopram Hydrobromide 20 mg 08/20/21 10:00 Citalopram 10 Mg Tab PO QDAY OLLIE Clonidine HCl 0.1 mg 08/20/21 10:00 08/20/21 10:07 Clonidine 0.1 Mg Tab PO 0.1 mg BID OLLIE Administration Ferrous Sulfate 325 mg 08/20/21 10:00 08/20/21 10:06 Ferrous Sulfate 325 Mg Tab PO 325 mg BID OLLIE Administration Folic Acid 1 mg 08/20/21 10:00 08/20/21 10:07 Folic Acid 1 Mg Tab PO 1 mg QDAY OLLIE Administration Hydralazine HCl 10 mg 08/20/21 05:41 Hydralazine 20 Mg/1 Ml Inj IV Q4HR PRN Hypertension Hydralazine HCl 100 mg 08/20/21 10:00 08/20/21 10:06 Hydralazine 100 Mg Tab PO 100 mg DAILY OLLIE Administration Hydromorphone HCl 0.5 mg 08/19/21 18:55 08/20/21 01:50 Hydromorphone 0.5 Mg/0.5 Ml Inj IV 0.5 mg Q13H PRN Administration Pain , Severe (7-10) Hydroxychloroquine Sulfate 200 mg 08/20/21 10:00 08/20/21 10:06 Hydroxychloroquine 200 Mg Tab PO 200 mg QDAY OLLIE Administration Hydroxyzine HCl 25 mg 08/20/21 12:00 Hydroxyzine Hcl 25 Mg Tab PO Q6HR PRN Itching Labetalol HCl 100 mg 08/20/21 10:00 08/20/21 10:07 Labetalol 100 Mg Tab PO 100 mg BID OLLIE Administration Levetiracetam 500 mg 08/20/21 10:00 08/20/21 10:08 Levetiracetam 500 Mg Tab PO 500 mg BID OLLIE Administration Oxycodone/Acetaminophen 1 tab 08/19/21 18:55 08/20/21 10:06 Oxycodone /Acetaminophen 5-325mg Tab PO 1 tab Q6H PRN Administration Pain, Moderate (4-6) Pantoprazole Sodium 20 mg 08/20/21 10:00 Pantoprazole 20 Mg Tab PO QDAY OLLIE Prednisone 10 mg 08/20/21 18:00 Prednisone 10 Mg Tab PO QPM OLLIE Risperidone 1 mg 08/20/21 22:00 Risperidone 1 Mg Tab PO QHS OLLIE Sodium Chloride 10 ml 08/19/21 22:00 08/20/21 10:07 Sodium Chloride 0.9% 10 Ml Flush Syringe IV 10 ml BID OLLIE Administration Sodium Chloride 10 ml 08/19/21 18:55 Sodium Chloride 0.9% 10 Ml Flush Syringe IV PRN PRN LINE FLUSH
[2021-08-20] MEDS ORDERED: hydrOXYzine HCL 25 MG TAB PO PRN (12:00)
--- NOTE | 2021-08-20 12:02 | Consultation ---
History of Present Illness - Reason for Consult Consult date: 08/20/21 end stage renal disease - History of Present Illness This is a 30 year old female who presented to the hospital with a chief complaint of having shortness of breath and requesting hemodialysis. Patient has missed hemodialysis due to transportation issues. Patient was recently discharged on 08/14/21 after being treated for similar complaints. Patient was found to be in hypertensive emergency and hyperkalemic. Patient has hsitory of Hypertension, ESRD, Lupus, and Seizure disorder. We are being consulted for management of this patient's ESRD. Past History Past Medical History: ESRD, hypertension, seizures, other (See HPI) Past Surgical History: Other (Dialysis access) Social history: single. denies: smoking, alcohol abuse Family history: diabetes, hypertension Medications and Allergies Allergies Allergy/AdvReac Type Severity Reaction Status Date / Time amoxicillin trihydrate Allergy Unknown Unknown Verified 05/27/13 11:32 [From Augmentin] diphenhydramine Allergy Itching Verified 08/06/21 16:06 [From Benadryl] potassium clavulanate AdvReac Unknown Unknown Verified 05/27/13 11:32 [From Augmentin] Home Medications Medication Instructions Recorded Confirmed Last Taken Type Amitriptyline [Elavil] 30 mg PO QDAY #90 08/20/21 Unknown Rx Ferrous Sulfate [Feosol 325 MG tab] 325 mg PO BID #60 tablet 08/20/21 Unknown Rx Hydroxychloroquine [Plaquenil] 200 mg PO QDAY #30 tablet 08/20/21 Unknown Rx Oxycodone HCl/Acetaminophen 1 each PO Q6H PRN #12 tab 08/20/21 Unknown Rx [Oxycodone-Acetaminophn 7.5-325] hydrALAZINE [Apresoline TAB] 100 mg PO DAILY #30 tab 08/20/21 Unknown Rx hydrOXYzine HCL [Atarax] 25 mg PO Q6HR #20 tablet 08/20/21 Unknown Rx hydrOXYzine HCL [Atarax] 25 mg PO Q6HR PRN #20 tablet 08/20/21 Unknown Rx labetaloL [Labetalol 100mg TAB] 100 mg PO BID #60 tablet 08/20/21 Unknown Rx Active Meds: Active Medications Acetaminophen (Acetaminophen 325 Mg Tab) 650 mg PO Q6H PRN PRN Reason: Pain MILD(1-3)/Fever >100.5/GUZMAN Albuterol (Albuterol 2.5 Mg/3 Ml Nebu) 2.5 mg IH Q3HRT PRN PRN Reason: Shortness Of Breath Amlodipine Besylate (Amlodipine 10 Mg Tab) 10 mg PO DAILY [facility] Last Admin: 08/20/21 10:06 Dose: 10 mg Citalopram Hydrobromide (Citalopram 10 Mg Tab) 20 mg PO QDAY [facility] Clonidine HCl (Clonidine 0.1 Mg Tab) 0.1 mg PO BID [facility] Last Admin: 08/20/21 10:07 Dose: 0.1 mg Ferrous Sulfate (Ferrous Sulfate 325 Mg Tab) 325 mg PO BID [facility] Last Admin: 08/20/21 10:06 Dose: 325 mg Folic Acid (Folic Acid 1 Mg Tab) 1 mg PO QDAY [facility] Last Admin: 08/20/21 10:07 Dose: 1 mg Hydralazine HCl (Hydralazine 20 Mg/1 Ml Inj) 10 mg IV Q4HR PRN PRN Reason: Hypertension Hydralazine HCl (Hydralazine 100 Mg Tab) 100 mg PO DAILY [facility] Last Admin: 08/20/21 10:06 Dose: 100 mg Hydromorphone HCl (Hydromorphone 0.5 Mg/0.5 Ml Inj) 0.5 mg IV Q13H PRN PRN Reason: Pain , Severe (7-10) Last Admin: 08/20/21 01:50 Dose: 0.5 mg Hydroxychloroquine Sulfate (Hydroxychloroquine 200 Mg Tab) 200 mg PO QDAY [facility] Last Admin: 08/20/21 10:06 Dose: 200 mg Hydroxyzine HCl (Hydroxyzine Hcl 25 Mg Tab) 25 mg PO Q6HR PRN PRN Reason: Itching Labetalol HCl (Labetalol 100 Mg Tab) 100 mg PO BID [facility] Last Admin: 08/20/21 10:07 Dose: 100 mg Levetiracetam (Levetiracetam 500 Mg Tab) 500 mg PO BID [facility] Last Admin: 08/20/21 10:08 Dose: 500 mg Oxycodone/Acetaminophen (Oxycodone /Acetaminophen 5-325mg Tab) 1 tab PO Q6H PRN PRN Reason: Pain, Moderate (4-6) Last Admin: 08/20/21 10:06 Dose: 1 tab Pantoprazole Sodium (Pantoprazole 20 Mg Tab) 20 mg PO QDAY [facility] Prednisone (Prednisone 10 Mg Tab) 10 mg PO QPM [facility] Risperidone (Risperidone 1 Mg Tab) 1 mg PO QHS [facility] Sodium Chloride (Sodium Chloride 0.9% 10 Ml Flush Syringe) 10 ml IV BID [facility] Last Admin: 08/20/21 10:07 Dose: 10 ml Sodium Chloride (Sodium Chloride 0.9% 10 Ml Flush Syringe) 10 ml IV PRN PRN PRN Reason: LINE FLUSH Review of Systems Constitutional: fatigue, no weight loss, no weight gain, no fever, no chills Ears, nose, mouth and throat: no ear pain, no ear discharge, no tinnitis, no decreased hearing, no nose pain, no nasal congestion, no nasal discharge Cardiovascular: no chest pain, no orthopnea, no palpitations, no rapid/irregular heart beat, no edema Respiratory: no cough, no cough with sputum, no excessive sputum, no hemoptysis, no shortness of breath Gastrointestinal: no abdominal pain, no nausea, no vomiting, no diarrhea, no constipation, no change in bowel habits Genitourinary Female: no dyspareunia, no dysmenorrhea, no pelvic pain, no flank pain, no menorrhagia, no dysuria Rectal: no pain, no incontinence, no bleeding, no itching, no hemorrhoids, no discharge Musculoskeletal: no neck stiffness, no neck pain, no shooting arm pain, no arm numbness/tingling, no low back pain Integumentary: no rash, no pruritis, no redness, no sores, no wounds Neurological: no head injury, no transient paralysis, no paralysis, no weakness, no parathesias, no numbness, no tingling, no seizures Psychiatric: no anxiety, no memory loss, no change in sleep habits, no sleep disturbances, no insomnia, no hypersomnia, no change in appetite Exam - Vital Signs Vital signs: Vital Signs Temp Pulse Resp BP Pulse Ox 98.7 F 94 H 20 225/153 99 08/19/21 16:33 08/19/21 16:33 08/19/21 16:33 08/19/21 16:33 08/19/21 16:33 - General Appearance General appearance: well-developed, appears stated age EENT: ATNC, PERRL Neck: Present: neck supple, trachea midline Respiratory: Decreased Breath Sounds Heart: S1S2 Gastrointestinal: Present: normoactive bowel sounds Integumentary: warm and dry Neurologic: alert and oriented x3 Musculoskeletal: Present: other (No edema) Results - Lab Results 08/19/21 17:28 08/20/21 03:38 Most recent lab results Calcium 9.1 mg/dL (8.4-10.2) 08/20/21 03:38 Assessment and Plan Assessment: End Stage Renal Disease S/P Hypertensive Emergency Hypertension Hyperkalemia Anemia Noncompliance with hemodialysis Plan: Hemodialysis today for UF and clearance Hyperkalemia- Kayexalate 15 gram po x 1. Hemodialysis today Low potassium diet Reenforced compliance with HD Fluid restriction of 1 liter per day Obtain daily weights Monitor I/O's daily Assess dialysis needs daily Outpatient HD clinic: [facility] Plan of care reviewed by Dr. Mejias
[2021-08-20] MEDS ORDERED: SODIUM POLYSTYRENE 15 GM/60 ML ORAL LIQD PO NR (12:31)
--- NOTE | 2021-08-20 12:31 | Electrocardiograph Report ---
[facility] Test Date: 2021-08-19 Test Time: 18:57:31 Pat Name: SPENSER MCDANIEL Department: Room: A267 1 Gender: F [employer]: SANDY : 1990 Requested By: MARINA MICHAUD Order Number: [id number] Reading MD: Evelin Delcid Measurements Intervals Wilson Rate: 105 P: 53 ME: 134 QRS: 98 QRSD: 154 T: 48 QT: 417 QTc: 551 Interpretive Statements Sinus tachycardia Left atrial enlargement Right bundle branch block Compared to ECG 08/06/2021 10:20:11 No significant change Electronically Signed On 08-20-2021 12:30:52 EDT by Evelin Delcid
--- NOTE | 2021-08-20 13:02 | Discharge Summary ---
Providers - Providers Date of Admission: 08/19/21 18:55 Attending physician: MACK WARREN MD 08/19/21 18:56 Consult to Physician [CONS] Stat Comment: SPOKE WITH THE /danny Consulting Provider: TAN COLES Physician Instructions: Reason For Exam: End-stage renal disease, needing dialysis. Hyperk 08/20/21 08:57 Consult to Case Management [CONS] Routine Services Needed at Discharge: Associate Engineer Notified:: no Additional Physician Instructions: social issues with getting to dialysis Primary care physician: AUDITING CLERK Hospitalization Reason for admission: Missed dialysis Condition: Stable Hospital course: History of present illness: 30 YO Female with HTN, ESRD on HD(T,R,Sa), Seizure Disorder, SLE, ADHD, Malnutri tion presents to ED for evaluation. Patient reports "it is hard to breathe and I need dialysis". Patient states that she has experienced shortness of breath over the past 2 days with persistent symptoms over the same timeframe. Patient also acknowledges that she missed her outpatient dialysis session on Thursday. EMS was notified and upon arrival the patient was found to be in distress and subsequently transported to [facility] for further care and evaluation of the aforementioned symptoms. The patient was seen and evaluated in the emergency department. All lab and imaging studies reviewed. The patient was found to have a blood pressure of 225/125 mmHg with concomitant confusion and headache which is consistent with hypertensive emergency, hypertensive encephalopathy, fluid overload, and end-stage renal disease in need of urgent dialysis, with concomitant hyperkalemia without EKG changes. The patient was admitted to [facility] and initiated on IV antihypertensive therapy. Nephrology team consulted in ED for urgent dialysis. No reports of fever, chills, chest pain, palpitation, productive cough, skin rash, recent contact, known exposure to COVID-19. Prior admission on 08/06/2021 reviewed. All medication listed at time of admission has been reconciled. Advanced care planning conducted in ED. 08/20: Patient reports that she missed dialysis due to transportation issues. Otherwise she is doing well she did have dialysis her blood pressure improved. She is clinically stable for discharge extensive counseling was provided to her we also employed the meds to beds program to ensure compliance as she did not also feel her medications since her last discharge. She verbalized understanding with a counseling provided on the importance of being compliant. (1) Hypertensive emergency Current Visit: No Status: Acute Plan to address problem: Patient admitted to [facility] and initiated on Cardene drip, monitor blood pressure per protocol, titrate to effect. (2) End stage renal disease Current Visit: No Status: Acute Plan to address problem: Nephrology team consulted in ED, dialysis as per renal team. Avoid nephrotoxic agents. (3) Acute hyperkalemia Current Visit: Yes Status: Acute Plan to address problem: Albuterol, insulin, D50, no EKG changes. Urgent dialysis. (4) Fluid overload with associated acute hypoxic respiratory failure Current Visit: Yes Status: Acute Qualifiers: Plan to address problem: Strict I/O, monitor urine output every shift, monitor fluid balance. Urgent dialysis. (5) SLE (systemic lupus erythematosus) Current Visit: No Status: Acute Plan to address problem: Continue medical management. No acute exacerbation at this time. Supportive care. Outpatient rheumatology follow-up. (6) Noncompliance with renal dialysis Current Visit: No Status: Acute Plan to address problem: Patient counseled. Patient informed that continued noncompliance may result in worsening symptoms and chronic and irreparable renal damage. Patient acknowledges understanding instructions. (7) Preventative health care Current Visit: Yes Status: Acute Plan to address problem: Patient counseled regarding medication compliance compliance with renal diet, sodium restriction, outpatient follow-up with primary care physician, and compliance with outpatient dialysis schedule. +30 minutes. Disposition: 01 HOME / SELF CARE / HOMELESS Final Discharge Diagnosis (Prints w/discharge instructions): Acute hypoxic respiratory failure secondary to fluid overload. End-stage renal disease. Hypertensive emergency. Noncompliance Time spent for discharge: 35 mins Core Measure Documentation - Palliative Care Palliative Care/ Comfort Measures: Not Applicable - Core Measures Any of the following diagnoses?: none Exam - Physical Exam Narrative exam: VITAL SIGNS: Reviewed. GENERAL: The patient appears normally developed, chronically ill-appearing vital signs as documented. HEAD: No signs of head trauma. EYES: Pupils are equal. Extraocular motions intact. EARS: Hearing grossly intact. MOUTH: Oropharynx is normal. NECK: No adenopathy, no JVD. CHEST: Chest with clear breath sounds bilaterally. No wheezes, rales, or rhonchi. CARDIAC: Regular rate and rhythm. S1 and S2, without murmurs, gallops, or rubs. VASCULAR: No Edema. Peripheral pulses normal and equal in all extremities. ABDOMEN: Soft, non tender and non distended. No rebound or guarding, and no masses palpated. Bowel Sounds normal. MUSCULOSKELETAL: Good range of motion of all major joints. Extremities without clubbing, cyanosis or edema. NEUROLOGIC EXAM: Alert and oriented x 3 No focal sensory or strength deficits. Speech normal. Follows commands. PSYCHIATRIC: Mood normal. SKIN: detail exam as documented in skin assessment - Constitutional Vitals: Temp Pulse Resp BP Pulse Ox 98.3 F 88 15 142/96 93 08/20/21 09:21 08/20/21 12:15 08/20/21 11:30 08/20/21 12:15 08/20/21 11:30 Plan Activity: advance as tolerated, fall precautions Diet: low fat, renal Special Instructions: restrict fluid intake to (1 L daily), record daily weights, record daily BP diary Care Plan Goals: Continue to follow with your primary psychologist experimental and also with dialysis as recommended Saturdays. Follow up with: PRIMARY MD ALFREDO [Primary Care Provider] - 7 Days LELA SAMPSON MD [Staff Physician] - 7 Days Prescriptions: hydrALAZINE [Apresoline TAB] 100 mg PO DAILY #30 tab hydrOXYzine HCL [Atarax] 25 mg PO Q6HR PRN #20 tablet PRN Reason: Itching hydrOXYzine HCL [Atarax] 25 mg PO Q6HR #20 tablet Amitriptyline [Elavil] 30 mg PO QDAY #90 Ferrous Sulfate [Feosol 325 MG tab] 325 mg PO BID #60 tablet labetaloL [Labetalol 100mg TAB] 100 mg PO BID #60 tablet Oxycodone HCl/Acetaminophen [Oxycodone-Acetaminophn 7.5-325] 1 each PO Q6H PRN #12 tab PRN Reason: Pain , Severe (7-10) Hydroxychloroquine [Plaquenil] 200 mg PO QDAY #30 tablet
[2021-08-20] MEDS ORDERED: BUTALB/ACETAMINOPHEN/CAFFEINE TAB PO NR (13:16)
[2021-08-20 16:07] VITALS: BP 152/105
[2021-08-20] MEDS ORDERED: predniSONE 10 MG TAB PO SCH (18:00)
[2021-08-20] MEDS ORDERED: risperiDONE 1 MG TAB PO SCH (22:00)
== END 2021-08-20 16:10 | disposition home or self-care (01) ==
LOC: ED 16:21 → IMCU 18:55 → INTOOBSV 18:55 → IMCU 08-20 04:19
PROVIDERS: ADMIT Internal Medicine; ATTEND Internal Medicine
DX: J96.01 Acute respiratory failure with hypoxia (principal); E87.70 Fluid overload, unspecified; I16.1 Hypertensive emergency; I12.0 Hypertensive chronic kidney disease with stage 5 chronic kidney disease or end stage renal disease; N18.6 End stage renal disease; D63.1 Anemia in chronic kidney disease; E87.5 Hyperkalemia; M32.9 Systemic lupus erythematosus, unspecified; J45.909 Unspecified asthma, uncomplicated; F90.1 Attention-deficit hyperactivity disorder, predominantly hyperactive type; R56.9 Unspecified convulsions; Z91.15 Patient's noncompliance with renal dialysis; Z99.2 Dependence on renal dialysis; Z79.899 Other long term (current) drug therapy; Z98.890 Other specified postprocedural states
CPT/HCPCS: 36415; 71045; 80048; 85025; 85610; 85730; 93005; 94640; 96365; 96366; 96375; 96376; 99291; G0378; J0360; J2270; J2405; J3490; Q0177; 85007; 99285; Q9967; J1815

== ENCOUNTER 2021-10-28 13:42 | Inpatient (IN) | payer OTHER, MEDICARE ==
[2021-10-28] MEDS ORDERED: ONDANSETRON 4 MG/2 ML INJ IV ONE (14:20)
[2021-10-28] MEDS ORDERED: cloNIDine 0.2 MG TAB PO ONE (14:22)
--- NOTE | 2021-10-28 14:25 | Emergency Department Report ---
HPI - General Chief Complaint: High BP Time Seen by Provider: 10/28/21 14:14 - HPI HPI: Room 4 Patient is a 30-year-old female present with chief complaint of shortness of breath and pain all over. The patient states for the past 3 days she has had shortness of breath and her lupus flare. Patient states her lupus flare includes weakness and pain all over. Patient denies cough or fever. Patient denies history of nausea vomiting. Patient states her shortness of breath has been constant. The patient has a history end-stage renal disease and states she was last dialyzed 10/25/2021 ED Past Medical Hx - Past Medical History Previous Medical History?: Yes Hx Hypertension: Yes Hx Renal Disease: Yes (DIALYSIS TTS) Hx Seizures: Yes Hx Psychiatric Treatment: Yes (ADHD) Hx Asthma: Yes Additional medical history: lupus - Surgical History Additional Surgical History: Left upper extremity fistula, right chest Vas-Cath - Family History Family history: no significant - Social History Smoking Status: Never Smoker Substance Use Type: None (Denies illicit drug use) - Medications Home Medications: Home Medications Medication Instructions Recorded Confirmed Last Taken Type Amitriptyline [Elavil] 30 mg PO QDAY #90 08/20/21 Unknown Rx Ferrous Sulfate [Feosol 325 MG tab] 325 mg PO BID #60 tablet 08/20/21 Unknown Rx Hydroxychloroquine [Plaquenil] 200 mg PO QDAY #30 tablet 08/20/21 Unknown Rx Oxycodone HCl/Acetaminophen 1 each PO Q6H PRN #12 tab 08/20/21 Unknown Rx [Oxycodone-Acetaminophn 7.5-325] hydrALAZINE [Apresoline TAB] 100 mg PO DAILY #30 tab 08/20/21 Unknown Rx hydrOXYzine HCL [Atarax] 25 mg PO Q6HR #20 tablet 08/20/21 Unknown Rx hydrOXYzine HCL [Atarax] 25 mg PO Q6HR PRN #20 tablet 08/20/21 Unknown Rx labetaloL [Labetalol 100mg TAB] 100 mg PO BID #60 tablet 08/20/21 Unknown Rx ED Review of Systems ROS: Stated complaint: LUPUS FLARE UP Other details as noted in HPI Constitutional: denies: fever Eyes: denies: eye pain ENT: denies: throat pain Respiratory: shortness of breath. denies: cough Cardiovascular: chest pain Endocrine: no symptoms reported Gastrointestinal: denies: nausea, vomiting Musculoskeletal: back pain Neurological: denies: headache Physical Exam - Physical Exam Vital Signs: Vital Signs 10/28/21 14:00 Temperature 98.7 F Pulse Rate 96 H Respiratory 16 Rate Blood Pressure 230/130 [Left] O2 Sat by Pulse 99 Oximetry Physical Exam: GENERAL: The patient is well-developed well-nourished female lying on stretcher exhibiting increased work of breathing. [] HEENT: Normocephalic. Atraumatic. Extraocular motions are intact. Patient has moist mucous membranes. NECK: Supple. Trachea midline CHEST/LUNGS: Clear to auscultation. There is no respiratory distress noted. HEART/CARDIOVASCULAR: Regular. There is no tachycardia. There is no gallop rub or murmur. ABDOMEN: Abdomen is soft, nontender. Patient has normal bowel sounds. There is no abdominal distention. SKIN: There is no rash. There is 1-2+ bilateral lower extremity pitting edema. There is no diaphoresis. NEURO: The patient is awake, alert, and oriented. The patient is cooperative. The patient has no focal neurologic deficits. The patient has normal speech. GCS 15 MUSCULOSKELETAL: There is no evidence of acute injury. ED Course Vital Signs 10/28/21 14:00 Temperature 98.7 F Pulse Rate 96 H Respiratory 16 Rate Blood Pressure 230/130 [Left] O2 Sat by Pulse 99 Oximetry - Reevaluation(s) Reevaluation #1: 10/28/21 16:22 Patient desats to 71% on room air. Patient was placed on supplemental O2 - Consultations Consultation #1: 10/28/21 16:22 Nephrology paged 10/28/21 17:07 Case discussed with cementing bulk material operator Dr. Mcknight- will arrange for hemodialysis ED Medical Decision Making - Lab Data Result diagrams: 10/28/21 14:34 10/28/21 14:34 Laboratory Tests 10/28/21 10/28/21 10/28/21 14:34 14:34 14:34 WBC 7.1 RBC 2.52 L Hgb 8.1 L Hct 25.7 L MCV 102 H MCH 32 MCHC 32 RDW 19.5 H Plt Count 139 L Lymph % (Auto) 22.9 [place] % (Auto) 10.5 H Eos % (Auto) 3.9 Baso % (Auto) 0.2 Lymph # (Auto) 1.6 [place] # (Auto) 0.7 Eos # (Auto) 0.3 Baso # (Auto) 0.0 Seg Neutrophils % 62.5 Seg Neutrophils # 4.4 PT 12.4 INR 0.84 L Sodium 138 Potassium 4.8 Chloride 101.7 Carbon Dioxide 21 L Anion Gap 20 BUN 42 H Creatinine 8.4 H Estimated GFR 7 BUN/Creatinine Ratio 5 Glucose 66 Calcium 9.4 Total Creatine Kinase 97 CK-MB (CK-2) 2.5 CK-MB (CK-2) Rel Index 2.5 Troponin T 0.114 H* HCG, Qual 10/28/21 14:34 WBC RBC Hgb Hct MCV MCH MCHC RDW Plt Count Lymph % (Auto) [place] % (Auto) Eos % (Auto) Baso % (Auto) Lymph # (Auto) [place] # (Auto) Eos # (Auto) Baso # (Auto) Seg Neutrophils % Seg Neutrophils # PT INR Sodium Potassium Chloride Carbon Dioxide Anion Gap BUN Creatinine Estimated GFR BUN/Creatinine Ratio Glucose Calcium Total Creatine Kinase CK-MB (CK-2) CK-MB (CK-2) Rel Index Troponin T HCG, Qual Negative - EKG Data -: EKG Interpreted by Me EKG shows normal: sinus rhythm Rate: tachycardia (102 bpm ) - EKG Data When compared to previous EKG there are: previous EKG unavailable Interpretation: other (No ischemic changes seen) - Radiology Data Radiology results: report reviewed (Chest x-ray), image reviewed (Chest x-ray) interpreted by me: Chest v-irm-[place] edema, no pneumothorax [facility] [address] [place] [address] XRay Report Signed Patient: SPENSER MCDANIEL MR#: [id number] : 1990 Acct:[id number] Age/Sex: 30 / F ADM Date: 10/28/21 Loc: ED Attending Dr: Ordering Physician: JOSE RAMIREZ MD Date of Service: 10/28/21 Procedure(s): XR chest 1V ap Accession Number(s): [id number] cc: JOSE RAMIREZ MD Fluoro Time In Minutes: CHEST 1 VIEW 10/28/2021 3:11 PM INDICATION / CLINICAL INFORMATION: Chest pain and shortness of breath. COMPARISON: 08/19/21. FINDINGS: SUPPORT DEVICES: None. HEART / MEDIASTINUM: Moderate generalized cardiomegaly is stable. There is prominence of the central pulmonary vessels. LUNGS / PLEURA: There is moderate patchy parenchymal disease throughout both lungs, predominantly interstitial and groundglass in appearance. Disease has increased. No pleural effusion. No pne umothorax. ADDITIONAL FINDINGS: No significant additional findings. IMPRESSION: Moderate bilateral pulmonary edema pattern. Signer Name: Jose D Guevara MD Signed: 10/28/2021 4:19 PM Workstation Name: [id number] Transcribed By: RT Dictated By: Jose D Guevara MD Electronically Authenticated By: Jose D Guevara MD Signed Date/Time: 10/28/211618 DD/ 17 TD/TT: - Differential Diagnosis Hypertensive urgency, volume overload, PE, Critical care attestation.: If time is entered above; I have spent that time in minutes in the direct care of this critically ill patient, excluding procedure time. ED Disposition Clinical Impression: Fluid overload, Hypoxia, ESRD needing dialysis Disposition: ADMITTED INPATIENT Is pt being admited?: Yes Does the pt Need Aspirin: No Condition: Serious Referrals: PRIMARY CARE, [Primary Care Provider] - 3-5 Days Time of Disposition: 16:37 (Care transferred to hospitalist (Dr. Patino))
[2021-10-28 15:24] LABS: Basophils % (Auto) 0.2 % (0.0-1.8); Eosinophils # (Auto) 0.3 K/mm3 (0.0-0.4); Eosinophils % (Auto) 3.9 % (0.0-4.3); Hematocrit 25.7 % (30.3-42.9); Hemoglobin 8.1 gm/dl (10.1-14.3); Lymphocytes # (Auto) 1.6 K/mm3 (1.2-5.4); Lymphocytes % (Auto) 22.9 % (13.4-35.0); Mean Corpuscular HGB Conc 32 % (30-34); Mean Corpuscular Volume 102 fl (79-97); Monocytes # (Auto) 0.7 K/mm3 (0.0-0.8); Monocytes % (Auto) 10.5 % (0.0-7.3); Platelet Count 139 K/mm3 (140-440); Red Blood Count 2.52 M/mm3 (3.65-5.03); Red Cell Distribution Width 19.5 % (13.2-15.2)
[2021-10-28 15:30] LABS: INR 0.84 (0.87-1.13)
[2021-10-28 16:06] LABS: Creatine Kinase MB 2.5 ng/mL (0.0-4.0)
[2021-10-28 16:07] LABS: Calcium 9.4 mg/dL (8.4-10.2)
[2021-10-28] MEDS: fentaNYL 100 MCG/2 ML INJ IV ONE ×2 (16:08→16:22)
--- NOTE | 2021-10-28 16:23 | XRay Report ---
CHEST 1 VIEW 10/28/2021 3:11 PM INDICATION / CLINICAL INFORMATION: Chest pain and shortness of breath. COMPARISON: 08/19/21. FINDINGS: SUPPORT DEVICES: None. HEART / MEDIASTINUM: Moderate generalized cardiomegaly is stable. There is prominence of the central pulmonary vessels. LUNGS / PLEURA: There is moderate patchy parenchymal disease throughout both lungs, predominantly int erstitial and groundglass in appearance. Disease has increased. No pleural effusion. No pneumothorax. ADDITIONAL FINDINGS: No significant additional findings. IMPRESSION: Moderate bilateral pulmonary edema pattern. Signer Name: Jose D Guevara MD Signed: 10/28/2021 4:19 PM Workstation Name: [id number]
--- NOTE | 2021-10-28 16:37 | History and Physical Report ---
History of Present Illness Chief complaint: I am short of breath and I need dialysis History of present illness: 30 YO Female with HTN, ESRD on HD(M,W,F) last dialyzed on Thursday, Seizure Disorder, SLE, ADHD, Malnutrition presents to ED for evaluation. Patient reports "it is hard to breathe and I need dialysis". Patient states that she has experienced shortness of breath over the past 2 days with persistent symptom s over the same timeframe. Patient also acknowledges noncompliance with renal diet as well as fluid restriction. EMS was notified and upon arrival the patient was found to be in distress and subsequently transported to [facility] for further care and evaluation of the aforementioned symptoms. The patient was seen and evaluated in the emergency department. All lab and imaging studies reviewed. The patient was found to have a pulse oximetry of 86% on room air which is consistent with acute hypoxemic respiratory failure with bilateral pulmonary edema evident on chest x-ray suspected secondary to fluid overload, as well as metabolic acidosis. Patient also found to have a blood pressure of 230/130 mmHg with concomitant confusion and headache which is consistent with hypertensive emergency, hypertensive encephalopathy. The patient was treated with IV antihypertensive therapy with improvement in symptoms. Patient admitted to telemetry due to increased risk of worsening symptoms and for medical stabilization. Nephrology team consulted in ED for urgent dialysis. No reports of fever, chills, chest pain, palpitation, productive cough, skin rash, recent contact, known exposure to COVID-19. Prior admission on 08/19/2021 reviewed. All medication listed at time of admission has been reconciled. Advanced care planning conducted in ED. Past History Past Medical History: ESRD, hypertension, seizures, other (See HPI) Past Surgical History: Other (Left upper extremity fistula, right chest Vas- Cath) Social history: single. denies: smoking, alcohol abuse, prescription drug abuse Family history: hypertension Medications and Allergies Allergies Allergy/AdvReac Type Severity Reaction Status Date / Time amoxicillin trihydrate Allergy Unknown Unknown Verified 10/28/21 14:02 [From Augmentin] diphenhydramine Allergy Itching Verified 10/28/21 14:02 [From Benadryl] potassium clavulanate AdvReac Unknown Unknown Verified 10/28/21 14:02 [From Augmentin] Home Medications Medication Instructions Recorded Confirmed Last Taken Type Amitriptyline [Elavil] 30 mg PO QDAY #90 08/20/21 Unknown Rx Ferrous Sulfate [Feosol 325 MG tab] 325 mg PO BID #60 tablet 08/20/21 Unknown Rx Hydroxychloroquine [Plaquenil] 200 mg PO QDAY #30 tablet 08/20/21 Unknown Rx Oxycodone HCl/Acetaminophen 1 each PO Q6H PRN #12 tab 08/20/21 Unknown Rx [Oxycodone-Acetaminophn 7.5-325] hydrALAZINE [Apresoline TAB] 100 mg PO DAILY #30 tab 08/20/21 Unknown Rx hydrOXYzine HCL [Atarax] 25 mg PO Q6HR #20 tablet 08/20/21 Unknown Rx hydrOXYzine HCL [Atarax] 25 mg PO Q6HR PRN #20 tablet 08/20/21 Unknown Rx labetaloL [Labetalol 100mg TAB] 100 mg PO BID #60 tablet 08/20/21 Unknown Rx Review of Systems Constitutional: no weight loss, no weight gain, no fever, no chills Ears, nose, mouth and throat: no ear pain, no ear discharge, no decreased hearing, no nasal discharge, no sinus pressure Breasts: no change in shape, no swelling, no mass Cardiovascular: shortness of breath, no chest pain, no orthopnea, no rapid/irregular heart beat, no edema Respiratory: no cough, no excessive sputum, no hemoptysis Gastrointestinal: no abdominal pain, no vomiting, no diarrhea, no hematemesis Genitourinary Female: no pelvic pain, no flank pain, no dysuria, no urinary frequency, no urgency Rectal: no pain, no incontinence, no bleeding Musculoskeletal: no neck stiffness, no neck pain, no shooting arm pain, no low back pain, no leg numbness/tingling Integumentary: no rash, no redness, no sores, no wounds, no jaundice Neurological: no paralysis, no parathesias, no tingling Psychiatric: no anxiety, no change in sleep habits, no hypersomnia, no change in libido, no suicidal ideation Endocrine: no cold intolerance, no polyphagia, no polyuria, no nocturia Hematologic/Lymphatic: no easy bruising, no easy bleeding Allergic/Immunologic: no urticaria, no allergic rhinitis, no wheezing Exam - Constitutional Vitals: Temp Pulse Resp BP Pulse Ox 98.8 F 103 H 17 230/130 98 10/28/21 14:51 10/28/21 14:51 10/28/21 14:51 10/28/21 14:00 10/28/21 14:51 General appearance: Present: mild distress - EENT Eyes: Present: PERRL ENT: hearing intact, clear oral mucosa - Neck Neck: Present: supple - Respiratory Respiratory effort: labored Respiratory: bilateral: diminished, rhonchi - Cardiovascular Rhythm: regular Heart Sounds: Present: S1 & S2 - Extremities Extremities: pulses symmetrical, No edema Extremity abnormal: edema Peripheral Pulses: within normal limits - Abdominal General gastrointestinal: Present: soft, non-tender, non-distended, normal bowel sounds Female genitourinary: Present: normal - Integumentary Integumentary: Present: clear, dry - Musculoskeletal Musculoskeletal: generalized weakness - Psychiatric Psychiatric: appropriate mood/affect, intact judgment & insight - Neurologic Neurologic: CNII-XII intact, moves all extremities, gait normal HEART Score - HEART Score Troponin: Troponin T 0.114 ng/mL (0.00-0.029) H* 10/28/21 14:34 Results - Labs CBC & Chem 7: 10/28/21 14:34 10/28/21 14:34 Labs: Abnormal lab results 10/28/21 10/28/21 10/28/21 Range/Units 14:34 14:34 14:34 RBC 2.52 L (3.65-5.03) M/mm3 Hgb 8.1 L (10.1-14.3) gm/dl Hct 25.7 L (30.3-42.9) % MCV 102 H (79-97) fl RDW 19.5 H (13.2-15.2) % Plt Count 139 L (140-440) K/mm3 [place] % (Auto) 10.5 H (0.0-7.3) % INR 0.84 L (0.87-1.13) Carbon Dioxide 21 L (22-30) mmol/L BUN 42 H (7-17) mg/dL Creatinine 8.4 H (0.6-1.2) mg/dL Troponin T 0.114 H* (0.00-0.029) ng/mL Assessment and Plan - Patient Problems (1) Acute hypoxemic respiratory failure Current Visit: Yes Status: Acute Plan to address problem: Chest x-ray, supplemental oxygen, pulse oximetry, nebulizer therapy, pulmonary toilet, noninvasive positive pressure ventilation as clinically indicated (2) Pulmonary edema Current Visit: Yes Status: Acute Qualifiers: Chronicity: acute Qualified Code(s): J81.0 - Acute pulmonary edema Plan to address problem: Urgent dialysis, supplemental oxygen, pulse oximetry, nebulizer therapy, monitor fluid balance, (3) Metabolic acidosis Current Visit: Yes Status: Acute Plan to address problem: Supportive care, urgent dialysis. (4) ESRD needing dialysis Current Visit: Yes Status: Acute Plan to address problem: Nephrology team consulted, dialysis as per renal team, strict I's/O, monitor fluid balance, avoid nephrotoxic agents. (5) Fluid overload Current Visit: Yes Status: Acute Qualifiers: Hypervolemia type: unspecified Plan to address problem: Monitor fluid balance, dialysis as per renal team. (6) Hypertensive emergency Current Visit: No Status: Acute Plan to address problem: Monitor blood pressure per nursing care protocol, IV antihypertensive therapy with hydralazine for systolic blood pressure greater than equal to 155 mmHg (7) Lupus Current Visit: No Status: Acute Qualifiers: Systemic lupus erythematosus organ involvement: unspecified Plan to address problem: Continue Plaquenil, outpatient rheumatology follow-up. Continue medical management. (8) Bipolar disorder Current Visit: No Status: Chronic Qualifiers: Current episode severity: unspecified Plan to address problem: Continue medical management, outpatient psychiatry follow-up. No acute exacerbation at this time. Continue to monitor. Supportive care. (9) DVT prophylaxis Current Visit: No Status: Acute Plan to address problem: SCDs bilateral lower extremities while in bed (10) Advance care planning Current Visit: No Status: Acute Plan to address problem: Disease education done, care plan discussed, diagnosis discussed, prognosis discussed, patient is full code. Patient knowledges understanding and agreement with care plan, +30 minutes. (11) Preventative health care Current Visit: No Status: Acute Plan to address problem: Patient counseled regarding compliance with fluid restriction, renal diet, outpatient follow-up with primary care physician for all age and risk factor appropriate screening test. +30 minutes.
[2021-10-28 17:32] LABS: Chol/HDL Ratio 2.88 %
[2021-10-28] MEDS ORDERED: ACETAMINOPHEN 325 MG TAB PO PRN (17:35)
[2021-10-28] MEDS ORDERED: ALBUTEROL 2.5 MG/3 ML NEBU IH PRN (17:35)
[2021-10-28] MEDS ORDERED: hydrOXYzine HCL 25 MG TAB PO PRN (17:38)
[2021-10-28] MEDS ORDERED: SODIUM CHLORIDE 0.9% 100 ML IV PRN (18:00)
[2021-10-28 19:43] LABS: Hepatitis B Surface Antigen Non-Reactive (Negative); Hepatitis C Virus Antibody Non-Reactive (NonReactive)
[2021-10-28] MEDS: HYDROmorphone 0.5 MG/0.5 ML INJ IV PRN (21:19)
[2021-10-28] MEDS: hydrALAZINE 20 MG/1 ML INJ IV PRN (21:19)
[2021-10-28] MEDS: FERROUS SULFATE 325 MG TAB PO SCH (21:34)
[2021-10-29] MEDS: oxyCODONE /ACETAMINOPHEN 5-325MG TAB PO PRN ×2 (04:02→18:14)
[2021-10-29] MEDS: ONDANSETRON 4 MG/2 ML INJ IV PRN ×2 (04:09→21:33)
[2021-10-29 05:13] LABS: Albumin 3.1 g/dL (3.9-5); Calcium 8.9 mg/dL (8.4-10.2)
--- NOTE | 2021-10-29 07:30 | Nuclear Medicine Report ---
NUCLEAR MEDICINE PERFUSION SCAN INDICATION: CHEST PAIN AND SHORTNESS OF BREATH CORRELATION: AP chest performed 10/28/2021 at 0403 hours RADIOPHARMACEUTICAL: Perfusion: 5.4 mCi Tc-99m MAA given IV FINDINGS: Perfusion images show symmetric and uniform radiotracer distribution throughout bilateral lung zones with no evidence of unmatched segmental perfusion defects. The cardiac silhouette is enlarged. IMPRESSION: No pulmonary embolism identified. Cardiomegaly. Signer Name: Pascual Dc Jr, MD Signed: 10/29/2021 7:25 AM Workstation Name: [id number]
--- NOTE | 2021-10-29 09:01 | Consultation ---
History of Present Illness - Reason for Consult end stage renal disease - History of Present Illness 30-year-old -Cypriot female with a past medical history of end-stage renal disease in the setting of hypertension, lupus nephritis, with history of ADHD documented, who presented to the emergency department secondary to shortness of breath. Patient typically is dialyzed on a Thursday hemodialysis schedule. Per patient she states that she has been compliant with her dialysis treatments lately. Nephrology was consulted for urgent dialysis yesterday. Patient received dialysis but was taken off with ~ 1 hour and 30 minutes left Per patient request. I discussed with patient the benefit of doing a small sequential ultrafiltration treatment today given her incomplete treatment yesterday. Patient does not want to do the treatment today as she states that 3 days consecutively hemodialysis be too much for her body. I counseled patient on the risks of fluid overload but she still wants to hold off on dialysis today at this time. She is currently on 3 L of O2 via nasal can nula. Past History Past Medical History: ESRD, hypertension, seizures, other (See HPI) Past Surgical History: Other (Left upper extremity fistula, right chest Vas- Cath) Social history: single. denies: smoking, alcohol abuse, prescription drug abuse Family history: hypertension Medications and Allergies Allergies Allergy/AdvReac Type Severity Reaction Status Date / Time amoxicillin trihydrate Allergy Unknown Unknown Verified 10/28/21 14:02 [From Augmentin] diphenhydramine Allergy Itching Verified 10/28/21 14:02 [From Benadryl] potassium clavulanate AdvReac Unknown Unknown Verified 10/28/21 14:02 [From Augmentin] Home Medications Medication Instructions Recorded Confirmed Last Taken Type Amitriptyline [Elavil] 30 mg PO QDAY #90 08/20/21 Unknown Rx Ferrous Sulfate [Feosol 325 MG tab] 325 mg PO BID #60 tablet 08/20/21 Unknown Rx Hydroxychloroquine [Plaquenil] 200 mg PO QDAY #30 tablet 08/20/21 Unknown Rx Oxycodone HCl/Acetaminophen 1 each PO Q6H PRN #12 tab 08/20/21 Unknown Rx [Oxycodone-Acetaminophn 7.5-325] hydrALAZINE [Apresoline TAB] 100 mg PO DAILY #30 tab 08/20/21 Unknown Rx hydrOXYzine HCL [Atarax] 25 mg PO Q6HR #20 tablet 08/20/21 Unknown Rx hydrOXYzine HCL [Atarax] 25 mg PO Q6HR PRN #20 tablet 08/20/21 Unknown Rx labetaloL [Labetalol 100mg TAB] 100 mg PO BID #60 tablet 08/20/21 Unknown Rx Active Meds: Active Medications Acetaminophen (Acetaminophen 325 Mg Tab) 650 mg PO Q4H PRN PRN Reason: Pain MILD(1-3)/Fever >100.5/GUZMAN Albuterol (Albuterol 2.5 Mg/3 Ml Nebu) 2.5 mg IH Q4HRT PRN PRN Reason: Shortness Of Breath Amitriptyline HCl (Amitriptyline 10 Mg Tab) 30 mg PO QDAY [facility] Ferrous Sulfate (Ferrous Sulfate 325 Mg Tab) 325 mg PO BID [facility] Last Admin: 10/28/21 21:34 Dose: 325 mg Hydralazine HCl (Hydralazine 100 Mg Tab) 100 mg PO DAILY [facility] Hydralazine HCl (Hydralazine 20 Mg/1 Ml Inj) 10 mg IV Q6HR PRN PRN Reason: Hypertension Last Admin: 10/28/21 21:19 Dose: 10 mg Hydromorphone HCl (Hydromorphone 0.5 Mg/0.5 Ml Inj) 0.5 mg IV Q13H PRN PRN Reason: Pain , Severe (7-10) Last Admin: 10/28/21 21:19 Dose: 0.5 mg Hydroxychloroquine Sulfate (Hydroxychloroquine 200 Mg Tab) 200 mg PO QDAY [facility] Hydroxyzine HCl (Hydroxyzine Hcl 25 Mg Tab) 25 mg PO Q6HR PRN PRN Reason: Itching Sodium Chloride (Nacl 0.9%) 100 mls @ 999 mls/hr IV ALEXX PRN PRN Reason: Hypotension Labetalol HCl (Labetalol 100 Mg Tab) 100 mg PO BID [facility] Last Admin: 10/28/21 21:34 Dose: 100 mg Ondansetron HCl (Ondansetron 4 Mg/2 Ml Inj) 4 mg IV Q8H PRN PRN Reason: Nausea And Vomiting Last Admin: 10/29/21 04:09 Dose: 4 mg Oxycodone/Acetaminophen (Oxycodone /Acetaminophen 5-325mg Tab) 1 tab PO Q6H PRN PRN Reason: Pain, Moderate (4-6) Last Admin: 10/29/21 04:02 Dose: 1 tab Sodium Chloride (Sodium Chloride 0.9% 10 Ml Flush Syringe) 10 ml IV BID OLLIE Sodium Chloride (Sodium Chloride 0.9% 10 Ml Flush Syringe) 10 ml IV PRN PRN PRN Reason: LINE FLUSH Review of Systems Constitutional: fatigue, weakness Exam - Vital Signs Vital signs: Vital Signs Temp Pulse Resp BP Pulse Ox 98.7 F 96 H 16 230/130 99 10/28/21 14:00 10/28/21 14:00 10/28/21 14:00 10/28/21 14:00 10/28/21 14:00 - General Appearance General appearance: appears stated age EENT: ATNC Neck: Present: neck supple Respiratory: Decreased Breath Sounds Heart: regular Gastrointestinal: Present: normal Integumentary: no rash Neurologic: no focal deficit Musculoskeletal: Present: deferred Results - Lab Results 10/28/21 14:34 10/29/21 04:08 Most recent lab results Calcium 8.9 mg/dL (8.4-10.2) 10/29/21 04:08 Assessment and Plan - Patient Problems (1) Fluid overload Current Visit: Yes Status: Acute Qualifiers: Hypervolemia type: unspecified Qualified Code(s): E87.70 - Fluid overload, unspecified Plan to address problem: we will try to optimize fluid removal through dialysis and adequate ultrafiltration. (2) Acute hypoxemic respiratory failure Current Visit: Yes Status: Acute Plan to address problem: likely in the setting of volume overload secondary to noncompliance with hemodialysis. Discussed with patient the importance of compliance with dialysis treatments. Discussed with patient the importance of staying on for the entire treatments to allow us to remove the needed ultrafiltration volume. Patient does not want to do a sequential you have treatment today. we explained to p atient at length the risks of fluid overload and pulmonary edema. We will have her dialyzed tomorrow. (3) Hypertension, uncontrolled Current Visit: No Status: Acute Plan to address problem: likely as a consequence of fluid overload and poor compliance with dialysis. We will try to improve with medication management along with optimal volume removal. (4) ESRD needing dialysis Current Visit: Yes Status: Chronic Plan to address problem: we will place on a Thursday hemodialysis schedule at this time as an inpatient. (5) Noncompliance with renal dialysis Current Visit: No Status: Acute Plan to address problem: discussed the importance of compliance with her dialysis treatments.
[2021-10-29] MEDS: AMITRIPTYLINE 10 MG TAB PO SCH ×2 (09:19→21:38)
[2021-10-29] MEDS ORDERED: hydrALAZINE 100 MG TAB PO SCH (10:00)
--- NOTE | 2021-10-29 10:25 | Progress Note ---
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 Patient also acknowledges noncompliance with renal diet as well as fluid restriction. EMS was notified and upon arrival the patient was found to be in distress and subsequently transported to [facility] for further care and evaluation of the aforementioned symptoms. The patient was seen and evaluated in the emergency department. All lab and imaging studies reviewed. The patient was found to have a pulse oximetry of 86% on room air which is consistent with acute hypoxemic respiratory failure with bilateral pulmonary edema evident on chest x-ray suspected secondary to fluid overload, as well as metabolic acidosis. Patient also found to have a blood pressure of 230/130 mmHg with concomitant confusion and headache which is consistent with hypertensive emergency, hypertensive encephalopathy. Acute hypoxic respiratory failure Pulmonary edema Metabolic acidosis ESRD Fluid overload Hypertensive emergency Lupus Bipolar disorder 10/29/2021. Nephrology was consulted for urgent dialysis yesterday. Patient received dialysis but was taken off with ~ 1 hour and 30 minutes left in treatment as she had an arguement with our staff. Nephrology discussed with patient the benefit of doing a small sequential ultrafiltration treatment today given her incomplete treatment yesterday. Patient does not want to do the treatment today as she states that 3 days consecutively hemodialysis be too much for her body. Also, counseled patient on the risks of fluid overload but she still wants to hold off on dialysis today at this time. Patient reports that she has a headache today. I suspect her headache is related to accelerated hypertension. We will increase her hydralazine and add Procardia to her blood p ressure regimen History Interval history: No new issues overnight Hospitalist Physical - Constitutional Vitals: Temp Pulse Resp BP Pulse Ox 98.3 F 83 18 197/129 100 10/29/21 09:02 10/29/21 09:02 10/29/21 09:02 10/29/21 09:02 10/29/21 09:02 General appearance: Present: mild distress - EENT Eyes: Present: PERRL, EOM intact ENT: hearing intact, clear oral mucosa, dentition normal - Neck Neck: Present: supple, normal ROM - Respiratory Respiratory effort: normal Respiratory: bilateral: CTA - Cardiovascular Rhythm: regular Heart Sounds: Present: S1 & S2. Absent: gallop, rub - Extremities Extremities: no ischemia, No edema, Full ROM - Abdominal General gastrointestinal: soft, non-tender, non-distended, normal bowel sounds - Integumentary Integumentary: Present: clear, warm, dry - Neurologic Neurologic: CNII-XII intact, moves all extremities HEART Score - HEART Score Troponin: Troponin T 0.114 ng/mL (0.00-0.029) H* 10/28/21 14:34 Results - Labs CBC & Chem 7: 10/28/21 14:34 10/29/21 04:08 Labs: Laboratory Last Values WBC 7.1 K/mm3 (4.5-11.0) 10/28/21 14:34 RBC 2.52 M/mm3 (3.65-5.03) L 10/28/21 14:34 Hgb 8.1 gm/dl (10.1-14.3) L 10/28/21 14:34 Hct 25.7 % (30.3-42.9) L 10/28/21 14:34 MCV 102 fl (79-97) H 10/28/21 14:34 MCH 32 pg (28-32) 10/28/21 14:34 MCHC 32 % (30-34) 10/28/21 14:34 RDW 19.5 % (13.2-15.2) H 10/28/21 14:34 Plt Count 139 K/mm3 (140-440) L 10/28/21 14:34 Lymph % (Auto) 22.9 % (13.4-35.0) 10/28/21 14:34 [place] % (Auto) 10.5 % (0.0-7.3) H 10/28/21 14:34 Eos % (Auto) 3.9 % (0.0-4.3) 10/28/21 14:34 Baso % (Auto) 0.2 % (0.0-1.8) 10/28/21 14:34 Lymph # (Auto) 1.6 K/mm3 (1.2-5.4) 10/28/21 14:34 [place] # (Auto) 0.7 K/mm3 (0.0-0.8) 10/28/21 14:34 Eos # (Auto) 0.3 K/mm3 (0.0-0.4) 10/28/21 14:34 Baso # (Auto) 0.0 K/mm3 (0.0-0.1) 10/28/21 14:34 Seg Neutrophils % 62.5 % (40.0-70.0) 10/28/21 14:34 Seg Neutrophils # 4.4 K/mm3 (1.8-7.7) 10/28/21 14:34 PT 12.4 Sec. (12.2-14.9) 10/28/21 14:34 INR 0.84 (0.87-1.13) L 10/28/21 14:34 Sodium 134 mmol/L (137-145) L 10/29/21 04:08 Potassium 5.1 mmol/L (3.6-5.0) H 10/29/21 04:08 Chloride 100.2 mmol/L (98-107) 10/29/21 04:08 Carbon Dioxide 22 mmol/L (22-30) 10/29/21 04:08 Anion Gap 17 mmol/L 10/29/21 04:08 BUN 32 mg/dL (7-17) H 10/29/21 04:08 Creatinine 6.5 mg/dL (0.6-1.2) H 10/29/21 04:08 Estimated GFR 9 ml/min 10/29/21 04:08 BUN/Creatinine Ratio 5 % 10/29/21 04:08 Glucose 95 mg/dL (65-100) 10/29/21 04:08 Calcium 8.9 mg/dL (8.4-10.2) 10/29/21 04:08 Total Bilirubin 0.40 mg/dL (0.1-1.2) 10/29/21 04:08 AST 22 units/L (5-40) 10/29/21 04:08 ALT 10 units/L (7-56) 10/29/21 04:08 Alkaline Phosphatase 78 units/L (35-129) 10/29/21 04:08 Total Creatine Kinase 97 units/L (30-135) 10/28/21 14:34 CK-MB (CK-2) 2.5 ng/mL (0.0-4.0) 10/28/21 14:34 CK-MB (CK-2) Rel Index 2.5 (0-4) 10/28/21 14:34 Troponin T 0.114 ng/mL (0.00-0.029) H* 10/28/21 14:34 Total Protein 6.1 g/dL (6.3-8.2) L 10/29/21 04:08 Albumin 3.1 g/dL (3.9-5) L 10/29/21 04:08 Albumin/Globulin Ratio 1.0 % 10/29/21 04:08 Triglycerides 127 mg/dL (2-149) 10/28/21 14:34 Cholesterol 193 mg/dL (50-199) 10/28/21 14:34 LDL Cholesterol Direct 103 mg/dL (50-130) 10/28/21 14:34 HDL Cholesterol 67 mg/dL (40-59) H 10/28/21 14:34 Cholesterol/HDL Ratio 2.88 % 10/28/21 14:34 HCG, Qual Negative (Negative) 10/28/21 14:34 Hepatitis A IgM Ab Non-reactive (NonReactive) 10/28/21 18:02 Hep Bs Antigen Non-reactive (Negative) 10/28/21 18:02 Hep B Core IgM Ab Non-reactive (NonReactive) 10/28/21 18:02 Hepatitis C Antibody Non-reactive (NonReactive) 10/28/21 18:02 Active Medications - Current Medications Current Medications: Generic Name Dose Route Start Last Admin Trade Name Freq PRN Reason Stop Dose Admin Acetaminophen 650 mg 10/28/21 17:35 Acetaminophen 325 Mg Tab PO Q4H PRN Pain MILD(1-3)/Fever >100.5/GUZMAN Albuterol 2.5 mg 10/28/21 17:35 Albuterol 2.5 Mg/3 Ml Nebu IH Q4HRT PRN Shortness Of Breath Amitriptyline HCl 30 mg 10/29/21 10:00 Amitriptyline 10 Mg Tab PO QDAY OLLIE Ferrous Sulfate 325 mg 10/28/21 22:00 10/28/21 21:34 Ferrous Sulfate 325 Mg Tab PO 325 mg BID OLLIE Administration Hydralazine HCl 100 mg 10/29/21 10:00 Hydralazine 100 Mg Tab PO DAILY OLLIE Hydralazine HCl 10 mg 10/28/21 20:49 10/28/21 21:19 Hydralazine 20 Mg/1 Ml Inj IV 10 mg Q6HR PRN Administration Hypertension Hydromorphone HCl 0.5 mg 10/28/21 17:35 10/28/21 21:19 Hydromorphone 0.5 Mg/0.5 Ml Inj IV 0.5 mg Q13H PRN Administration Pain , Severe (7-10) Hydroxychloroquine Sulfate 200 mg 10/29/21 10:00 Hydroxychloroquine 200 Mg Tab PO QDAY OLLIE Hydroxyzine HCl 25 mg 10/28/21 17:38 Hydroxyzine Hcl 25 Mg Tab PO Q6HR PRN Itching Sodium Chloride 100 mls @ 999 mls/hr 10/28/21 18:00 Nacl 0.9% IV ALEXX PRN Hypotension Labetalol HCl 100 mg 10/28/21 22:00 10/28/21 21:34 Labetalol 100 Mg Tab PO 100 mg BID OLLIE Administration Ondansetron HCl 4 mg 10/28/21 17:35 10/29/21 04:09 Ondansetron 4 Mg/2 Ml Inj IV 4 mg Q8H PRN Administration Nausea And Vomiting Oxycodone/Acetaminophen 1 tab 10/28/21 17:35 10/29/21 04:02 Oxycodone /Acetaminophen 5-325mg Tab PO 1 tab Q6H PRN Administration Pain, Moderate (4-6) Sodium Chloride 10 ml 10/28/21 22:00 Sodium Chloride 0.9% 10 Ml Flush Syringe IV BID OLLIE Sodium Chloride 10 ml 10/28/21 17:35 Sodium Chloride 0.9% 10 Ml Flush Syringe IV PRN PRN LINE FLUSH
--- NOTE | 2021-10-29 10:33 | Electrocardiograph Report ---
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
[2021-10-29] MEDS: HYDROmorphone 0.5 MG/0.5 ML INJ IV PRN ×2 (10:37→23:47)
[2021-10-29] MEDS: HYDROXYCHLOROQUINE 200 MG TAB PO SCH (10:37)
[2021-10-29] MEDS: FERROUS SULFATE 325 MG TAB PO SCH ×2 (10:37→21:31)
[2021-10-29] MEDS: hydrALAZINE 20 MG/1 ML INJ IV PRN ×2 (18:07→23:57)
[2021-10-29] MEDS: hydrALAZINE 100 MG TAB PO SCH ×2 (18:11→21:39)
[2021-10-29] MEDS: NIFEdipine XL 30 MG TAB PO SCH (21:31)
[2021-10-29] MEDS: MAGNESIUM HYDROXIDE (MOM) ORAL LIQD UDC PO PRN (23:47)
[2021-10-30] MEDS: hydrALAZINE 20 MG/1 ML INJ IV PRN (04:08)
[2021-10-30] MEDS: hydrALAZINE 100 MG TAB PO SCH ×3 (08:49→22:00)
[2021-10-30] MEDS: AMITRIPTYLINE 10 MG TAB PO SCH ×2 (09:01→22:01)
[2021-10-30] MEDS: HYDROXYCHLOROQUINE 200 MG TAB PO SCH (09:02)
[2021-10-30] MEDS: NIFEdipine XL 30 MG TAB PO SCH (09:02)
[2021-10-30] MEDS: FERROUS SULFATE 325 MG TAB PO SCH ×2 (09:02→22:00)
[2021-10-30] MEDS ORDERED: NIFEdipine XL 30 MG TAB PO SCH (10:03)
--- NOTE | 2021-10-30 10:04 | Progress Note ---
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 Patient also acknowledges noncompliance with renal diet as well as fluid restriction. EMS was notified and upon arrival the patient was found to be in distress and subsequently transported to [facility] for further care and evaluation of the aforementioned symptoms. The patient was seen and evaluated in the emergency department. All lab and imaging studies reviewed. The patient was found to have a pulse oximetry of 86% on room air which is consistent with acute hypoxemic respiratory failure with bilateral pulmonary edema evident on chest x-ray suspected secondary to fluid overload, as well as metabolic acidosis. Patient also found to have a blood pressure of 230/130 mmHg with concomitant confusion and headache which is consistent with hypertensive emergency, hypertensive encephalopathy. Acute hypoxic respiratory failure Pulmonary edema Metabolic acidosis ESRD Fluid overload Hypertensive emergency Lupus Bipolar disorder 10/29/2021. Nephrology was consulted for urgent dialysis yesterday. Patient received dialysis but was taken off with ~ 1 hour and 30 minutes left in treatment as she had an arguement with our staff. Nephrology discussed with patient the benefit of doing a small sequential ultrafiltration treatment today given her incomplete treatment yesterday. Patient does not want to do the treatment today as she states that 3 days consecutively hemodialysis be too much for her body. Also, counseled patient on the risks of fluid overload but she still wants to hold off on dialysis today at this time. Patient reports that she has a headache today. I suspect her headache is related to accelerated hypertension. We will increase her hydralazine and add Procardia to her blood p ressure regimen 10/30/2021. Patient with hyperkalemia and a potassium of 5.9. However, patient is to undergo hemodialysis today. BP remains elevated. We will increase Procardia to 90 mg twice daily. History Interval history: No new issues overnight Hospitalist Physical - Constitutional Vitals: Temp Pulse Resp BP Pulse Ox 98.1 F 83 18 171/115 98 10/30/21 07:33 10/30/21 07:33 10/30/21 07:33 10/30/21 07:33 10/30/21 07:33 General appearance: Present: no acute distress - EENT Eyes: Present: PERRL, EOM intact ENT: hearing intact, clear oral mucosa, dentition normal - Neck Neck: Present: supple, normal ROM - Respiratory Respiratory effort: normal Respiratory: bilateral: CTA - Cardiovascular Rhythm: regular Heart Sounds: Present: S1 & S2. Absent: gallop, rub - Extremities Extremities: no ischemia, No edema, Full ROM - Abdominal General gastrointestinal: soft, non-tender, non-distended, normal bowel sounds - Integumentary Integumentary: Present: clear, warm, dry - Neurologic Neurologic: CNII-XII intact, moves all extremities HEART Score - HEART Score Troponin: Troponin T 0.114 ng/mL (0.00-0.029) H* 10/28/21 14:34 Results - Labs CBC & Chem 7: 10/28/21 14:34 10/30/21 07:24 Labs: Laboratory Last Values WBC 7.1 K/mm3 (4.5-11.0) 10/28/21 14:34 RBC 2.52 M/mm3 (3.65-5.03) L 10/28/21 14:34 Hgb 8.1 gm/dl (10.1-14.3) L 10/28/21 14:34 Hct 25.7 % (30.3-42.9) L 10/28/21 14:34 MCV 102 fl (79-97) H 10/28/21 14:34 MCH 32 pg (28-32) 10/28/21 14:34 MCHC 32 % (30-34) 10/28/21 14:34 RDW 19.5 % (13.2-15.2) H 10/28/21 14:34 Plt Count 139 K/mm3 (140-440) L 10/28/21 14:34 Lymph % (Auto) 22.9 % (13.4-35.0) 10/28/21 14:34 [place] % (Auto) 10.5 % (0.0-7.3) H 10/28/21 14:34 Eos % (Auto) 3.9 % (0.0-4.3) 10/28/21 14:34 Baso % (Auto) 0.2 % (0.0-1.8) 10/28/21 14:34 Lymph # (Auto) 1.6 K/mm3 (1.2-5.4) 10/28/21 14:34 [place] # (Auto) 0.7 K/mm3 (0.0-0.8) 10/28/21 14:34 Eos # (Auto) 0.3 K/mm3 (0.0-0.4) 10/28/21 14:34 Baso # (Auto) 0.0 K/mm3 (0.0-0.1) 10/28/21 14:34 Seg Neutrophils % 62.5 % (40.0-70.0) 10/28/21 14:34 Seg Neutrophils # 4.4 K/mm3 (1.8-7.7) 10/28/21 14:34 PT 12.4 Sec. (12.2-14.9) 10/28/21 14:34 INR 0.84 (0.87-1.13) L 10/28/21 14:34 Sodium 134 mmol/L (137-145) L 10/30/21 07:24 Potassium 5.9 mmol/L (3.6-5.0) H 10/30/21 07:24 Chloride 96.5 mmol/L (98-107) L 10/30/21 07:24 Carbon Dioxide 22 mmol/L (22-30) 10/30/21 07:24 Anion Gap 21 mmol/L 10/30/21 07:24 BUN 50 mg/dL (7-17) H 10/30/21 07:24 Creatinine 8.2 mg/dL (0.6-1.2) H 10/30/21 07:24 Estimated GFR 7 ml/min 10/30/21 07:24 BUN/Creatinine Ratio 6 % 10/30/21 07:24 Glucose 112 mg/dL (65-100) H 10/30/21 07:24 Calcium 9.0 mg/dL (8.4-10.2) 10/30/21 07:24 Total Bilirubin 0.40 mg/dL (0.1-1.2) 10/29/21 04:08 AST 22 units/L (5-40) 10/29/21 04:08 ALT 10 units/L (7-56) 10/29/21 04:08 Alkaline Phosphatase 78 units/L (35-129) 10/29/21 04:08 Total Creatine Kinase 97 units/L (30-135) 10/28/21 14:34 CK-MB (CK-2) 2.5 ng/mL (0.0-4.0) 10/28/21 14:34 CK-MB (CK-2) Rel Index 2.5 (0-4) 10/28/21 14:34 Troponin T 0.114 ng/mL (0.00-0.029) H* 10/28/21 14:34 Total Protein 6.1 g/dL (6.3-8.2) L 10/29/21 04:08 Albumin 3.1 g/dL (3.9-5) L 10/29/21 04:08 Albumin/Globulin Ratio 1.0 % 10/29/21 04:08 Triglycerides 127 mg/dL (2-149) 10/28/21 14:34 Cholesterol 193 mg/dL (50-199) 10/28/21 14:34 LDL Cholesterol Direct 103 mg/dL (50-130) 10/28/21 14:34 HDL Cholesterol 67 mg/dL (40-59) H 10/28/21 14:34 Cholesterol/HDL Ratio 2.88 % 10/28/21 14:34 HCG, Qual Negative (Negative) 10/28/21 14:34 Hepatitis A IgM Ab Non-reactive (NonReactive) 10/28/21 18:02 Hep Bs Antigen Non-reactive (Negative) 10/28/21 18:02 Hep B Core IgM Ab Non-reactive (NonReactive) 10/28/21 18:02 Hepatitis C Antibody Non-reactive (NonReactive) 10/28/21 18:02 Nuñez/IV: Voiding Method Toilet Active Medications - Current Medications Current Medications: Generic Name Dose Route Start Last Admin Trade Name Freq PRN Reason Stop Dose Admin Acetaminophen 650 mg 10/28/21 17:35 Acetaminophen 325 Mg Tab PO Q4H PRN Pain MILD(1-3)/Fever >100.5/GUZMAN Albuterol 2.5 mg 10/28/21 17:35 Albuterol 2.5 Mg/3 Ml Nebu IH Q4HRT PRN Shortness Of Breath Amitriptyline HCl 30 mg 10/29/21 10:00 10/30/21 09:01 Amitriptyline 10 Mg Tab PO 30 mg QDAY OLLIE Administration Ferrous Sulfate 325 mg 10/28/21 22:00 10/30/21 09:02 Ferrous Sulfate 325 Mg Tab PO 325 mg BID OLLIE Administration Hydralazine HCl 100 mg 10/29/21 14:00 10/30/21 08:49 Hydralazine 100 Mg Tab PO 100 mg TID OLLIE Administration Hydralazine HCl 10 mg 10/30/21 03:48 10/30/21 04:08 Hydralazine 20 Mg/1 Ml Inj IV 10 mg Q4HR PRN Administration Hypertension Hydromorphone HCl 0.5 mg 10/28/21 17:35 10/29/21 23:47 Hydromorphone 0.5 Mg/0.5 Ml Inj IV 0.5 mg Q13H PRN Administration Pain , Severe (7-10) Hydroxychloroquine Sulfate 200 mg 10/29/21 10:00 10/30/21 09:02 Hydroxychloroquine 200 Mg Tab PO 200 mg QDAY OLLIE Administration Hydroxyzine HCl 25 mg 10/28/21 17:38 Hydroxyzine Hcl 25 Mg Tab PO Q6HR PRN Itching Sodium Chloride 100 mls @ 999 mls/hr 10/28/21 18:00 Nacl 0.9% IV ALEXX PRN Hypotension Labetalol HCl 100 mg 10/28/21 22:00 10/30/21 09:02 Labetalol 100 Mg Tab PO 100 mg BID OLLIE Administration Magnesium Hydroxide 30 ml 10/29/21 23:39 10/29/21 23:47 Magnesium Hydroxide (Mom) Oral Liqd Udc PO 30 ml QDAY PRN Administration Constipation Nifedipine 30 mg 10/29/21 22:00 10/30/21 09:02 Nifedipine Xl 30 Mg Tab PO 30 mg Q12HR OLLIE Administration Ondansetron HCl 4 mg 10/28/21 17:35 10/29/21 21:33 Ondansetron 4 Mg/2 Ml Inj IV 4 mg Q8H PRN Administration Nausea And Vomiting Oxycodone/Acetaminophen 1 tab 10/28/21 17:35 10/29/21 18:14 Oxycodone /Acetaminophen 5-325mg Tab PO 1 tab Q6H PRN Administration Pain, Moderate (4-6) Sodium Chloride 10 ml 10/28/21 22:00 10/30/21 09:03 Sodium Chloride 0.9% 10 Ml Flush Syringe IV 10 ml BID OLLIE Administration Sodium Chloride 10 ml 10/28/21 17:35 Sodium Chloride 0.9% 10 Ml Flush Syringe IV PRN PRN LINE FLUSH
[2021-10-30] MEDS: NIFEdipine XL 90 MG TAB PO SCH ×2 (11:00→22:00)
[2021-10-30] MEDS: oxyCODONE /ACETAMINOPHEN 5-325MG TAB PO PRN (13:58)
--- NOTE | 2021-10-30 17:16 | Progress Note ---
Assessment and Plan - Patient Problems (1) Fluid overload Current Visit: Yes Status: Acute Qualifiers: Hypervolemia type: unspecified Qualified Code(s): E87.70 - Fluid overload, unspecified Plan to address problem: we will try to optimize fluid removal through dialysis and adequate ultrafiltr ation. (2) Acute hypoxemic respiratory failure Current Visit: Yes Status: Acute Plan to address problem: likely in the setting of volume overload secondary to noncompliance with hemodialysis. Discussed with patient the importance of compliance with dialysis treatments. Discussed with patient the importance of staying on for the entire treatments to allow us to remove the needed ultrafiltration volume. (3) Hypertension, uncontrolled Current Visit: No Status: Acute Plan to address problem: likely as a consequence of fluid overload and poor compliance with dialysis. We will try to improve with medication management along with optimal volume removal. (4) ESRD needing dialysis Current Visit: Yes Status: Chronic Plan to address problem: we will place on a Thursday hemodialysis schedule at this time as an inpatient. (5) Noncompliance with renal dialysis Current Visit: No Status: Acute Plan to address problem: discussed the importance of compliance with her dialysis treatments. Subjective Date of service: 10/30/21 Interval history: No acute changes. Plan for HD today. Objective - Vital Signs Vital signs: Vital Signs - 12hr 10/30/21 10/30/21 10/30/21 07:23 07:33 10:00 Temperature 98.1 F Pulse Rate 83 83 Respiratory 18 Rate Blood Pressure 171/115 O2 Sat by Pulse 100 98 Oximetry O2 Sat by Pulse Oximetry [ Posterior Throughout] 10/30/21 10/30/21 10/30/21 10:12 10:19 10:30 Temperature 98.6 F Pulse Rate 77 77 79 Respiratory 18 Rate Blood Pressure 154/100 149/93 152/92 O2 Sat by Pulse Oximetry O2 Sat by Pulse 100 Oximetry [ Posterior Throughout] 10/30/21 10/30/21 10/30/21 10:45 11:00 11:15 Temperature Pulse Rate 79 79 80 Respiratory Rate Blood Pressure 153/91 141/75 143/87 O2 Sat by Pulse Oximetry O2 Sat by Pulse Oximetry [ Posterior Throughout] 10/30/21 10/30/21 10/30/21 11:30 11:45 11:49 Temperature Pulse Rate 78 79 Respiratory Rate Blood Pressure 154/80 156/98 O2 Sat by Pulse 98 Oximetry O2 Sat by Pulse Oximetry [ Posterior Throughout] 10/30/21 10/30/21 10/30/21 12:00 12:15 12:30 Temperature Pulse Rate 75 73 73 Respiratory Rate Blood Pressure 153/91 157/93 147/99 O2 Sat by Pulse Oximetry O2 Sat by Pulse Oximetry [ Posterior Throughout] 10/30/21 10/30/21 10/30/21 12:45 13:00 13:15 Temperature Pulse Rate 71 71 82 Respiratory Rate Blood Pressure 176/103 165/98 180/111 O2 Sat by Pulse Oximetry O2 Sat by Pulse Oximetry [ Posterior Throughout] 10/30/21 10/30/21 10/30/21 13:19 13:48 13:58 Temperature 98.4 F Pulse Rate 81 81 Respiratory 18 20 Rate Blood Pressure 176/109 166/104 O2 Sat by Pulse Oximetry O2 Sat by Pulse 100 Oximetry [ Posterior Throughout] - General Appearance General appearance: appears stated age EENT: ATNC Neck: no JVD Respiratory: Present: Decreased Breath Sounds Cardiology: regular Gastrointestinal: normal Integumentary: no rash Neurologic: no focal deficit Musculoskeletal: deferred Psychiatric: mood/affect appropriate - Lab 10/28/21 14:34 10/30/21 07:24 Most recent lab results Calcium 9.0 mg/dL (8.4-10.2) 10/30/21 07:24 - Allied health notes Allied health notes reviewed: nursing Medications & Allergies - Medications Allergies/Adverse Reactions: Allergies amoxicillin trihydrate [From Augmentin] Allergy (Unknown, Verified 10/30/21 10:14) Hives Tolerates Zosyn diphenhydramine [From Benadryl] Allergy (Verified 10/30/21 10:14) Itching potassium clavulanate [From Augmentin] Adverse Reaction (Unknown, Verified 10/30 10:14) Hives Home Medications: Home Medications Medication Instructions Recorded Confirmed Last Taken Type Amitriptyline [Elavil] 30 mg PO QDAY #90 08/20/21 10/30/21 Unknown Rx Hydroxychloroquine [Plaquenil] 200 mg PO QDAY #30 tablet 08/20/21 10/30/21 U nknown Rx hydrALAZINE [Apresoline TAB] 100 mg PO DAILY #30 tab 08/20/21 10/30/21 Unknown Rx hydrOXYzine HCL [Atarax] 25 mg PO Q6HR PRN #20 tablet 08/20/21 10/30/21 Unknown Rx labetaloL [Labetalol 100mg TAB] 100 mg PO BID #60 tablet 08/20/21 10/30/21 Unknown Rx NIFEdipine [Nifedipine ER] 60 mg PO QDAY 10/30/21 10/30/21 Unknown History Omeprazole 20 mg PO QDAY 10/30/21 10/30/21 Unknown History Active Medications: Generic Name Dose Route Start Last Admin Trade Name Freq PRN Reason Stop Dose Admin Acetaminophen 650 mg 10/28/21 17:35 Acetaminophen 325 Mg Tab PO Q4H PRN Pain MILD(1-3)/Fever >100.5/GUZMAN Albuterol 2.5 mg 10/28/21 17:35 Albuterol 2.5 Mg/3 Ml Nebu IH Q4HRT PRN Shortness Of Breath Amitriptyline HCl 30 mg 10/29/21 10:00 10/30/21 09:01 Amitriptyline 10 Mg Tab PO 30 mg QDAY OLLIE Administration Ferrous Sulfate 325 mg 10/28/21 22:00 10/30/21 09:02 Ferrous Sulfate 325 Mg Tab PO 325 mg BID OLLIE Administration Hydralazine HCl 100 mg 10/29/21 14:00 10/30/21 13:58 Hydralazine 100 Mg Tab PO 100 mg TID OLLIE Administration Hydralazine HCl 10 mg 10/30/21 03:48 10/30/21 04:08 Hydralazine 20 Mg/1 Ml Inj IV 10 mg Q4HR PRN Administration Hypertension Hydromorphone HCl 0.5 mg 10/28/21 17:35 10/29/21 23:47 Hydromorphone 0.5 Mg/0.5 Ml Inj IV 0.5 mg Q13H PRN Administration Pain , Severe (7-10) Hydroxychloroquine Sulfate 200 mg 10/29/21 10:00 10/30/21 09:02 Hydroxychloroquine 200 Mg Tab PO 200 mg QDAY OLLIE Administration Hydroxyzine HCl 25 mg 10/28/21 17:38 Hydroxyzine Hcl 25 Mg Tab PO Q6HR PRN Itching Sodium Chloride 100 mls @ 999 mls/hr 10/28/21 18:00 Nacl 0.9% IV ALEXX PRN Hypotension Labetalol HCl 100 mg 10/28/21 22:00 10/30/21 09:02 Labetalol 100 Mg Tab PO 100 mg BID OLLIE Administration Magnesium Hydroxide 30 ml 10/29/21 23:39 10/29/21 23:47 Magnesium Hydroxide (Mom) Oral Liqd Udc PO 30 ml QDAY PRN Administration Constipation Nifedipine 90 mg 10/30/21 11:00 10/30/21 11:00 Nifedipine Xl 90 Mg Tab PO Not Given Q12H OLLIE Ondansetron HCl 4 mg 10/28/21 17:35 10/29/21 21:33 Ondansetron 4 Mg/2 Ml Inj IV 4 mg Q8H PRN Administration Nausea And Vomiting Oxycodone/Acetaminophen 1 tab 10/28/21 17:35 10/30/21 13:58 Oxycodone /Acetaminophen 5-325mg Tab PO 1 tab Q6H PRN Administration Pain, Moderate (4-6) Pantoprazole Sodium 40 mg 10/31/21 07:30 Pantoprazole 40 Mg Tab PO QDAC OLLIE Sodium Chloride 10 ml 10/28/21 22:00 10/30/21 09:03 Sodium Chloride 0.9% 10 Ml Flush Syringe IV 10 ml BID OLLIE Administration Sodium Chloride 10 ml 10/28/21 17:35 Sodium Chloride 0.9% 10 Ml Flush Syringe IV PRN PRN LINE FLUSH
[2021-10-30 23:44] LABS: Hematocrit 23.6 % (30.3-42.9); Hemoglobin 7.5 gm/dl (10.1-14.3); Mean Corpuscular HGB Conc 32 % (30-34); Mean Corpuscular Volume 104 fl (79-97); Red Blood Count 2.27 M/mm3 (3.65-5.03); Red Cell Distribution Width 19.8 % (13.2-15.2)
[2021-10-30 23:53] LABS: Platelet Count 116 K/mm3 (140-440)
[2021-10-31 00:29] LABS: Basophils % (Manual) 0 % (0.0-1.8); Total Cells Counted 100
[2021-10-31 00:30] LABS: Platelet Estimate Consistent w Auto
[2021-10-31] MEDS: HYDROmorphone 0.5 MG/0.5 ML INJ IV PRN ×2 (01:11→17:37)
[2021-10-31] MEDS: hydrALAZINE 20 MG/1 ML INJ IV PRN (01:11)
[2021-10-31] MEDS: oxyCODONE /ACETAMINOPHEN 5-325MG TAB PO PRN ×3 (06:51→20:14)
[2021-10-31] MEDS: ONDANSETRON 4 MG/2 ML INJ IV PRN ×2 (06:51→20:13)
--- NOTE | 2021-10-31 08:25 | Progress Note ---
Assessment and Plan - Patient Problems (1) Fluid overload Current Visit: Yes Status: Acute Qualifiers: Hypervolemia type: unspecified Qualified Code(s): E87.70 - Fluid overload, unspecified Plan to address problem: we will try to optimize fluid removal through dialysis and adequate ultrafiltr ation. (2) Acute hypoxemic respiratory failure Current Visit: Yes Status: Acute Plan to address problem: likely in the setting of volume overload secondary to noncompliance with hemodialysis. Discussed with patient the importance of compliance with dialysis treatments. Discussed with patient the importance of staying on for the entire treatments to allow us to remove the needed ultrafiltration volume. (3) Hypertension, uncontrolled Current Visit: No Status: Acute Plan to address problem: likely as a consequence of fluid overload and poor compliance with dialysis. We will try to improve with medication management along with optimal volume removal. (4) ESRD needing dialysis Current Visit: Yes Status: Chronic Plan to address problem: we will place on a Thursday hemodialysis schedule at this time as an inpatient. (5) Noncompliance with renal dialysis Current Visit: No Status: Acute Plan to address problem: discussed the importance of compliance with her dialysis treatments. Subjective Date of service: 10/31/21 Interval history: No acute complete changes. Tolerated HD yesterday. Objective - Vital Signs Vital signs: Vital Signs - 12hr 10/30/21 10/30/21 10/30/21 20:31 21:57 21:58 Temperature 99.0 F Pulse Rate 91 H Respiratory 20 Rate Blood Pressure 187/112 O2 Sat by Pulse 100 99 Oximetry 10/31/21 10/31/21 10/31/21 00:00 00:09 00:57 Temperature 99.5 F Pulse Rate 82 85 Respiratory 18 Rate Blood Pressure 177/112 O2 Sat by Pulse 100 99 Oximetry 10/31/21 05:20 Temperature 97.6 F Pulse Rate 97 H Respiratory 17 Rate Blood Pressure 167/102 O2 Sat by Pulse 98 Oximetry - General Appearance General appearance: appears stated age EENT: ATNC Neck: no JVD Respiratory: Present: Decreased Breath Sounds Cardiology: regular Gastrointestinal: normal Integumentary: no rash Neurologic: no focal deficit, alert and oriented x3 Musculoskeletal: deferred Psychiatric: agitated - Lab 10/30/21 22:50 10/30/21 07:24 Most recent lab results Calcium 9.0 mg/dL (8.4-10.2) 10/30/21 07:24 - Imaging Chest x-ray: report reviewed - Allied health notes Allied health notes reviewed: nursing Medications & Allergies - Medications Allergies/Adverse Reactions: Allergies amoxicillin trihydrate [From Augmentin] Allergy (Unknown, Verified 10/30/21 10:14) Hives Tolerates Zosyn diphenhydramine [From Benadryl] Allergy (Verified 10/30/21 10:14) Itching potassium clavulanate [From Augmentin] Adverse Reaction (Unknown, Verified 10/30/21 10:14) Hives Home Medications: Home Medications Medication Instructions Recorded Confirmed Last Taken Type Amitriptyline [Elavil] 30 mg PO QDAY #90 08/20/21 10/30/21 Unknown Rx Hydroxychloroquine [Plaquenil] 200 mg PO QDAY #30 tablet 08/20/21 10/30/21 Unknown Rx hydrALAZINE [Apresoline TAB] 100 mg PO DAILY #30 tab 08/20/21 10/30/21 Unknown Rx hydrOXYzine HCL [Atarax] 25 mg PO Q6HR PRN #20 tablet 08/20/21 10/30/21 Unknown Rx labetaloL [Labetalol 100mg TAB] 100 mg PO BID #60 tablet 08/20/21 10/30/21 Unknown Rx NIFEdipine [Nifedipine ER] 60 mg PO QDAY 10/30/21 10/30/21 Unknown History Omeprazole 20 mg PO QDAY 10/30/21 10/30/21 Unknown History Active Medications: Generic Name Dose Route Start Last Admin Trade Name Freq PRN Reason Stop Dose Admin Acetaminophen 650 mg 10/28/21 17:35 Acetaminophen 325 Mg Tab PO Q4H PRN Pain MILD(1-3)/Fever >100.5/GUZMAN Albuterol 2.5 mg 10/28/21 17:35 Albuterol 2.5 Mg/3 Ml Nebu IH Q4HRT PRN Shortness Of Breath Amitriptyline HCl 30 mg 10/29/21 10:00 10/30/21 22:01 Amitriptyline 10 Mg Tab PO Not Given QDAY OLLIE Ferrous Sulfate 325 mg 10/28/21 22:00 10/30/21 22:00 Ferrous Sulfate 325 Mg Tab PO 325 mg BID OLLIE Administration Hydralazine HCl 100 mg 10/29/21 14:00 08/17/22 22:00 Hydralazine 100 Mg Tab PO 100 mg TID OLLIE Administration Hydralazine HCl 10 mg 10/30/21 03:48 10/31/21 01:11 Hydralazine 20 Mg/1 Ml Inj IV 10 mg Q4HR PRN Administration Hypertension Hydromorphone HCl 0.5 mg 10/28/21 17:35 10/31/21 01:11 Hydromorphone 0.5 Mg/0.5 Ml Inj IV 0.5 mg Q13H PRN Administration Pain , Severe (7-10) Hydroxychloroquine Sulfate 200 mg 10/29/21 10:00 10/30/21 09:02 Hydroxychloroquine 200 Mg Tab PO 200 mg QDAY OLLIE Administration Hydroxyzine HCl 25 mg 10/28/21 17:38 Hydroxyzine Hcl 25 Mg Tab PO Q6HR PRN Itching Sodium Chloride 100 mls @ 999 mls/hr 10/28/21 18:00 Nacl 0.9% IV ALEXX PRN Hypotension Labetalol HCl 400 mg 10/31/21 09:00 Labetalol 100 Mg Tab PO BID OLLIE Magnesium Hydroxide 30 ml 10/29/21 23:39 10/29/21 23:47 Magnesium Hydroxide (Mom) Oral Liqd Udc PO 30 ml QDAY PRN Administration Constipation Nifedipine 90 mg 10/30/21 11:00 10/30/21 22:00 Nifedipine Xl 90 Mg Tab PO 90 mg Q12H OLLIE Administration Ondansetron HCl 4 mg 10/28/21 17:35 10/31/21 06:51 Ondansetron 4 Mg/2 Ml Inj IV 4 mg Q8H PRN Administration Nausea And Vomiting Oxycodone/Acetaminophen 1 tab 10/28/21 17:35 10/31/21 06:51 Oxycodone /Acetaminophen 5-325mg Tab PO 1 tab Q6H PRN Administration Pain, Moderate (4-6) Pantoprazole Sodium 40 mg 10/31/21 07:30 Pantoprazole 40 Mg Tab PO QDAC OLLIE Sodium Chloride 10 ml 10/28/21 22:00 10/30/21 22:01 Sodium Chloride 0.9% 10 Ml Flush Syringe IV 10 ml BID OLLIE Administration Sodium Chloride 10 ml 10/28/21 17:35 Sodium Chloride 0.9% 10 Ml Flush Syringe IV PRN PRN LINE FLUSH
[2021-10-31] MEDS: PANTOPRAZOLE 40 MG TAB PO SCH (09:40)
[2021-10-31] MEDS: FERROUS SULFATE 325 MG TAB PO SCH ×2 (09:41→22:51)
[2021-10-31] MEDS: AMITRIPTYLINE 10 MG TAB PO SCH (09:41)
[2021-10-31] MEDS: hydrALAZINE 100 MG TAB PO SCH ×3 (09:41→20:15)
[2021-10-31] MEDS: HYDROXYCHLOROQUINE 200 MG TAB PO SCH (09:42)
[2021-10-31] MEDS: NIFEdipine XL 90 MG TAB PO SCH ×2 (12:03→22:51)
--- NOTE | 2021-10-31 13:26 | Progress Note ---
Assessment and Plan Assessment and plan: 30 YO Female with HTN, ESRD on HD(M,W,F) last dialyzed on Thursday, Seizure Disorder, SLE, ADHD, Malnutrition presents to ED for evaluation of shortness of breath over the past 2 days [employer]POS[employer]. Patient also acknowledges noncompliance with renal diet as well as fluid restriction. EMS was notified and upon arrival the patient was found to be in distress and subsequently transported to [facility] for further care and evaluation of the aforementioned symptoms. The patient was seen and evaluated in the emergency department. All lab and imaging studies reviewed. The patient was found to have a pulse oximetry of 86% on room air which is consistent with acute hypoxemic respiratory failure with bilateral pulmonary edema evident on chest x-ray suspected secondary to fluid overload, as well as metabolic acidosis. Patient also found to have a blood pressure of 230/130 mmHg with concomitant confusion and headache which is consistent with hypertensive emergency, hypertensive encephalopathy. Acute hypoxic respiratory failure Pulmonary edema Metabolic acidosis ESRD Fluid overload Hypertensive emergency Lupus Bipolar disorder 10/29/2021. Nephrology was consulted for urgent dialysis yesterday. Patient received dialysis but was taken off with ~ 1 hour and 30 minutes left in treatment as she had an arguement with our staff. Nephrology discussed with patient the benefit of doing a small sequential ultrafiltration treatment today given her incomplete treatment yesterday. Patient does not want to do the treatment today as she states that 3 days consecutively hemodialysis be too much for her body. Also, counseled patient on the risks of fluid overload but she still wants to hold off on dialysis today at this time. Patient reports that she has a headache today. I suspect her headache is related to accelerated hypertension. We will increase her hydralazine and add Procardia to her blood p ressure regimen 10/30/2021. Patient with hyperkalemia and a potassium of 5.9. However, patient is to undergo hemodialysis today. BP remains elevated. We will increase Procardia to 90 mg twice daily. 10/31/2021. Patient still with significantly elevated BPs. We will increase labetalol dose and anticipate for discharge in a.m. Continue hemodialysis per nephrology recommendations History Interval history: No new issues overnight Hospitalist Physical - Constitutional Vitals: Temp Pulse Resp BP Pulse Ox 98.1 F 79 17 136/87 96 10/31/21 07:48 10/31/21 10:00 10/31/21 07:48 10/31/21 07:48 10/31/21 10:00 General appearance: Present: no acute distress - EENT Eyes: Present: PERRL, EOM intact ENT: hearing intact, clear oral mucosa, dentition normal - Neck Neck: Present: supple, normal ROM - Respiratory Respiratory effort: normal Respiratory: bilateral: CTA - Cardiovascular Rhythm: regular Heart Sounds: Present: S1 & S2. Absent: gallop, rub - Extremities Extremities: no ischemia, No edema, Full ROM - Abdominal General gastrointestinal: soft, non-tender, non-distended, normal bowel sounds - Integumentary Integumentary: Present: clear, warm, dry - Neurologic Neurologic: CNII-XII intact, moves all extremities HEART Score - HEART Score Troponin: Troponin T 0.114 ng/mL (0.00-0.029) H* 10/28/21 14:34 Results - Labs CBC & Chem 7: 10/30/21 22:50 10/30/21 07:24 Labs: Laboratory Last Values WBC 6.5 K/mm3 (4.5-11.0) 10/30/21 22:50 RBC 2.27 M/mm3 (3.65-5.03) L 10/30/21 22:50 Hgb 7.5 gm/dl (10.1-14.3) L 10/30/21 22:50 Hct 23.6 % (30.3-42.9) L 10/30/21 22:50 MCV 104 fl (79-97) H 10/30/21 22:50 MCH 33 pg (28-32) H 10/30/21 22:50 MCHC 32 % (30-34) 10/30/21 22:50 RDW 19.8 % (13.2-15.2) H 10/30/21 22:50 Plt Count 116 K/mm3 (140-440) L 10/30/21 22:50 Lymph % (Auto) 22.9 % (13.4-35.0) 10/28/21 14:34 [place] % (Auto) Nursing Program Director 10/30/21 22:50 Eos % (Auto) 3.9 % (0.0-4.3) 10/28/21 14:34 Baso % (Auto) 0.2 % (0.0-1.8) 10/28/21 14:34 Lymph # (Auto) 1.6 K/mm3 (1.2-5.4) 10/28/21 14:34 [place] # (Auto) 0.7 K/mm3 (0.0-0.8) 10/28/21 14:34 Eos # (Auto) 0.3 K/mm3 (0.0-0.4) 10/28/21 14:34 Baso # (Auto) 0.0 K/mm3 (0.0-0.1) 10/28/21 14:34 Add Manual Diff Complete 10/30/21 22:50 Total Counted 100 10/30/21 22:50 Seg Neutrophils % 62.5 % (40.0-70.0) 10/28/21 14:34 Seg Neuts % (Manual) 72.0 % (40.0-70.0) H 10/30/21 22:50 Band Neutrophils % 0 % 10/30/21 22:50 Lymphocytes % (Manual) 11.0 % (13.4-35.0) L 10/30/21 22:50 Reactive Lymphs % (Man) 0 % 10/30/21 22:50 Monocytes % (Manual) 13.0 % (0.0-7.3) H 10/30/21 22:50 Eosinophils % (Manual) 4.0 % (0.0-4.3) 10/30/21 22:50 Basophils % (Manual) 0 % (0.0-1.8) 10/30/21 22:50 Metamyelocytes % 0 % 10/30/21 22:50 Myelocytes % 0 % 10/30/21 22:50 Promyelocytes % 0 % 10/30/21 22:50 Blast Cells % 0 % 10/30/21 22:50 Nucleated RBC % Not Reportable 10/30/21 22:50 Seg Neutrophils # 4.4 K/mm3 (1.8-7.7) 10/28/21 14:34 Seg Neutrophils # Man 4.7 K/mm3 (1.8-7.7) 10/30/21 22:50 Band Neutrophils # 0.0 K/mm3 10/30/21 22:50 Lymphocytes # (Manual) 0.7 K/mm3 (1.2-5.4) L 10/30/21 22:50 Abs React Lymphs (Man) 0.0 K/mm3 10/30/21 22:50 Monocytes # (Manual) 0.8 K/mm3 (0.0-0.8) 10/30/21 22:50 Eosinophils # (Manual) 0.3 K/mm3 (0.0-0.4) 10/30/21 22:50 Basophils # (Manual) 0.0 K/mm3 (0.0-0.1) 10/30/21 22:50 Metamyelocytes # 0.0 K/mm3 10/30/21 22:50 Myelocytes # 0.0 K/mm3 10/30/21 22:50 Promyelocytes # 0.0 K/mm3 10/30/21 22:50 Blast Cells # 0.0 K/mm3 10/30/21 22:50 WBC Morphology Not Reportable 10/30/21 22:50 Hypersegmented Neuts Not Reportable 10/30/21 22:50 Hyposegmented Neuts Not Reportable 10/30/21 22:50 Hypogranular Neuts Not Reportable 10/30/21 22:50 Smudge Cells Not Reportable 10/30/21 22:50 Toxic Granulation Not Reportable 10/30/21 22:50 Toxic Vacuolation Not Reportable 10/30/21 22:50 Dohle Bodies Not Reportable 10/30/21 22:50 Pelger-Huet Anomaly Not Reportable 10/30/21 22:50 Maite Rods Not Reportable 10/30/21 22:50 Platelet Estimate Consistent w auto 10/30/21 22:50 Clumped Platelets Not Reportable 10/30/21 22:50 Plt Clumps, EDTA Not Reportable 10/30/21 22:50 Large Platelets Not Reportable 10/30/21 22:50 Giant Platelets Not Reportable 10/30/21 22:50 Platelet Satelliting Not Reportable 10/30/21 22:50 Plt Morphology Comment Not Reportable 10/30/21 22:50 RBC Morphology Not Reportable 10/30/21 22:50 Dimorphic RBCs Not Reportable 10/30/21 22:50 Polychromasia Not Reportable 10/30/21 22:50 Hypochromasia Not Reportable 10/30/21 22:50 Poikilocytosis Not Reportable 10/30/21 22:50 Anisocytosis Not Reportable 10/30/21 22:50 Microcytosis Not Reportable 10/30/21 22:50 Macrocytosis Not Reportable 10/30/21 22:50 Spherocytes Not Reportable 10/30/21 22:50 Pappenheimer Bodies Not Reportable 10/30/21 22:50 Sickle Cells Not Reportable 10/30/21 22:50 Target Cells Not Reportable 10/30/21 22:50 Tear Drop Cells Not Reportable 10/30/21 22:50 Ovalocytes Not Reportable 10/30/21 22:50 Helmet Cells Not Reportable 10/30/21 22:50 [place] Bodies Not Reportable 10/30/21 22:50 [place] Rings Not Reportable 10/30/21 22:50 [place] Cells Not Reportable 10/30/21 22:50 Bite Cells Not Reportable 10/30/21 22:50 Crenated Cell Not Reportable 10/30/21 22:50 Elliptocytes Not Reportable 10/30/21 22:50 Acanthocytes (Spur) Not Reportable 10/30/21 22:50 Rouleaux Not Reportable 10/30/21 22:50 Hemoglobin C Crystals Not Reportable 10/30/21 22:50 Schistocytes Not Reportable 10/30/21 22:50 Malaria parasites Not Reportable 10/30/21 22:50 Al Bodies Not Reportable 10/30/21 22:50 Hem Pathologist Commnt No 10/30/21 22:50 PT 12.4 Sec. (12.2-14.9) 10/28/21 14:34 INR 0.84 (0.87-1.13) L 10/28/21 14:34 Sodium 134 mmol/L (137-145) L 10/30/21 07:24 Potassium 5.9 mmol/L (3.6-5.0) H 10/30/21 07:24 Chloride 96.5 mmol/L (98-107) L 10/30/21 07:24 Carbon Dioxide 22 mmol/L (22-30) 10/30/21 07:24 Anion Gap 21 mmol/L 10/30/21 07:24 BUN 50 mg/dL (7-17) H 10/30/21 07:24 Creatinine 8.2 mg/dL (0.6-1.2) H 10/30/21 07:24 Estimated GFR 7 ml/min 10/30/21 07:24 BUN/Creatinine Ratio 6 % 10/30/21 07:24 Glucose 112 mg/dL (65-100) H 10/30/21 07:24 POC Glucose 83 mg/dL (70-105) 10/31/21 11:33 Calcium 9.0 mg/dL (8.4-10.2) 10/30/21 07:24 Total Bilirubin 0.40 mg/dL (0.1-1.2) 10/29/21 04:08 AST 22 units/L (5-40) 10/29/21 04:08 ALT 10 units/L (7-56) 10/29/21 04:08 Alkaline Phosphatase 78 units/L (35-129) 10/29/21 04:08 Total Creatine Kinase 97 units/L (30-135) 10/28/21 14:34 CK-MB (CK-2) 2.5 ng/mL (0.0-4.0) 10/28/21 14:34 CK-MB (CK-2) Rel Index 2.5 (0-4) 10/28/21 14:34 Troponin T 0.114 ng/mL (0.00-0.029) H* 10/28/21 14:34 Total Protein 6.1 g/dL (6.3-8.2) L 10/29/21 04:08 Albumin 3.1 g/dL (3.9-5) L 10/29/21 04:08 Albumin/Globulin Ratio 1.0 % 10/29/21 04:08 Triglycerides 127 mg/dL (2-149) 10/28/21 14:34 Cholesterol 193 mg/dL (50-199) 10/28/21 14:34 LDL Cholesterol Direct 103 mg/dL (50-130) 10/28/21 14:34 HDL Cholesterol 67 mg/dL (40-59) H 10/28/21 14:34 Cholesterol/HDL Ratio 2.88 % 10/28/21 14:34 HCG, Qual Negative (Negative) 10/28/21 14:34 Hepatitis A IgM Ab Non-reactive (NonReactive) 10/28/21 18:02 Hep Bs Antigen Non-reactive (Negative) 10/28/21 18:02 Hep B Core IgM Ab Non-reactive (NonReactive) 10/28/21 18:02 Hepatitis C Antibody Non-reactive (NonReactive) 10/28/21 18:02 Nuñez/IV: Voiding Method Toilet Active Medications - Current Medications Current Medications: Generic Name Dose Route Start Last Admin Trade Name Freq PRN Reason Stop Dose Admin Acetaminophen 650 mg 10/28/21 17:35 Acetaminophen 325 Mg Tab PO Q4H PRN Pain MILD(1-3)/Fever >100.5/GUZMAN Albuterol 2.5 mg 10/28/21 17:35 Albuterol 2.5 Mg/3 Ml Nebu IH Q4HRT PRN Shortness Of Breath Amitriptyline HCl 30 mg 10/29/21 10:00 10/31/21 09:41 Amitriptyline 10 Mg Tab PO 30 mg QDAY OLLIE Administration Ferrous Sulfate 325 mg 10/28/21 22:00 10/31/21 09:41 Ferrous Sulfate 325 Mg Tab PO 325 mg BID OLLIE Administration Hydralazine HCl 100 mg 10/29/21 14:00 10/31/21 13:18 Hydralazine 100 Mg Tab PO 100 mg TID OLLIE Administration Hydralazine HCl 10 mg 10/30/21 03:48 10/31/21 01:11 Hydralazine 20 Mg/1 Ml Inj IV 10 mg Q4HR PRN Administration SBP >/=160; DBP >/=100 Hydromorphone HCl 0.5 mg 10/28/21 17:35 10/31/21 01:11 Hydromorphone 0.5 Mg/0.5 Ml Inj IV 0.5 mg Q13H PRN Administration Pain , Severe (7-10) Hydroxychloroquine Sulfate 200 mg 10/29/21 10:00 10/31/21 09:42 Hydroxychloroquine 200 Mg Tab PO 200 mg QDAY OLLIE Administration Hydroxyzine HCl 25 mg 10/28/21 17:38 Hydroxyzine Hcl 25 Mg Tab PO Q6HR PRN Itching Sodium Chloride 100 mls @ 999 mls/hr 10/28/21 18:00 Nacl 0.9% IV ALEXX PRN Hypotension Labetalol HCl 400 mg 10/31/21 10:00 10/31/21 09:42 Labetalol 200 Mg Tab PO 400 mg BID OLLIE Administration Magnesium Hydroxide 30 ml 10/29/21 23:39 10/29/21 23:47 Magnesium Hydroxide (Mom) Oral Liqd Udc PO 30 ml QDAY PRN Administration Constipation Nifedipine 90 mg 10/30/21 11:00 10/31/21 12:03 Nifedipine Xl 90 Mg Tab PO 90 mg Q12H OLLIE Administration Ondansetron HCl 4 mg 10/28/21 17:35 10/31/21 06:51 Ondansetron 4 Mg/2 Ml Inj IV 4 mg Q8H PRN Administration Nausea And Vomiting Oxycodone/Acetaminophen 1 tab 10/28/21 17:35 10/31/21 13:18 Oxycodone /Acetaminophen 5-325mg Tab PO 1 tab Q6H PRN Administration Pain, Moderate (4-6) Pantoprazole Sodium 40 mg 10/31/21 07:30 10/31/21 09:40 Pantoprazole 40 Mg Tab PO 40 mg QDAC OLLIE Administration Sodium Chloride 10 ml 10/28/21 22:00 10/31/21 09:42 Sodium Chloride 0.9% 10 Ml Flush Syringe IV 10 ml BID OLLIE Administration Sodium Chloride 10 ml 10/28/21 17:35 Sodium Chloride 0.9% 10 Ml Flush Syringe IV PRN PRN LINE FLUSH Nutrition/Malnutrition Assess - Dietary Evaluation Nutrition/Malnutrition Findings: Nutrition Notes Start: 10/30/21 17:30 Freq: Status: Active Protocol: Document 10/30/21 17:30 MICKI (Rec: 10/30/21 17:51 MICKI [id number]) Nutrition Notes Need for Assessment generated from: MD Order Initial or Follow up Assessment Current Diagnosis CKD (stage V CKD),Hypertension ,Respiratory Failure, Malnutrition Other Pertinent Diagnosis ESRD+HD, PE, Metabolic Acidosis, Fluid Overload, Seizure, ... Current Diet Cardiac -Renal- Diet (since D 10/28). Labs/Tests 10/30: Na 134, K 5.9, Cl 96.5, BUN 50, Crea 8.2, Glu 112. Pertinent Medications 10/30: FeSO4, others nutritionally unremarkable. 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 Weight Status Overweight Subjective/Other Information RD consult for dietary supplementation assessment. Pt's PO intake of meals has been Good (75-100%) and well tolerated, according to ADL notes. I will not prescribe dietary supplements, since PO diet is providing for all energy/ protein needs during LOS. Pt is on Room Air, O2 saturation @ 98%, according to Physical Assessment History notes. Pt has missing teeth, according to Physical Assessment History notes. Percent of energy/protein needs met: Prescribed Cardiac -Renal- Diet provides for energy/ protein needs (2,230 Kcal/85 g ) during LOS. Burn Absent Trauma Absent GI Symptoms None Food Allergy No Skin Integrity/Comment Assessment WNL. 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 No Is Patient Ambulatory and/or Out of Bed Yes REE-([place]-St. Jeor-ambulatory/OOB) [ 1804.569 [id number]] Kcal/Kg value to use for calculation 20 Approximate Energy Requirements Using 1378 kcal/Kg Calculation Used for Recommendations Kcal/kg Additional Notes Protein: >1.2 g/Kg ABW; >83 g/ day. Fluids: 1 ml/Kcal, or as per MD. Nutrition Intervention Change Diet Order: Continue Cardiac -Renal- Diet as tolerated. Follow-Up By: 11/06/21 Additional Comments Continue monitoring food tolerance, %PO intake of meals , and BM.
[2021-11-01] MEDS ORDERED: MORPHINE 2 MG/1 ML INJ IV ONE (03:14)
[2021-11-01] MEDS: ONDANSETRON 4 MG/2 ML INJ IV PRN (06:21)
--- NOTE | 2021-11-01 08:49 | Discharge Summary ---
Providers - Providers Date of Admission: 10/28/21 17:35 Date of discharge: 11/01/21 Attending physician: PINA BLACKBURN 10/28/21 17:06 Consult to Physician [CONS] Stat Comment: Consulting Provider: YURIY DUTTON Physician Instructions: Reason For Exam: ESRD needing dialysis/hypoxia Primary care physician: RIB CHOPPER Hospitalization Reason for admission: Accel HTN Condition: Serious Hospital course: 30 YO Female with HTN, ESRD on HD(M,W,F) last dialyzed on Thursday, Seizure Disorder, SLE, ADHD, Malnutrition presents to ED for evaluation of shortness of breath over the past 2 days [employer]. Patient also acknowledges noncompliance with renal diet as well as fluid restriction. EMS was notified and upon arrival the patient was found to be in distress and subsequently transported to [facility] for further care and evaluation of the aforementioned symptoms. The patient was seen and evaluated in the emergency department. All lab and imaging studies reviewed. The patient was found to have a pulse oximetry of 86% on room air which is consistent with acute hypoxemic respiratory failure with bilateral pulm onary edema evident on chest x-ray suspected secondary to fluid overload, as well as metabolic acidosis. Patient also found to have a blood pressure of 230/130 mmHg with concomitant confusion and headache which is consistent with hypertensive emergency, hypertensive encephalopathy. The patient was admitted with diagnosis below Acute hypoxic respiratory failure Pulmonary edema Metabolic acidosis ESRD Fluid overload Hypertensive emergency Lupus Bipolar disorder Medical noncompliance Hospital course: 10/29/2021. Nephrology was consulted for urgent dialysis yesterday. Patient received dialysis but was taken off with ~ 1 hour and 30 minutes left in treatment as she had an arguement with our staff. Nephrology discussed with patient the benefit of doing a small sequential ultrafiltration treatment today given her incomplete treatment yesterday. Patient does not want to do the treatment today as she states that 3 days consecutively hemodialysis be too much for her body. Also, counseled patient on the risks of fluid overload but she still wants to hold off on dialysis today at this time. Patient reports that she has a headache today. I suspect her headache is related to accelerated hypertension. We will increase her hydralazine and add Procardia to her blood pressure regimen 10/30/2021. Patient with hyperkalemia and a potassium of 5.9. However, patient is to undergo hemodialysis today. BP remains elevated. We will increase Procardia to 90 mg twice daily. 10/31/2021. Patient still with significantly elevated BPs. We will increase labetalol dose and anticipate for discharge in a.m. Continue hemodialysis per nephrology recommendations 11/01/2021. BP normalized. Pulm edema resolved. Dedicated d/c time 32 minutes Disposition: 01 HOME / SELF CARE / HOMELESS Final Discharge Diagnosis (Prints w/discharge instructions): Acute hypoxic respiratory failure. Pulmonary edema. Metabolic acidosis. ESRD. Fluid overload. Hypertensive emergency. Lupus. Bipolar disorder. Medical noncompliance Core Measure Documentation - Palliative Care Palliative Care/ Comfort Measures: Not Applicable - Core Measures Any of the following diagnoses?: none Exam - Constitutional Vitals: Temp Pulse Resp BP Pulse Ox 99.1 F 78 18 138/95 98 11/01/21 07:35 11/01/21 07:35 11/01/21 07:35 11/01/21 07:35 11/01/21 07:35 General appearance: Present: no acute distress, well-nourished - EENT Eyes: Present: PERRL ENT: hearing intact, clear oral mucosa - Neck Neck: Present: supple, normal ROM - Respiratory Respiratory effort: normal Respiratory: bilateral: CTA - Cardiovascular Heart Sounds: Present: S1 & S2. Absent: rub, click - Extremities Extremities: pulses symmetrical, No edema Peripheral Pulses: within normal limits - Abdominal General gastrointestinal: Present: soft, non-tender, non-distended, normal bowel sounds Female genitourinary: Present: normal - Integumentary Integumentary: Present: clear, warm, dry - Musculoskeletal Musculoskeletal: gait normal, strength equal bilaterally - Psychiatric Psychiatric: appropriate mood/affect, intact judgment & insight - Neurologic Neurologic: CNII-XII intact, moves all extremities Plan Activity: advance as tolerated Weight Bearing Status: Weight Bear as Tolerated Diet: renal Follow up with: PRIMARY CARE, [Primary Care Provider] - 3-5 Days LAURA SUN DO [Staff Physician] - 7 Days Prescriptions: hydrALAZINE [Apresoline TAB] 100 mg PO TID #90 tab hydrOXYzine HCL [Atarax] 25 mg PO Q6HR PRN #20 tablet PRN Reason: Itching Amitriptyline [Elavil] 30 mg PO QDAY #90 Ferrous Sulfate [Feosol 325 MG tab] 325 mg PO BID #60 tablet labetaloL [Labetalol 200mg TAB] 400 mg PO BID #60 tablet oxyCODONE /ACETAMINOPHEN [Percocet 5/325 mg] 1 tab PO Q6H PRN #10 tablet PRN Reason: Pain, Moderate (4-6) Hydroxychloroquine [Plaquenil] 200 mg PO QDAY #30 tablet NIFEdipine XL [Procardia Xl] 90 mg PO Q12H #60 tablet Pantoprazole [Protonix TAB] 40 mg PO QDAC #30 tablet
--- NOTE | 2021-11-01 08:58 | Progress Note ---
Assessment and Plan - Patient Problems (1) Fluid overload Current Visit: Yes Status: Acute Qualifiers: Hypervolemia type: unspecified Qualified Code(s): E87.70 - Fluid overload, unspecified Plan to address problem: we will try to optimize fluid removal through dialysis and adequate ultrafiltr ation. (2) Acute hypoxemic respiratory failure Current Visit: Yes Status: Acute Plan to address problem: likely in the setting of volume overload secondary to noncompliance with hemodialysis. Discussed with patient the importance of compliance with dialysis treatments. Discussed with patient the importance of staying on for the entire treatments to allow us to remove the needed ultrafiltration volume. (3) Hypertension, uncontrolled Current Visit: No Status: Acute Plan to address problem: likely as a consequence of fluid overload and poor compliance with dialysis. We will try to improve with medication management along with optimal volume removal. (4) ESRD needing dialysis Current Visit: Yes Status: Chronic Plan to address problem: we will place on a Thursday hemodialysis schedule at this time as an inpatient. If patient remains stable then she should be able to be discharged today after treatment. (5) Noncompliance with renal dialysis Current Visit: No Status: Acute Plan to address problem: discussed the importance of compliance with her dialysis treatments. Subjective Date of service: 11/01/21 Interval history: No acute issues this morning. Objective - Vital Signs Vital signs: Vital Signs - 12hr 10/31/21 10/31/21 10/31/21 21:18 22:00 22:52 Temperature 98.5 F Pulse Rate 101 H 101 H Respiratory 18 Rate Blood Pressure 147/100 147/100 O2 Sat by Pulse 98 99 Oximetry 11/01/21 11/01/21 11/01/21 00:00 00:42 05:51 Temperature 98.8 F 99.4 F Pulse Rate 81 77 Respiratory 18 18 Rate Blood Pressure 152/99 158/100 O2 Sat by Pulse 100 98 Oximetry 11/01/21 07:35 Temperature 99.1 F Pulse Rate 78 Respiratory 18 Rate Blood Pressure 138/95 O2 Sat by Pulse 98 Oximetry - General Appearance General appearance: well-developed, appears stated age EENT: ATNC Neck: no JVD, no thyromegaly Respiratory: Present: Clear to Ascultation Cardiology: regular Gastrointestinal: normal, normoactive bowel sounds Integumentary: no rash, warm and dry Neurologic: no focal deficit, alert and oriented x3 Musculoskeletal: deferred Psychiatric: mood/affect appropriate - Lab 10/30/21 22:50 10/30/21 07:24 Most recent lab results Calcium 9.0 mg/dL (8.4-10.2) 10/30/21 07:24 - Allied health notes Allied health notes reviewed: nursing Medications & Allergies - Medications Allergies/Adverse Reactions: Allergies amoxicillin trihydrate [From Augmentin] Allergy (Unknown, Verified 10/30/21 10:14) Hives Tolerates Zosyn diphenhydramine [From Benadryl] Allergy (Verified 10/30/21 10:14) Itching potassium clavulanate [From Augmentin] Adverse Reaction (Unknown, Verified 10/30/21 10:14) Hives Home Medications: Home Medications Medication Instructions Recorded Confirmed Last Taken Type Amitriptyline [Elavil] 30 mg PO QDAY #90 11/01/21 Unknown Rx Ferrous Sulfate [Feosol 325 MG tab] 325 mg PO BID #60 tablet 11/01/21 Unknown Rx Hydroxychloroquine [Plaquenil] 200 mg PO QDAY #30 tablet 11/01/21 Unknown Rx NIFEdipine XL [Procardia Xl] 90 mg PO Q12H #60 tablet 11/01/21 Unknown Rx Pantoprazole [Protonix TAB] 40 mg PO QDAC #30 tablet 11/01/21 Unknown Rx hydrALAZINE [Apresoline TAB] 100 mg PO TID #90 tab 11/01/21 Unknown Rx hydrOXYzine HCL [Atarax] 25 mg PO Q6HR PRN #20 tablet 11/01/21 Unknown Rx labetaloL [Labetalol 200mg TAB] 400 mg PO BID #60 tablet 11/01/21 Unknown Rx oxyCODONE /ACETAMINOPHEN [Percocet 1 tab PO Q6H PRN #10 tablet 11/01/21 Unknown Rx 5/325 mg] Active Medications: Generic Name Dose Route Start Last Admin Trade Name Freq PRN Reason Stop Dose Admin Acetaminophen 650 mg 10/28/21 17:35 Acetaminophen 325 Mg Tab PO Q4H PRN Pain MILD(1-3)/Fever >100.5/GUZMAN Albuterol 2.5 mg 10/28/21 17:35 Albuterol 2.5 Mg/3 Ml Nebu IH Q4HRT PRN Shortness Of Breath Amitriptyline HCl 30 mg 10/29/21 10:00 10/31/21 09:41 Amitriptyline 10 Mg Tab PO 30 mg QDAY OLLIE Administration Ferrous Sulfate 325 mg 10/28/21 22:00 10/31/21 22:51 Ferrous Sulfate 325 Mg Tab PO 325 mg BID OLLIE Administration Hydralazine HCl 100 mg 10/29/21 14:00 10/31/21 20:15 Hydralazine 100 Mg Tab PO 100 mg TID OLLIE Administration Hydralazine HCl 10 mg 10/30/21 03:48 10/31/21 01:11 Hydralazine 20 Mg/1 Ml Inj IV 10 mg Q4HR PRN Administration SBP >/=160; DBP >/=100 Hydromorphone HCl 0.5 mg 10/28/21 17:35 10/31/21 17:37 Hydromorphone 0.5 Mg/0.5 Ml Inj IV 0.5 mg Q13H PRN Administration Pain , Severe (7-10) Hydroxychloroquine Sulfate 200 mg 10/29/21 10:00 10/31/21 09:42 Hydroxychloroquine 200 Mg Tab PO 200 mg QDAY OLLIE Administration Hydroxyzine HCl 25 mg 10/28/21 17:38 Hydroxyzine Hcl 25 Mg Tab PO Q6HR PRN Itching Sodium Chloride 100 mls @ 999 mls/hr 10/28/21 18:00 Nacl 0.9% IV ALEXX PRN Hypotension Labetalol HCl 400 mg 10/31/21 10:00 10/31/21 22:52 Labetalol 200 Mg Tab PO 400 mg BID OLLIE Administration Magnesium Hydroxide 30 ml 10/29/21 23:39 10/29/21 23:47 Magnesium Hydroxide (Mom) Oral Liqd Udc PO 30 ml QDAY PRN Administration Constipation Nifedipine 90 mg 10/30/21 11:00 10/31/21 22:51 Nifedipine Xl 90 Mg Tab PO 90 mg Q12H OLLIE Administration Ondansetron HCl 4 mg 10/28/21 17:35 11/01/21 06:21 Ondansetron 4 Mg/2 Ml Inj IV 4 mg Q8H PRN Administration Nausea And Vomiting Oxycodone/Acetaminophen 1 tab 10/28/21 17:35 10/31/21 20:14 Oxycodone /Acetaminophen 5-325mg Tab PO 1 tab Q6H PRN Administration Pain, Moderate (4-6) Pantoprazole Sodium 40 mg 10/31/21 07:30 10/31/21 09:40 Pantoprazole 40 Mg Tab PO 40 mg QDAC OLLIE Administration Sodium Chloride 10 ml 10/28/21 22:00 10/31/21 22:52 Sodium Chloride 0.9% 10 Ml Flush Syringe IV 10 ml BID OLLIE Administration Sodium Chloride 10 ml 10/28/21 17:35 Sodium Chloride 0.9% 10 Ml Flush Syringe IV PRN PRN LINE FLUSH
[2021-11-01] MEDS: PANTOPRAZOLE 40 MG TAB PO SCH (09:10)
[2021-11-01] MEDS: HYDROXYCHLOROQUINE 200 MG TAB PO SCH (09:10)
[2021-11-01] MEDS: AMITRIPTYLINE 10 MG TAB PO SCH (09:10)
[2021-11-01] MEDS: FERROUS SULFATE 325 MG TAB PO SCH (09:10)
[2021-11-01] MEDS: hydrALAZINE 100 MG TAB PO SCH ×2 (09:11→15:30)
[2021-11-01] MEDS: HYDROmorphone 0.5 MG/0.5 ML INJ IV PRN (09:53)
[2021-11-01] MEDS: NIFEdipine XL 90 MG TAB PO SCH (13:43)
[2021-11-01 15:13] VITALS: BP 148/97
[2021-11-01] MEDS: MAGNESIUM HYDROXIDE (MOM) ORAL LIQD UDC PO PRN (15:30)
[2021-11-01] MEDS: oxyCODONE /ACETAMINOPHEN 5-325MG TAB PO PRN (15:31)
== END 2021-11-01 16:09 | disposition home or self-care (01) | DRG 640 ==
LOC: ED 13:42 → 4A 17:35
PROVIDERS: ADMIT Internal Medicine; ATTEND Hospitalist
PROC: 5A1D70Z Performance of Urinary Filtration, Intermittent, Less than 6 Hours Per Day (ICD-10-PCS; principal; 2021-10-28)
PROC: 5A1D70Z Performance of Urinary Filtration, Intermittent, Less than 6 Hours Per Day (ICD-10-PCS; 2021-10-30)
PROC: 5A1D70Z Performance of Urinary Filtration, Intermittent, Less than 6 Hours Per Day (ICD-10-PCS; 2021-11-01)
DX: E87.70 Fluid overload, unspecified (principal); J81.0 Acute pulmonary edema; J96.01 Acute respiratory failure with hypoxia; N18.6 End stage renal disease; I16.1 Hypertensive emergency; I12.0 Hypertensive chronic kidney disease with stage 5 chronic kidney disease or end stage renal disease; E46 Unspecified protein-calorie malnutrition; I67.4 Hypertensive encephalopathy; E87.2 Acidosis; M32.9 Systemic lupus erythematosus, unspecified; J45.909 Unspecified asthma, uncomplicated; Z99.2 Dependence on renal dialysis; G40.909 Epilepsy, unspecified, not intractable, without status epilepticus; F90.9 Attention-deficit hyperactivity disorder, unspecified type; F31.9 Bipolar disorder, unspecified; Z91.15 Patient's noncompliance with renal dialysis; Z88.8 Allergy status to other drugs, medicaments and biological substances; Z82.49 Family history of ischemic heart disease and other diseases of the circulatory system
CPT/HCPCS: 36415; 71045; 78580; 80048; 80053; 80061; 80074; 82550; 82553; 82962; 84484; 84703; 85007; 85025; 85610; 93005; 94640; 94760; G0378; A9540; J0360; J1170; J2270; J2405; J3010

== ENCOUNTER 2021-11-20 17:52 | Inpatient (IN) | payer OTHER, MEDICARE ==
[2021-11-20 23:41] LABS: Hematocrit 24.2 % (30.3-42.9); Hemoglobin 7.8 gm/dl (10.1-14.3); Mean Corpuscular HGB Conc 32 % (30-34); Mean Corpuscular Volume 102 fl (79-97); Platelet Count 67 K/mm3 (140-440); Red Blood Count 2.36 M/mm3 (3.65-5.03); Red Cell Distribution Width 23.3 % (13.2-15.2)
[2021-11-20 23:54] LABS: Calcium 8.3 mg/dL (8.4-10.2)
[2021-11-21 00:22] LABS: Eosinophils % (Manual) 0 % (0.0-4.3); Total Cells Counted 100
[2021-11-21 00:23] LABS: Anisocytosis 1+; Platelet Estimate Consistent w Auto
--- NOTE | 2021-11-21 05:29 | Emergency Department Report ---
ED General Adult HPI - General Chief complaint: Medical Clearance Stated complaint: MISSED DIALYSIS Time Seen by Provider: 11/21/21 04:30 Source: patient Mode of arrival: Stretcher Limitations: No Limitations - History of Present Illness Initial comments: 30-year-old female with history of lupus s/p end-stage renal disease currently on dialysis on Thursday and Thursday who missed dialysis for the last 1 week presents with generalized body headaches. Patient denies any fever or chills. Patient states she missed Thursday dialysis because she was thinking this center closed for . She did not attempt to go on Thursday. No other modifying or associated factors reported. - Related Data Previous Rx's Medication Instructions Recorded Last Taken Type Amitriptyline [Elavil] 30 mg PO QDAY #90 11/01/21 Unknown Rx Ferrous Sulfate [Feosol 325 MG tab] 325 mg PO BID #60 tablet 11/01/21 Unknown Rx Hydroxychloroquine [Plaquenil] 200 mg PO QDAY #30 tablet 11/01/21 Unknown Rx NIFEdipine XL [Procardia Xl] 90 mg PO Q12H #60 tablet 11/01/21 Unknown Rx Pantoprazole [Protonix TAB] 40 mg PO QDAC #30 tablet 11/01/21 Unknown Rx hydrALAZINE [Apresoline TAB] 100 mg PO TID #90 tab 11/01/21 Unknown Rx hydrOXYzine HCL [Atarax] 25 mg PO Q6HR PRN #20 tablet 11/01/21 Unknown Rx labetaloL [Labetalol 200mg TAB] 400 mg PO BID #60 tablet 11/01/21 Unknown Rx oxyCODONE /ACETAMINOPHEN [Percocet 1 tab PO Q6H PRN #10 tablet 11/01/21 Unknown Rx 5/325 mg] Allergies Allergy/AdvReac Type Severity Reaction Status Date / Time amoxicillin trihydrate Allergy Unknown Hives Verified 11/20/21 17:58 [From Augmentin] diphenhydramine Allergy Itching Verified 11/20/21 17:58 [From Benadryl] potassium clavulanate AdvReac Unknown Hives Verified 11/20/21 17:58 [From Augmentin] ED Review of Systems ROS: Stated complaint: MISSED DIALYSIS Other details as noted in HPI Comment: All other systems reviewed and negative Musculoskeletal: arthralgia, myalgia (Generalized muscle aches) ED Past Medical Hx - Past Medical History Hx Hypertension: Yes Hx Congestive Heart Failure: No Hx Diabetes: No Hx Renal Disease: Yes (DIALYSIS TTS) Hx Seizures: Yes Hx Psychiatric Treatment: Yes (ADHD) Hx Asthma: Yes Hx COPD: No Additional medical history: lupus - Surgical History Additional Surgical History: Left upper extremity fistula, right chest Vas-Cath - Social History Smoking Status: Never Smoker - Medications Home Medications: Home Medications Medication Instructions Recorded Confirmed Last Taken Type Amitriptyline [Elavil] 30 mg PO QDAY #90 11/01/21 Unknown Rx Ferrous Sulfate [Feosol 325 MG tab] 325 mg PO BID #60 tablet 11/01/21 Unknown Rx Hydroxychloroquine [Plaquenil] 200 mg PO QDAY #30 tablet 11/01/21 Unknown Rx NIFEdipine XL [Procardia Xl] 90 mg PO Q12H #60 tablet 11/01/21 Unknown Rx Pantoprazole [Protonix TAB] 40 mg PO QDAC #30 tablet 11/01/21 Unknown Rx hydrALAZINE [Apresoline TAB] 100 mg PO TID #90 tab 11/01/21 Unknown Rx hydrOXYzine HCL [Atarax] 25 mg PO Q6HR PRN #20 tablet 11/01/21 Unknown Rx labetaloL [Labetalol 200mg TAB] 400 mg PO BID #60 tablet 11/01/21 Unknown Rx oxyCODONE /ACETAMINOPHEN [Percocet 1 tab PO Q6H PRN #10 tablet 11/01/21 Unknown Rx 5/325 mg] ED Physical Exam - General Limitations: No Limitations General appearance: alert, in no apparent distress - Head Head exam: Present: normal inspection - Eye Eye exam: Present: normal appearance Pupils: Present: normal accommodation - ENT ENT exam: Present: normal exam, normal orophraynx, mucous membranes dry - Neck Neck exam: Present: normal inspection, full ROM. Absent: tenderness - Respiratory Respiratory exam: Present: normal lung sounds bilaterally. Absent: respiratory distress, accessory muscle use - Cardiovascular Cardiovascular Exam: Present: regular rate, normal rhythm, normal heart sounds - GI/Abdominal GI/Abdominal exam: Present: soft, normal bowel sounds. Absent: distended, tenderness - Extremities Exam Extremities exam: Absent: tenderness - Back Exam Back exam: Absent: tenderness - Neurological Exam Neurological exam: Present: alert, oriented X3 - Psychiatric Psychiatric exam: Present: normal affect, normal mood ED Course Vital Signs 11/20/21 11/21/21 17:56 01:45 Temperature 98.9 F 98.5 F Pulse Rate 92 H 91 H Respiratory 14 18 Rate Blood Pressure 167/96 Blood Pressure 144/97 [Left] O2 Sat by Pulse 97 96 Oximetry - Consultations Consultation #1: 11/21/21 05:29 Dr. Valverde the drawing in machine tender helper credit control officer who agreed and plan to dialyze patient in the morning Consultation #2: 11/21/21 05:29 Dr. Roth consulted who accepted patient for further evaluation and treatment ED Medical Decision Making - Lab Data Result diagrams: 11/20/21 23:13 11/20/21 23:13 - Medical Decision Making Here with generalized body aches with mixed dialysis for the last 1 week--we will go ahead and order CBC and CMP to rule out any infectious process and treat accordingly-- Lab reviewed and noted with low H&H at 7.8 and 24.2--this likely as a result for her renal failure and Lupus-- also noted with potassium of 5.9 with elevated BUN and creatinine at 53/8.7--this patient definitely need dialysis. Dr. Valverde the drawing in machine tender helper credit control officer who agreed and plan to dialyze patient in the morning Dr Roth consulted who accept pt for further evaluation and treatment Critical care attestation.: If time is entered above; I have spent that time in minutes in the direct care of this critically ill patient, excluding procedure time. ED Disposition Clinical Impression: ESRD (end stage renal disease), ESRD (end stage renal disease) on dialysis, Body aches, Generalized body aches, Anemia in chronic illness Disposition: ADMITTED INPATIENT Is pt being admited?: Yes Does the pt Need Aspirin: No Condition: Stable Time of Disposition: 05:32
[2021-11-21] MEDS ORDERED: ONDANSETRON 4 MG/2 ML INJ IV PRN ×2 (05:30→05:54)
[2021-11-21] MEDS ORDERED: ACETAMINOPHEN 325 MG TAB PO PRN ×2 (05:30→05:54)
[2021-11-21] MEDS ORDERED: ALBUTEROL 2.5 MG/3 ML NEBU IH PRN (05:54)
[2021-11-21] MEDS ORDERED: MORPHINE 4 MG/1 ML INJ IV PRN (05:54)
[2021-11-21] MEDS ORDERED: hydrOXYzine HCL 25 MG TAB PO PRN (05:56)
--- NOTE | 2021-11-21 06:01 | History and Physical Report ---
History of Present Illness Date of examination: 11/21/21 Date of admission: 11/21/21 Chief complaint: Missed hemodialysis Body ache History of present illness: 30-year-old female with history of lupus s/p end-stage renal disease currently on dialysis on Thursday and Thursday who missed dialysis for the last 1 week presents with generalized body headaches. Patient denies any fever or chills. Patient states she missed Thursday dialysis because she was thinking this center closed for . She did not attempt to go on Thursday. No other modifying or associated factors reported. In the emergency room patient is found to have BUN of 53 and creatinine 8.7, potassium 5.9 and hemoglobin of 7.8. Subsequently Case discussed with on-call nephrology who will hemodialyzed the patient in the morning Past History Past Medical History: ESRD, hypertension, seizures, other (Lupus, ADHD) Past Surgical History: Other (Left upper extremity fistula, right chest Vas- Cath) Social history: no significant social history Family history: hypertension Medications and Allergies Allergies Allergy/AdvReac Type Severity Reaction Status Date / Time amoxicillin trihydrate Allergy Unknown Hives Verified 11/20/21 17:58 [From Augmentin] diphenhydramine Allergy Itching Verified 11/20/21 17:58 [From Benadryl] potassium clavulanate AdvReac Unknown Hives Verified 11/20/21 17:58 [From Augmentin] Home Medications Medication Instructions Recorded Confirmed Last Taken Type Amitriptyline [Elavil] 30 mg PO QDAY #90 11/01/21 Unknown Rx Ferrous Sulfate [Feosol 325 MG tab] 325 mg PO BID #60 tablet 11/01/21 Unknown Rx Hydroxychloroquine [Plaquenil] 200 mg PO QDAY #30 tablet 11/01/21 Unknown Rx NIFEdipine XL [Procardia Xl] 90 mg PO Q12H #60 tablet 11/01/21 Unknown Rx Pantoprazole [Protonix TAB] 40 mg PO QDAC #30 tablet 11/01/21 Unknown Rx hydrALAZINE [Apresoline TAB] 100 mg PO TID #90 tab 11/01/21 Unknown Rx hydrOXYzine HCL [Atarax] 25 mg PO Q6HR PRN #20 tablet 11/01/21 Unknown Rx labetaloL [Labetalol 200mg TAB] 400 mg PO BID #60 tablet 11/01/21 Unknown Rx oxyCODONE /ACETAMINOPHEN [Percocet 1 tab PO Q6H PRN #10 tablet 11/01/21 Unknown Rx 5/325 mg] Active Meds: Active Medications Acetaminophen (Acetaminophen 325 Mg Tab) 650 mg PO Q4H PRN PRN Reason: Pain MILD(1-3)/Fever >100.5/GUZMAN Morphine Sulfate (Morphine 2 Mg/1 Ml Inj) 2 mg IV Q4H PRN PRN Reason: Pain, Moderate (4-6) Ondansetron HCl (Ondansetron 4 Mg/2 Ml Inj) 4 mg IV Q8H PRN PRN Reason: Nausea And Vomiting Sodium Chloride (Sodium Chloride 0.9% 10 Ml Flush Syringe) 10 ml IV BID OLLEI Sodium Chloride (Sodium Chloride 0.9% 10 Ml Flush Syringe) 10 ml IV PRN PRN PRN Reason: LINE FLUSH Review of Systems All systems: negative Constitutional: fatigue, malaise, other (Arthralgia myalgia generalized muscle ache) Exam - Constitutional Vitals: Temp Pulse Resp BP Pulse Ox 98.5 F 91 H 18 167/96 96 11/21/21 01:45 11/21/21 01:45 11/21/21 01:45 11/21/21 01:45 11/21/21 01:45 General appearance: Present: no acute distress, well-nourished - EENT Eyes: Present: PERRL ENT: hearing intact, clear oral mucosa - Neck Neck: Present: supple, normal ROM - Respiratory Respiratory effort: normal Respiratory: bilateral: CTA - Cardiovascular Heart Sounds: Present: S1 & S2. Absent: rub, click - Extremities Extremities: pulses symmetrical, No edema Peripheral Pulses: within normal limits - Abdominal General gastrointestinal: Present: soft, non-tender, non-distended, normal bowel sounds Female genitourinary: Present: normal - Integumentary Integumentary: Present: clear, warm, dry - Musculoskeletal Musculoskeletal: gait normal, strength equal bilaterally - Psychiatric Psychiatric: appropriate mood/affect, intact judgment & insight - Neurologic Neurologic: CNII-XII intact, moves all extremities Results - Labs CBC & Chem 7: 11/20/21 23:13 11/20/21 23:13 Labs: Laboratory Last Values WBC 6.8 K/mm3 (4.5-11.0) 11/20/21 23:13 RBC 2.36 M/mm3 (3.65-5.03) L 11/20/21 23:13 Hgb 7.8 gm/dl (10.1-14.3) L 11/20/21 23:13 Hct 24.2 % (30.3-42.9) L 11/20/21 23:13 MCV 102 fl (79-97) H 11/20/21 23:13 MCH 33 pg (28-32) H 11/20/21 23:13 MCHC 32 % (30-34) 11/20/21 23:13 RDW 23.3 % (13.2-15.2) H 11/20/21 23:13 Plt Count 67 K/mm3 (140-440) L 11/20/21 23:13 Add Manual Diff Complete 11/20/21 23:13 Total Counted 100 11/20/21 23:13 Seg Neuts % (Manual) 76.0 % (40.0-70.0) H 11/20/21 23:13 Band Neutrophils % 0 % 11/20/21 23:13 Lymphocytes % (Manual) 14.0 % (13.4-35.0) 11/20/21 23:13 Reactive Lymphs % (Man) 0 % 11/20/21 23:13 Monocytes % (Manual) 8.0 % (0.0-7.3) H 11/20/21 23:13 Eosinophils % (Manual) 0 % (0.0-4.3) 11/20/21 23:13 Basophils % (Manual) 2.0 % (0.0-1.8) H 11/20/21 23:13 Metamyelocytes % 0 % 11/20/21 23:13 Myelocytes % 0 % 11/20/21 23:13 Promyelocytes % 0 % 11/20/21 23:13 Blast Cells % 0 % 11/20/21 23:13 Nucleated RBC % Not Reportable 11/20/21 23:13 Seg Neutrophils # Man 5.2 K/mm3 (1.8-7.7) 11/20/21 23:13 Band Neutrophils # 0.0 K/mm3 11/20/21 23:13 Lymphocytes # (Manual) 1.0 K/mm3 (1.2-5.4) L 11/20/21 23:13 Abs React Lymphs (Man) 0.0 K/mm3 11/20/21 23:13 Monocytes # (Manual) 0.5 K/mm3 (0.0-0.8) 11/20/21 23:13 Eosinophils # (Manual) 0.0 K/mm3 (0.0-0.4) 11/20/21 23:13 Basophils # (Manual) 0.1 K/mm3 (0.0-0.1) 11/20/21 23:13 Metamyelocytes # 0.0 K/mm3 11/20/21 23:13 Myelocytes # 0.0 K/mm3 11/20/21 23:13 Promyelocytes # 0.0 K/mm3 11/20/21 23:13 Blast Cells # 0.0 K/mm3 11/20/21 23:13 WBC Morphology Not Reportable 11/20/21 23:13 Hypersegmented Neuts Not Reportable 11/20/21 23:13 Hyposegmented Neuts Not Reportable 11/20/21 23:13 Hypogranular Neuts Not Reportable 11/20/21 23:13 Smudge Cells Not Reportable 11/20/21 23:13 Toxic Granulation Not Reportable 11/20/21 23:13 Toxic Vacuolation Not Reportable 11/20/21 23:13 Dohle Bodies Not Reportable 11/20/21 23:13 Pelger-Huet Anomaly Not Reportable 11/20/21 23:13 Maite Rods Not Reportable 11/20/21 23:13 Platelet Estimate Consistent w auto 11/20/21 23:13 Clumped Platelets Not Reportable 11/20/21 23:13 Plt Clumps, EDTA Not Reportable 11/20/21 23:13 Large Platelets Not Reportable 11/20/21 23:13 Giant Platelets Not Reportable 11/20/21 23:13 Platelet Satelliting Not Reportable 11/20/21 23:13 Plt Morphology Comment Not Reportable 11/20/21 23:13 RBC Morphology Not Reportable 11/20/21 23:13 Dimorphic RBCs Not Reportable 11/20/21 23:13 Polychromasia Not Reportable 11/20/21 23:13 Hypochromasia Not Reportable 11/20/21 23:13 Poikilocytosis Not Reportable 11/20/21 23:13 Anisocytosis 1+ 11/20/21 23:13 Microcytosis Not Reportable 11/20/21 23:13 Macrocytosis Not Reportable 11/20/21 23:13 Spherocytes Not Reportable 11/20/21 23:13 Pappenheimer Bodies Not Reportable 11/20/21 23:13 Sickle Cells Not Reportable 11/20/21 23:13 Target Cells Not Reportable 11/20/21 23:13 Tear Drop Cells Not Reportable 11/20/21 23:13 Ovalocytes Not Reportable 11/20/21 23:13 Helmet Cells Not Reportable 11/20/21 23:13 [place] Bodies Not Reportable 11/20/21 23:13 [place] Rings Not Reportable 11/20/21 23:13 Anca Cells Not Reportable 11/20/21 23:13 Bite Cells Not Reportable 11/20/21 23:13 Crenated Cell Not Reportable 11/20/21 23:13 Elliptocytes Not Reportable 11/20/21 23:13 Acanthocytes (Spur) Not Reportable 11/20/21 23:13 Rouleaux Not Reportable 11/20/21 23:13 Hemoglobin C Crystals Not Reportable 11/20/21 23:13 Schistocytes Not Reportable 11/20/21 23:13 Malaria parasites Not Reportable 11/20/21 23:13 Al Bodies Not Reportable 11/20/21 23:13 Hem Pathologist Commnt No 11/20/21 23:13 Sodium 141 mmol/L (137-145) 11/20/21 23:13 Potassium 5.9 mmol/L (3.6-5.0) H 11/20/21 23:13 Chloride 102.5 mmol/L (98-107) 11/20/21 23:13 Carbon Dioxide 25 mmol/L (22-30) 11/20/21 23:13 Anion Gap 19 mmol/L 11/20/21 23:13 BUN 53 mg/dL (7-17) H 11/20/21 23:13 Creatinine 8.7 mg/dL (0.6-1.2) H 11/20/21 23:13 Estimated GFR 7 ml/min 11/20/21 23:13 BUN/Creatinine Ratio 6 % 11/20/21 23:13 Glucose 88 mg/dL (65-100) 11/20/21 23:13 Calcium 8.3 mg/dL (8.4-10.2) L 11/20/21 23:13 Total Bilirubin 0.60 mg/dL (0.1-1.2) 11/20/21 23:13 AST 48 units/L (5-40) H 11/20/21 23:13 ALT 64 units/L (7-56) H 11/20/21 23:13 Alkaline Phosphatase 126 units/L (35-129) 11/20/21 23:13 Total Protein 6.6 g/dL (6.3-8.2) 11/20/21 23:13 Albumin 4.0 g/dL (3.9-5) 11/20/21 23:13 Albumin/Globulin Ratio 1.5 % 11/20/21 23:13 Assessment and Plan VTE prophylaxis?: Mechanical Plan of care discussed with patient/family: Yes - Patient Problems (1) End stage renal disease on dialysis Status: Acute Plan to address problem: Admit the patient to the medical telemetry. Renal diet. Avoid nephrotoxic drug. Nephrology consulted for hemodialysis in the morning. Recheck BMP in the morning (2) Acute hyperkalemia Status: Acute Plan to address problem: Calcium gluconate 1 g IV x1 dose. Kayexalate 30 g p.o. x1 dose. Will consult nephrology for hemodialysis in the morning. Recheck BMP in the morning (3) Body aches Status: Acute Plan to address problem: Tylenol 650 mg p.o. every 6 hours as needed. We continue the home medication (4) Hypertension Status: Acute Plan to address problem: Labetalol 400 mg p.o. twice daily. Nifedipine XL 90 mg p.o. every 12 hours. We continue the home medication (5) Lupus Status: Acute Plan to address problem: Stable. We continue the home medication. Outpatient follow-up with rheumatology (6) Anemia in chronic illness Status: Acute Plan to address problem: Anemia due to CKD. Ferrous sulfate 325 mg p.o. twice daily. Recheck CBC in the morning (7) DVT prophylaxis Status: Acute Plan to address problem: SCD for DVT prophylaxis. Pepcid 20 mg p.o. twice daily for GI prophylaxis. Patient is a full code
[2021-11-21] MEDS ORDERED: CALCIUM GLUCONATE 1,000 MG in SODIUM CHLORIDE 0.9% 100 ML IV ONE (06:03)
[2021-11-21] MEDS ORDERED: SODIUM POLYSTYRENE 15 GM/60 ML ORAL LIQD PO ONE (06:44)
[2021-11-21] MEDS ORDERED: CALC GLUCONATE 1GM/NS 100 ML 1 GM/100 ML BAG IV ONE (07:00)
[2021-11-21] MEDS: PANTOPRAZOLE 40 MG TAB PO SCH (07:38)
[2021-11-21] MEDS ORDERED: IPRATROPIUM/ALBUTEROL SULFATE 3 ML AMPUL.NEB IH SCH (08:00)
[2021-11-21] MEDS: MORPHINE 2 MG/1 ML INJ IV PRN ×3 (08:08→22:56)
[2021-11-21] MEDS: hydrALAZINE 100 MG TAB PO SCH ×3 (09:25→21:35)
[2021-11-21] MEDS: FERROUS SULFATE 325 MG TAB PO SCH ×2 (09:26→21:35)
[2021-11-21] MEDS: HYDROXYCHLOROQUINE 200 MG TAB PO SCH (09:26)
[2021-11-21] MEDS: AMITRIPTYLINE 10 MG TAB PO SCH (09:27)
--- NOTE | 2021-11-21 09:46 | Progress Note ---
Assessment and Plan Assessment and plan: -- End stage renal disease on dialysis Missed dialysis for 1 week Nephrology evaluation , stat hemodialysis renal diet. Avoid nephrotoxic drug. Renal dosing of medications Patient strongly advised to comply with hemodialysis Follow-up visits and diet -- Acute hyperkalemia Calcium gluconate 1 g IV x1 dose. Kayexalate 30 g p.o. x1 dose. Due to noncompliance with hemodialysis , strongly advised to comply with medications, , diet, hemodialysis, follow-up visits Patient verbalized understanding .hemodialysis per schedule -- Generalized body aches/chronic pain syndrome Tylenol 650 mg p.o. every 6 hours as needed. We continue the home medication Supportive care --Hypertension/uncontrolled Continue current antihypertensives , as needed hydralazine labetalol 400 mg p.o. twice daily. Nifedipine XL 90 mg p.o. every 12 hours. We closely monitor and adjust as needed --History of Lupus Stable. 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 Ferrous sulfate 325 mg p.o. twice daily. Recheck CBC in the morning Closely monitor --Full CODE STATUS; -- DVT prophylaxis SCD for DVT prophylaxis. Pepcid 20 mg p.o. twice daily for GI prophylaxis. -- Advance care plan; 35 minutes I discussed with patient her medical condition, I discussed with her the abnormal tests and fluid overload I discussed with her her diagnosis, I discussed with her the treatment plan, and start dialysis today I also discussed with the patient the prognosis, possible discharge in 1 to 2 days if stable Patient had some questions answered all of them agreed with the plan --Preventive health care counseling; 35 minutes Strongly advised to comply with medications, diet, follow-up visits, hemodialysis Barriers of being complaints discussed with the patient, will discuss with the case management to assist with transportation for hemodialysis And any other assistance that patient may need. Patient verbalized understanding and agreed to comply with dialysis We will closely monitor the patient and adjust management as needed Plan of care reviewed with patient and her nurse Neuro consult and recommendations noted and appreciated Same day detail follow-up evaluation /prolonged inpatient care 35 minutes Closely monitor the patient and adjust management as needed Plan of care reviewed with the patient and her nurse Discharge planning per case management History Interval history: I have seen and examined the patient at the bedside this morning Patient's chart and medications reviewed Patient was noncompliant with hemodialysis for 1 week And presented fluid overload shortness of breath and hyperkalemia Nephrology evaluated being scheduled for HD today Patient complains of mild shortness of breath Vital signs noted Hospitalist Physical - Constitutional Vitals: Temp Pulse Resp BP Pulse Ox 98.5 F 95 H 18 121/80 97 11/21/21 08:29 11/21/21 08:29 11/21/21 08:29 11/21/21 08:29 11/21/21 08:29 General appearance: Present: mild distress, well-nourished, other (Short of breath) - EENT Eyes: Present: PERRL, EOM intact - Neck Neck: Present: supple, normal ROM - Respiratory Respiratory effort: normal Respiratory: bilateral: diminished, rales, negative: rhonchi, wheezing - Cardiovascular Rhythm: regular Heart Sounds: Present: S1 & S2 - Extremities Extremities: no ischemia, No edema - Abdominal General gastrointestinal: soft, non-tender, non-distended, normal bowel sounds - Integumentary Integumentary: Present: clear, warm - Psychiatric Psychiatric: appropriate mood/affect, cooperative - Neurologic Neurologic: CNII-XII intact, moves all extremities Results - Labs CBC & Chem 7: 11/20/21 23:13 11/20/21 23:13 Labs: Laboratory Last Values WBC 6.8 K/mm3 (4.5-11.0) 11/20/21 23:13 RBC 2.36 M/mm3 (3.65-5.03) L 11/20/21 23:13 Hgb 7.8 gm/dl (10.1-14.3) L 11/20/21 23:13 Hct 24.2 % (30.3-42.9) L 11/20/21 23:13 MCV 102 fl (79-97) H 11/20/21 23:13 MCH 33 pg (28-32) H 11/20/21 23:13 MCHC 32 % (30-34) 11/20/21 23:13 RDW 23.3 % (13.2-15.2) H 11/20/21 23:13 Plt Count 67 K/mm3 (140-440) L 11/20/21 23:13 Add Manual Diff Complete 11/20/21 23:13 Total Counted 100 11/20/21 23:13 Seg Neuts % (Manual) 76.0 % (40.0-70.0) H 11/20/21 23:13 Band Neutrophils % 0 % 11/20/21 23:13 Lymphocytes % (Manual) 14.0 % (13.4-35.0) 11/20/21 23:13 Reactive Lymphs % (Man) 0 % 11/20/21 23:13 Monocytes % (Manual) 8.0 % (0.0-7.3) H 11/20/21 23:13 Eosinophils % (Manual) 0 % (0.0-4.3) 11/20/21 23:13 Basophils % (Manual) 2.0 % (0.0-1.8) H 11/20/21 23:13 Metamyelocytes % 0 % 11/20/21 23:13 Myelocytes % 0 % 11/20/21 23:13 Promyelocytes % 0 % 11/20/21 23:13 Blast Cells % 0 % 11/20/21 23:13 Nucleated RBC % Not Reportable 11/20/21 23:13 Seg Neutrophils # Man 5.2 K/mm3 (1.8-7.7) 11/20/21 23:13 Band Neutrophils # 0.0 K/mm3 11/20/21 23:13 Lymphocytes # (Manual) 1.0 K/mm3 (1.2-5.4) L 11/20/21 23:13 Abs React Lymphs (Man) 0.0 K/mm3 11/20/21 23:13 Monocytes # (Manual) 0.5 K/mm3 (0.0-0.8) 11/20/21 23:13 Eosinophils # (Manual) 0.0 K/mm3 (0.0-0.4) 11/20/21 23:13 Basophils # (Manual) 0.1 K/mm3 (0.0-0.1) 11/20/21 23:13 Metamyelocytes # 0.0 K/mm3 11/20/21 23:13 Myelocytes # 0.0 K/mm3 11/20/21 23:13 Promyelocytes # 0.0 K/mm3 11/20/21 23:13 Blast Cells # 0.0 K/mm3 11/20/21 23:13 WBC Morphology Not Reportable 11/20/21 23:13 Hypersegmented Neuts Not Reportable 11/20/21 23:13 Hyposegmented Neuts Not Reportable 11/20/21 23:13 Hypogranular Neuts Not Reportable 11/20/21 23:13 Smudge Cells Not Reportable 11/20/21 23:13 Toxic Granulation Not Reportable 11/20/21 23:13 Toxic Vacuolation Not Reportable 11/20/21 23:13 Dohle Bodies Not Reportable 11/20/21 23:13 Pelger-Huet Anomaly Not Reportable 11/20/21 23:13 Maite Rods Not Reportable 11/20/21 23:13 Platelet Estimate Consistent w auto 11/20/21 23:13 Clumped Platelets Not Reportable 11/20/21 23:13 Plt Clumps, EDTA Not Reportable 11/20/21 23:13 Large Platelets Not Reportable 11/20/21 23:13 Giant Platelets Not Reportable 11/20/21 23:13 Platelet Satelliting Not Reportable 11/20/21 23:13 Plt Morphology Comment Not Reportable 11/20/21 23:13 RBC Morphology Not Reportable 11/20/21 23:13 Dimorphic RBCs Not Reportable 11/20/21 23:13 Polychromasia Not Reportable 11/20/21 23:13 Hypochromasia Not Reportable 11/20/21 23:13 Poikilocytosis Not Reportable 11/20/21 23:13 Anisocytosis 1+ 11/20/21 23:13 Microcytosis Not Reportable 11/20/21 23:13 Macrocytosis Not Reportable 11/20/21 23:13 Spherocytes Not Reportable 11/20/21 23:13 Pappenheimer Bodies Not Reportable 11/20/21 23:13 Sickle Cells Not Reportable 11/20/21 23:13 Target Cells Not Reportable 11/20/21 23:13 Tear Drop Cells Not Reportable 11/20/21 23:13 Ovalocytes Not Reportable 11/20/21 23:13 Helmet Cells Not Reportable 11/20/21 23:13 [place] Bodies Not Reportable 11/20/21 23:13 [place] Rings Not Reportable 11/20/21 23:13 [place] Cells Not Reportable 11/20/21 23:13 Bite Cells Not Reportable 11/20/21 23:13 Crenated Cell Not Reportable 11/20/21 23:13 Elliptocytes Not Reportable 11/20/21 23:13 Acanthocytes (Spur) Not Reportable 11/20/21 23:13 Rouleaux Not Reportable 11/20/21 23:13 Hemoglobin C Crystals Not Reportable 11/20/21 23:13 Schistocytes Not Reportable 11/20/21 23:13 Malaria parasites Not Reportable 11/20/21 23:13 Al Bodies Not Reportable 11/20/21 23:13 Hem Pathologist Commnt No 11/20/21 23:13 Sodium 141 mmol/L (137-145) 11/20/21 23:13 Potassium 5.9 mmol/L (3.6-5.0) H 11/20/21 23:13 Chloride 102.5 mmol/L (98-107) 11/20/21 23:13 Carbon Dioxide 25 mmol/L (22-30) 11/20/21 23:13 Anion Gap 19 mmol/L 11/20/21 23:13 BUN 53 mg/dL (7-17) H 11/20/21 23:13 Creatinine 8.7 mg/dL (0.6-1.2) H 11/20/21 23:13 Estimated GFR 7 ml/min 11/20/21 23:13 BUN/Creatinine Ratio 6 % 11/20/21 23:13 Glucose 88 mg/dL (65-100) 11/20/21 23:13 Calcium 8.3 mg/dL (8.4-10.2) L 11/20/21 23:13 Total Bilirubin 0.60 mg/dL (0.1-1.2) 11/20/21 23:13 AST 48 units/L (5-40) H 11/20/21 23:13 ALT 64 units/L (7-56) H 11/20/21 23:13 Alkaline Phosphatase 126 units/L (35-129) 11/20/21 23:13 Total Protein 6.6 g/dL (6.3-8.2) 11/20/21 23:13 Albumin 4.0 g/dL (3.9-5) 11/20/21 23:13 Albumin/Globulin Ratio 1.5 % 11/20/21 23:13 Active Medications - Current Medications Current Medications: Generic Name Dose Route Start Last Admin Trade Name Freq PRN Reason Stop Dose Admin Acetaminophen 650 mg 11/21/21 05:30 Acetaminophen 325 Mg Tab PO Q4H PRN Pain MILD(1-3)/Fever >100.5/GUZMAN Albuterol 2.5 mg 11/21/21 05:54 Albuterol 2.5 Mg/3 Ml Nebu IH Q3HRT PRN Shortness Of Breath Albuterol/Ipratropium 1 ampul 11/21/21 08:00 11/21/21 08:09 Ipratropium/Albuterol Sulfate 3 Ml Ampul.Neb IH Not Given Q6HRT [facility] Amitriptyline HCl 30 mg 11/21/21 10:00 11/21/21 09:27 Amitriptyline 10 Mg Tab PO 30 mg QDAY OLLIE Administration Famotidine 20 mg 11/21/21 10:00 11/21/21 09:26 Famotidine 20 Mg Tab PO 20 mg QAM OLLIE Administration Ferrous Sulfate 325 mg 11/21/21 10:00 11/21/21 09:26 Ferrous Sulfate 325 Mg Tab PO 325 mg BID OLLIE Administration Hydralazine HCl 100 mg 11/21/21 08:00 11/21/21 09:25 Hydralazine 100 Mg Tab PO 100 mg TID OLLIE Administration Hydroxychloroquine Sulfate 200 mg 11/21/21 10:00 11/21/21 09:26 Hydroxychloroquine 200 Mg Tab PO 200 mg QDAY OLLIE Administration Hydroxyzine HCl 25 mg 11/21/21 05:56 Hydroxyzine Hcl 25 Mg Tab PO Q6H PRN Itching Labetalol HCl 400 mg 11/21/21 10:00 11/21/21 09:26 Labetalol 200 Mg Tab PO 400 mg BID OLLIE Administration Morphine Sulfate 2 mg 11/21/21 05:30 Morphine 2 Mg/1 Ml Inj IV Q4H PRN Pain, Moderate (4-6) Morphine Sulfate 2 mg 11/21/21 05:54 11/21/21 08:08 Morphine 2 Mg/1 Ml Inj IV 2 mg Q4H PRN Administration Pain, Moderate (4-6) Morphine Sulfate 4 mg 11/21/21 05:54 Morphine 4 Mg/1 Ml Inj IV Q4H PRN Pain , Severe (7-10) Nifedipine 90 mg 11/21/21 06:00 Nifedipine Xl 90 Mg Tab PO Q12H [facility] Ondansetron HCl 4 mg 11/21/21 05:30 Ondansetron 4 Mg/2 Ml Inj IV Q8H PRN Nausea And Vomiting Pantoprazole Sodium 40 mg 11/21/21 07:30 11/21/21 07:38 Pantoprazole 40 Mg Tab PO 40 mg QDAC OLLIE Administration Sodium Chloride 10 ml 11/21/21 10:00 11/21/21 09:26 Sodium Chloride 0.9% 10 Ml Flush Syringe IV 10 ml BID OLLIE Administration Sodium Chloride 10 ml 11/21/21 05:30 Sodium Chloride 0.9% 10 Ml Flush Syringe IV PRN PRN LINE FLUSH
[2021-11-21] MEDS ORDERED: FAMOTIDINE 20 MG TAB PO SCH (10:00)
[2021-11-21] MEDS ORDERED: KETOROLAC 30 MG/1 ML INJ IV ONE (10:50)
[2021-11-21] MEDS: NIFEdipine XL 90 MG TAB PO SCH ×2 (10:51→17:01)
--- NOTE | 2021-11-21 10:59 | Electrocardiograph Report ---
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
--- NOTE | 2021-11-21 12:11 | Consultation ---
History of Present Illness - Reason for Consult Consult date: 11/21/21 - History of Present Illness This is a 30 year old female who presented to the hospital with a chief complaint of having shortness of breath and requesting hemodialysis. Patient has missed hemodialysis on Thursday. Patient was recently discharged on 11/01/21 after being treated for similar complaints of missing dialysis. Patient was found to be Hyperkalemic. Patient has history of Hypertension, ESRD, Lupus, and Seizure disorder. We are being consulted for management of this patient's ESRD. Past History Past Medical History: ESRD, hypertension, seizures, other (Lupus, ADHD) Past Surgical History: Other (Left upper extremity fistula, right chest Vas- Cath) Social history: no significant social history Family history: hypertension Medications and Allergies Allergies Allergy/AdvReac Type Severity Reaction Status Date / Time amoxicillin trihydrate Allergy Unknown Hives Verified 11/20/21 17:58 [From Augmentin] diphenhydramine Allergy Itching Verified 11/20/21 17:58 [From Benadryl] potassium clavulanate AdvReac Unknown Hives Verified 11/20/21 17:58 [From Augmentin] Home Medications Medication Instructions Recorded Confirmed Last Taken Type Amitriptyline [Elavil] 30 mg PO QDAY #90 11/01/21 Unknown Rx Ferrous Sulfate [Feosol 325 MG tab] 325 mg PO BID #60 tablet 11/01/21 Unknown Rx Hydroxychloroquine [Plaquenil] 200 mg PO QDAY #30 tablet 11/01/21 Unknown Rx NIFEdipine XL [Procardia Xl] 90 mg PO Q12H #60 tablet 11/01/21 Unknown Rx Pantoprazole [Protonix TAB] 40 mg PO QDAC #30 tablet 11/01/21 Unknown Rx hydrALAZINE [Apresoline TAB] 100 mg PO TID #90 tab 11/01/21 Unknown Rx hydrOXYzine HCL [Atarax] 25 mg PO Q6HR PRN #20 tablet 11/01/21 Unknown Rx labetaloL [Labetalol 200mg TAB] 400 mg PO BID #60 tablet 11/01/21 Unknown Rx oxyCODONE /ACETAMINOPHEN [Percocet 1 tab PO Q6H PRN #10 tablet 11/01/21 Unknown Rx 5/325 mg] Active Meds: Active Medications Acetaminophen (Acetaminophen 325 Mg Tab) 650 mg PO Q4H PRN PRN Reason: Pain MILD(1-3)/Fever >100.5/GUZMAN Albuterol (Albuterol 2.5 Mg/3 Ml Nebu) 2.5 mg IH Q3HRT PRN PRN Reason: Shortness Of Breath Amitriptyline HCl (Amitriptyline 10 Mg Tab) 30 mg PO QDAY [facility] Last Admin: 11/21/21 09:27 Dose: 30 mg Famotidine (Famotidine 20 Mg Tab) 20 mg PO QAM [facility] Last Admin: 11/21/21 09:26 Dose: 20 mg Ferrous Sulfate (Ferrous Sulfate 325 Mg Tab) 325 mg PO BID [facility] Last Admin: 11/21/21 09:26 Dose: 325 mg Hydralazine HCl (Hydralazine 100 Mg Tab) 100 mg PO TID [facility] Last Admin: 11/21/21 09:25 Dose: 100 mg Hydroxychloroquine Sulfate (Hydroxychloroquine 200 Mg Tab) 200 mg PO QDAY [facility] Last Admin: 11/21/21 09:26 Dose: 200 mg Hydroxyzine HCl (Hydroxyzine Hcl 25 Mg Tab) 25 mg PO Q6H PRN PRN Reason: Itching Labetalol HCl (Labetalol 200 Mg Tab) 400 mg PO BID [facility] Last Admin: 11/21/21 09:26 Dose: 400 mg Morphine Sulfate (Morphine 2 Mg/1 Ml Inj) 2 mg IV Q4H PRN PRN Reason: Pain, Moderate (4-6) Morphine Sulfate (Morphine 2 Mg/1 Ml Inj) 2 mg IV Q4H PRN PRN Reason: Pain, Moderate (4-6) Last Admin: 11/21/21 08:08 Dose: 2 mg Morphine Sulfate (Morphine 4 Mg/1 Ml Inj) 4 mg IV Q4H PRN PRN Reason: Pain , Severe (7-10) Nifedipine (Nifedipine Xl 90 Mg Tab) 90 mg PO Q12H [facility] Last Admin: 11/21/21 10:51 Dose: Not Given Ondansetron HCl (Ondansetron 4 Mg/2 Ml Inj) 4 mg IV Q8H PRN PRN Reason: Nausea And Vomiting Pantoprazole Sodium (Pantoprazole 40 Mg Tab) 40 mg PO QDAC [facility] Last Admin: 11/21/21 07:38 Dose: 40 mg Sodium Chloride (Sodium Chloride 0.9% 10 Ml Flush Syringe) 10 ml IV BID [facility] Last Admin: 11/21/21 09:26 Dose: 10 ml Sodium Chloride (Sodium Chloride 0.9% 10 Ml Flush Syringe) 10 ml IV PRN PRN PRN Reason: LINE FLUSH Review of Systems Constitutional: weight gain, no fever, no chills, no sweats Ears, nose, mouth and throat: no ear pain, no ear discharge, no tinnitis, no decreased hearing, no nose pain, no nasal congestion Cardiovascular: no chest pain, no orthopnea, no palpitations, no rapid/irregular heart beat, no edema, no syncope Gastrointestinal: no abdominal pain, no nausea, no vomiting, no diarrhea, no constipation, no change in bowel habits Rectal: no pain, no incontinence, no bleeding, no itching, no hemorrhoids Musculoskeletal: no neck stiffness, no neck pain, no shooting arm pain, no arm numbness/tingling, no low back pain Integumentary: no rash, no pruritis, no redness, no sores, no wounds Neurological: no head injury, no transient paralysis, no weakness, no parathesias, no numbness Psychiatric: no memory loss, no change in sleep habits, no sleep disturbances, no insomnia, no change in appetite Endocrine: no cold intolerance, no heat intolerance, no polyphagia, no excessive thirst Exam - Vital Signs Vital signs: Vital Signs Temp Pulse Resp BP Pulse Ox 98.9 F 92 H 14 144/97 97 11/20/21 17:56 11/20/21 17:56 11/20/21 17:56 11/20/21 17:56 11/20/21 17:56 - General Appearance General appearance: well-developed, appears stated age EENT: ATNC, PERRL, hearing intact, vision intact Neck: Present: neck supple, trachea midline Respiratory: Decreased Breath Sounds Heart: S1S2 Gastrointestinal: Present: normoactive bowel sounds Integumentary: warm and dry Neurologic: alert and oriented x3 Musculoskeletal: Present: other (Positive edema) Results - Lab Results 11/20/21 23:13 11/20/21 23:13 Most recent lab results Calcium 8.3 mg/dL (8.4-10.2) L 11/20/21 23:13 Assessment and Plan Assessment: End Stage Renal Disease S/P Hypertensive Emergency Hypertension Hyperkalemia Anemia Noncompliance with hemodialysis Plan: Hemodialysis today for UF and clearance Hyperkalemia- Kayexalate 30 gram po x 1. Hemodialysis today Low potassium diet Reenforced compliance with HD Fluid restriction of 1 liter per day Obtain daily weights Monitor I/O's daily Assess dialysis needs daily Outpatient HD clinic: [facility] Plan of care reviewed by Dr. Mejias
[2021-11-21] MEDS: hydrALAZINE 20 MG/1 ML INJ IV PRN (18:51)
[2021-11-21] MEDS ORDERED: hydrALAZINE 20 MG/1 ML INJ IV SCH (19:00)
[2021-11-22] MEDS: hydrALAZINE 20 MG/1 ML INJ IV PRN ×2 (00:51→18:29)
[2021-11-22] MEDS: NIFEdipine XL 90 MG TAB PO SCH ×2 (05:04→19:24)
[2021-11-22] MEDS: MORPHINE 2 MG/1 ML INJ IV PRN ×3 (05:05→22:45)
[2021-11-22 05:14] LABS: Basophils % (Auto) 0.7 % (0.0-1.8); Eosinophils # (Auto) 0.2 K/mm3 (0.0-0.4); Eosinophils % (Auto) 3.6 % (0.0-4.3); Hematocrit 20.4 % (30.3-42.9); Hemoglobin 6.5 gm/dl (10.1-14.3); Lymphocytes % (Auto) 20.2 % (13.4-35.0); Mean Corpuscular HGB Conc 32 % (30-34); Mean Corpuscular Volume 101 fl (79-97); Monocytes # (Auto) 0.6 K/mm3 (0.0-0.8); Monocytes % (Auto) 11.9 % (0.0-7.3); Red Blood Count 2.01 M/mm3 (3.65-5.03)
[2021-11-22 05:15] LABS: Platelet Count 47 K/mm3 (140-440); Red Cell Distribution Width 22.3 % (13.2-15.2)
[2021-11-22 05:33] LABS: Calcium 8.3 mg/dL (8.4-10.2)
--- NOTE | 2021-11-22 08:32 | Progress Note ---
Assessment and Plan Assessment and plan: -- End stage renal disease on dialysis Missed dialysis for 1 week Nephrology evaluation , stat hemodialysis renal diet. Avoid nephrotoxic drug. Renal dosing of medications Patient strongly advised to comply with hemodialysis Follow-up visits and diet -- Acute hyperkalemia Calcium gluconate 1 g IV x1 dose. Kayexalate 30 g p.o. x1 dose. Due to noncompliance with hemodialysis , strongly advised to comply with medications, , diet, hemodialysis, follow-up visits Patient verbalized understanding .hemodialysis per schedule --Anemia in chronic illness Hb today 6.5, transfuse 1 unit of PRBC during dialysis Anemia due to CKD. Ferrous sulfate 325 mg p.o. twice daily. Recheck CBC in the morning Closely monitor --Thrombocytopenia; In the setting of anemia/ESRD and lupus Patient will benefit from 1 unit platelet transfusion -- Generalized body aches/chronic pain syndrome Tylenol 650 mg p.o. every 6 hours as needed. We continue the home medication Supportive care --Hypertension/uncontrolled Continue current antihypertensives , as needed hydralazine labetalol 400 mg p.o. twice daily. Nifedipine XL 90 mg p.o. every 12 hours. We closely monitor and adjust as needed --History of Lupus Stable. 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 Pepcid 20 mg p.o. twice daily for GI prophylaxis. -- Advance care plan; 35 minutes I discussed with patient her medical condition, I discussed with her the abnormal tests and fluid overload I discussed with her her diagnosis, I discussed with her the treatment plan, and start dialysis today I also discussed with the patient the prognosis, possible discharge in 1 to 2 days if stable Patient had some questions answered all of them agreed with the plan --Preventive health care counseling; 35 minutes Strongly advised to comply with medications, diet, follow-up visits, hemodialysis Barriers of being complaints discussed with the patient, will discuss with the case management to assist with transportation for hemodialysis And any other assistance that patient may need. Patient verbalized under standing and agreed to comply with dialysis We will closely monitor the patient and adjust management as needed Plan of care reviewed with patient and her nurse Neuro consult and recommendations noted and appreciated Same day detail follow-up evaluation /prolonged inpatient care 35 minutes Closely monitor the patient and adjust management as needed Plan of care reviewed with the patient and her nurse Discharge planning per case management 11/21/2021 Patient received hemodialysis today Possible discharge tomorrow if renal has no other plans 11/22; patient has anemia with hemoglobin of 6.5, 1 unit PRBC transfusion during dialysis Thrombocytopenia with platelets of 40[associated with anemia, high risk ESRD, lupus] Transfuse 1 unit PRBC, closely monitor History Interval history: Patient has significant drop in H&H. Hemoglobin 6.5 Significant thrombocytopenia platelets 40 K High risk in the setting of anemia, end-stage renal disease, thrombocytopenia, history of lupus Patient needs PRBC and platelet transfusion Especially during dialysis Vital signs reviewed Hospitalist Physical - Constitutional Vitals: Temp Pulse Resp BP Pulse Ox 98.0 F 85 16 140/87 100 11/22/21 07:44 11/22/21 07:44 11/22/21 07:44 11/22/21 07:44 11/22/21 07:44 General appearance: Present: mild distress, well-nourished, other (Short of breath) - EENT Eyes: Present: PERRL, EOM intact ENT: hearing intact, clear oral mucosa - Neck Neck: Present: supple, normal ROM - Respiratory Respiratory effort: normal Respiratory: bilateral: diminished, negative: rales, rhonchi, wheezing - Cardiovascular Rhythm: regular Heart Sounds: Present: S1 & S2 - Extremities Extremities: no ischemia, No edema - Abdominal General gastrointestinal: soft, non-tender, non-distended, normal bowel sounds - Integumentary Integumentary: Present: clear, warm - Psychiatric Psychiatric: appropriate mood/affect, cooperative - Neurologic Neurologic: CNII-XII intact, moves all extremities Results - Labs CBC & Chem 7: 11/22/21 04:36 11/22/21 04:36 Labs: Laboratory Last Values WBC 4.9 K/mm3 (4.5-11.0) 11/22/21 04:36 RBC 2.01 M/mm3 (3.65-5.03) L 11/22/21 04:36 Hgb 6.5 gm/dl (10.1-14.3) L 11/22/21 04:36 Hct 20.4 % (30.3-42.9) L 11/22/21 04:36 MCV 101 fl (79-97) H 11/22/21 04:36 MCH 32 pg (28-32) 11/22/21 04:36 MCHC 32 % (30-34) 11/22/21 04:36 RDW 22.3 % (13.2-15.2) H 11/22/21 04:36 Plt Count 47 K/mm3 (140-440) L 11/22/21 04:36 Lymph % (Auto) 20.2 % (13.4-35.0) 11/22/21 04:36 [place] % (Auto) 11.9 % (0.0-7.3) H 11/22/21 04:36 Eos % (Auto) 3.6 % (0.0-4.3) 11/22/21 04:36 Baso % (Auto) 0.7 % (0.0-1.8) 11/22/21 04:36 Lymph # (Auto) 1.0 K/mm3 (1.2-5.4) L 11/22/21 04:36 [place] # (Auto) 0.6 K/mm3 (0.0-0.8) 11/22/21 04:36 Eos # (Auto) 0.2 K/mm3 (0.0-0.4) 11/22/21 04:36 Baso # (Auto) 0.0 K/mm3 (0.0-0.1) 11/22/21 04:36 Add Manual Diff Complete 11/20/21 23:13 Total Counted 100 11/20/21 23:13 Seg Neutrophils % 63.6 % (40.0-70.0) 11/22/21 04:36 Seg Neuts % (Manual) 76.0 % (40.0-70.0) H 11/20/21 23:13 Band Neutrophils % 0 % 11/20/21 23:13 Lymphocytes % (Manual) 14.0 % (13.4-35.0) 11/20/21 23:13 Reactive Lymphs % (Man) 0 % 11/20/21 23:13 Monocytes % (Manual) 8.0 % (0.0-7.3) H 11/20/21 23:13 Eosinophils % (Manual) 0 % (0.0-4.3) 11/20/21 23:13 Basophils % (Manual) 2.0 % (0.0-1.8) H 11/20/21 23:13 Metamyelocytes % 0 % 11/20/21 23:13 Myelocytes % 0 % 11/20/21 23:13 Promyelocytes % 0 % 11/20/21 23:13 Blast Cells % 0 % 11/20/21 23:13 Nucleated RBC % Not Reportable 11/20/21 23:13 Seg Neutrophils # 3.1 K/mm3 (1.8-7.7) 11/22/21 04:36 Seg Neutrophils # Man 5.2 K/mm3 (1.8-7.7) 11/20/21 23:13 Band Neutrophils # 0.0 K/mm3 11/20/21 23:13 Lymphocytes # (Manual) 1.0 K/mm3 (1.2-5.4) L 11/20/21 23:13 Abs React Lymphs (Man) 0.0 K/mm3 11/20/21 23:13 Monocytes # (Manual) 0.5 K/mm3 (0.0-0.8) 11/20/21 23:13 Eosinophils # (Manual) 0.0 K/mm3 (0.0-0.4) 11/20/21 23:13 Basophils # (Manual) 0.1 K/mm3 (0.0-0.1) 11/20/21 23:13 Metamyelocytes # 0.0 K/mm3 11/20/21 23:13 Myelocytes # 0.0 K/mm3 11/20/21 23:13 Promyelocytes # 0.0 K/mm3 11/20/21 23:13 Blast Cells # 0.0 K/mm3 11/20/21 23:13 WBC Morphology Not Reportable 11/20/21 23:13 Hypersegmented Neuts Not Reportable 11/20/21 23:13 Hyposegmented Neuts Not Reportable 11/20/21 23:13 Hypogranular Neuts Not Reportable 11/20/21 23:13 Smudge Cells Not Reportable 11/20/21 23:13 Toxic Granulation Not Reportable 11/20/21 23:13 Toxic Vacuolation Not Reportable 11/20/21 23:13 Dohle Bodies Not Reportable 11/20/21 23:13 Pelger-Huet Anomaly Not Reportable 11/20/21 23:13 Maite Rods Not Reportable 11/20/21 23:13 Platelet Estimate Consistent w auto 11/20/21 23:13 Clumped Platelets Not Reportable 11/20/21 23:13 Plt Clumps, EDTA Not Reportable 11/20/21 23:13 Large Platelets Not Reportable 11/20/21 23:13 Giant Platelets Not Reportable 11/20/21 23:13 Platelet Satelliting Not Reportable 11/20/21 23:13 Plt Morphology Comment Not Reportable 11/20/21 23:13 RBC Morphology Not Reportable 11/20/21 23:13 Dimorphic RBCs Not Reportable 11/20/21 23:13 Polychromasia Not Reportable 11/20/21 23:13 Hypochromasia Not Reportable 11/20/21 23:13 Poikilocytosis Not Reportable 11/20/21 23:13 Anisocytosis 1+ 11/20/21 23:13 Microcytosis Not Reportable 11/20/21 23:13 Macrocytosis Not Reportable 11/20/21 23:13 Spherocytes Not Reportable 11/20/21 23:13 Pappenheimer Bodies Not Reportable 11/20/21 23:13 Sickle Cells Not Reportable 11/20/21 23:13 Target Cells Not Reportable 11/20/21 23:13 Tear Drop Cells Not Reportable 11/20/21 23:13 Ovalocytes Not Reportable 11/20/21 23:13 Helmet Cells Not Reportable 11/20/21 23:13 Owen-Hildreth Bodies Not Reportable 11/20/21 23:13 [place] Rings Not Reportable 11/20/21 23:13 [place] Cells Not Reportable 11/20/21 23:13 Bite Cells Not Reportable 11/20/21 23:13 Crenated Cell Not Reportable 11/20/21 23:13 Elliptocytes Not Reportable 11/20/21 23:13 Acanthocytes (Spur) Not Reportable 11/20/21 23:13 Rouleaux Not Reportable 11/20/21 23:13 Hemoglobin C Crystals Not Reportable 11/20/21 23:13 Schistocytes Not Reportable 11/20/21 23:13 Malaria parasites Not Reportable 11/20/21 23:13 Al Bodies Not Reportable 11/20/21 23:13 Hem Pathologist Commnt No 11/20/21 23:13 Sodium 142 mmol/L (137-145) 11/22/21 04:36 Potassium 4.3 mmol/L (3.6-5.0) D 11/22/21 04:36 Chloride 102.0 mmol/L (98-107) 11/22/21 04:36 Carbon Dioxide 28 mmol/L (22-30) 11/22/21 04:36 Anion Gap 16 mmol/L 11/22/21 04:36 BUN 32 mg/dL (7-17) H 11/22/21 04:36 Creatinine 6.0 mg/dL (0.6-1.2) H 11/22/21 04:36 Estimated GFR 10 ml/min 11/22/21 04:36 BUN/Creatinine Ratio 5 % 11/22/21 04:36 Glucose 89 mg/dL (65-100) 11/22/21 04:36 Calcium 8.3 mg/dL (8.4-10.2) L 11/22/21 04:36 Total Bilirubin 0.60 mg/dL (0.1-1.2) 11/20/21 23:13 AST 48 units/L (5-40) H 11/20/21 23:13 ALT 64 units/L (7-56) H 11/20/21 23:13 Alkaline Phosphatase 126 units/L (35-129) 11/20/21 23:13 Total Protein 6.6 g/dL (6.3-8.2) 11/20/21 23:13 Albumin 4.0 g/dL (3.9-5) 11/20/21 23:13 Albumin/Globulin Ratio 1.5 % 11/20/21 23:13 Active Medications - Current Medications Current Medications: Generic Name Dose Route Start Last Admin Trade Name Freq PRN Reason Stop Dose Admin Acetaminophen 650 mg 11/21/21 05:30 Acetaminophen 325 Mg Tab PO Q4H PRN Pain MILD(1-3)/Fever >100.5/GUZMAN Albuterol 2.5 mg 11/21/21 05:54 Albuterol 2.5 Mg/3 Ml Nebu IH Q3HRT PRN Shortness Of Breath Amitriptyline HCl 30 mg 11/21/21 10:00 11/21/21 09:27 Amitriptyline 10 Mg Tab PO 30 mg QDAY OLLIE Administration Ferrous Sulfate 325 mg 11/21/21 10:00 11/21/21 21:35 Ferrous Sulfate 325 Mg Tab PO 325 mg BID OLLIE Administration Hydralazine HCl 100 mg 11/21/21 08:00 11/21/21 21:35 Hydralazine 100 Mg Tab PO 100 mg TID OLLIE Administration Hydralazine HCl 20 mg 11/21/21 18:48 11/22/21 00:51 Hydralazine 20 Mg/1 Ml Inj IV 20 mg Q4HR PRN Administration Hypertension Hydroxychloroquine Sulfate 200 mg 11/21/21 10:00 11/21/21 09:26 Hydroxychloroquine 200 Mg Tab PO 200 mg QDAY OLLIE Administration Hydroxyzine HCl 25 mg 11/21/21 05:56 Hydroxyzine Hcl 25 Mg Tab PO Q6H PRN Itching Sodium Chloride 500 mls @ 0 mls/hr 11/22/21 09:00 Nacl 0.9% 500 Ml IV 11/22/21 20:00 ONCE@0900 OLLIE As Directed Sodium Chloride 500 mls @ 0 mls/hr 11/22/21 08:23 Nacl 0.9% 500 Ml IV 11/22/21 08:24 ONCE ONE As Directed Labetalol HCl 400 mg 11/21/21 10:00 11/21/21 21:35 Labetalol 200 Mg Tab PO 400 mg BID OLLIE Administration Morphine Sulfate 2 mg 11/21/21 05:30 11/22/21 05:05 Morphine 2 Mg/1 Ml Inj IV 2 mg Q4H PRN Administration Pain, Moderate (4-6) Morphine Sulfate 2 mg 11/21/21 05:54 11/21/21 08:08 Morphine 2 Mg/1 Ml Inj IV 2 mg Q4H PRN Administration Pain, Moderate (4-6) Morphine Sulfate 4 mg 11/21/21 05:54 Morphine 4 Mg/1 Ml Inj IV Q4H PRN Pain , Severe (7-10) Nifedipine 90 mg 11/21/21 06:00 11/22/21 05:04 Nifedipine Xl 90 Mg Tab PO 90 mg Q12H OLLIE Administration Ondansetron HCl 4 mg 11/21/21 05:30 11/22/21 05:04 Ondansetron 4 Mg/2 Ml Inj IV 4 mg Q8H PRN Administration Nausea And Vomiting Pantoprazole Sodium 40 mg 11/21/21 07:30 11/21/21 07:38 Pantoprazole 40 Mg Tab PO 40 mg QDAC OLLIE Administration Sodium Chloride 10 ml 11/21/21 10:00 11/21/21 21:35 Sodium Chloride 0.9% 10 Ml Flush Syringe IV 10 ml BID OLLIE Administration Sodium Chloride 10 ml 11/21/21 05:30 Sodium Chloride 0.9% 10 Ml Flush Syringe IV PRN PRN LINE FLUSH
[2021-11-22] MEDS ORDERED: SODIUM CHLORIDE 0.9% 500 ML 500 ML IV SCH ×2 (09:00)
[2021-11-22] MEDS: AMITRIPTYLINE 10 MG TAB PO SCH (11:09)
[2021-11-22] MEDS: HYDROXYCHLOROQUINE 200 MG TAB PO SCH (11:10)
[2021-11-22] MEDS: PANTOPRAZOLE 40 MG TAB PO SCH (11:10)
[2021-11-22] MEDS: FERROUS SULFATE 325 MG TAB PO SCH ×2 (11:10→21:02)
--- NOTE | 2021-11-22 11:22 | Progress Note ---
Assessment and Plan Assessment: End Stage Renal Disease S/P Hypertensive Emergency Hypertension S/P Hyperkalemia Anemia Noncompliance with hemodialysis Volume Overload Plan: Hemodialysis again today for UF and clearance Anemia-Start Epogen 20,000 units with hemodialysis today Transfuse as needed Low potassium diet Fluid restriction of 1 liter per day Reenforced compliance with HD Obtain daily weights Monitor I/O's daily Assess dialysis needs daily Outpatient HD clinic: [facility] Patient to return to her outpatient HD clinic upon discharge Plan of care reviewed by Dr. Mejias Subjective Date of service: 11/22/21 Principal diagnosis: ESRD Interval history: Patient seen lying in bed. Reviewed renal plan of care for HD today and Epogen today Objective - Vital Signs Vital signs: Vital Signs - 12hr 11/22/21 11/22/21 11/22/21 00:34 03:49 05:05 Temperature 99.9 F H 97.5 F L Pulse Rate 97 H 84 Respiratory 18 18 18 Rate Blood Pressure 169/110 123/79 O2 Sat by Pulse 96 100 Oximetry 11/22/21 07:44 Temperature 98.0 F Pulse Rate 85 Respiratory 16 Rate Blood Pressure 140/87 O2 Sat by Pulse 100 Oximetry - General Appearance General appearance: well-developed, appears stated age EENT: ATNC, PERRL Neck: no JVD, supple Respiratory: Present: Decreased Breath Sounds Cardiology: S1S2 Gastrointestinal: normoactive bowel sounds Integumentary: warm and dry Neurologic: alert and oriented x3 Musculoskeletal: joint swelling, other (2+ edema to BLE) - Lab 11/22/21 04:36 11/22/21 04:36 Most recent lab results Calcium 8.3 mg/dL (8.4-10.2) L 11/22/21 04:36 Medications & Allergies - Medications Allergies/Adverse Reactions: Allergies amoxicillin trihydrate [From Augmentin] Allergy (Unknown, Verified 11/20/21 17:58) Hives Tolerates Zosyn diphenhydramine [From Benadryl] Allergy (Verified 11/20/21 17:58) Itching potassium clavulanate [From Augmentin] Adverse Reaction (Unknown, Verified 11/20/21 17:58) Hives Home Medications: Home Medications Medication Instructions Recorded Confirmed Last Taken Type Amitriptyline [Elavil] 30 mg PO QDAY #90 11/01/21 Unknown Rx Ferrous Sulfate [Feosol 325 MG tab] 325 mg PO BID #60 tablet 11/01/21 Unknown Rx Hydroxychloroquine [Plaquenil] 200 mg PO QDAY #30 tablet 11/01/21 Unknown Rx NIFEdipine XL [Procardia Xl] 90 mg PO Q12H #60 tablet 11/01/21 Unknown Rx Pantoprazole [Protonix TAB] 40 mg PO QDAC #30 tablet 11/01/21 Unknown Rx hydrALAZINE [Apresoline TAB] 100 mg PO TID #90 tab 11/01/21 Unknown Rx hydrOXYzine HCL [Atarax] 25 mg PO Q6HR PRN #20 tablet 11/01/21 Unknown Rx labetaloL [Labetalol 200mg TAB] 400 mg PO BID #60 tablet 11/01/21 Unknown Rx oxyCODONE /ACETAMINOPHEN [Percocet 1 tab PO Q6H PRN #10 tablet 11/01/21 Unknown Rx 5/325 mg] Active Medications: Generic Name Dose Route Start Last Admin Trade Name Freq PRN Reason Stop Dose Admin Acetaminophen 650 mg 11/21/21 05:30 Acetaminophen 325 Mg Tab PO Q4H PRN Pain MILD(1-3)/Fever >100.5/GUZMAN Albuterol 2.5 mg 11/21/21 05:54 Albuterol 2.5 Mg/3 Ml Nebu IH Q3HRT PRN Shortness Of Breath Amitriptyline HCl 30 mg 11/21/21 10:00 11/22/21 11:09 Amitriptyline 10 Mg Tab PO 30 mg QDAY OLLIE Administration Ferrous Sulfate 325 mg 11/21/21 10:00 11/22/21 11:10 Ferrous Sulfate 325 Mg Tab PO 325 mg BID OLLIE Administration Hydralazine HCl 100 mg 11/21/21 08:00 11/21/21 21:35 Hydralazine 100 Mg Tab PO 100 mg TID OLLIE Administration Hydralazine HCl 20 mg 11/21/21 18:48 11/22/21 00:51 Hydralazine 20 Mg/1 Ml Inj IV 20 mg Q4HR PRN Administration Hypertension Hydroxychloroquine Sulfate 200 mg 11/21/21 10:00 11/22/21 11:10 Hydroxychloroquine 200 Mg Tab PO 200 mg QDAY OLLIE Administration Hydroxyzine HCl 25 mg 11/21/21 05:56 Hydroxyzine Hcl 25 Mg Tab PO Q6H PRN Itching Sodium Chloride 500 mls @ 0 mls/hr 11/22/21 09:00 Nacl 0.9% 500 Ml IV 11/22/21 20:00 ONCE@0900 OLLIE As Directed Sodium Chloride 500 mls @ 0 mls/hr 11/22/21 09:00 Nacl 0.9% 500 Ml IV 11/22/21 19:00 ONCE@0900 OLLIE As Directed Labetalol HCl 400 mg 11/21/21 10:00 11/22/21 11:10 Labetalol 200 Mg Tab PO 400 mg BID OLLIE Administration Morphine Sulfate 2 mg 11/21/21 05:30 11/22/21 05:05 Morphine 2 Mg/1 Ml Inj IV 2 mg Q4H PRN Administration Pain, Moderate (4-6) Morphine Sulfate 2 mg 11/21/21 05:54 11/21/21 08:08 Morphine 2 Mg/1 Ml Inj IV 2 mg Q4H PRN Administration Pain, Moderate (4-6) Morphine Sulfate 4 mg 11/21/21 05:54 Morphine 4 Mg/1 Ml Inj IV Q4H PRN Pain , Severe (7-10) Nifedipine 90 mg 11/21/21 06:00 11/22/21 05:04 Nifedipine Xl 90 Mg Tab PO 90 mg Q12H OLLIE Administration Ondansetron HCl 4 mg 11/21/21 05:30 11/22/21 05:04 Ondansetron 4 Mg/2 Ml Inj IV 4 mg Q8H PRN Administration Nausea And Vomiting Pantoprazole Sodium 40 mg 11/21/21 07:30 11/22/21 11:10 Pantoprazole 40 Mg Tab PO 40 mg QDAC OLLIE Administration Sodium Chloride 10 ml 11/21/21 10:00 11/22/21 11:08 Sodium Chloride 0.9% 10 Ml Flush Syringe IV 10 ml BID OLLIE Administration Sodium Chloride 10 ml 11/21/21 05:30 Sodium Chloride 0.9% 10 Ml Flush Syringe IV PRN PRN LINE FLUSH
[2021-11-22] MEDS: hydrALAZINE 100 MG TAB PO SCH ×3 (12:24→20:00)
[2021-11-22] MEDS ORDERED: EPOETIN ALFA-EPBX 10,000 UNIT/1 ML VIAL IV PRN (16:01)
[2021-11-22] MEDS ORDERED: SODIUM CHLORIDE 0.9% 100 ML IV PRN (16:01)
[2021-11-22] MEDS ORDERED: SODIUM CHLORIDE 0.9% 1000 ML 1,000 ML ONE (17:22)
[2021-11-23] MEDS: MORPHINE 2 MG/1 ML INJ IV PRN ×2 (02:22→20:06)
[2021-11-23 06:06] LABS: Calcium 8.1 mg/dL (8.4-10.2)
[2021-11-23 06:08] LABS: Basophils % (Auto) 0.4 % (0.0-1.8); Eosinophils # (Auto) 0.2 K/mm3 (0.0-0.4); Eosinophils % (Auto) 4.2 % (0.0-4.3); Lymphocytes # (Auto) 1.1 K/mm3 (1.2-5.4); Lymphocytes % (Auto) 30.7 % (13.4-35.0); Mean Corpuscular HGB Conc 32 % (30-34); Mean Corpuscular Volume 101 fl (79-97); Monocytes # (Auto) 0.5 K/mm3 (0.0-0.8); Monocytes % (Auto) 15.1 % (0.0-7.3); Red Blood Count 1.82 M/mm3 (3.65-5.03)
[2021-11-23 06:46] LABS: Hemoglobin 5.9 gm/dl (10.1-14.3)
[2021-11-23 06:47] LABS: Hematocrit 18.3 % (30.3-42.9); Platelet Count 40 K/mm3 (140-440); Red Cell Distribution Width 21.7 % (13.2-15.2)
[2021-11-23] MEDS ORDERED: SODIUM CHLORIDE 0.9% 500 ML 500 ML IV ONE (08:27)
--- NOTE | 2021-11-23 09:24 | Progress Note ---
Assessment and Plan Assessment and plan: Patient's hemoglobin dropped to 5.9 [facility] did not get compatible blood due to antibodies How discussed with our blood bank nurse she is still trying Discussed with the patient, she verbalized understanding -- End stage renal disease on dialysis Patient received hemodialysis on 11/21, 11/22 Nephrology following renal diet. Avoid nephrotoxic drug. Renal dosing of medications Patient strongly advised to comply with hemodialysis Follow-up visits and diet -- Acute hyperkalemia Calcium gluconate 1 g IV x1 dose. Kayexalate 30 g p.o. x1 dose. Due to noncompliance with hemodialysis , strongly advised to comply with medications, , diet, hemodialysis, follow-up visits Patient verbalized understanding .hemodialysis per schedule --Anemia in chronic illness Hb today 6.5, transfuse 1 unit of PRBC during dialysis Anemia due to CKD. Ferrous sulfate 325 mg p.o. twice daily. Recheck CBC in the morning Closely monitor --Thrombocytopenia; In the setting of anemia/ESRD and lupus Patient will benefit from 1 unit platelet transfusion -- Generalized body aches/chronic pain syndrome Tylenol 650 mg p.o. every 6 hours as needed. We continue the home medication Supportive care --Hypertension/uncontrolled Continue current antihypertensives , as needed hydralazine labetalol 400 mg p.o. twice daily. Nifedipine XL 90 mg p.o. every 12 hours. We closely monitor and adjust as needed --History of Lupus Stable. Supportive care Patient needs to follow-up with voltage inspector upon discharge --Noncompliance; Patient counseled importance of adhering to the treatment plan mainly hemodialysis Medications and follow-up visits .she verbalized understanding -Full CODE STATUS; -- DVT prophylaxis SCD for DVT prophylaxis. Pepcid 20 mg p.o. twice daily for GI prophylaxis. -- Advance care plan; 35 minutes I discussed with patient her medical condition, I discussed with her the abnormal tests and fluid overload I discussed with her her diagnosis, I discussed with her the treatment plan, and start dialysis today I also discussed with the patient the prognosis, possible discharge in 1 to 2 days if stable Patient had some questions answered all of them agreed with the plan --Preventive health care counseling; 35 minutes Strongly advised to comply with medications, diet, follow-up visits, hemodialysis Barriers of being complaints discussed with the patient, will discuss with the case management to assist with transportation for hemodialysis And any other assistance that patient may need. Patient verbalized u nderstanding and agreed to comply with dialysis We will closely monitor the patient and adjust management as needed Plan of care reviewed with patient and her nurse Neuro consult and recommendations noted and appreciated Discharge planning per case management 11/21/2021 Patient received hemodialysis today Possible discharge tomorrow if renal has no other plans 11/22; patient has anemia with hemoglobin of 6.5, 1 unit PRBC transfusion during dialysis Thrombocytopenia with platelets of 40[associated with anemia, high risk ESRD, lupus] Transfuse 1 unit PRBC, closely monitor 11/23; patient could not get the blood transfusion due to presence of anti-E bodies Blood bank could not secure the blood, today patient's hemoglobin further dropped to 5.9 Hb\ Requested second unit of PRBC and I discussed with the blood bank nurse History Interval history: I have seen and examined the patient at the bedside Patient's chart and medications reviewed Patient was severely anemic, blood transfusion requested Blood bank does not have due to antibodies Patient feels slightly better Vital signs noted Patient needs 2 units of PRBC, I requested The blood bank reports that [facility] could not get the patient's glucose blood Due to presence of antibodies Hospitalist Physical - Constitutional Vitals: Temp Pulse Resp BP Pulse Ox 98.8 F 88 18 170/105 95 11/23/21 07:33 11/23/21 07:33 11/23/21 07:33 11/23/21 07:33 11/23/21 07:33 General appearance: Present: mild distress, well-nourished - EENT Eyes: Present: PERRL, EOM intact - Neck Neck: Present: supple, normal ROM - Respiratory Respiratory effort: normal Respiratory: bilateral: diminished, negative: rales, rhonchi, wheezing - Cardiovascular Rhythm: regular Heart Sounds: Present: S1 & S2 - Extremities Extremities: no ischemia, No edema - Abdominal General gastrointestinal: soft, non-tender, non-distended, normal bowel sounds - Integumentary Integumentary: Present: clear, warm - Psychiatric Psychiatric: appropriate mood/affect, cooperative - Neurologic Neurologic: moves all extremities Results - Labs CBC & Chem 7: 11/23/21 05:31 11/23/21 05:31 Labs: Laboratory Last Values WBC 3.6 K/mm3 (4.5-11.0) L 11/23/21 05:31 RBC 1.82 M/mm3 (3.65-5.03) L 11/23/21 05:31 Hgb 5.9 gm/dl (10.1-14.3) L* 11/23/21 05:31 Hct 18.3 % (30.3-42.9) L* 11/23/21 05:31 MCV 101 fl (79-97) H 11/23/21 05:31 MCH 33 pg (28-32) H 11/23/21 05:31 MCHC 32 % (30-34) 11/23/21 05:31 RDW 21.7 % (13.2-15.2) H 11/23/21 05:31 Plt Count 40 K/mm3 (140-440) L 11/23/21 05:31 Lymph % (Auto) 30.7 % (13.4-35.0) 11/23/21 05:31 [place] % (Auto) 15.1 % (0.0-7.3) H 11/23/21 05:31 Eos % (Auto) 4.2 % (0.0-4.3) 11/23/21 05:31 Baso % (Auto) 0.4 % (0.0-1.8) 11/23/21 05:31 Lymph # (Auto) 1.1 K/mm3 (1.2-5.4) L 11/23/21 05:31 [place] # (Auto) 0.5 K/mm3 (0.0-0.8) 11/23/21 05:31 Eos # (Auto) 0.2 K/mm3 (0.0-0.4) 11/23/21 05:31 Baso # (Auto) 0.0 K/mm3 (0.0-0.1) 11/23/21 05:31 Add Manual Diff Complete 11/20/21 23:13 Total Counted 100 11/20/21 23:13 Seg Neutrophils % 49.6 % (40.0-70.0) 11/23/21 05:31 Seg Neuts % (Manual) 76.0 % (40.0-70.0) H 11/20/21 23:13 Band Neutrophils % 0 % 11/20/21 23:13 Lymphocytes % (Manual) 14.0 % (13.4-35.0) 11/20/21 23:13 Reactive Lymphs % (Man) 0 % 11/20/21 23:13 Monocytes % (Manual) 8.0 % (0.0-7.3) H 11/20/21 23:13 Eosinophils % (Manual) 0 % (0.0-4.3) 11/20/21 23:13 Basophils % (Manual) 2.0 % (0.0-1.8) H 11/20/21 23:13 Metamyelocytes % 0 % 11/20/21 23:13 Myelocytes % 0 % 11/20/21 23:13 Promyelocytes % 0 % 11/20/21 23:13 Blast Cells % 0 % 11/20/21 23:13 Nucleated RBC % Not Reportable 11/20/21 23:13 Seg Neutrophils # 1.8 K/mm3 (1.8-7.7) 11/23/21 05:31 Seg Neutrophils # Man 5.2 K/mm3 (1.8-7.7) 11/20/21 23:13 Band Neutrophils # 0.0 K/mm3 11/20/21 23:13 Lymphocytes # (Manual) 1.0 K/mm3 (1.2-5.4) L 11/20/21 23:13 Abs React Lymphs (Man) 0.0 K/mm3 11/20/21 23:13 Monocytes # (Manual) 0.5 K/mm3 (0.0-0.8) 11/20/21 23:13 Eosinophils # (Manual) 0.0 K/mm3 (0.0-0.4) 11/20/21 23:13 Basophils # (Manual) 0.1 K/mm3 (0.0-0.1) 11/20/21 23:13 Metamyelocytes # 0.0 K/mm3 11/20/21 23:13 Myelocytes # 0.0 K/mm3 11/20/21 23:13 Promyelocytes # 0.0 K/mm3 11/20/21 23:13 Blast Cells # 0.0 K/mm3 11/20/21 23:13 WBC Morphology Not Reportable 11/20/21 23:13 Hypersegmented Neuts Not Reportable 11/20/21 23:13 Hyposegmented Neuts Not Reportable 11/20/21 23:13 Hypogranular Neuts Not Reportable 11/20/21 23:13 Smudge Cells Not Reportable 11/20/21 23:13 Toxic Granulation Not Reportable 11/20/21 23:13 Toxic Vacuolation Not Reportable 11/20/21 23:13 Dohle Bodies Not Reportable 11/20/21 23:13 Pelger-Huet Anomaly Not Reportable 11/20/21 23:13 Maite Rods Not Reportable 11/20/21 23:13 Platelet Estimate Consistent w auto 11/20/21 23:13 Clumped Platelets Not Reportable 11/20/21 23:13 Plt Clumps, EDTA Not Reportable 11/20/21 23:13 Large Platelets Not Reportable 11/20/21 23:13 Giant Platelets Not Reportable 11/20/21 23:13 Platelet Satelliting Not Reportable 11/20/21 23:13 Plt Morphology Comment Not Reportable 11/20/21 23:13 RBC Morphology Not Reportable 11/20/21 23:13 Dimorphic RBCs Not Reportable 11/20/21 23:13 Polychromasia Not Reportable 11/20/21 23:13 Hypochromasia Not Reportable 11/20/21 23:13 Poikilocytosis Not Reportable 11/20/21 23:13 Anisocytosis 1+ 11/20/21 23:13 Microcytosis Not Reportable 11/20/21 23:13 Macrocytosis Not Reportable 11/20/21 23:13 Spherocytes Not Reportable 11/20/21 23:13 Pappenheimer Bodies Not Reportable 11/20/21 23:13 Sickle Cells Not Reportable 11/20/21 23:13 Target Cells Not Reportable 11/20/21 23:13 Tear Drop Cells Not Reportable 11/20/21 23:13 Ovalocytes Not Reportable 11/20/21 23:13 Helmet Cells Not Reportable 11/20/21 23:13 [place] Bodies Not Reportable 11/20/21 23:13 [place] Rings Not Reportable 11/20/21 23:13 [place] Cells Not Reportable 11/20/21 23:13 Bite Cells Not Reportable 11/20/21 23:13 Crenated Cell Not Reportable 11/20/21 23:13 Elliptocytes Not Reportable 11/20/21 23:13 Acanthocytes (Spur) Not Reportable 11/20/21 23:13 Rouleaux Not Reportable 11/20/21 23:13 Hemoglobin C Crystals Not Reportable 11/20/21 23:13 Schistocytes Not Reportable 11/20/21 23:13 Malaria parasites Not Reportable 11/20/21 23:13 Al Bodies Not Reportable 11/20/21 23:13 Hem Pathologist Commnt No 11/20/21 23:13 Sodium 142 mmol/L (137-145) 11/23/21 05:31 Potassium 4.5 mmol/L (3.6-5.0) 11/23/21 05:31 Chloride 103.2 mmol/L (98-107) 11/23/21 05:31 Carbon Dioxide 28 mmol/L (22-30) 11/23/21 05:31 Anion Gap 15 mmol/L 11/23/21 05:31 BUN 16 mg/dL (7-17) 11/23/21 05:31 Creatinine 4.1 mg/dL (0.6-1.2) H 11/23/21 05:31 Estimated GFR 16 ml/min 11/23/21 05:31 BUN/Creatinine Ratio 4 % 11/23/21 05:31 Glucose 86 mg/dL (65-100) 11/23/21 05:31 Calcium 8.1 mg/dL (8.4-10.2) L 11/23/21 05:31 Total Bilirubin 0.60 mg/dL (0.1-1.2) 11/20/21 23:13 AST 48 units/L (5-40) H 11/20/21 23:13 ALT 64 units/L (7-56) H 11/20/21 23:13 Alkaline Phosphatase 126 units/L (35-129) 11/20/21 23:13 Total Protein 6.6 g/dL (6.3-8.2) 11/20/21 23:13 Albumin 4.0 g/dL (3.9-5) 11/20/21 23:13 Albumin/Globulin Ratio 1.5 % 11/20/21 23:13 Blood Type B POSITIVE 11/22/21 09:44 Antibody Screen Positive 11/22/21 09:44 Crossmatch See Detail 11/22/21 09:44 Active Medications - Current Medications Current Medications: Generic Name Dose Route Start Last Admin Trade Name Freq PRN Reason Stop Dose Admin Acetaminophen 650 mg 11/21/21 05:30 Acetaminophen 325 Mg Tab PO Q4H PRN Pain MILD(1-3)/Fever >100.5/GUZMAN Albuterol 2.5 mg 11/21/21 05:54 Albuterol 2.5 Mg/3 Ml Nebu IH Q3HRT PRN Shortness Of Breath Amitriptyline HCl 30 mg 11/21/21 10:00 11/22/21 11:09 Amitriptyline 10 Mg Tab PO 30 mg QDAY OLLIE Administration Epoetin Chaitanya-epbx 10,000 unit 11/22/21 16:01 11/22/21 16:25 Epoetin Chaitanya-Epbx 10,000 Unit/1 Ml Vial IV 10,000 unit ALEXX PRN Administration hemodialysis Ferrous Sulfate 325 mg 11/21/21 10:00 11/22/21 21:02 Ferrous Sulfate 325 Mg Tab PO 325 mg BID OLLIE Administration Hydralazine HCl 100 mg 11/21/21 08:00 11/22/21 20:00 Hydralazine 100 Mg Tab PO Not Given TID OLLIE Hydralazine HCl 20 mg 11/21/21 18:48 11/22/21 18:29 Hydralazine 20 Mg/1 Ml Inj IV 20 mg Q4HR PRN Administration Hypertension Hydroxychloroquine Sulfate 200 mg 11/21/21 10:00 11/22/21 11:10 Hydroxychloroquine 200 Mg Tab PO 200 mg QDAY OLLIE Administration Hydroxyzine HCl 25 mg 11/21/21 05:56 Hydroxyzine Hcl 25 Mg Tab PO Q6H PRN Itching Sodium Chloride 100 mls @ 999 mls/hr 11/22/21 16:01 Nacl 0.9% IV ALEXX PRN Hypotension Labetalol HCl 400 mg 11/21/21 10:00 11/22/21 21:02 Labetalol 200 Mg Tab PO 400 mg BID OLLIE Administration Morphine Sulfate 2 mg 11/21/21 05:30 11/23/21 02:22 Morphine 2 Mg/1 Ml Inj IV 2 mg Q4H PRN Administration Pain, Moderate (4-6) Morphine Sulfate 2 mg 11/21/21 05:54 11/21/21 08:08 Morphine 2 Mg/1 Ml Inj IV 2 mg Q4H PRN Administration Pain, Moderate (4-6) Morphine Sulfate 4 mg 11/21/21 05:54 Morphine 4 Mg/1 Ml Inj IV Q4H PRN Pain , Severe (7-10) Nifedipine 90 mg 11/21/21 06:00 11/22/21 19:24 Nifedipine Xl 90 Mg Tab PO 90 mg Q12H OLLIE Administration Ondansetron HCl 4 mg 11/21/21 05:30 11/22/21 05:04 Ondansetron 4 Mg/2 Ml Inj IV 4 mg Q8H PRN Administration Nausea And Vomiting Pantoprazole Sodium 40 mg 11/21/21 07:30 11/22/21 11:10 Pantoprazole 40 Mg Tab PO 40 mg QDAC OLLIE Administration Sodium Chloride 10 ml 11/21/21 10:00 11/22/21 11:08 Sodium Chloride 0.9% 10 Ml Flush Syringe IV 10 ml BID OLLIE Administration Sodium Chloride 10 ml 11/21/21 05:30 Sodium Chloride 0.9% 10 Ml Flush Syringe IV PRN PRN LINE FLUSH
[2021-11-23] MEDS: HYDROXYCHLOROQUINE 200 MG TAB PO SCH (09:36)
[2021-11-23] MEDS: AMITRIPTYLINE 10 MG TAB PO SCH (09:36)
[2021-11-23] MEDS: PANTOPRAZOLE 40 MG TAB PO SCH (09:36)
[2021-11-23] MEDS: FERROUS SULFATE 325 MG TAB PO SCH ×2 (09:36→21:58)
[2021-11-23] MEDS: hydrALAZINE 100 MG TAB PO SCH ×3 (09:36→20:06)
[2021-11-23] MEDS: NIFEdipine XL 90 MG TAB PO SCH ×2 (09:38→17:44)
[2021-11-23] MEDS ORDERED: EPOETIN ALFA-EPBX 20,000 UNIT/1 ML VIAL IV PRN (10:00)
--- NOTE | 2021-11-23 12:02 | Progress Note ---
Assessment and Plan Assessment: End Stage Renal Disease S/P Hypertensive Emergency Hypertension S/P Hyperkalemia Anemia Noncompliance with hemodialysis Volume Overload Plan: Tolerated HD yesterday. Anemia-Started Epogen 20,000 units with hemodialysis Transfuse as needed Low potassium diet Fluid restriction of 1 liter per day Reenforced compliance with HD Obtain daily weights Monitor I/O's daily Assess dialysis needs daily Outpatient HD clinic: [facility] Patient to return to her outpatient HD clinic upon discharge Subjective Date of service: 11/23/21 Principal diagnosis: ESRD Interval history: s/p HD yesterday, NAD. Hg low. Objective - Exam Narrative Exam: - General Appearance General appearance: well-developed, appears stated age EENT: ATNC, PERRL Neck: no JVD, supple Respiratory: Present: Decreased Breath Sounds Cardiology: S1S2 Gastrointestinal: normoactive bowel sounds Integumentary: warm and dry Neurologic: alert and oriented x3 Musculoskeletal: joint swelling, other (2+ edema to BLE) - Vital Signs Vital signs: Vital Signs - 12hr 11/23/21 11/23/21 11/23/21 00:12 00:20 03:26 Temperature 99.3 F 99.4 F Pulse Rate 87 86 90 Respiratory 17 18 Rate Blood Pressure 128/77 146/91 O2 Sat by Pulse 97 99 Oximetry 11/23/21 11/23/21 11/23/21 04:30 07:33 10:14 Temperature 98.8 F Pulse Rate 91 H 88 Respiratory 18 18 Rate Blood Pressure 170/105 O2 Sat by Pulse 95 97 Oximetry - Lab 11/23/21 05:31 11/23/21 05:31 Most recent lab results Calcium 8.1 mg/dL (8.4-10.2) L 11/23/21 05:31 Medications & Allergies - Medications Allergies/Adverse Reactions: Allergies amoxicillin trihydrate [From Augmentin] Allergy (Unknown, Verified 11/20/21 17:58) Hives Tolerates Zosyn diphenhydramine [From Benadryl] Allergy (Verified 11/20/21 17:58) Itching potassium clavulanate [From Augmentin] Adverse Reaction (Unknown, Verified 11/20/21 17:58) Hives Home Medications: Home Medications Medication Instructions Recorded Confirmed Last Taken Type Amitriptyline [Elavil] 30 mg PO QDAY #90 11/01/21 Unknown Rx Ferrous Sulfate [Feosol 325 MG tab] 325 mg PO BID #60 tablet 11/01/21 Unknown Rx Hydroxychloroquine [Plaquenil] 200 mg PO QDAY #30 tablet 11/01/21 Unknown Rx NIFEdipine XL [Procardia Xl] 90 mg PO Q12H #60 tablet 11/01/21 Unknown Rx Pantoprazole [Protonix TAB] 40 mg PO QDAC #30 tablet 11/01/21 Unknown Rx hydrALAZINE [Apresoline TAB] 100 mg PO TID #90 tab 11/01/21 Unknown Rx hydrOXYzine HCL [Atarax] 25 mg PO Q6HR PRN #20 tablet 11/01/21 Unknown Rx labetaloL [Labetalol 200mg TAB] 400 mg PO BID #60 tablet 11/01/21 Unknown Rx oxyCODONE /ACETAMINOPHEN [Percocet 1 tab PO Q6H PRN #10 tablet 11/01/21 Unknown Rx 5/325 mg] Active Medications: Generic Name Dose Route Start Last Admin Trade Name Freq PRN Reason Stop Dose Admin Acetaminophen 650 mg 11/21/21 05:30 Acetaminophen 325 Mg Tab PO Q4H PRN Pain MILD(1-3)/Fever >100.5/GUZMAN Albuterol 2.5 mg 11/21/21 05:54 Albuterol 2.5 Mg/3 Ml Nebu IH Q3HRT PRN Shortness Of Breath Amitriptyline HCl 30 mg 11/21/21 10:00 11/23/21 09:36 Amitriptyline 10 Mg Tab PO 30 mg QDAY OLLIE Administration Epoetin Chaitanya-epbx 10,000 unit 11/22/21 16:01 11/22/21 16:25 Epoetin Chaitanya-Epbx 10,000 Unit/1 Ml Vial IV 10,000 unit ALEXX PRN Administration hemodialysis Ferrous Sulfate 325 mg 11/21/21 10:00 11/23/21 09:36 Ferrous Sulfate 325 Mg Tab PO 325 mg BID OLLIE Administration Hydralazine HCl 100 mg 11/21/21 08:00 11/23/21 09:36 Hydralazine 100 Mg Tab PO 100 mg TID OLLIE Administration Hydralazine HCl 20 mg 11/21/21 18:48 11/22/21 18:29 Hydralazine 20 Mg/1 Ml Inj IV 20 mg Q4HR PRN Administration Hypertension Hydroxychloroquine Sulfate 200 mg 11/21/21 10:00 11/23/21 09:36 Hydroxychloroquine 200 Mg Tab PO 200 mg QDAY OLLIE Administration Hydroxyzine HCl 25 mg 11/21/21 05:56 Hydroxyzine Hcl 25 Mg Tab PO Q6H PRN Itching Sodium Chloride 100 mls @ 999 mls/hr 11/22/21 16:01 Nacl 0.9% IV ALEXX PRN Hypotension Labetalol HCl 400 mg 11/21/21 10:00 11/23/21 09:36 Labetalol 200 Mg Tab PO 400 mg BID OLLIE Administration Morphine Sulfate 2 mg 11/21/21 05:30 11/23/21 02:22 Morphine 2 Mg/1 Ml Inj IV 2 mg Q4H PRN Administration Pain, Moderate (4-6) Morphine Sulfate 2 mg 11/21/21 05:54 11/21/21 08:08 Morphine 2 Mg/1 Ml Inj IV 2 mg Q4H PRN Administration Pain, Moderate (4-6) Morphine Sulfate 4 mg 11/21/21 05:54 Morphine 4 Mg/1 Ml Inj IV Q4H PRN Pain , Severe (7-10) Nifedipine 90 mg 11/21/21 06:00 11/23/21 09:38 Nifedipine Xl 90 Mg Tab PO 90 mg Q12H OLLIE Administration Ondansetron HCl 4 mg 11/21/21 05:30 11/22/21 05:04 Ondansetron 4 Mg/2 Ml Inj IV 4 mg Q8H PRN Administration Nausea And Vomiting Pantoprazole Sodium 40 mg 11/21/21 07:30 11/23/21 09:36 Pantoprazole 40 Mg Tab PO 40 mg QDAC OLLIE Administration Sodium Chloride 10 ml 11/21/21 10:00 11/22/21 11:08 Sodium Chloride 0.9% 10 Ml Flush Syringe IV 10 ml BID OLLIE Administration Sodium Chloride 10 ml 11/21/21 05:30 Sodium Chloride 0.9% 10 Ml Flush Syringe IV PRN PRN LINE FLUSH
[2021-11-24] MEDS: MORPHINE 2 MG/1 ML INJ IV PRN ×3 (04:02→23:35)
[2021-11-24] MEDS: NIFEdipine XL 90 MG TAB PO SCH ×2 (05:08→17:06)
[2021-11-24 07:47] LABS: Basophils % (Auto) 0.3 % (0.0-1.8); Eosinophils # (Auto) 0.2 K/mm3 (0.0-0.4); Eosinophils % (Auto) 4.7 % (0.0-4.3); Hemoglobin 6.1 gm/dl (10.1-14.3); Lymphocytes # (Auto) 1.2 K/mm3 (1.2-5.4); Lymphocytes % (Auto) 29.2 % (13.4-35.0); Mean Corpuscular HGB Conc 31 % (30-34); Mean Corpuscular Volume 101 fl (79-97); Monocytes # (Auto) 0.4 K/mm3 (0.0-0.8); Monocytes % (Auto) 9.5 % (0.0-7.3); Red Blood Count 1.94 M/mm3 (3.65-5.03)
[2021-11-24 07:51] LABS: Hematocrit 19.5 % (30.3-42.9)
[2021-11-24 07:52] LABS: Platelet Count 40 K/mm3 (140-440); Red Cell Distribution Width 21.4 % (13.2-15.2)
[2021-11-24 07:54] LABS: Calcium 8.7 mg/dL (8.4-10.2)
[2021-11-24] MEDS: AMITRIPTYLINE 10 MG TAB PO SCH (10:37)
[2021-11-24] MEDS: hydrALAZINE 100 MG TAB PO SCH ×3 (10:38→20:00)
[2021-11-24] MEDS: PANTOPRAZOLE 40 MG TAB PO SCH (10:38)
[2021-11-24] MEDS: FERROUS SULFATE 325 MG TAB PO SCH ×2 (10:39→21:26)
[2021-11-24] MEDS: HYDROXYCHLOROQUINE 200 MG TAB PO SCH (10:39)
--- NOTE | 2021-11-24 10:54 | Progress Note ---
Assessment and Plan Assessment and plan: --Anemia of ESRD Hemoglobin 7.8-6.5-5.9-6.1 Difficult to get PRBC due to presence of antibodies Today patient is receiving 1 unit PRBC Closely monitor H&H, transfuse additional as needed Epogen during HD /ferrous sulfate 325 mg p.o. twice daily. Closely monitor H&H -- End stage renal disease on dialysis Patient received hemodialysis on 11/21, 11/22 Nephrology following renal diet. Avoid nephrotoxic drug. Renal dosing of medications Patient strongly advised to comply with hemodialysis Follow-up visits and diet -- Acute hyperkalemia/resolved Calcium gluconate 1 g IV x1 dose. Kayexalate 30 g p.o. x1 dose. Due to noncompliance with hemodialysis , strongly advised to comply with medications, , diet, hemodialysis, follow-up visits Patient verbalized understanding .hemodialysis per schedule -- Severe thrombocytopenia;/received 1 unit platelets Closely monitor platelet, transfuse as needed -- Generalized body aches/chronic pain syndrome Pain medications, supportive care --Hypertension/uncontrolled Continue current antihypertensives , as needed hydralazine labetalol 400 mg p.o. twice daily. Nifedipine XL 90 mg p.o. every 12 hours. We closely monitor and adjust as needed --History of Lupus Stable. Supportive care Patient needs to follow-up with broach trouble shooter upon discharge --Noncompliance; Patient counseled importance of adhering to the treatment plan mainly hemodialysis Medications and follow-up visits .she verbalized understanding -Full CODE STATUS; -- DVT prophylaxis SCD for DVT prophylaxis. Pepcid 20 mg p.o. twice daily for GI prophylaxis. -- Advance care plan; 35 minutes I discussed with patient her medical condition, I discussed with her the abnormal tests and fluid overload I discussed with her her diagnosis, I discussed with her the treatment plan, and start dialysis today I also discussed with the patient the prognosis, possible discharge in 1 to 2 days if stable Patient had some questions answered all of them agreed with the plan --Preventive health care counseling; 35 minutes Strongly advised to comply with medications, diet, follow-up visits, hemodialysis Barriers of being complaints discussed with the patient, will discuss with the case management to assist with transportation for hemodialysis And any other assistance that patient may need. Patient verbalized understan ding and agreed to comply with dialysis We will closely monitor the patient and adjust management as needed Plan of care reviewed with patient and her nurse Neuro consult and recommendations noted and appreciated Discharge planning per case management 11/21/2021 Patient received hemodialysis today Possible discharge tomorrow if renal has no other plans 11/22; patient has anemia with hemoglobin of 6.5, 1 unit PRBC transfusion during dialysis Thrombocytopenia with platelets of 40[associated with anemia, high risk ESRD, lupus] Transfuse 1 unit PRBC, closely monitor 11/23; patient could not get the blood transfusion due to presence of anti-E bodies Blood bank could not secure the blood, today patient's hemoglobin further dropped to 5.9 Hb\ Requested second unit of PRBC and I discussed with the blood bank nurse 11/24; fortunately patient could get 1 unit of PRBC which is transfusing now Patient feels slightly better, check H&H and if stable discharge home this evening /tomorrow History Interval history: I have seen and examined the patient at the bedside Patient's chart and medications reviewed Patient received 1 unit of platelets yesterday Today patient is receiving 1 unit of PRBC Patient feels better no new complaints Vital signs reviewed Hospitalist Physical - Constitutional Vitals: Temp Pulse Resp BP Pulse Ox 98.8 F 87 18 133/88 100 11/24/21 07:37 11/24/21 07:37 11/24/21 07:37 11/24/21 07:37 11/24/21 07:37 General appearance: Present: no acute distress, well-nourished - Neck Neck: Present: supple, normal ROM - Respiratory Respiratory effort: normal Respiratory: bilateral: diminished, negative: rales, rhonchi, wheezing - Cardiovascular Rhythm: regular Heart Sounds: Present: S1 & S2 - Extremities Extremities: no ischemia, No edema - Abdominal General gastrointestinal: soft, non-tender, non-distended, normal bowel sounds - Integumentary Integumentary: Present: clear, warm - Psychiatric Psychiatric: appropriate mood/affect, cooperative - Neurologic Neurologic: moves all extremities Results - Labs CBC & Chem 7: 11/24/21 04:00 11/24/21 04:00 Labs: Laboratory Last Values WBC 4.0 K/mm3 (4.5-11.0) L 11/24/21 04:00 RBC 1.94 M/mm3 (3.65-5.03) L 11/24/21 04:00 Hgb 6.1 gm/dl (10.1-14.3) L 11/24/21 04:00 Hct 19.5 % (30.3-42.9) L* 11/24/21 04:00 MCV 101 fl (79-97) H 11/24/21 04:00 MCH 32 pg (28-32) 11/24/21 04:00 MCHC 31 % (30-34) 11/24/21 04:00 RDW 21.4 % (13.2-15.2) H 11/24/21 04:00 Plt Count 40 K/mm3 (140-440) L 11/24/21 04:00 Lymph % (Auto) 29.2 % (13.4-35.0) 11/24/21 04:00 [place] % (Auto) 9.5 % (0.0-7.3) H 11/24/21 04:00 Eos % (Auto) 4.7 % (0.0-4.3) H 11/24/21 04:00 Baso % (Auto) 0.3 % (0.0-1.8) 11/24/21 04:00 Lymph # (Auto) 1.2 K/mm3 (1.2-5.4) 11/24/21 04:00 [place] # (Auto) 0.4 K/mm3 (0.0-0.8) 11/24/21 04:00 Eos # (Auto) 0.2 K/mm3 (0.0-0.4) 11/24/21 04:00 Baso # (Auto) 0.0 K/mm3 (0.0-0.1) 11/24/21 04:00 Add Manual Diff Complete 11/20/21 23:13 Total Counted 100 11/20/21 23:13 Seg Neutrophils % 56.3 % (40.0-70.0) 11/24/21 04:00 Seg Neuts % (Manual) 76.0 % (40.0-70.0) H 11/20/21 23:13 Band Neutrophils % 0 % 11/20/21 23:13 Lymphocytes % (Manual) 14.0 % (13.4-35.0) 11/20/21 23:13 Reactive Lymphs % (Man) 0 % 11/20/21 23:13 Monocytes % (Manual) 8.0 % (0.0-7.3) H 11/20/21 23:13 Eosinophils % (Manual) 0 % (0.0-4.3) 11/20/21 23:13 Basophils % (Manual) 2.0 % (0.0-1.8) H 11/20/21 23:13 Metamyelocytes % 0 % 11/20/21 23:13 Myelocytes % 0 % 11/20/21 23:13 Promyelocytes % 0 % 11/20/21 23:13 Blast Cells % 0 % 11/20/21 23:13 Nucleated RBC % Not Reportable 11/20/21 23:13 Seg Neutrophils # 2.2 K/mm3 (1.8-7.7) 11/24/21 04:00 Seg Neutrophils # Man 5.2 K/mm3 (1.8-7.7) 11/20/21 23:13 Band Neutrophils # 0.0 K/mm3 11/20/21 23:13 Lymphocytes # (Manual) 1.0 K/mm3 (1.2-5.4) L 11/20/21 23:13 Abs React Lymphs (Man) 0.0 K/mm3 11/20/21 23:13 Monocytes # (Manual) 0.5 K/mm3 (0.0-0.8) 11/20/21 23:13 Eosinophils # (Manual) 0.0 K/mm3 (0.0-0.4) 11/20/21 23:13 Basophils # (Manual) 0.1 K/mm3 (0.0-0.1) 11/20/21 23:13 Metamyelocytes # 0.0 K/mm3 11/20/21 23:13 Myelocytes # 0.0 K/mm3 11/20/21 23:13 Promyelocytes # 0.0 K/mm3 11/20/21 23:13 Blast Cells # 0.0 K/mm3 11/20/21 23:13 WBC Morphology Not Reportable 11/20/21 23:13 Hypersegmented Neuts Not Reportable 11/20/21 23:13 Hyposegmented Neuts Not Reportable 11/20/21 23:13 Hypogranular Neuts Not Reportable 11/20/21 23:13 Smudge Cells Not Reportable 11/20/21 23:13 Toxic Granulation Not Reportable 11/20/21 23:13 Toxic Vacuolation Not Reportable 11/20/21 23:13 Dohle Bodies Not Reportable 11/20/21 23:13 Pelger-Huet Anomaly Not Reportable 11/20/21 23:13 Maite Rods Not Reportable 11/20/21 23:13 Platelet Estimate Consistent w auto 11/20/21 23:13 Clumped Platelets Not Reportable 11/20/21 23:13 Plt Clumps, EDTA Not Reportable 11/20/21 23:13 Large Platelets Not Reportable 11/20/21 23:13 Giant Platelets Not Reportable 11/20/21 23:13 Platelet Satelliting Not Reportable 11/20/21 23:13 Plt Morphology Comment Not Reportable 11/20/21 23:13 RBC Morphology Not Reportable 11/20/21 23:13 Dimorphic RBCs Not Reportable 11/20/21 23:13 Polychromasia Not Reportable 11/20/21 23:13 Hypochromasia Not Reportable 11/20/21 23:13 Poikilocytosis Not Reportable 11/20/21 23:13 Anisocytosis 1+ 11/20/21 23:13 Microcytosis Not Reportable 11/20/21 23:13 Macrocytosis Not Reportable 11/20/21 23:13 Spherocytes Not Reportable 11/20/21 23:13 Pappenheimer Bodies Not Reportable 11/20/21 23:13 Sickle Cells Not Reportable 11/20/21 23:13 Target Cells Not Reportable 11/20/21 23:13 Tear Drop Cells Not Reportable 11/20/21 23:13 Ovalocytes Not Reportable 11/20/21 23:13 Helmet Cells Not Reportable 11/20/21 23:13 [place] Bodies Not Reportable 11/20/21 23:13 [place] Rings Not Reportable 11/20/21 23:13 Anca Cells Not Reportable 11/20/21 23:13 Bite Cells Not Reportable 11/20/21 23:13 Crenated Cell Not Reportable 11/20/21 23:13 Elliptocytes Not Reportable 11/20/21 23:13 Acanthocytes (Spur) Not Reportable 11/20/21 23:13 Rouleaux Not Reportable 11/20/21 23:13 Hemoglobin C Crystals Not Reportable 11/20/21 23:13 Schistocytes Not Reportable 11/20/21 23:13 Malaria parasites Not Reportable 11/20/21 23:13 Al Bodies Not Reportable 11/20/21 23:13 Hem Pathologist Commnt No 11/20/21 23:13 Sodium 138 mmol/L (137-145) 11/24/21 04:00 Potassium 4.3 mmol/L (3.6-5.0) 11/24/21 04:00 Chloride 97.7 mmol/L (98-107) L 11/24/21 04:00 Carbon Dioxide 26 mmol/L (22-30) 11/24/21 04:00 Anion Gap 19 mmol/L 11/24/21 04:00 BUN 25 mg/dL (7-17) H 11/24/21 04:00 Creatinine 5.8 mg/dL (0.6-1.2) H 11/24/21 04:00 Estimated GFR 11 ml/min 11/24/21 04:00 BUN/Creatinine Ratio 4 % 11/24/21 04:00 Glucose 92 mg/dL (65-100) 11/24/21 04:00 Calcium 8.7 mg/dL (8.4-10.2) 11/24/21 04:00 Total Bilirubin 0.60 mg/dL (0.1-1.2) 11/20/21 23:13 AST 48 units/L (5-40) H 11/20/21 23:13 ALT 64 units/L (7-56) H 11/20/21 23:13 Alkaline Phosphatase 126 units/L (35-129) 11/20/21 23:13 Total Protein 6.6 g/dL (6.3-8.2) 11/20/21 23:13 Albumin 4.0 g/dL (3.9-5) 11/20/21 23:13 Albumin/Globulin Ratio 1.5 % 11/20/21 23:13 Blood Type B POSITIVE 11/22/21 09:44 Antibody Screen Positive 11/22/21 09:44 Crossmatch See Detail 11/22/21 09:44 Nuñez/IV: Voiding Method Toilet Active Medications - Current Medications Current Medications: Generic Name Dose Route Start Last Admin Trade Name Freq PRN Reason Stop Dose Admin Acetaminophen 650 mg 11/21/21 05:30 Acetaminophen 325 Mg Tab PO Q4H PRN Pain MILD(1-3)/Fever >100.5/GUZMAN Albuterol 2.5 mg 11/21/21 05:54 Albuterol 2.5 Mg/3 Ml Nebu IH Q3HRT PRN Shortness Of Breath Amitriptyline HCl 30 mg 11/21/21 10:00 11/24/21 10:37 Amitriptyline 10 Mg Tab PO 30 mg QDAY OLLIE Administration Epoetin Chaitanya-epbx 10,000 unit 11/22/21 16:01 11/22/21 16:25 Epoetin Chaitanya-Epbx 10,000 Unit/1 Ml Vial IV 10,000 unit ALEXX PRN Administration hemodialysis Ferrous Sulfate 325 mg 11/21/21 10:00 11/24/21 10:39 Ferrous Sulfate 325 Mg Tab PO 325 mg BID OLLIE Administration Hydralazine HCl 100 mg 11/21/21 08:00 11/24/21 10:38 Hydralazine 100 Mg Tab PO 100 mg TID OLLIE Administration Hydralazine HCl 20 mg 11/21/21 18:48 11/22/21 18:29 Hydralazine 20 Mg/1 Ml Inj IV 20 mg Q4HR PRN Administration Hypertension Hydroxychloroquine Sulfate 200 mg 11/21/21 10:00 11/24/21 10:39 Hydroxychloroquine 200 Mg Tab PO 200 mg QDAY OLLIE Administration Hydroxyzine HCl 25 mg 11/21/21 05:56 11/23/21 18:36 Hydroxyzine Hcl 25 Mg Tab PO 25 mg Q6H PRN Administration Itching Sodium Chloride 100 mls @ 999 mls/hr 11/22/21 16:01 Nacl 0.9% IV ALEXX PRN Hypotension Labetalol HCl 400 mg 11/21/21 10:00 11/24/21 10:38 Labetalol 200 Mg Tab PO 400 mg BID OLLIE Administration Morphine Sulfate 2 mg 11/21/21 05:30 11/24/21 04:02 Morphine 2 Mg/1 Ml Inj IV 2 mg Q4H PRN Administration Pain, Moderate (4-6) Morphine Sulfate 2 mg 11/21/21 05:54 11/21/21 08:08 Morphine 2 Mg/1 Ml Inj IV 2 mg Q4H PRN Administration Pain, Moderate (4-6) Morphine Sulfate 4 mg 11/21/21 05:54 Morphine 4 Mg/1 Ml Inj IV Q4H PRN Pain , Severe (7-10) Nifedipine 90 mg 11/21/21 06:00 11/24/21 05:08 Nifedipine Xl 90 Mg Tab PO 90 mg Q12H OLLIE Administration Ondansetron HCl 4 mg 11/21/21 05:30 11/22/21 05:04 Ondansetron 4 Mg/2 Ml Inj IV 4 mg Q8H PRN Administration Nausea And Vomiting Pantoprazole Sodium 40 mg 11/21/21 07:30 11/24/21 10:38 Pantoprazole 40 Mg Tab PO 40 mg QDAC OLLIE Administration Sodium Chloride 10 ml 11/21/21 10:00 11/24/21 10:43 Sodium Chloride 0.9% 10 Ml Flush Syringe IV 10 ml BID OLLIE Administration Sodium Chloride 10 ml 11/21/21 05:30 Sodium Chloride 0.9% 10 Ml Flush Syringe IV PRN PRN LINE FLUSH
--- NOTE | 2021-11-24 12:48 | Progress Note ---
Assessment and Plan Assessment: End Stage Renal Disease S/P Hypertensive Emergency Hypertension S/P Hyperkalemia Anemia Noncompliance with hemodialysis Volume Overload Plan: s/p HD Thursday, no HD today. Anemia-Started Epogen 20,000 units with hemodialysis Transfuse as needed Low potassium diet Fluid restriction of 1 liter per day Reenforced compliance with HD Obtain daily weights Monitor I/O's daily Assess dialysis needs daily Outpatient HD clinic: [facility] Patient to return to her outpatient HD clinic upon discharge Subjective Date of service: 11/24/21 Principal diagnosis: ESRD Interval history: s/p HD thursday, NAD. Objective - Exam Narrative Exam: - General Appearance General appearance: well-developed, appears stated age EENT: ATNC, PERRL Neck: no JVD, supple Respiratory: Present: Decreased Breath Sounds Cardiology: S1S2 Gastrointestinal: normoactive bowel sounds Integumentary: warm and dry Neurologic: alert and oriented x3 Musculoskeletal: joint swelling, other (2+ edema to BLE) - Vital Signs Vital signs: Vital Signs - 12hr 11/24/21 11/24/21 11/24/21 04:00 04:02 05:01 Temperature 97.9 F Pulse Rate 89 89 Respiratory 20 16 Rate Blood Pressure Blood Pressure 140/86 [Left] O2 Sat by Pulse 98 Oximetry 11/24/21 11/24/21 07:37 11:41 Temperature 98.8 F 98.5 F Pulse Rate 87 89 Respiratory 18 18 Rate Blood Pressure 133/88 120/79 Blood Pressure [Left] O2 Sat by Pulse 100 100 Oximetry - Lab 11/24/21 04:00 11/24/21 04:00 Most recent lab results Calcium 8.7 mg/dL (8.4-10.2) 11/24/21 04:00 Medications & Allergies - Medications Allergies/Adverse Reactions: Allergies amoxicillin trihydrate [From Augmentin] Allergy (Unknown, Verified 11/20/21 17:58) Hives Tolerates Zosyn diphenhydramine [From Benadryl] Allergy (Verified 11/20/21 17:58) Itching potassium clavulanate [From Augmentin] Adverse Reaction (Unknown, Verified 11/20/21 17:58) Hives Home Medications: Home Medications Medication Instructions Recorded Confirmed Last Taken Type Amitriptyline [Elavil] 30 mg PO QDAY #90 11/01/21 Unknown Rx Ferrous Sulfate [Feosol 325 MG tab] 325 mg PO BID #60 tablet 11/01/21 Unknown Rx Hydroxychloroquine [Plaquenil] 200 mg PO QDAY #30 tablet 11/01/21 Unknown Rx NIFEdipine XL [Procardia Xl] 90 mg PO Q12H #60 tablet 11/01/21 Unknown Rx Pantoprazole [Protonix TAB] 40 mg PO QDAC #30 tablet 11/01/21 Unknown Rx hydrALAZINE [Apresoline TAB] 100 mg PO TID #90 tab 11/01/21 Unknown Rx hydrOXYzine HCL [Atarax] 25 mg PO Q6HR PRN #20 tablet 11/01/21 Unknown Rx labetaloL [Labetalol 200mg TAB] 400 mg PO BID #60 tablet 11/01/21 Unknown Rx oxyCODONE /ACETAMINOPHEN [Percocet 1 tab PO Q6H PRN #10 tablet 11/01/21 Unknown Rx 5/325 mg] Active Medications: Generic Name Dose Route Start Last Admin Trade Name Mayitoq PRN Reason Stop Dose Admin Acetaminophen 650 mg 11/21/21 05:30 Acetaminophen 325 Mg Tab PO Q4H PRN Pain MILD(1-3)/Fever >100.5/GUZMAN Albuterol 2.5 mg 11/21/21 05:54 Albuterol 2.5 Mg/3 Ml Nebu IH Q3HRT PRN Shortness Of Breath Amitriptyline HCl 30 mg 11/21/21 10:00 11/24/21 10:37 Amitriptyline 10 Mg Tab PO 30 mg QDAY OLLIE Administration Epoetin Chaitanya-epbx 10,000 unit 11/22/21 16:01 11/22/21 16:25 Epoetin Chaitanya-Epbx 10,000 Unit/1 Ml Vial IV 10,000 unit ALEXX PRN Administration hemodialysis Ferrous Sulfate 325 mg 11/21/21 10:00 11/24/21 10:39 Ferrous Sulfate 325 Mg Tab PO 325 mg BID OLLIE Administration Hydralazine HCl 100 mg 11/21/21 08:00 11/24/21 10:38 Hydralazine 100 Mg Tab PO 100 mg TID OLLIE Administration Hydralazine HCl 20 mg 11/21/21 18:48 11/22/21 18:29 Hydralazine 20 Mg/1 Ml Inj IV 20 mg Q4HR PRN Administration Hypertension Hydroxychloroquine Sulfate 200 mg 11/21/21 10:00 11/24/21 10:39 Hydroxychloroquine 200 Mg Tab PO 200 mg QDAY OLLIE Administration Hydroxyzine HCl 25 mg 11/21/21 05:56 11/23/21 18:36 Hydroxyzine Hcl 25 Mg Tab PO 25 mg Q6H PRN Administration Itching Sodium Chloride 100 mls @ 999 mls/hr 11/22/21 16:01 Nacl 0.9% IV ALEXX PRN Hypotension Labetalol HCl 400 mg 11/21/21 10:00 11/24/21 10:38 Labetalol 200 Mg Tab PO 400 mg BID OLLIE Administration Morphine Sulfate 2 mg 11/21/21 05:30 11/24/21 04:02 Morphine 2 Mg/1 Ml Inj IV 2 mg Q4H PRN Administration Pain, Moderate (4-6) Morphine Sulfate 2 mg 11/21/21 05:54 11/21/21 08:08 Morphine 2 Mg/1 Ml Inj IV 2 mg Q4H PRN Administration Pain, Moderate (4-6) Morphine Sulfate 4 mg 11/21/21 05:54 Morphine 4 Mg/1 Ml Inj IV Q4H PRN Pain , Severe (7-10) Nifedipine 90 mg 11/21/21 06:00 11/24/21 05:08 Nifedipine Xl 90 Mg Tab PO 90 mg Q12H OLLIE Administration Ondansetron HCl 4 mg 11/21/21 05:30 11/22/21 05:04 Ondansetron 4 Mg/2 Ml Inj IV 4 mg Q8H PRN Administration Nausea And Vomiting Pantoprazole Sodium 40 mg 11/21/21 07:30 11/24/21 10:38 Pantoprazole 40 Mg Tab PO 40 mg QDAC OLLIE Administration Sodium Chloride 10 ml 11/21/21 10:00 11/24/21 10:43 Sodium Chloride 0.9% 10 Ml Flush Syringe IV 10 ml BID OLLIE Administration Sodium Chloride 10 ml 11/21/21 05:30 Sodium Chloride 0.9% 10 Ml Flush Syringe IV PRN PRN LINE FLUSH
[2021-11-24] MEDS: hydrALAZINE 20 MG/1 ML INJ IV PRN (16:39)
[2021-11-24 20:34] LABS: Hematocrit 23.2 % (30.3-42.9); Hemoglobin 7.4 gm/dl (10.1-14.3)
[2021-11-25] MEDS: NIFEdipine XL 90 MG TAB PO SCH (05:42)
[2021-11-25] MEDS: MORPHINE 2 MG/1 ML INJ IV PRN ×2 (05:43→14:51)
[2021-11-25 08:43] LABS: Hematocrit 22.3 % (30.3-42.9)
[2021-11-25 08:44] LABS: Calcium 8.6 mg/dL (8.4-10.2)
[2021-11-25] MEDS: PANTOPRAZOLE 40 MG TAB PO SCH (09:53)
[2021-11-25] MEDS: HYDROXYCHLOROQUINE 200 MG TAB PO SCH (09:53)
[2021-11-25] MEDS: FERROUS SULFATE 325 MG TAB PO SCH (09:53)
[2021-11-25] MEDS: hydrALAZINE 100 MG TAB PO SCH ×2 (09:53→14:52)
[2021-11-25] MEDS: AMITRIPTYLINE 10 MG TAB PO SCH (09:54)
--- NOTE | 2021-11-25 11:58 | Discharge Summary ---
Providers - Providers Date of Admission: 11/21/21 05:30 Date of discharge: 11/25/21 Attending physician: CRISTINA LEE 11/21/21 05:33 Consult to Physician [CONS] Routine Comment: Consulting Provider: LELA SAMPSON Physician Instructions: Reason For Exam: ESRD needing dialysis Primary care physician: BALING MACHINE OPERATOR Hospitalization Reason for admission: Missed hemodialysis for 1 week/generalized body pains and fluid overload Condition: Stable Procedures: Hemodialysis per schedule 1 unit PRBC transfusion 1 unit platelet transfusion Hospital course: 30-year-old female patient with significant past medical history of end-stage renal disease on hemodialysis noncompliant with dialysis was admitted through emergency room needing hemodialysis and generalized body pains, patient was evaluated by nephrology and started on hemodialysis and patient's H&H significantly dropped to 6.5 and later to 5.9 requested initially 1 unit later 2 units of PRBCs for transfusion however [facility] reported that her group blood is not available as patient has antibodies meanwhile patient was followed by her utility operator yarn and blood pressures closely monitored and medications adjusted finally patient received 1 unit of PRBC transfusion and 1 unit of platelets for thrombocytopenia today patient is comfortable received hemodialysis hemoglobin improved from from 5.9-6 0.1-7 0.4-7.0 today, tried for second unit of PRBC but unsuccessful patient is comfortable vital signs stable nephrology cleared for discharge and follow-up with dialysis per schedule patient is hemodynamically and clinically stable at discharge Assessment and plan: --Anemia of ESRD Hemoglobin 7.8-6.5-5.9-6.1 Difficult to get PRBC due to presence of antibodies Today patient is receiving 1 unit PRBC Closely monitor H&H, transfuse additional as needed Epogen during HD /ferrous sulfate 325 mg p.o. twice daily. Closely monitor H&H -- End stage renal disease on dialysis Patient received hemodialysis on 11/21, 11/22 Nephrology following renal diet. Avoid nephrotoxic drug. Renal dosing of medications Patient strongly advised to comply with hemodialysis Follow-up visits and diet -- Acute hyperkalemia/resolved Calcium gluconate 1 g IV x1 dose. Kayexalate 30 g p.o. x1 dose. Due to noncompliance with hemodialysis , strongly advised to comply with medications, , diet, hemodialysis, follow-up visits Patient verbalized understanding .hemodialysis per schedule -- Severe thrombocytopenia;/received 1 unit platelets Closely monitor platelet, transfuse as needed -- Generalized body aches/chronic pain syndrome Pain medications, supportive care --Hypertension/uncontrolled Continue current antihypertensives , as needed hydralazine labetalol 400 mg p.o. twice daily. Nifedipine XL 90 mg p.o. every 12 hours. We closely monitor and adjust as needed --History of Lupus Stable. Supportive care Patient needs to follow-up with collator upon discharge --Noncompliance; Patient counseled importance of adhering to the treatment plan mainly hemodialysis Medications and follow-up visits .she verbalized understanding -Full CODE STATUS; -- DVT prophylaxis SCD for DVT prophylaxis. Pepcid 20 mg p.o. twice daily for GI prophylaxis. Patient is stable at discharge Cleared by nephrology Disposition: HOME / SELF CARE / HOMELESS Final Discharge Diagnosis (Prints w/discharge instructions): Anemia of ESRD/received 1 unit PRBC. End-stage renal disease on hemodialysis. Hyperkalemia resolved. thrombocytopenia/received 1 unit of platelets. Generalized body aches/chronic pain. Hypertension uncontrolled. History of lupus. Medical noncompliance Time spent for discharge: 35 min Core Measure Documentation - Palliative Care Palliative Care/ Comfort Measures: Not Applicable - Core Measures Any of the following diagnoses?: none Exam - Constitutional Vitals: Temp Pulse Resp BP Pulse Ox 98.6 F 89 18 192/121 100 11/25/21 08:13 11/25/21 09:53 11/25/21 08:13 11/25/21 09:53 11/25/21 08:13 General appearance: Present: no acute distress, well-nourished - EENT Eyes: Present: PERRL, EOM intact - Neck Neck: Present: supple, normal ROM - Respiratory Respiratory effort: normal Respiratory: bilateral: diminished, negative: rales, rhonchi, wheezing - Cardiovascular Rhythm: regular Heart Sounds: Present: S1 & S2 - Extremities Extremities: no ischemia, No edema - Abdominal General gastrointestinal: Present: soft, non-tender, non-distended, normal bowel sounds - Integumentary Integumentary: Present: clear, warm - Musculoskeletal Musculoskeletal: strength equal bilaterally, generalized weakness - Psychiatric Psychiatric: appropriate mood/affect, cooperative - Neurologic Neurologic: moves all extremities Plan Activity: advance as tolerated Diet: renal Additional Instructions: Follow nephrology/hemodialysis per schedule. If you have worsening symptoms contact MD or go to the nearest emergency room as needed. Strongly advised to comply with medications, diet, follow-up visits and hemodialysis Follow up with: PRIMARY CARE, [Primary Care Provider] - 7 Days SELWYN ESPARZA MD [Staff Physician] - 7 Days Prescriptions: hydrALAZINE [Apresoline TAB] 100 mg PO TID #90 tab hydrOXYzine HCL [Atarax] 25 mg PO Q6HR PRN #20 tablet PRN Reason: Itching Amitriptyline [Elavil] 30 mg PO QDAY #90 Ferrous Sulfate [Feosol 325 MG tab] 325 mg PO BID #60 tablet labetaloL [Labetalol 200mg TAB] 400 mg PO BID #60 tablet oxyCODONE /ACETAMINOPHEN [Percocet 5/325 mg] 1 tab PO BID PRN #6 tablet PRN Reason: Pain, Moderate (4-6) Hydroxychloroquine [Plaquenil] 200 mg PO QDAY #30 tablet NIFEdipine XL [Procardia Xl] 90 mg PO Q12H #60 tablet Pantoprazole [Protonix TAB] 40 mg PO QDAC #30 tablet
--- NOTE | 2021-11-25 12:41 | Progress Note ---
Assessment and Plan Assessment: End Stage Renal Disease S/P Hypertensive Emergency Hypertension S/P Hyperkalemia Anemia Noncompliance with hemodialysis Volume Overload Plan: Hemodialysis today for UF and clearance Anemia-On Epogen 20,000 units with hemodialysis today Transfuse as needed Low potassium diet Fluid restriction of 1 liter per day Reenforced compliance with HD Obtain daily weights Monitor I/O's daily Patient off floor Assess dialysis needs daily Outpatient HD clinic: [facility] Patient to return to her outpatient HD clinic upon discharge Plan of care reviewed by Dr. Mejias Subjective Date of service: 11/25/21 Principal diagnosis: ESRD Interval history: Scheduled for HD today. Attending planning for discharge today. Objective - Vital Signs Vital signs: Vital Signs - 12hr 11/25/21 11/25/21 11/25/21 03:57 04:00 08:13 Temperature 97.2 F L 98.6 F Pulse Rate 91 H 91 H 89 Respiratory 17 18 Rate Blood Pressure 192/121 Blood Pressure 171/91 [Left] O2 Sat by Pulse 100 Oximetry 11/25/21 09:53 Temperature Pulse Rate 89 Respiratory Rate Blood Pressure 192/121 Blood Pressure [Left] O2 Sat by Pulse Oximetry - Lab 11/25/21 Unknown 11/25/21 Unknown Most recent lab results Calcium 8.6 mg/dL (8.4-10.2) 11/25/21 Unknown Medications & Allergies - Medications Allergies/Adverse Reactions: Allergies amoxicillin trihydrate [From Augmentin] Allergy (Unknown, Verified 11/20/21 17:58) Hives Tolerates Zosyn diphenhydramine [From Benadryl] Allergy (Verified 11/20/21 17:58) Itching potassium clavulanate [From Augmentin] Adverse Reaction (Unknown, Verified 11/20/21 17:58) Hives Home Medications: Home Medications Medication Instructions Recorded Confirmed Last Taken Type Amitriptyline [Elavil] 30 mg PO QDAY #90 11/25/21 Unknown Rx Ferrous Sulfate [Feosol 325 MG tab] 325 mg PO BID #60 tablet 11/25/21 Unknown Rx Hydroxychloroquine [Plaquenil] 200 mg PO QDAY #30 tablet 11/25/21 Unknown Rx NIFEdipine XL [Procardia Xl] 90 mg PO Q12H #60 tablet 11/25/21 Unknown Rx Pantoprazole [Protonix TAB] 40 mg PO QDAC #30 tablet 11/25/21 Unknown Rx hydrALAZINE [Apresoline TAB] 100 mg PO TID #90 tab 11/25/21 Unknown Rx hydrOXYzine HCL [Atarax] 25 mg PO Q6HR PRN #20 tablet 11/25/21 Unknown Rx labetaloL [Labetalol 200mg TAB] 400 mg PO BID #60 tablet 11/25/21 Unknown Rx oxyCODONE /ACETAMINOPHEN [Percocet 1 tab PO BID PRN #6 tablet 11/25/21 Unknown Rx 5/325 mg] Active Medications: Generic Name Dose Route Start Last Admin Trade Name Freq PRN Reason Stop Dose Admin Acetaminophen 650 mg 11/21/21 05:30 Acetaminophen 325 Mg Tab PO Q4H PRN Pain MILD(1-3)/Fever >100.5/GUZMAN Albuterol 2.5 mg 11/21/21 05:54 Albuterol 2.5 Mg/3 Ml Nebu IH Q3HRT PRN Shortness Of Breath Amitriptyline HCl 30 mg 11/21/21 10:00 11/25/21 09:54 Amitriptyline 10 Mg Tab PO 30 mg QDAY OLLIE Administration Epoetin Chaitanya-epbx 10,000 unit 11/22/21 16:01 11/22/21 16:25 Epoetin Chaitanya-Epbx 10,000 Unit/1 Ml Vial IV 10,000 unit ALEXX PRN Administration hemodialysis Ferrous Sulfate 325 mg 11/21/21 10:00 11/25/21 09:53 Ferrous Sulfate 325 Mg Tab PO 325 mg BID OLLIE Administration Hydralazine HCl 100 mg 11/21/21 08:00 11/25/21 09:53 Hydralazine 100 Mg Tab PO 100 mg TID LOLIE Administration Hydralazine HCl 20 mg 11/21/21 18:48 11/24/21 16:39 Hydralazine 20 Mg/1 Ml Inj IV 20 mg Q4HR PRN Administration Hypertension Hydroxychloroquine Sulfate 200 mg 11/21/21 10:00 11/25/21 09:53 Hydroxychloroquine 200 Mg Tab PO 200 mg QDAY OLLIE Administration Hydroxyzine HCl 25 mg 11/21/21 05:56 11/23/21 18:36 Hydroxyzine Hcl 25 Mg Tab PO 25 mg Q6H PRN Administration Itching Sodium Chloride 100 mls @ 999 mls/hr 11/22/21 16:01 Nacl 0.9% IV ALEXX PRN Hypotension Labetalol HCl 400 mg 11/21/21 10:00 11/25/21 09:53 Labetalol 200 Mg Tab PO 400 mg BID OLLIE Administration Morphine Sulfate 2 mg 11/21/21 05:30 11/25/21 05:43 Morphine 2 Mg/1 Ml Inj IV 2 mg Q4H PRN Administration Pain, Moderate (4-6) Morphine Sulfate 2 mg 11/21/21 05:54 11/21/21 08:08 Morphine 2 Mg/1 Ml Inj IV 2 mg Q4H PRN Administration Pain, Moderate (4-6) Morphine Sulfate 4 mg 11/21/21 05:54 Morphine 4 Mg/1 Ml Inj IV Q4H PRN Pain , Severe (7-10) Nifedipine 90 mg 11/21/21 06:00 11/25/21 05:42 Nifedipine Xl 90 Mg Tab PO 90 mg Q12H OLLIE Administration Ondansetron HCl 4 mg 11/21/21 05:30 11/22/21 05:04 Ondansetron 4 Mg/2 Ml Inj IV 4 mg Q8H PRN Administration Nausea And Vomiting Pantoprazole Sodium 40 mg 11/21/21 07:30 11/25/21 09:53 Pantoprazole 40 Mg Tab PO 40 mg QDAC OLLIE Administration Sodium Chloride 10 ml 11/21/21 10:00 11/24/21 21:26 Sodium Chloride 0.9% 10 Ml Flush Syringe IV 10 ml BID OLLIE Administration Sodium Chloride 10 ml 11/21/21 05:30 Sodium Chloride 0.9% 10 Ml Flush Syringe IV PRN PRN LINE FLUSH
[2021-11-25] MEDS: hydrALAZINE 20 MG/1 ML INJ IV PRN (14:50)
[2021-11-25 17:22] VITALS: BP 218/137
== END 2021-11-25 17:35 | disposition home or self-care (01) | DRG 640 ==
LOC: ED 17:52 → 4A 11-21 05:30
PROVIDERS: ADMIT Hospitalist; ATTEND Internal Medicine
PROC: 5A1D70Z Performance of Urinary Filtration, Intermittent, Less than 6 Hours Per Day (ICD-10-PCS; 2021-11-21)
PROC: 5A1D70Z Performance of Urinary Filtration, Intermittent, Less than 6 Hours Per Day (ICD-10-PCS; 2021-11-22)
PROC: 30233R1 Transfusion of Nonautologous Platelets into Peripheral Vein, Percutaneous Approach (ICD-10-PCS; principal; 2021-11-23)
PROC: 30233N1 Transfusion of Nonautologous Red Blood Cells into Peripheral Vein, Percutaneous Approach (ICD-10-PCS; 2021-11-24)
PROC: 5A1D70Z Performance of Urinary Filtration, Intermittent, Less than 6 Hours Per Day (ICD-10-PCS; 2021-11-25)
DX: E87.5 Hyperkalemia (principal); N18.6 End stage renal disease; I12.0 Hypertensive chronic kidney disease with stage 5 chronic kidney disease or end stage renal disease; D63.1 Anemia in chronic kidney disease; M32.9 Systemic lupus erythematosus, unspecified; Z99.2 Dependence on renal dialysis; D69.6 Thrombocytopenia, unspecified; I45.10 Unspecified right bundle-branch block; G89.4 Chronic pain syndrome; Z91.15 Patient's noncompliance with renal dialysis; E87.70 Fluid overload, unspecified; Z88.8 Allergy status to other drugs, medicaments and biological substances; Z82.49 Family history of ischemic heart disease and other diseases of the circulatory system
CPT/HCPCS: 36415; 80048; 80053; 85007; 85014; 85018; 85025; 86850; 86870; 86900; 86901; 93005; 96374; 99285; G0378; Q0177; J0360; J0610; J0885; J1885; J2270; J2405; P9016; P9035